=== PATIENT | male | born 1965 | race Caucasian/White ===

== ENCOUNTER 2016-12-21 08:10 | Emergency (ER) | payer OTHER ==
[2016-12-21 08:16] VITALS: BP 190/98; PULSE 97; RESP 18; TEMP 97.6
--- NOTE | 2016-12-21 08:35 | ED ---
Recheck HPI - General Chief Complaint: Recheck/Abnormal Lab/Rx Stated Complaint: Med Refill Time Seen by Provider: 12/21/16 08:16 Source: patient, RN notes reviewed, old records reviewed Mode of arrival: ambulatory Limitations: no limitations - History of Present Illness Initial Comments: Patient, presents emergency Department chief complaining of needing a medication refill. Patient reports that he has a history of bipolar disorder, hypertension and high cholesterol. He recently moved here from [place]. He is a previous patient of Dr. Kimble and does plan to get into see him soon. Patient reports his insurance starts on December 28. Patient presently has a few pills left of his lithium and blood pressure medicine. He is to start new job on Saturday. Patient denies any associated symptoms. Patient reports he feels well otherwise. - Related Data Previous Rx's Medication Instructions Recorded Atorvastatin [Lipitor] 20 mg PO HS #20 tablet 12/21/16 Hydrochlorothiazide 25 mg PO DAILY #20 tablet 12/21/16 Lisinopril 40 mg PO DAILY #20 tab 12/21/16 [place] Carbonate 600 mg PO DAILY #40 capsule 12/21/16 Allergies Allergy/AdvReac Type Severity Reaction Status Date / Time No Known Allergies Allergy Verified 12/21/16 08:16 Review of Systems ROS Statement: Those systems with pertinent positive or pertinent negative responses have been documented in the HPI. ROS Other: All systems not noted in ROS Statement are negative. Past Medical History Past Medical History: Hyperlipidemia, Hypertension Additional Past Medical History / Comment(s): bipolar History of Any Multi-Drug Resistant Organisms: None Reported Past Surgical History: Orthopedic Surgery Additional Past Surgical History / Comment(s): deviated septum sinus surg knee carpel tunnel Past Psychological History: Bipolar Smoking Status: Current every day smoker Past Alcohol Use History: Occasional Past Drug Use History: None Reported General Exam - General Exam Comments Initial Comments: This is a pleasant 31-year-old male. No acute distress. Limitations: no limitations General appearance: alert, in no apparent distress Head exam: Present: atraumatic, normocephalic, normal inspection Eye exam: Present: normal appearance, PERRL, EOMI. Absent: scleral icterus, conjunctival injection, periorbital swelling ENT exam: Present: normal exam, mucous membranes moist Neck exam: Present: normal inspection. Absent: tenderness, meningismus, lymphadenopathy Respiratory exam: Present: normal lung sounds bilaterally. Absent: respiratory distress, wheezes, rales, rhonchi, stridor Cardiovascular Exam: Present: regular rate, normal rhythm, normal heart sounds. Absent: systolic murmur, diastolic murmur, rubs, gallop, clicks GI/Abdominal exam: Present: soft, normal bowel sounds. Absent: distended, tenderness, guarding, rebound, rigid Extremities exam: Present: normal inspection, full ROM, normal capillary refill. Absent: tenderness, pedal edema, joint swelling, calf tenderness Back exam: Present: normal inspection Neurological exam: Present: alert, oriented X3 Psychiatric exam: Present: normal affect, normal mood Skin exam: Present: warm, dry, intact, normal color. Absent: rash Course Vital Signs 12/21/16 08:12 Temperature 97.6 F Pulse Rate 97 Respiratory 18 Rate Blood Pressure 190/98 O2 Sat by Pulse 99 Oximetry Medical Decision Making - Medical Decision Making 0 male chief complaint of being medication refill of lithium, atorvastatin, llisinopril and HCTZ. Patient will be given refills for 2 weeks, and instructed to follow-up with his primary care provider Dr. Kimble. Discussed close follow-up with PCP, return if there is any worsening signs or symptoms. Patient agrees to treatment plan will comply. Return Parameters were discussed. Disposition Clinical Impression: Medication refill, Hypertension Disposition: HOME SELF-CARE Condition: Good Instructions: Medicine Refill (ED) Additional Instructions: Patient advised to follow with her primary care provider. Take the medications as prescribed. Return to the emergency department if any alarming signs or symptoms occur. Prescriptions: Atorvastatin [Lipitor] 20 mg PO HS #20 tablet Hydrochlorothiazide 25 mg PO DAILY #20 tablet Lisinopril 40 mg PO DAILY #20 tab [place] Carbonate 600 mg PO DAILY #40 capsule Referrals: Hermes Kimble MD [Primary Care Provider] - 1-2 days Time of Disposition: 08:30
== END 2016-12-21 08:55 | disposition home or self-care (01) ==
LOC: EC 08:10
DX: I10 Essential (primary) hypertension (principal); Z76.0 Encounter for issue of repeat prescription; F17.200 Nicotine dependence, unspecified, uncomplicated
CPT/HCPCS: 99282

== ENCOUNTER 2017-03-05 16:37 | Inpatient (IN) | payer OTHER ==
[2017-03-05] MEDS ORDERED: SODIUM CHLORIDE 0.9% 1,000 ML IV STA (17:30)
[2017-03-05] MEDS ORDERED: PANTOPRAZOLE 40 MG/10 ML VIAL IVP STA (17:30)
--- NOTE | 2017-03-05 17:47 | ED ---
GI Bleed HPI - General Chief complaint: GI Bleed Stated complaint: Vomiting Blood Time Seen by Provider: 03/05/17 17:30 Source: patient, RN notes reviewed Mode of arrival: ambulatory Limitations: no limitations - History of Present Illness Initial comments: This a 51-year-old male presents emergency Department chief complaint of hematemesis. Patient states that he's had 7 episodes of bloody vomit. Patient states that he does have some upper abdominal discomfort. He states he has no history of peptic ulcer disease, esophageal varices or any history of hematemesis. Patient denies fever, chills, chest pain, shortness breath, headache, dizziness. Denies any diarrhea, melena or hematochezia. Patient states he does use alcohol on a daily basis. Patient has no history of pancreatitis. Patient does not take any blood thinners. Patient states he was recently prescribed anti-inflammatories though he states he does not usually take these on a regular basis. - Related Data Home Medications Medication Instructions Recorded Confirmed Menthol [Biofreeze] 1 applic TOPICAL DAILY PRN 03/05/17 03/05/17 Previous Rx's Medication Instructions Recorded Atorvastatin [Lipitor] 20 mg PO HS #20 tablet 12/21/16 Lisinopril 40 mg PO DAILY #20 tab 12/21/16 [place] Carbonate 600 mg PO DAILY #40 capsule 12/21/16 Allergies Allergy/AdvReac Type Severity Reaction Status Date / Time No Known Allergies Allergy Verified 03/05/17 17:31 Review of Systems ROS Statement: Those systems with pertinent positive or pertinent negative responses have been documented in the HPI. ROS Other: All systems not noted in ROS Statement are negative. Past Medical History Past Medical History: Hyperlipidemia, Hypertension Additional Past Medical History / Comment(s): bipolar, septic uti, History of Any Multi-Drug Resistant Organisms: None Reported Past Surgical History: Orthopedic Surgery Additional Past Surgical History / Comment(s): deviated septum sinus surg knee carpel tunnel Past Psychological History: Bipolar Smoking Status: Current every day smoker Past Alcohol Use History: Daily, Heavy Past Drug Use History: None Reported General Exam Limitations: no limitations General appearance: alert, in no apparent distress Head exam: Present: atraumatic, normocephalic, normal inspection Neck exam: Present: normal inspection, full ROM. Absent: tenderness, meningismus, lymphadenopathy Respiratory exam: Present: normal lung sounds bilaterally. Absent: respiratory distress, wheezes, rales, rhonchi, stridor Cardiovascular Exam: Present: regular rate, normal rhythm, normal heart sounds. Absent: systolic murmur, diastolic murmur, rubs, gallop, clicks GI/Abdominal exam: Present: soft, tenderness (Mild epigastric tenderness), normal bowel sounds. Absent: distended, guarding, rebound, rigid Back exam: Absent: CVA tenderness (R), CVA tenderness (L) Skin exam: Present: warm, dry, intact, normal color. Absent: rash Course Vital Signs 03/05/17 03/05/17 17:20 18:52 Temperature 98.1 F Pulse Rate 100 80 Respiratory 17 20 Rate Blood Pressure 174/87 118/57 O2 Sat by Pulse 98 95 Oximetry Medical Decision Making - Lab Data Result diagrams: 03/05/17 18:09 03/05/17 18:09 Lab Results 03/05/17 03/05/17 03/05/17 Range/Units 18:09 18:09 18:09 WBC 12.3 H (3.8-10.6) k/uL RBC 3.87 L (4.30-5.90) m/uL Hgb 13.8 (13.0-17.5) gm/dL Hct 41.7 (39.0-53.0) % MCV 107.8 H (80.0-100.0) fL MCH 35.7 H (25.0-35.0) pg MCHC 33.1 (31.0-37.0) g/dL RDW 13.5 (11.5-15.5) % Plt Count 133 L (150-450) k/uL Neutrophils % 81 % Lymphocytes % 10 % Monocytes % 6 % Eosinophils % 2 % Basophils % 0 % Neutrophils # 9.9 H (1.3-7.7) k/uL Lymphocytes # 1.2 (1.0-4.8) k/uL Monocytes # 0.7 (0-1.0) k/uL Eosinophils # 0.2 (0-0.7) k/uL Basophils # 0.0 (0-0.2) k/uL Macrocytosis Moderate PT (9.0-12.0) sec INR (<1.2) APTT (22.0-30.0) sec Sodium 141 (137-145) mmol/L Potassium 4.4 (3.5-5.1) mmol/L Chloride 104 (98-107) mmol/L Carbon Dioxide 26 (22-30) mmol/L Anion Gap 11 mmol/L BUN 20 (9-20) mg/dL Creatinine 0.46 L (0.66-1.25) mg/dL Est GFR (MDRD) Af Amer >60 (>60 ml/min/1.73 sqM) Est GFR (MDRD) Non-Af >60 (>60 ml/min/1.73 sqM) Glucose 140 H (74-99) mg/dL Calcium 10.0 (8.4-10.2) mg/dL Magnesium 1.9 (1.6-2.3) mg/dL Total Bilirubin 3.8 H (0.2-1.3) mg/dL AST 62 H (17-59) U/L ALT 29 (21-72) U/L Alkaline Phosphatase 245 H (38-126) U/L Total Creatine Kinase 48 L (55-170) U/L CK-MB (CK-2) 2.9 H* (0.0-2.4) ng/mL CK-MB (CK-2) Rel Index 6.0 Troponin I <0.012 (0.000-0.034) ng/mL Total Protein 7.6 (6.3-8.2) g/dL Albumin 4.0 (3.5-5.0) g/dL Lipase 106 (23-300) U/L Urine Color Urine Appearance (Clear) Urine pH (5.0-8.0) Ur Specific [place] (1.001-1.035) Urine Protein (Negative) Urine Glucose (UA) (Negative) Urine Ketones (Negative) Urine Blood (Negative) Urine Nitrite (Negative) Urine Bilirubin (Negative) Urine Urobilinogen (<2.0) mg/dL Ur Leukocyte Esterase (Negative) Gastric Occult Blood (Negative) Serum Alcohol <10 mg/dL 03/05/17 03/05/17 03/05/17 Range/Units 18:09 18:26 19:50 WBC (3.8-10.6) k/uL RBC (4.30-5.90) m/uL Hgb (13.0-17.5) gm/dL Hct (39.0-53.0) % MCV (80.0-100.0) fL MCH (25.0-35.0) pg MCHC (31.0-37.0) g/dL RDW (11.5-15.5) % Plt Count (150-450) k/uL Neutrophils % % Lymphocytes % % Monocytes % % Eosinophils % % Basophils % % Neutrophils # (1.3-7.7) k/uL Lymphocytes # (1.0-4.8) k/uL Monocytes # (0-1.0) k/uL Eosinophils # (0-0.7) k/uL Basophils # (0-0.2) k/uL Macrocytosis PT 14.0 H (9.0-12.0) sec INR 1.4 H (<1.2) APTT 25.5 (22.0-30.0) sec Sodium (137-145) mmol/L Potassium (3.5-5.1) mmol/L Chloride (98-107) mmol/L Carbon Dioxide (22-30) mmol/L Anion Gap mmol/L BUN (9-20) mg/dL Creatinine (0.66-1.25) mg/dL Est GFR (MDRD) Af Amer (>60 ml/min/1.73 sqM) Est GFR (MDRD) Non-Af (>60 ml/min/1.73 sqM) Glucose (74-99) mg/dL Calcium (8.4-10.2) mg/dL Magnesium (1.6-2.3) mg/dL Total Bilirubin (0.2-1.3) mg/dL AST (17-59) U/L ALT (21-72) U/L Alkaline Phosphatase (38-126) U/L Total Creatine Kinase (55-170) U/L CK-MB (CK-2) (0.0-2.4) ng/mL CK-MB (CK-2) Rel Index Troponin I (0.000-0.034) ng/mL Total Protein (6.3-8.2) g/dL Albumin (3.5-5.0) g/dL Lipase (23-300) U/L Urine Color Yellow Urine Appearance Clear (Clear) Urine pH 8.0 (5.0-8.0) Ur Specific [place] 1.017 (1.001-1.035) Urine Protein Negative (Negative) Urine Glucose (UA) Negative (Negative) Urine Ketones Negative (Negative) Urine Blood Negative (Negative) Urine Nitrite Negative (Negative) Urine Bilirubin Negative (Negative) Urine Urobilinogen 4.0 (<2.0) mg/dL Ur Leukocyte Esterase Negative (Negative) Gastric Occult Blood Positive (Negative) Serum Alcohol mg/dL Disposition Clinical Impression: Hematemesis, Jaundice, Cholelithiasis Disposition: ADMITTED IP TO THIS HOSP Condition: Fair Referrals: Hermes Kimble MD [Primary Care Provider] - 1-2 days
[2017-03-05 18:21] LABS: Basophils % (A) 0 %; CHCM 32.6; Eosinophils # (A) 0.2 k/uL (0-0.7); Eosinophils % (A) 2 %; HCT 41.7 % (39.0-53.0); HDW 2.05; HGB 13.8 gm/dL (13.0-17.5); Luc # (Auto) 0.13; Luc % (Auto) 1; Lymphocytes # (A) 1.2 k/uL (1.0-4.8); Lymphocytes % (A) 10 %; MCH 35.7 pg (25.0-35.0); MCHC 33.1 g/dL (31.0-37.0); MCV 107.8 fL (80.0-100.0); Macrocytosis Moderate; Mean Platelet Volume 10.3; Monocytes # (A) 0.7 k/uL (0-1.0); Monocytes % (A) 6 %; Neutrophils # (A) 9.9 k/uL (1.3-7.7); Neutrophils % (A) 81 %; RBC 3.87 m/uL (4.30-5.90); RDW 13.5 % (11.5-15.5); WBC 12.3 k/uL (3.8-10.6)
[2017-03-05 18:29] LABS: INR 1.4 (<1.2); Partial Thromboplastin Time 25.5 sec (22.0-30.0)
[2017-03-05 18:32] LABS: Appearance,Urine Clear (Clear); Bilirubin,Urine Negative (Negative); Glucose,Urine (UA) Negative (Negative); Ketones,Urine Negative (Negative); Leukocyte Esterase,Urine Negative (Negative); Nitrite,Urine Negative (Negative); Protein,Urine Negative (Negative); Specific Gravity,Urine 1.017 (1.001-1.035); UA Billing (MACRO vs. MICRO) CHEM
[2017-03-05 18:35] LABS: ALT 29 U/L (21-72); AST 62 U/L (17-59); Alcohol <10 mg/dL; Alkaline Phosphatase 245 U/L (38-126); Anion Gap 11 mmol/L; Blood Urea Nitrogen 20 mg/dL (9-20); Carbon Dioxide 26 mmol/L (22-30); Chloride 104 mmol/L (98-107); Glucose 140 mg/dL (74-99); Magnesium 1.9 mg/dL (1.6-2.3); Non-African American GFR(MDRD) >60 (>60 ml/min/1.73 sqM); Potassium 4.4 mmol/L (3.5-5.1); Sodium 141 mmol/L (137-145); Total Bilirubin 3.8 mg/dL (0.2-1.3); Total Protein 7.6 g/dL (6.3-8.2)
[2017-03-05 18:46] LABS: Creatine Kinase 48 U/L (55-170)
--- NOTE | 2017-03-05 18:46 | XR ---
EXAMINATION TYPE: XR chest 2V DATE OF EXAM: 03/05/2017 COMPARISON: NONE HISTORY: Shortness of breath TECHNIQUE: Frontal and lateral views of the chest are obtained. FINDINGS: Scattered senescent parenchymal changes noted. Hyperinflation compatible with COPD. No evidence for infiltrate. No evidence for atelectasis. Heart size is stable. Mediastinal structures are stable and grossly unremarkable. No evidence for hilar prominence. Degenerative changes dorsal spine. IMPRESSION: 1. No evidence for acute pulmonary disease.
[2017-03-05 18:58] LABS: Troponin I <0.012 ng/mL (0.000-0.034)
[2017-03-05 19:08] LABS: Creatine Kinase MB 2.9 ng/mL (0.0-2.4)
[2017-03-05] MEDS ORDERED: ONDANSETRON 4 MG/2 ML VIAL IVP STA (19:19)
--- NOTE | 2017-03-05 20:24 | US ---
EXAMINATION TYPE: US abdomen limited DATE OF EXAM: 03/05/2017 COMPARISON: NONE CLINICAL HISTORY: Pain. Vomiting blood EXAM MEASUREMENTS: Liver Length: 21.4 cm Gallbladder Wall: 0.28 cm CBD: 0.26 cm Right Kidney: 12.5 x 5.0 x 6.2 cm Pancreas: Obscured by bowel gas Liver: Increased attenuation Gallbladder: stone visualized in neck Evidence for sonographic Miranda's sign: No CBD: wnl Right Kidney: wnl IMPRESSION: 1 gallstone is seen within the gallbladder lumen. Borderline gallbladder wall thickening. No evidence of pericholecystic fluid. 2. Hepatic steatosis versus diffuse hepatocellular disease.
[2017-03-05] MEDS ORDERED: NALOXONE 0.4 MG/ML 1 ML VIAL IV PRN (21:04)
[2017-03-05] MEDS ORDERED: ONDANSETRON 4 MG/2 ML VIAL IVP PRN (21:04)
[2017-03-05] MEDS ORDERED: LORazepam 2 MG/ML INJ IV PRN ×3 (21:21)
[2017-03-05] MEDS: SODIUM CHLORIDE 0.9% 1,000 ML IV SCH (21:21)
[2017-03-05 22:51] VITALS: BMI 24.0
[2017-03-05] MEDS: THIAMINE 100 MG TAB PO SCH (22:51)
[2017-03-06 01:15] LABS: Basophils % (A) 0 %; CH 34.9; CHCM 31.9; Eosinophils # (A) 0.3 k/uL (0-0.7); Eosinophils % (A) 2 %; HCT 37.2 % (39.0-53.0); HDW 1.99; HGB 11.9 gm/dL (13.0-17.5); Luc # (Auto) 0.15; Luc % (Auto) 1; Lymphocytes # (A) 1.7 k/uL (1.0-4.8); Lymphocytes % (A) 13 %; MCH 35.2 pg (25.0-35.0); MCV 110.1 fL (80.0-100.0); Macrocytosis Marked; Mean Platelet Volume 10.4; Monocytes # (A) 0.8 k/uL (0-1.0); Monocytes % (A) 6 %; Neutrophils # (A) 10.1 k/uL (1.3-7.7); Neutrophils % (A) 77 %; RBC 3.38 m/uL (4.30-5.90); RDW 13.5 % (11.5-15.5); WBC 13.1 k/uL (3.8-10.6); WBC (Perox) 14.17
[2017-03-06 04:16] LABS: Basophils % (A) 0 %; CH 34.5; CHCM 32.2; Eosinophils # (A) 0.5 k/uL (0-0.7); Eosinophils % (A) 4 %; HCT 36.3 % (39.0-53.0); HDW 2.02; HGB 11.9 gm/dL (13.0-17.5); Luc # (Auto) 0.17; Luc % (Auto) 1; Lymphocytes # (A) 2.4 k/uL (1.0-4.8); Lymphocytes % (A) 18 %; MCH 35.2 pg (25.0-35.0); MCHC 32.7 g/dL (31.0-37.0); MCV 107.8 fL (80.0-100.0); Macrocytosis Moderate; Mean Platelet Volume 11.2; Monocytes # (A) 0.8 k/uL (0-1.0); Monocytes % (A) 6 %; Neutrophils # (A) 9.3 k/uL (1.3-7.7); Neutrophils % (A) 70 %; RBC 3.37 m/uL (4.30-5.90); RDW 13.3 % (11.5-15.5); WBC 13.2 k/uL (3.8-10.6); WBC (Perox) 14.03
[2017-03-06 04:58] LABS: Anion Gap 4 mmol/L; Blood Urea Nitrogen 19 mg/dL (9-20); Calcium 9.5 mg/dL (8.4-10.2); Carbon Dioxide 27 mmol/L (22-30); Chloride 107 mmol/L (98-107); Glucose 86 mg/dL (74-99); Non-African American GFR(MDRD) >60 (>60 ml/min/1.73 sqM); Sodium 138 mmol/L (137-145)
--- NOTE | 2017-03-06 09:39 | P.CONS ---
History of Present Illness - Reason for Consult Consult date: 03/06/17 hematemesis Requesting physician: Hermes Kimble - History of Present Illness 51 year old male PMH bipolar, HTN, and hyperlipidemia. Admitted with several episodes of dark red/dark brown/black hematemesis with upper abdominal pain started yesterday morning. No history of GI bleed. Denies fever, chills, weight loss, hematochezia or melena. Recent NSAID usage only one dose prior to admission for back pain. Drinks alcohol on a daily basis; several beers daily on and off since 15 years of age. Hemoglobin 13.8 presently 11.9. MCV 107. Platelet 100-133. INR 1.4. BUN 20. Creatinine 0.4. Total bilirubin 3.8. AST 62. ALT 29. AP 245. US abdomen gallstone. CBD 0.2. Liver 21 cm. Hepatic steatosis. No history of PUD, GI bleed, EGD, or gastric/bowel surgeries. Last episode of hematemesis was on admission in ER. Review of Systems Constitutional: Denies fever, chills, sweats, weight gain, or loss. HEENT: Negative for migraines, blurred vision or loss, earaches, drainage, tinnitus, oral mucosal lesions, dysphagia, or odynophagia. Cardiac: Hypertension. Hyperlipidemia. Negative for chest pain, arrhythmias, or palpitation. Respiratory: Negative for shortness of breath, hemoptysis, cough, or sputum production. Gastrointestinal: See HPI for pertinent findings. Genitourinary: Negative for hematuria, urgency, frequency, polyuria, dysuria, or penile discharge. Musculoskeletal: Negative for muscle aches, swelling, arthritis, and arthralgias. Neurologic: Negative for stroke or TIA. Endocrine: Negative for thyroid problems. Skin: Negative for rash or itching. Psychiatric: Bipolar All systems: negative (See HPI) Past Medical History Past Medical History: Hyperlipidemia, Hypertension Additional Past Medical History / Comment(s): bipolar, septic uti, History of Any Multi-Drug Resistant Organisms: None Reported Past Surgical History: Orthopedic Surgery Additional Past Surgical History / Comment(s): deviated septum sinus surg knee carpel tunnel Past Anesthesia/Blood Transfusion Reactions: No Reported Reaction Past Psychological History: Bipolar Smoking Status: Current every day smoker Past Alcohol Use History: Daily, Heavy Past Drug Use History: None Reported Medications and Allergies Home Medications Medication Instructions Recorded Confirmed Type Atorvastatin [Lipitor] 20 mg PO HS #20 tablet 12/21/16 03/05/17 Rx Lisinopril 40 mg PO DAILY #20 tab 12/21/16 03/05/17 Rx [place] Carbonate 600 mg PO DAILY #40 capsule 12/21/16 03/05/17 Rx Menthol [Biofreeze] 1 applic TOPICAL DAILY PRN 03/05/17 03/05/17 History Allergies Allergy/AdvReac Type Severity Reaction Status Date / Time No Known Allergies Allergy Verified 03/05/17 17:31 Physical Exam Vitals: Vital Signs Temp Pulse Pulse Resp BP BP Pulse Ox 03/06/17 01:00 75 14 140/73 03/06/17 00:00 74 73 13 152/84 03/05/17 22:30 98.9 F 77 19 152/84 96 03/05/17 21:46 98.8 F 73 18 152/84 98 03/05/17 21:44 96.9 F L 89 20 147/72 97 03/05/17 21:06 99.3 F 81 18 144/72 94 L 03/05/17 18:52 80 20 118/57 95 03/05/17 17:20 98.1 F 100 17 174/87 98 Intake and Output 03/05/17 03/05/17 03/06/17 14:59 22:59 06:59 Intake Total 150 Output Total 150 Balance 0 Intake: IV 150 Sodium Chloride 0.9% 1, 150 000 ml @ 75 mls/hr IV . [id number] [facility] Rx#:[id number] Output: Urine 150 Other: Voiding Method Urinal Weight 89.4 kg Patient Weight 03/06/17 06:59 Weight 89.4 kg - Constitutional General appearance: average body habitus - EENT Eyes: normal appearance - Neck Neck: normal ROM - Respiratory Respiratory: bilateral: CTA - Cardiovascular Rhythm: regular Heart sounds: normal: S1, S2 - Gastrointestinal midepigastric tenderness mild General gastrointestinal: soft - Integumentary Integumentary: normal turgor - Psychiatric Psychiatric: A&O x's 3, appropriate affect Results CBC & Chem 7: 03/06/17 04:07 03/06/17 04:07 Labs: Abnormal Lab Results - Last 24 Hours (Table) 03/05/17 03/05/17 03/05/17 Range/Units 18:09 18:09 18:09 WBC 12.3 H (3.8-10.6) k/uL RBC 3.87 L (4.30-5.90) m/uL Hgb (13.0-17.5) gm/dL Hct (39.0-53.0) % MCV 107.8 H (80.0-100.0) fL MCH 35.7 H (25.0-35.0) pg Plt Count 133 L (150-450) k/uL Neutrophils # 9.9 H (1.3-7.7) k/uL PT (9.0-12.0) sec INR (<1.2) Creatinine 0.46 L (0.66-1.25) mg/dL Glucose 140 H (74-99) mg/dL Total Bilirubin 3.8 H (0.2-1.3) mg/dL AST 62 H (17-59) U/L Alkaline Phosphatase 245 H (38-126) U/L Total Creatine Kinase 48 L (55-170) U/L CK-MB (CK-2) 2.9 H* (0.0-2.4) ng/mL 03/05/17 03/06/17 03/06/17 Range/Units 18:09 00:57 04:07 WBC 13.1 H 13.2 H (3.8-10.6) k/uL RBC 3.38 L 3.37 L (4.30-5.90) m/uL Hgb 11.9 L 11.9 L (13.0-17.5) gm/dL Hct 37.2 L 36.3 L (39.0-53.0) % MCV 110.1 H 107.8 H (80.0-100.0) fL MCH 35.2 H 35.2 H (25.0-35.0) pg Plt Count 106 L 100 L (150-450) k/uL Neutrophils # 10.1 H 9.3 H (1.3-7.7) k/uL PT 14.0 H (9.0-12.0) sec INR 1.4 H (<1.2) Creatinine (0.66-1.25) mg/dL Glucose (74-99) mg/dL Total Bilirubin (0.2-1.3) mg/dL AST (17-59) U/L Alkaline Phosphatase (38-126) U/L Total Creatine Kinase (55-170) U/L CK-MB (CK-2) (0.0-2.4) ng/mL 03/06/17 Range/Units 04:07 WBC (3.8-10.6) k/uL RBC (4.30-5.90) m/uL Hgb (13.0-17.5) gm/dL Hct (39.0-53.0) % MCV (80.0-100.0) fL MCH (25.0-35.0) pg Plt Count (150-450) k/uL Neutrophils # (1.3-7.7) k/uL PT (9.0-12.0) sec INR (<1.2) Creatinine 0.50 L (0.66-1.25) mg/dL Glucose (74-99) mg/dL Total Bilirubin (0.2-1.3) mg/dL AST (17-59) U/L Alkaline Phosphatase (38-126) U/L Total Creatine Kinase (55-170) U/L CK-MB (CK-2) (0.0-2.4) ng/mL US - abdomen: report reviewed (Dr. Ace) Assessment and Plan (1) Upper GI bleed Narrative/Plan: NSAID related peptic ulcer disease possible varices possible alcohol gastropathy gastritis esophagitis. Current Visit: Yes Status: Acute Code(s): K92.2 - GASTROINTESTINAL HEMORRHAGE, UNSPECIFIED SNOMED Code(s): 54815942 (2) Hematemesis Current Visit: Yes Status: Acute Code(s): K92.0 - HEMATEMESIS SNOMED Code( s): 9569723 (3) Alcoholic hepatitis Current Visit: Yes Status: Acute Code(s): K70.10 - ALCOHOLIC HEPATITIS WITHOUT ASCITES SNOMED Code(s): 674603871 (4) ETOH abuse Current Visit: Yes Status: Acute Code(s): F10.10 - ALCOHOL ABUSE, UNCOMPLICATED SNOMED Code(s): 06820259 (5) Acute blood loss anemia Current Visit: Yes Status: Acute Code(s): D62 - ACUTE POSTHEMORRHAGIC ANEMIA SNOMED Code(s): 036398894 (6) Steatosis of liver Current Visit: Yes Status: Acute Code(s): K76.0 - FATTY (CHANGE OF) LIVER, NOT ELSEWHERE CLASSIFIED SNOMED Code(s): 671175028 (7) Coagulopathy Current Visit: Yes Status: Acute Code(s): D68.9 - COAGULATION DEFECT, UNSPECIFIED SNOMED Code(s): 46039786 (8) Thrombocytopenia Current Visit: Yes Status: Acute Code(s): D69.6 - THROMBOCYTOPENIA, UNSPECIFIED SNOMED Code(s): 009903046 (9) Jaundice due to hepatitis Current Visit: Yes Status: Acute Code(s): K75.9 - INFLAMMATORY LIVER DISEASE , UNSPECIFIED SNOMED Code(s): 18241544 Plan: 1. Protonix 40 mg Q12HR. 2. CBC monitoring. 3. NO ASA/NSAIDS. 4. EGD evaluation tomorrow. 5. ETOH abstinence advised. 6. Full liquids. NPO after midnight. The mold holder has discussed the risks, benefits and alternative therapies for the above-mentioned procedure and for both sedation/analgesia as well as necessary blood product administration, if indicated, as they pertain to this patient. The patient has indicated understanding and acceptance of the risks and procedures discussed. Thank you for this kind referral and the opportunity to participate in the care of your patient. This consultation was discussed with Dr. Ace. The impression and plan of care have been directed as dictated.
[2017-03-06] MEDS: PANTOPRAZOLE 40 MG/10 ML VIAL IV SCH ×2 (09:45→20:33)
[2017-03-06] MEDS: LITHIUM CARBONATE 300 MG CAP PO SCH (10:41)
[2017-03-06] MEDS: LISINOPRIL 20 MG TAB PO SCH (10:41)
--- NOTE | 2017-03-06 10:45 | P.HPIM ---
History of Present Illness 51-year-old male presented to the emergency room with complaints of vomiting blood several times. Patient has a history of alcohol abuse daily alcohol intake. Patient complaining of intermittent and epigastric pain Review of Systems Gastrointestinal: Reports abdominal pain, Reports hematemesis, Reports jaundice Past Medical History Past Medical History: Hyperlipidemia, Hypertension Additional Past Medical History / Comment(s): bipolar, septic uti, History of Any Multi-Drug Resistant Organisms: None Reported Past Surgical History: Orthopedic Surgery Additional Past Surgical History / Comment(s): deviated septum sinus surg knee carpel tunnel Past Anesthesia/Blood Transfusion Reactions: No Reported Reaction Past Psychological History: Bipolar Smoking Status: Current every day smoker Past Alcohol Use History: Daily, Heavy Past Drug Use History: None Reported Medications and Allergies Home Medications Medication Instructions Recorded Confirmed Type Atorvastatin [Lipitor] 20 mg PO HS #20 tablet 12/21/16 03/05/17 Rx Lisinopril 40 mg PO DAILY #20 tab 12/21/16 03/05/17 Rx [place] Carbonate 600 mg PO DAILY #40 capsule 12/21/16 03/05/17 Rx Menthol [Biofreeze] 1 applic TOPICAL DAILY PRN 03/05/17 03/05/17 History Allergies Allergy/AdvReac Type Severity Reaction Status Date / Time No Known Allergies Allergy Verified 03/05/17 17:31 Physical Exam Vitals: Vital Signs Temp Pulse Pulse Resp BP BP Pulse Ox 03/06/17 09:00 96.5 F L 73 17 149/79 98 03/06/17 07:00 73 14 138/72 03/06/17 06:00 75 12 119/71 98 03/06/17 05:00 72 20 119/71 97 03/06/17 04:00 98.5 F 70 73 15 135/76 98 03/06/17 03:00 92 29 H 135/76 99 03/06/17 02:00 71 13 140/73 98 03/06/17 01:00 75 14 140/73 03/06/17 00:00 74 73 13 152/84 03/05/17 22:30 98.9 F 77 19 152/84 96 03/05/17 21:46 98.8 F 73 18 152/84 98 03/05/17 21:44 96.9 F L 89 20 147/72 97 03/05/17 21:06 99.3 F 81 18 144/72 94 L 03/05/17 18:52 80 20 118/57 95 03/05/17 17:20 98.1 F 100 17 174/87 98 Intake and Output 03/05/17 03/06/17 03/06/17 22:59 06:59 14:59 Intake Total 150 896 Output Total 300 100 Balance -150 796 Intake: IV 150 896 Sodium Chloride 0.9% 1, 150 896 000 ml @ 75 mls/hr IV . [id number] [facility] Rx#:[id number] Output: Urine 300 100 Other: Voiding Method Urinal Weight 89.4 kg - Constitutional General appearance: obese - EENT Eyes: PERRLA, scleral icterus ENT: normal oropharynx - Neck Neck: normal ROM - Respiratory Respiratory: bilateral: CTA - Cardiovascular Rhythm: regular - Gastrointestinal General gastrointestinal: soft - Integumentary Integumentary: normal - Neurologic Neurologic: CNII-XII intact - Musculoskeletal Musculoskeletal: generalized weakness - Psychiatric Psychiatric: A&O x's 3, appropriate affect, intact judgment & insight Results CBC & Chem 7: 03/06/17 04:07 03/06/17 04:07 Labs: Abnormal Lab Results - Last 24 Hours (Table) 03/05/17 03/05/17 03/05/17 Range/Units 18:09 18:09 18:09 WBC 12.3 H (3.8-10.6) k/uL RBC 3.87 L (4.30-5.90) m/uL Hgb (13.0-17.5) gm/dL Hct (39.0-53.0) % MCV 107.8 H (80.0-100.0) fL MCH 35.7 H (25.0-35.0) pg Plt Count 133 L (150-450) k/uL Neutrophils # 9.9 H (1.3-7.7) k/uL PT (9.0-12.0) sec INR (<1.2) Creatinine 0.46 L (0.66-1.25) mg/dL Glucose 140 H (74-99) mg/dL Total Bilirubin 3.8 H (0.2-1.3) mg/dL AST 62 H (17-59) U/L Alkaline Phosphatase 245 H (38-126) U/L Total Creatine Kinase 48 L (55-170) U/L CK-MB (CK-2) 2.9 H* (0.0-2.4) ng/mL 03/05/17 03/06/17 03/06/17 Range/Units 18:09 00:57 04:07 WBC 13.1 H 13.2 H (3.8-10.6) k/uL RBC 3.38 L 3.37 L (4.30-5.90) m/uL Hgb 11.9 L 11.9 L (13.0-17.5) gm/dL Hct 37.2 L 36.3 L (39.0-53.0) % MCV 110.1 H 107.8 H (80.0-100.0) fL MCH 35.2 H 35.2 H (25.0-35.0) pg Plt Count 106 L 100 L (150-450) k/uL Neutrophils # 10.1 H 9.3 H (1.3-7.7) k/uL PT 14.0 H (9.0-12.0) sec INR 1.4 H (<1.2) Creatinine (0.66-1.25) mg/dL Glucose (74-99) mg/dL Total Bilirubin (0.2-1.3) mg/dL AST (17-59) U/L Alkaline Phosphatase (38-126) U/L Total Creatine Kinase (55-170) U/L CK-MB (CK-2) (0.0-2.4) ng/mL 03/06/17 Range/Units 04:07 WBC (3.8-10.6) k/uL RBC (4.30-5.90) m/uL Hgb (13.0-17.5) gm/dL Hct (39.0-53.0) % MCV (80.0-100.0) fL MCH (25.0-35.0) pg Plt Count (150-450) k/uL Neutrophils # (1.3-7.7) k/uL PT (9.0-12.0) sec INR (<1.2) Creatinine 0.50 L (0.66-1.25) mg/dL Glucose (74-99) mg/dL Total Bilirubin (0.2-1.3) mg/dL AST (17-59) U/L Alkaline Phosphatase (38-126) U/L Total Creatine Kinase (55-170) U/L CK-MB (CK-2) (0.0-2.4) ng/mL Chest x-ray: report reviewed US - abdomen: report reviewed Thrombosis Risk Factor Assmnt - Choose All That Apply Any of the Below Risk Factors Present?: Yes Each Factor Represents 1 point: Age 41-60 years Other Risk Factors: No Other congenital or acquired thrombophilia - If yes, enter type in comment: No Thrombosis Risk Factor Assessment Total Risk Factor Score: 1 Thrombosis Risk Factor Assessment Level: Low Risk Assessment and Plan Assessment: Assessment Upper GI bleed Alcoholic hepatitis EtOH abuse Anemia acute secondary to blood loss Cholelithiasis Nicotine use COPD History of hypertension History of hyperlipidemia History of bipolar Thrombocytopenia and coagulopathy secondary to alcoholic hepatitis Plan EGD per gastroenterology Monitor hemoglobin
[2017-03-06] MEDS: SODIUM CHLORIDE 0.9% 1,000 ML IV SCH ×2 (10:53→14:11)
[2017-03-06] MEDS: THIAMINE 100 MG TAB PO SCH ×2 (12:30→17:22)
[2017-03-06] MEDS: ATORVASTATIN 20 MG TAB PO SCH (20:33)
[2017-03-07] MEDS: SODIUM CHLORIDE 0.9% 1,000 ML IV SCH (08:08)
[2017-03-07] MEDS: LITHIUM CARBONATE 300 MG CAP PO SCH (08:08)
[2017-03-07] MEDS: THIAMINE 100 MG TAB PO SCH ×2 (08:08→17:39)
[2017-03-07] MEDS: LISINOPRIL 20 MG TAB PO SCH (08:08)
[2017-03-07] MEDS: PANTOPRAZOLE 40 MG/10 ML VIAL IV SCH ×2 (08:08→20:30)
[2017-03-07 09:09] LABS: CH 35.4; CHCM 32.4; HDW 2.05; HGB 11.6 gm/dL (13.0-17.5); MCH 35.3 pg (25.0-35.0); MCHC 32.2 g/dL (31.0-37.0); MCV 109.6 fL (80.0-100.0); Macrocytosis Moderate; Mean Platelet Volume 9.6; RBC 3.29 m/uL (4.30-5.90); RDW 12.5 % (11.5-15.5)
[2017-03-07 09:12] LABS: ALT 29 U/L (21-72); AST 51 U/L (17-59); Alkaline Phosphatase 204 U/L (38-126); Anion Gap 7 mmol/L; Blood Urea Nitrogen 11 mg/dL (9-20); Calcium 9.3 mg/dL (8.4-10.2); Carbon Dioxide 23 mmol/L (22-30); Chloride 109 mmol/L (98-107); Glucose 92 mg/dL (74-99); Non-African American GFR(MDRD) >60 (>60 ml/min/1.73 sqM); Potassium 4.4 mmol/L (3.5-5.1); Sodium 139 mmol/L (137-145); Total Bilirubin 4.9 mg/dL (0.2-1.3); Total Protein 6.2 g/dL (6.3-8.2)
--- NOTE | 2017-03-07 11:56 | P.PN ---
Subjective Patient resting in bed hemoglobin stable at 11.9. Denies any abdominal pain awaiting EGD per gastroenterology Objective - Vital Signs Vital signs: Vital Signs Temp 97.2 F L 03/07/17 08:00 Pulse 98 03/07/17 08:00 Resp 18 03/07/17 08:00 BP 133/69 03/07/17 08:00 Pulse Ox 98 03/07/17 08:00 Intake & Output 03/06/17 03/07/17 03/07/17 18:59 06:59 18:59 Intake Total 1656 675 0 Output Total 325 1200 Balance 1331 -525 0 Weight 89.4 kg 86.9 kg Intake: IV 1656 375 Sodium Chloride 0.9% 1, 1656 375 000 ml @ 75 mls/hr IV . [id number] [facility] Rx#:[id number] Oral 300 0 Output: Urine 325 1200 Other: Voiding Method Urinal Urinal Urinal # Voids 1 0 - Constitutional General appearance: Present: average body habitus - EENT Eyes: Present: PERRLA, scleral icterus Ears: bilateral: normal - Neck Neck: Present: normal ROM - Respiratory Respiratory: bilateral: CTA - Cardiovascular Rhythm: regular - Gastrointestinal General gastrointestinal: Present: soft - Integumentary Integumentary: Present: jaundiced, normal - Neurologic Neurologic: Present: CNII-XII intact - Musculoskeletal Musculoskeletal: Present: gait normal - Psychiatric Psychiatric: Present: A&O x's 3, appropriate affect, intact judgment & insight - Labs CBC & Chem 7: 03/07/17 08:38 03/07/17 08:38 Labs: Abnormal Lab Results - Last 24 Hours (Table) 03/07/17 03/07/17 Range/Units 08:38 08:38 RBC 3.29 L (4.30-5.90) m/uL Hgb 11.6 L (13.0-17.5) gm/dL Hct 36.0 L (39.0-53.0) % MCV 109.6 H (80.0-100.0) fL MCH 35.3 H (25.0-35.0) pg Plt Count 92 L (150-450) k/uL Chloride 109 H (98-107) mmol/L Creatinine 0.49 L (0.66-1.25) mg/dL Total Bilirubin 4.9 H (0.2-1.3) mg/dL Alkaline Phosphatase 204 H (38-126) U/L Total Protein 6.2 L (6.3-8.2) g/dL Albumin 3.1 L (3.5-5.0) g/dL Assessment and Plan Plan: Assessment upper GI bleed Cholelithiasis Alcoholic hepatitis with jaundice Thrombocytopenia and coagulopathy secondary to above Anemia acute secondary to blood loss Hypertension hyperlipidemia Bipolar COPD nicotine use Call abuse Plan Awaiting EGD per gastroenterology Discussed at length alcohol use
[2017-03-07] MEDS ORDERED: LIDOCAINE 1% INJ 10MG/ML (20 ML MDV) ONE (16:23)
[2017-03-07] MEDS ORDERED: PROPOFOL 10 MG/ML 20 ML VIAL IV ONE (16:23)
[2017-03-07] MEDS ORDERED: MIDAZOLAM 2 MG/2 ML VIAL ONE (16:23)
[2017-03-07] MEDS ORDERED: fentaNYL (PF) 50 MCG/ML 2 ML AMP ONE (16:23)
[2017-03-07] MEDS ORDERED: IV FLUID CONTINUATION 1,000 ML IV ONE (16:23)
--- NOTE | 2017-03-07 17:15 | P.PCN ---
Date of Procedure: 03/07/17 Procedure(s) Performed: Procedure: Esophagogastroduodenoscopy and biopsy. Preoperative diagnosis: Upper GI bleeding. Postoperative diagnosis: 1. Gastritis and duodenitis with no ulcers or active bleeding. 2. No significant esophageal or gastric varices. Preparation sedation: Was provided by anesthesia. Brief clinical history: The patient is a 51 year old male with PMH of bipolar, HTN, and hyperlipidemia, was admitted with several episodes of dark red/dark brown/black hematemesis with upper abdominal pain of one day duration. No history of GI bleed. Denies fever, chills, weight loss, hematochezia or melena. Recent NSAID usage only one dose prior to admission for back pain. Drinks alcohol on a daily basis; several beers daily on and off since 15 years of age. Hemoglobin 13.8 dropped to 11.9. MCV 107. Platelet 100-133. INR 1.4. BUN 20. Creatinine 0.4. Total bilirubin 3.8. AST 62. ALT 29. AP 245. US abdomen gallstone. CBD 0.2. Liver 21 cm. Hepatic steatosis. No history of PUD, GI bleed , EGD, or gastric/bowel surgeries. Last episode of hematemesis was on admission in ER. The details are summarized in the history and physical and dictated consultation and progress notes. Procedure: With the patient on his left lateral decubitus position and after informed consent and adequate sedation, I passed the Olympus-GIF 160 video upper endoscope through the cricopharyngeus down the esophagus. GE junction was around 41 cm from the incisors and there was a 1-2 cm sliding hiatal hernia. The distal esophagus showed some thickening of the mucosa but no obvious erosions or ulcers. No Ervin's esophagus. At there was no definite esophageal varices. There were no mucosal tears. The endoscope was then passed into the stomach which was insufflated with air and inspected in detail including the retroflex view in the cardia. Finally the endoscope was passed through the pylorus into the duodenum. Duodenal bulb, post bulbar area and descending duodenum as well as the stomach showed diffuse mottling erythema and friability but no ulcers or active bleeding. There was no obvious gastric varices. All secretions in the esophagus stomach and small intestine where clear or bilious in color with no evidence of active bleeding. Biopsies were obtained from the antrum then the endoscope was withdrawn. The patient tolerated the procedure well. Plan: The patient was reassured. Will await biopsy results. Meanwhile, will advance diet and he was instructed regarding the need to abstain from drinking alcohol. Further plans can be made based on his course and biopsy results.
[2017-03-07] MEDS: ATORVASTATIN 20 MG TAB PO SCH (20:30)
[2017-03-08] MEDS: SODIUM CHLORIDE 0.9% 1,000 ML IV SCH (03:43)
--- NOTE | 2017-03-08 09:28 | P.PN ---
Subjective Progress Note Date: 03/08/17 Principal diagnosis: GI bleed hepatitis Status post EGD evaluation yesterday for evaluation of hematemesis. Findings of gastritis duodenitis no evidence of peptic ulcer disease or bleeding angiectasia. Feels better. No recurrent hematemesis. Tolerating diet. Anticipating discharge. Abdominal pain improved. Objective - Vital Signs Vital signs: Vital Signs Temp 98.7 F 03/08/17 04:00 Pulse 98 03/08/17 04:00 Resp 19 03/08/17 04:00 BP 138/72 03/08/17 04:00 Pulse Ox 97 03/08/17 04:00 Intake & Output 03/07/17 03/08/17 03/08/17 18:59 06:59 18:59 Intake Total 100 300 118 Output Total 100 1100 Balance 0 -800 118 Weight 86.3 kg Intake: IV 100 Oral 0 300 118 Output: Urine 100 1100 Other: Voiding Method Urinal Urinal # Voids 0 0 1 - Exam General appearance: The patient is alert, oriented, in no acute distress. Jaundice. HET: Head is normocephalic and atraumatic. Pupils are equal and reactive. Sclerae icterus. Oropharynx is clear without lesions. Neck: Supple without lymphadenopathy. Trachea midline. Heart: S1 S2. Regular rate and rhythm. Lungs: No crackles or wheezes are heard. Abdomen: Soft, nontender, nondistended with bowel sounds. No peritoneal signs. No palpable organomegaly or masses. Extremities: Normal skin color and turgor. No cyanosis, rash, ulceration, clubbing, or edema. Radial and pedal pulses are 2/4 bilaterally. Neurological: No focal deficits. Strength and sensation are grossly intact. - Labs CBC & Chem 7: 03/07/17 08:38 03/07/17 08:38 Assessment and Plan (1) Upper GI bleed Narrative/Plan: Gastritis duodenitis per EGD evaluation Current Visit: Yes Status: Acute Code(s): K92.2 - GASTROINTESTINAL HEMORRHAGE, UNSPECIFIED SNOMED Code(s): 00790465 (2) Hematemesis Current Visit: Yes Status: Acute Code(s): K92.0 - HEMATEMESIS SNOMED Code( s): 8825196 (3) Alcoholic hepatitis Current Visit: Yes Status: Acute Code(s): K70.10 - ALCOHOLIC HEPATITIS WITHOUT ASCITES SNOMED Code(s): 553099834 (4) ETOH abuse Current Visit: Yes Status: Acute Code(s): F10.10 - ALCOHOL ABUSE, UNCOMPLICATED SNOMED Code(s): 55989238 (5) Acute blood loss anemia Current Visit: Yes Status: Acute Code(s): D62 - ACUTE POSTHEMORRHAGIC ANEMIA SNOMED Code(s): 463207689 (6) Steatosis of liver Current Visit: Yes Status: Acute Code(s): K76.0 - FATTY (CHANGE OF) LIVER, NOT ELSEWHERE CLASSIFIED SNOMED Code(s): 570656862 (7) Coagulopathy Current Visit: Yes Status: Acute Code(s): D68.9 - COAGULATION DEFECT, UNSPECIFIED SNOMED Code(s): 86598745 (8) Thrombocytopenia Current Visit: Yes Status: Acute Code(s): D69.6 - THROMBOCYTOPENIA, UNSPECIFIED SNOMED Code(s): 874431070 (9) Jaundice due to hepatitis Current Visit: Yes Status: Acute Code(s): K75.9 - INFLAMMATORY LIVER DISEASE , UNSPECIFIED SNOMED Code(s): 75461880 Plan: 1. Discharge per medicine. Follow up in GI office as needed. Alcohol abstinence advised. Assessment and plan of care discussed with Dr. Brown
[2017-03-08] MEDS: LITHIUM CARBONATE 300 MG CAP PO SCH (09:36)
[2017-03-08] MEDS: LISINOPRIL 20 MG TAB PO SCH (09:36)
[2017-03-08] MEDS: PANTOPRAZOLE 40 MG/10 ML VIAL IV SCH (09:36)
[2017-03-08 09:48] VITALS: TEMP 96.3
[2017-03-08 09:49] VITALS: BP 141/65; PULSE 78; RESP 18
--- NOTE | 2017-03-08 17:02 | P.DS ---
Providers Date of admission: 03/05/17 20:58 Attending physician: Hermes Kimble Primary care physician: Hermes Kimble [facility] Course: This 57-year-old gentleman with a past medical history of multiple medical problems was admitted with upper GI bleeding. EGD showed gastritis. The possibility of Eva-Soto syndrome was also considered. Patient is also taking NSAIDS the previously. The patient improved significantly. Hemoglobin stabilized. Patient be discharged in a stable condition with guarded prognosis. On exam vitals are stable. Cardio system S1-S2 normal. Abdomen soft nontender. Nervous system no focal deficit. Final diagnosis 1. Upper GI bleeding possibly acute gastritis or Eva-Soto syndrome. 2. Cholelithiasis. 3. Alcoholic hepatitis with jaundice improved. 4. Thrombocytopenia 5. Anemia secondary to of acute blood loss anemia GI blood loss. 5. Hypertension 6. Hyperlipidemia 7. Bipolar. Patient Condition at Discharge: Fair Plan - Discharge Summary Discharge Rx Participant: No New Discharge Prescriptions: New Folic Acid 1 mg PO DAILY #30 tablet LORazepam [Ativan] 0.5 mg PO TID PRN #20 tab PRN Reason: Anxiety Multivitamins, Thera [Multivitamin (formulary)] 1 tab PO DAILY #30 tablet Thiamine [Vitamin B-1] 100 mg PO DAILY #30 tab Omeprazole [PriLOSEC] 20 mg PO AC-BID #60 cap Continue Lisinopril 40 mg PO DAILY #20 tab Atorvastatin [Lipitor] 20 mg PO HS #20 tablet [place] Carbonate 600 mg PO DAILY #40 capsule Menthol [Biofreeze] 1 applic TOPICAL DAILY PRN PRN Reason: BACK PAIN Discharge Medication List Atorvastatin [Lipitor] 20 mg PO HS #20 tablet 12/21/16 [Rx] Lisinopril 40 mg PO DAILY #20 tab 12/21/16 [Rx] [place] Carbonate 600 mg PO DAILY #40 capsule 12/21/16 [Rx] Menthol [Biofreeze] 1 applic TOPICAL DAILY PRN 03/05/17 [History] Folic Acid 1 mg PO DAILY #30 tablet 03/08/17 [Rx] LORazepam [Ativan] 0.5 mg PO TID PRN #20 tab 03/08/17 [Rx] Multivitamins, Thera [Multivitamin (formulary)] 1 tab PO DAILY #30 tablet [Rx] Omeprazole [PriLOSEC] 20 mg PO AC-BID #60 cap 03/08/17 [Rx] Thiamine [Vitamin B-1] 100 mg PO DAILY #30 tab 03/08/17 [Rx] Follow up Appointment(s)/Referral(s): Hermes Kimble MD [Primary Care Provider] - 03/11/17 8:20 am (APPOINTMENT ON THE IS CANCELLED.) Kareem Ace MD [STAFF PHYSICIAN] - 04/08/17 3:45 pm (APPOINTMENT IS ON A SATURDAY. THERE ARE NO MORNING APPOINTMENTS AVAILABLE. OFFICE WILL CALL IF AN EARLIER APPOINTMENT IS NEEDED. ) Ambulatory/Diagnostic Orders: Complete Blood Count w/diff [LAB.AMB] Time Frame: 3 Days, Location: Determined By Patient Patient Instructions/Handouts: Gastritis (DC), Diet for Stomach Ulcers and Gastritis (GEN) Activity/Diet/Wound Care/Special Instructions: no etoh DIet; Soft activity: limited till f/u Discharge Disposition: HOME SELF-CARE
== END 2017-03-08 12:53 | disposition home or self-care (01) | DRG 241 ==
LOC: EC 16:37 → 6ICU 20:58 → 6SEL 03-06 17:35
PROVIDERS: ADMIT Family Medicine; ATTEND Family Medicine
PROC: 0DB68ZX Excision of Stomach, Via Natural or Artificial Opening Endoscopic, Diagnostic (ICD-10-PCS; principal; 2017-03-07 15:55)
DX: K29.80 Duodenitis without bleeding (principal); K22.6 Gastro-esophageal laceration-hemorrhage syndrome; D68.9 Coagulation defect, unspecified; D62 Acute posthemorrhagic anemia; D69.6 Thrombocytopenia, unspecified; K29.00 Acute gastritis without bleeding; K76.0 Fatty (change of) liver, not elsewhere classified; K70.10 Alcoholic hepatitis without ascites; K80.20 Calculus of gallbladder without cholecystitis without obstruction; I10 Essential (primary) hypertension; E78.5 Hyperlipidemia, unspecified; F31.9 Bipolar disorder, unspecified; K44.9 Diaphragmatic hernia without obstruction or gangrene; F17.200 Nicotine dependence, unspecified, uncomplicated; T39.395A Adverse effect of other nonsteroidal anti-inflammatory drugs [NSAID], initial encounter; K27.9 Peptic ulcer, site unspecified, unspecified as acute or chronic, without hemorrhage or perforation; F10.10 Alcohol abuse, uncomplicated; J44.9 Chronic obstructive pulmonary disease, unspecified; Z79.899 Other long term (current) drug therapy; Z87.440 Personal history of urinary (tract) infections
CPT/HCPCS: 36415; 43239; 71020; 76705; 80048; 80053; 80320; 81003; 82271; 82550; 82553; 83690; 83735; 84484; 85025; 85027; 85610; 85730; 88305; 88342; 96361; 96374; 96375; 99285

== ENCOUNTER 2017-04-27 21:30 | Emergency (ER) | payer OTHER ==
[2017-04-27] MEDS ORDERED: SODIUM CHLORIDE 0.9% 500 ML IV STA (22:11)
[2017-04-27] MEDS ORDERED: SODIUM CHLORIDE 0.9% 1,000 ML IV STA (22:11)
[2017-04-27 22:42] LABS: Appearance,Urine Clear (Clear); Bilirubin,Urine Negative (Negative); Blood,Urine Negative (Negative); Color,Urine Yellow; Glucose,Urine (UA) Negative (Negative); Ketones,Urine Negative (Negative); Leukocyte Esterase,Urine Negative (Negative); Nitrite,Urine Negative (Negative); PH, Urine 6.5 (5.0-8.0); Protein,Urine Negative (Negative); Specific Gravity,Urine 1.002 (1.001-1.035); Urobilinogen,Urine <2.0 mg/dL (<2.0)
[2017-04-27 22:47] LABS: INR 1.3 (<1.2)
[2017-04-27 22:48] LABS: Basophils # (A) 0.1 k/uL (0-0.2); Basophils % (A) 1 %; Eosinophils # (A) 1.3 k/uL (0-0.7); Eosinophils % (A) 9 %; HCT 43.6 % (39.0-53.0); HGB 14.2 gm/dL (13.0-17.5); Lymphocytes # (A) 2.2 k/uL (1.0-4.8); Lymphocytes % (A) 15 %; MCH 35.1 pg (25.0-35.0); MCHC 32.5 g/dL (31.0-37.0); MCV 107.9 fL (80.0-100.0); Macrocytosis Moderate; Mean Platelet Volume 9.6; Monocytes # (A) 0.9 k/uL (0-1.0); Monocytes % (A) 6 %; Neutrophils # (A) 10.2 k/uL (1.3-7.7); Neutrophils % (A) 68 %; Partial Thromboplastin Time 27.2 sec (22.0-30.0); Platelet Count 110 k/uL (150-450); Prothrombin Time 12.3 sec (9.0-12.0); RBC 4.05 m/uL (4.30-5.90); RDW 12.9 % (11.5-15.5); WBC 14.9 k/uL (3.8-10.6)
[2017-04-27 22:56] LABS: ALT 29 U/L (21-72); AST 72 U/L (17-59); Acetaminophen <10.0 ug/mL; Alkaline Phosphatase 370 U/L (38-126); Amylase 90 U/L (30-110); Anion Gap 12 mmol/L; Bilirubin, Delta 1.6 mg/dL (0.0-0.2); Bilirubin,Unconjugated 1.3 mg/dL (0.0-1.1); Blood Urea Nitrogen 5 mg/dL (9-20); Calcium 9.9 mg/dL (8.4-10.2); Carbon Dioxide 24 mmol/L (22-30); Chloride 108 mmol/L (98-107); Glucose 108 mg/dL (74-99); Lipase 263 U/L (23-300); Lithium 0.4 mmol/L; Sodium 144 mmol/L (137-145); Total Bilirubin 2.9 mg/dL (0.2-1.3)
[2017-04-27 23:00] LABS: Alcohol 210 mg/dL
[2017-04-28 00:31] VITALS: RESP 16
--- NOTE | 2017-04-28 00:34 | ED ---
General Adult HPI - General Chief complaint: Abdominal Pain Stated complaint: Flank pain Time Seen by Provider: 04/27/17 21:57 Source: patient, RN notes reviewed, old records reviewed Mode of arrival: ambulatory Limitations: no limitations - History of Present Illness Initial comments: 51-year-old male presents for evaluation of low back pain and dark urine. Patient has past medical history of alcoholic cirrhosis, liver failure and renal failure. He also has chronic low back pain and high blood pressure. Patient had recent hospital admission with bleeding gastric ulcer. Complaint is right-sided low back pain and flank pain. Also complains of some mild right upper quadrant pain. Denies fever or chills. Denies nausea vomiting or diarrhea. Denies epigastric abdominal pain. Patient does admit to heavy alcohol consumption. - Related Data Home Medications Medication Instructions Recorded Confirmed Menthol [Biofreeze] 1 applic TOPICAL DAILY PRN 03/05/17 04/04/17 ALPRAZolam [Xanax] 0.5 mg PO BID PRN 04/04/17 04/04/17 Omeprazole [PriLOSEC] 40 mg PO DAILY 04/04/17 04/04/17 Previous Rx's Medication Instructions Recorded Atorvastatin [Lipitor] 20 mg PO HS #20 tablet 12/21/16 Lisinopril 40 mg PO DAILY #20 tab 12/21/16 [place] Carbonate 600 mg PO DAILY #40 capsule 12/21/16 Folic Acid 1 mg PO DAILY #30 tablet 03/08/17 Multivitamins, Thera [Multivitamin 1 tab PO DAILY #30 tablet 03/08/17 (formulary)] Thiamine [Vitamin B-1] 100 mg PO DAILY #30 tab 03/08/17 Allergies Allergy/AdvReac Type Severity Reaction Status Date / Time No Known Allergies Allergy Verified 04/27/17 21:52 Review of Systems ROS Statement: Those systems with pertinent positive or pertinent negative responses have been documented in the HPI. ROS Other: All systems not noted in ROS Statement are negative. Past Medical History Past Medical History: Hyperlipidemia, Hypertension Additional Past Medical History / Comment(s): bipolar, septic uti, History of Any Multi-Drug Resistant Organisms: None Reported Past Surgical History: Orthopedic Surgery Additional Past Surgical History / Comment(s): deviated septum sinus surg knee carpel tunnel Past Anesthesia/Blood Transfusion Reactions: No Reported Reaction Past Psychological History: Bipolar Smoking Status: Current every day smoker Past Alcohol Use History: Daily, Heavy Past Drug Use History: None Reported General Exam Limitations: no limitations General appearance: alert, in no apparent distress, appears intoxicated Head exam: Present: atraumatic, normocephalic Eye exam: Present: PERRL, scleral icterus ENT exam: Present: normal exam Neck exam: Present: normal inspection. Absent: tenderness, meningismus Respiratory exam: Present: normal lung sounds bilaterally. Absent: respiratory distress Cardiovascular Exam: Present: regular rate, normal rhythm GI/Abdominal exam: Present: soft, distended, tenderness (Mild right upper quadrant tenderness), organomegaly (Enlarged liver.). Absent: guarding, rebound Extremities exam: Present: normal inspection, normal capillary refill. Absent: pedal edema Neurological exam: Present: alert, oriented X3, CN II-XII intact. Absent: motor sensory deficit Psychiatric exam: Present: normal affect, normal mood Skin exam: Present: warm, dry, intact Course Vital Signs 04/27/17 04/28/17 04/28/17 21:48 00:31 05:41 Temperature 97.5 F L 97.8 F Pulse Rate 85 84 86 Respiratory 18 16 16 Rate Blood Pressure 138/66 116/54 108/53 O2 Sat by Pulse 99 97 96 Oximetry Medical Decision Making - Medical Decision Making 51-year-old male presenting for evaluation of dark urine and low back pain. Pain is been chronic in nature. Patient does admit to heavy alcohol consumption he has history of liver disease. Laboratory studies are obtained, patient does have white blood cell count 14.9 with recent level XII.6, hemoglobin stable, INR mildly elevated 1.3 creatinine normal 0.5. Total bili is 2.9 patient has had elevation in place over the past several months. AST stable mild elevation, alkaline phosphatase also stable mild elevation. Ultrasound is obtained which is unchanged from 2 weeks prior. There is no pericholecystic fluid, no sonographic Miranda sign. There is gallstones, and cirrhotic liver changes on ultrasound. Patient's lab abnormalities are at baseline. He is otherwise feeling well. He will attempt to abstain from alcohol and follow up with his primary care physician. He is observed in the emergency department awaiting sobriety. Vital signs remained stable. Patient is encouraged to take the vitamins, improve his nutrition and abstain from alcohol. Diagnosis: Liver cirrhosis, and hyperbilirubinemia, mild alcoholic hepatitis, alcohol intoxication. - Lab Data Result diagrams: 04/27/17 22:26 04/27/17 22:26 Lab Results 04/27/17 04/27/17 04/27/17 Range/Units 22:26 22:26 22:26 WBC 14.9 H (3.8-10.6) k/uL RBC 4.05 L (4.30-5.90) m/uL Hgb 14.2 (13.0-17.5) gm/dL Hct 43.6 (39.0-53.0) % MCV 107.9 H (80.0-100.0) fL MCH 35.1 H (25.0-35.0) pg MCHC 32.5 (31.0-37.0) g/dL RDW 12.9 (11.5-15.5) % Plt Count 110 L (150-450) k/uL Neutrophils % 68 % Lymphocytes % 15 % Monocytes % 6 % Eosinophils % 9 % Basophils % 1 % Neutrophils # 10.2 H (1.3-7.7) k/uL Lymphocytes # 2.2 (1.0-4.8) k/uL Monocytes # 0.9 (0-1.0) k/uL Eosinophils # 1.3 H (0-0.7) k/uL Basophils # 0.1 (0-0.2) k/uL Macrocytosis Moderate PT 12.3 H (9.0-12.0) sec INR 1.3 H (<1.2) APTT 27.2 (22.0-30.0) sec Sodium 144 (137-145) mmol/L Potassium 4.0 (3.5-5.1) mmol/L Chloride 108 H (98-107) mmol/L Carbon Dioxide 24 (22-30) mmol/L Anion Gap 12 mmol/L BUN 5 L (9-20) mg/dL Creatinine 0.50 L (0.66-1.25) mg/dL Est GFR (MDRD) Af Amer >60 (>60 ml/min/1.73 sqM) Est GFR (MDRD) Non-Af >60 (>60 ml/min/1.73 sqM) Glucose 108 H (74-99) mg/dL Calcium 9.9 (8.4-10.2) mg/dL Total Bilirubin 2.9 H (0.2-1.3) mg/dL Conjugated Bilirubin 0.0 (0.0-0.3) mg/dL Unconjugated Bilirubin 1.3 H (0.0-1.1) mg/dL Delta Bilirubin 1.6 H (0.0-0.2) mg/dL AST 72 H (17-59) U/L ALT 29 (21-72) U/L Alkaline Phosphatase 370 H (38-126) U/L Troponin I (0.000-0.034) ng/mL Total Protein 8.0 (6.3-8.2) g/dL Albumin 4.0 (3.5-5.0) g/dL Amylase 90 (30-110) U/L Lipase 263 (23-300) U/L Urine Color Urine Appearance (Clear) Urine pH (5.0-8.0) Ur Specific [place] (1.001-1.035) Urine Protein (Negative) Urine Glucose (UA) (Negative) Urine Ketones (Negative) Urine Blood (Negative) Urine Nitrite (Negative) Urine Bilirubin (Negative) Urine Urobilinogen (<2.0) mg/dL Ur Leukocyte Esterase (Negative) Acetaminophen <10.0 ug/mL [place] 0.4 mmol/L Serum Alcohol 210 mg/dL 04/27/17 04/27/17 Range/Units 22:26 22:26 WBC (3.8-10.6) k/uL RBC (4.30-5.90) m/uL Hgb (13.0-17.5) gm/dL Hct (39.0-53.0) % MCV (80.0-100.0) fL MCH (25.0-35.0) pg MCHC (31.0-37.0) g/dL RDW (11.5-15.5) % Plt Count (150-450) k/uL Neutrophils % % Lymphocytes % % Monocytes % % Eosinophils % % Basophils % % Neutrophils # (1.3-7.7) k/uL Lymphocytes # (1.0-4.8) k/uL Monocytes # (0-1.0) k/uL Eosinophils # (0-0.7) k/uL Basophils # (0-0.2) k/uL Macrocytosis PT (9.0-12.0) sec INR (<1.2) APTT (22.0-30.0) sec Sodium (137-145) mmol/L Potassium (3.5-5.1) mmol/L Chloride (98-107) mmol/L Carbon Dioxide (22-30) mmol/L Anion Gap mmol/L BUN (9-20) mg/dL Creatinine (0.66-1.25) mg/dL Est GFR (MDRD) Af Amer (>60 ml/min/1.73 sqM) Est GFR (MDRD) Non-Af (>60 ml/min/1.73 sqM) Glucose (74-99) mg/dL Calcium (8.4-10.2) mg/dL Total Bilirubin (0.2-1.3) mg/dL Conjugated Bilirubin (0.0-0.3) mg/dL Unconjugated Bilirubin (0.0-1.1) mg/dL Delta Bilirubin (0.0-0.2) mg/dL AST (17-59) U/L ALT (21-72) U/L Alkaline Phosphatase (38-126) U/L Troponin I <0.012 (0.000-0.034) ng/mL Total Protein (6.3-8.2) g/dL Albumin (3.5-5.0) g/dL Amylase (30-110) U/L Lipase (23-300) U/L Urine Color Yellow Urine Appearance Clear (Clear) Urine pH 6.5 (5.0-8.0) Ur Specific [place] 1.002 (1.001-1.035) Urine Protein Negative (Negative) Urine Glucose (UA) Negative (Negative) Urine Ketones Negative (Negative) Urine Blood Negative (Negative) Urine Nitrite Negative (Negative) Urine Bilirubin Negative (Negative) Urine Urobilinogen <2.0 (<2.0) mg/dL Ur Leukocyte Esterase Negative (Negative) Acetaminophen ug/mL [place] mmol/L Serum Alcohol mg/dL Disposition Clinical Impression: ETOH abuse, Alcoholic hepatitis, Back pain Disposition: HOME SELF-CARE Condition: Good Instructions: Alcohol Intoxication (ED), Cirrhosis (ED), Alcoholic Hepatitis ( ED) Referrals: Hermes Kimble MD [Primary Care Provider] - 1-2 days Time of Disposition: 04:44
--- NOTE | 2017-04-28 00:57 | US ---
EXAM: US Abdomen Limited, Right Upper Quadrant CLINICAL HISTORY: Right upper quadrant pain. TECHNIQUE: Real-time ultrasound of the right upper quadrant with image documentation. COMPARISON: 04/05/2017. FINDINGS: Liver: The liver is again noted to be mildly enlarged measuring approximately 19 cm in length. Coarse echotexture with questionable nodular contour is seen, likely representing cirrhosis. Gallbladder: Cholelithiasis is again noted. The gallbladder wall is again thickened, measuring up to 0.6 cm, similar to prior study. This may be reactive to the adjacent hepatic pathology. No definite pericholecystic fluid. Negative sonographic Miranda's sign. Common bile duct: CBD is normal, measuring up to 0.4 cm diameter. No stones. No dilation. Pancreas: Unremarkable as visualized. Right kidney: The kidney measures up to 12.8 cm in length. No stones. No hydronephrosis. IMPRESSION: Enlarged cirrhotic liver, similar to prior study. Cholelithiasis with gallbladder wall thickening, similar to prior study. No definite pericholecystic fluid. Negative sonographic Miranda's sign. CBD is normal in caliber. Findings may be reactive to the adjacent hepatic pathology, although acute cholecystitis would be included in the differential. Correlate clinically. MRCP versus nuclear medicine HIDA scan may be performed for further evaluation, if clinically indicated.
[2017-04-28 05:43] VITALS: BP 108/53; PULSE 86; TEMP 97.8
== END 2017-04-28 06:01 | disposition home or self-care (01) ==
LOC: EC 21:30
DX: K70.10 Alcoholic hepatitis without ascites (principal); K74.60 Unspecified cirrhosis of liver; F10.120 Alcohol abuse with intoxication, uncomplicated; E80.6 Other disorders of bilirubin metabolism; M54.5 Low back pain; F17.200 Nicotine dependence, unspecified, uncomplicated; Z79.899 Other long term (current) drug therapy
CPT/HCPCS: 36415; 76705; 80053; 80178; 80320; 81003; 82150; 82248; 83520; 83690; 84484; 85025; 85610; 85730; 93005; 96360; 96361; 99285

== ENCOUNTER 2017-05-08 20:02 | Emergency (ER) | payer OTHER ==
--- NOTE | 2017-05-08 20:43 | ED ---
General Adult HPI - General Source: patient, RN notes reviewed, old records reviewed Mode of arrival: ambulatory Limitations: no limitations <Justice Robbins - Last Filed: 05/08/17 20:35> <Justice aLndry - Last Filed: 05/09/17 01:07> - General Chief complaint: Psychiatric Symptoms Stated complaint: depression Time Seen by Provider: 05/08/17 20:21 - History of Present Illness Initial comments: 51-year-old male history of chronic alcoholism, bipolar depression presents for evaluation of depression. Patient has had a "rough year. He has lost his job, has a failed marriage, been unable to be contact with his children. He is behind on a statin states he has nothing. Patient denies suicidal ideation at this time, however he states that in a couple weeks if things aren't improved he might "commit suicide" he has no specific plan at this time. Patient does admit to drinking 8-10 beers over the past 24 hours. He has history of liver cirrhosis. Patient states he has been admitted for manic episodes associated with his bipolar disease in the past. He is currently homeless living with a friend. (Justice Robbins) - Related Data Home Medications Medication Instructions Recorded Confirmed ALPRAZolam [Xanax] 0.5 mg PO BID PRN 04/04/17 05/08/17 Omeprazole [PriLOSEC] 40 mg PO DAILY 04/04/17 05/08/17 Allopurinol [Zyloprim] 100 mg PO DAILY 05/08/17 05/08/17 [place] Carbonate 600 mg PO DAILY 05/08/17 05/08/17 Nicotine 21Mg/24Hr Patch [Habitrol 1 patch TRANSDERM DAILY 05/08/17 05/08/17 21Mg/24Hr Patch] Previous Rx's Medication Instructions Recorded Atorvastatin [Lipitor] 20 mg PO HS #20 tablet 12/21/16 Lisinopril 40 mg PO DAILY #20 tab 12/21/16 Folic Acid 1 mg PO DAILY #30 tablet 03/08/17 Thiamine [Vitamin B-1] 100 mg PO DAILY #30 tab 03/08/17 Allergies Allergy/AdvReac Type Severity Reaction Status Date / Time No Known Allergies Allergy Verified 05/08/17 20:11 Review of Systems ROS Other: All systems not noted in ROS Statement are negative. <Justice Robbins - Last Filed: 05/08/17 20:35> ROS Other: All systems not noted in ROS Statement are negative. <Justice Landry - Last Filed: 05/09/17 01:07> ROS Statement: Those systems with pertinent positive or pertinent negative responses have been documented in the HPI. Past Medical History Past Medical History: Hyperlipidemia, Hypertension Additional Past Medical History / Comment(s): bipolar, septic uti, History of Any Multi-Drug Resistant Organisms: None Reported Past Surgical History: Orthopedic Surgery Additional Past Surgical History / Comment(s): deviated septum sinus surg knee carpel tunnel Past Anesthesia/Blood Transfusion Reactions: No Reported Reaction Past Psychological History: Anxiety, Bipolar, Depression Smoking Status: Current every day smoker Past Alcohol Use History: Daily, Heavy Past Drug Use History: None Reported <Justice Robbins - Last Filed: 05/08/17 20:35> General Exam Limitations: no limitations General appearance: alert, in no apparent distress Head exam: Present: atraumatic, normocephalic Eye exam: Present: normal appearance, PERRL ENT exam: Present: normal exam Neck exam: Present: normal inspection. Absent: tenderness, meningismus Respiratory exam: Present: normal lung sounds bilaterally. Absent: respiratory distress Cardiovascular Exam: Present: regular rate, normal rhythm GI/Abdominal exam: Present: soft, distended. Absent: tenderness, guarding, rebound Extremities exam: Present: normal inspection, normal capillary refill. Absent: pedal edema Neurological exam: Present: alert, oriented X3, CN II-XII intact. Absent: motor sensory deficit Psychiatric exam: Present: depressed Skin exam: Present: warm, dry, intact <Justice Robbins - Last Filed: 05/08/17 20:35> Course <Justice Robbins - Last Filed: 05/08/17 20:35> <Justice Landry - Last Filed: 05/09/17 01:07> Vital Signs 05/08/17 20:11 Temperature 98.7 F Pulse Rate 97 Respiratory 16 Rate Blood Pressure 139/67 O2 Sat by Pulse 99 Oximetry - Reevaluation(s) Reevaluation #1: 05/08/17 20:38 patient's care is signed out to Dr. Landry, awaiting sobriety and EPS evaluation. (Helmreich,Justice N) Medical Decision Making <HelmrJustice lilly - Last Filed: 05/08/17 20:35> <Justice Landry - Last Filed: 05/09/17 01:07> - Medical Decision Making The patient was determined to be sober and was evaluated by psychiatric service patient currently is not a risk to himself or anyone else. Patient will be discharged with outpatient referral (Justice Landry) - Lab Data Lab Results 05/08/17 Range/Units 20:38 Urine Opiates Screen Not Detected (NotDetected) Ur Oxycodone Screen Not Detected (NotDetected) Urine Methadone Screen Not Detected (NotDetected) Ur Propoxyphene Screen Not Detected (NotDetected) Ur Barbiturates Screen Not Detected (NotDetected) U Tricyclic Antidepress Not Detected (NotDetected) Ur Phencyclidine Scrn Not Detected (NotDetected) Ur Amphetamines Screen Not Detected (NotDetected) U Methamphetamines Scrn Not Detected (NotDetected) U Benzodiazepines Scrn Not Detected (NotDetected) Urine Cocaine Screen Not Detected (NotDetected) U Marijuana (THC) Screen Not Detected (NotDetected) Disposition <IraidaJustice amaral - Last Filed: 05/08/17 20:35> <Justice Landry - Last Filed: 05/09/17 01:07> Clinical Impression: Adjustment reaction, Alcohol intoxication Disposition: HOME SELF-CARE Condition: Good Instructions: Alcohol Intoxication (ED), At-Risk Alcohol Use (ED), Mood Disorders (ED), Stress (ED) Referrals: Hermes Kimble MD [Primary Care Provider] - 1-2 days
[2017-05-08 21:10] LABS: Amphetamine Screen,Urine Not Detected (NotDetected); Barbiturate Screen,Urine Not Detected (NotDetected); Benzodiazepines Screen,Urine Not Detected (NotDetected); Cocaine Screen,Urine Not Detected (NotDetected); Methadone Screen, Urine Not Detected (NotDetected); Opiate Screen,Urine Not Detected (NotDetected); Oxycodone Screen, Urine Not Detected (NotDetected); Phencyclidine Screen,Urine Not Detected (NotDetected); Tricyclic Antidepressant,Urine Not Detected (NotDetected); Urn Cannabinoid Scrn Not Detected (NotDetected)
[2017-05-09 01:37] VITALS: BP 106/55; PULSE 83; RESP 18; TEMP 98
== END 2017-05-09 01:32 | disposition home or self-care (01) ==
LOC: EC 20:02
DX: F43.21 Adjustment disorder with depressed mood (principal); F10.129 Alcohol abuse with intoxication, unspecified; F31.9 Bipolar disorder, unspecified; F17.200 Nicotine dependence, unspecified, uncomplicated; Z79.899 Other long term (current) drug therapy
CPT/HCPCS: 80306; 82075; 99284

== ENCOUNTER 2018-03-07 10:22 | Emergency (ER) | payer OTHER ==
[2018-03-07 10:27] VITALS: RESP 20; TEMP 97.5
--- NOTE | 2018-03-07 11:13 | ED ---
General Adult HPI - General Chief complaint: Abdominal Pain Stated complaint: PAIN BACK , POSS LIVER PROBLEM Time Seen by Provider: 03/07/18 10:34 Source: patient, RN notes reviewed, old records reviewed Mode of arrival: ambulatory Limitations: no limitations - History of Present Illness Initial comments: Patient is a 52-year-old male significant past medical history for liver cirrhosis, alcoholism, presents into the emergency room today with chief complaint right sided abdominal pain. Patient does admit that he was diagnosis with liver cirrhosis one year ago. He states that he's been 5 his family doctor. He states that he was told that there is nothing that they could do for him. He states he came here to the emergency room to have imaging obtained because he wants to know how much longer he has. He states that he had blood work 2 weeks ago. He states he does not repeat the blood today. He states he does not like needles. Patient states he would like to have ultrasound to look at the liver. Patient admits to pain in the right flank area that started 1 week ago. Patient denies any other complaints or symptoms currently. Patient denies any recent fever, chills, shortness of breath, chest pain, vomiting, numbness or tingling, headaches or visual changes, or any other complaints. - Related Data Home Medications Medication Instructions Recorded Confirmed Allopurinol [Zyloprim] 100 mg PO DAILY 05/08/17 03/07/18 [place] Carbonate 600 mg PO DAILY 05/08/17 03/07/18 Menthol [Biofreeze] 1 applic TOPICAL BID PRN 03/07/18 03/07/18 Previous Rx's Medication Instructions Recorded Lisinopril 40 mg PO DAILY #20 tab 12/21/16 Thiamine [Vitamin B-1] 100 mg PO DAILY #30 tab 03/08/17 Allergies Allergy/AdvReac Type Severity Reaction Status Date / Time No Known Allergies Allergy Verified 03/07/18 11:26 Review of Systems ROS Statement: Those systems with pertinent positive or pertinent negative responses have been documented in the HPI. ROS Other: All systems not noted in ROS Statement are negative. Past Medical History Past Medical History: Hyperlipidemia, Hypertension Additional Past Medical History / Comment(s): bipolar, septic uti, History of Any Multi-Drug Resistant Organisms: None Reported Past Surgical History: Orthopedic Surgery Additional Past Surgical History / Comment(s): deviated septum sinus surg knee carpel tunnel Past Anesthesia/Blood Transfusion Reactions: No Reported Reaction Past Psychological History: Anxiety, Bipolar, Depression Smoking Status: Current every day smoker Past Alcohol Use History: Daily, Heavy Past Drug Use History: None Reported General Exam - General Exam Comments Initial Comments: General: The patient is awake and alert, in no distress, and does not appear acutely ill. Eye: Pupils are equal, round and reactive to light. Extra-ocular movements are intact. No nystagmus. Icteric conjunctiva Ears, nose, mouth and throat: There are moist mucous membranes and no oral lesions. Neck: The neck is supple, there is no tenderness or JVD. Cardiovascular: There is a regular rate and rhythm. No murmur, rub or gallop is appreciated. Respiratory: Lungs are clear to auscultation, respirations are non-labored, breath sounds are equal. No wheezes, stridor, rales, or rhonchi. Gastrointestinal: Abdomen soft on palpation. Patient does have tenderness both left and right upper quadrants. No rebound, guarding or CVA tenderness. Musculoskeletal: Normal ROM, no tenderness. Sensation intact. Strength 5/5. Pulses equal bilaterally 2+. Neurological: A&O x 3. CN II-XII intact, There are no obvious motor or sensory deficits. Coordination appears grossly intact. Speech is normal. Skin: Skin is warm and dry and no rashes or lesions are noted. Jaundiced Psychiatric: Cooperative, appropriate mood & affect, normal judgment. Limitations: no limitations Course Vital Signs 03/07/18 03/07/18 10:25 12:45 Temperature 97.5 F L Pulse Rate 90 76 Respiratory 20 Rate Blood Pressure 149/79 123/61 O2 Sat by Pulse 99 96 Oximetry Medical Decision Making - Medical Decision Making Patient's a 52-year-old male presented to the emergency room today with a chief complaint of right-sided abdominal pain. Patient admits to history of liver cirrhosis. Does admit that is a daily drinker. He presents to the emergency room did not want have blood work obtained. States that he had lumbar through the family doctor 2 weeks ago. Was discussed that blood work should be performed to assess his abdominal pain. He adamantly refused. Patient stated that is not like needles. He stated he only came to have imaging on the liver. All sounds was performed and there was concern for possible portal vein thrombosis. This was discussed with the patient. He was advised that we should perform a CT of the abdomen to rule this out. I was advised that we would need to start an IV to perform the test with IV contrast. Patient was agreeable to blood draw at this point and starting IV. Patient waited for CAT scan to be performed due to needing kidney function to come back. Patient stated that he was hungry needed to eat something. We advised that he would have to wait for CT results. Patient will be continued to complain to staff. Advised patient that we would not let him eat here. He stated that he wanted to be transferred [facility]. We did advise patient that we need to wait for CAT scan results before we could begin any transfer process. Patient decided to leave AMA. He states that he needs to go eat something. Patient was advised that depending on results there could be need for surgery today emergently. He states that he was not planning to have any surgery as he needs to get things together. Patient understood possible consequences and did sign out AMA. - Lab Data Result diagrams: 03/07/18 12:20 03/07/18 12:20 Lab Results 03/07/18 03/07/18 03/07/18 Range/Units 11:00 12:20 12:20 WBC 9.1 (3.8-10.6) k/uL RBC 3.62 L (4.30-5.90) m/uL Hgb 12.5 L (13.0-17.5) gm/dL Hct 39.1 (39.0-53.0) % MCV 107.9 H (80.0-100.0) fL MCH 34.5 (25.0-35.0) pg MCHC 32.0 (31.0-37.0) g/dL RDW 12.9 (11.5-15.5) % Plt Count 136 L (150-450) k/uL Neutrophils % 61 % Lymphocytes % 21 % Monocytes % 7 % Eosinophils % 8 % Basophils % 0 % Neutrophils # 5.5 (1.3-7.7) k/uL Lymphocytes # 1.9 (1.0-4.8) k/uL Monocytes # 0.7 (0-1.0) k/uL Eosinophils # 0.7 (0-0.7) k/uL Basophils # 0.0 (0-0.2) k/uL Macrocytosis Moderate Sodium 142 (137-145) mmol/L Potassium 4.6 (3.5-5.1) mmol/L Chloride 114 H (98-107) mmol/L Carbon Dioxide 17 L (22-30) mmol/L Anion Gap 11 mmol/L BUN 4 L (9-20) mg/dL Creatinine 0.34 L (0.66-1.25) mg/dL Est GFR (CKD-EPI)AfAm >90 (>60 ml/min/1.73 sqM) Est GFR (CKD-EPI)NonAf >90 (>60 ml/min/1.73 sqM) Glucose 84 (74-99) mg/dL Calcium 9.2 (8.4-10.2) mg/dL Total Bilirubin 2.4 H (0.2-1.3) mg/dL AST 94 H (17-59) U/L ALT 25 (21-72) U/L Alkaline Phosphatase 307 H (38-126) U/L Total Protein 7.1 (6.3-8.2) g/dL Albumin 3.7 (3.5-5.0) g/dL Amylase 62 (30-110) U/L Lipase 255 (23-300) U/L Urine Color Yellow Urine Appearance Clear (Clear) Urine pH 6.5 (5.0-8.0) Ur Specific [place] 1.006 (1.001-1.035) Urine Protein Negative (Negative) Urine Glucose (UA) Negative (Negative) Urine Ketones Negative (Negative) Urine Blood Negative (Negative) Urine Nitrite Negative (Negative) Urine Bilirubin Negative (Negative) Urine Urobilinogen 4.0 (<2.0) mg/dL Ur Leukocyte Esterase Negative (Negative) Disposition Clinical Impression: Abdominal pain, Jaundice Disposition: Left Against Medical Advice Condition: Undetermined Is patient prescribed a controlled substance at d/c from ED?: No Referrals: Hermes Kimble MD [Primary Care Provider] - 1-2 days
[2018-03-07 11:34] LABS: Appearance,Urine Clear (Clear); Bilirubin,Urine Negative (Negative); Blood,Urine Negative (Negative); Color,Urine Yellow; Glucose,Urine (UA) Negative (Negative); Ketones,Urine Negative (Negative); Leukocyte Esterase,Urine Negative (Negative); Nitrite,Urine Negative (Negative); PH, Urine 6.5 (5.0-8.0); Protein,Urine Negative (Negative); Specific Gravity,Urine 1.006 (1.001-1.035)
--- NOTE | 2018-03-07 11:53 | US ---
EXAMINATION TYPE: US abdomen limited DATE OF EXAM: 03/07/2018 COMPARISON: Will 32,007 CLINICAL HISTORY: Pain. Known cirrhosis patient with abd pain EXAM MEASUREMENTS: Liver Length: 18.9 cm Gallbladder Wall: 0.3 cm CBD: 0.7 cm Right Kidney: 11.9 x 6.4 x 7.3 cm Pancreas: Limited by bowel gas Liver: heterogeneous and enlarged, thready to no flow seen within MPV. Case discussed with ER physic nadeem. Gallbladder: hydropic and small stones seen Evidence for sonographic Miranda's sign: no CBD: wnl Right Kidney: wnl scant amount of free fluid adjacent to right lobe of liver IMPRESSION: 1. The liver is heterogeneous and enlarged correlate for hepatitis or hepatocellular disease. Additio margaret, there is little to no flow seen within the main portal vein correlate for portal vein thrombos is. 2. Gallbladder appears hydropic with gallstones. 3. A trace amount of ascites
[2018-03-07 12:48] VITALS: BP 123/61; PULSE 76
[2018-03-07 12:48] LABS: Basophils % (A) 0 %; Eosinophils # (A) 0.7 k/uL (0-0.7); Eosinophils % (A) 8 %; HCT 39.1 % (39.0-53.0); HGB 12.5 gm/dL (13.0-17.5); Lymphocytes # (A) 1.9 k/uL (1.0-4.8); Lymphocytes % (A) 21 %; MCH 34.5 pg (25.0-35.0); MCV 107.9 fL (80.0-100.0); Macrocytosis Moderate; Mean Platelet Volume 8.7; Monocytes # (A) 0.7 k/uL (0-1.0); Monocytes % (A) 7 %; Neutrophils # (A) 5.5 k/uL (1.3-7.7); Neutrophils % (A) 61 %; Platelet Count 136 k/uL (150-450); RBC 3.62 m/uL (4.30-5.90); RDW 12.9 % (11.5-15.5); WBC 9.1 k/uL (3.8-10.6)
[2018-03-07 13:01] LABS: Albumin 3.7 g/dL (3.5-5.0); Amylase 62 U/L (30-110); Anion Gap 11 mmol/L; Blood Urea Nitrogen 4 mg/dL (9-20); Calcium 9.2 mg/dL (8.4-10.2); Carbon Dioxide 17 mmol/L (22-30); Chloride 114 mmol/L (98-107); Glucose 84 mg/dL (74-99); Lipase 255 U/L (23-300); Sodium 142 mmol/L (137-145); Total Bilirubin 2.4 mg/dL (0.2-1.3); Total Protein 7.1 g/dL (6.3-8.2)
[2018-03-07 13:17] LABS: ALT 25 U/L (21-72); AST 94 U/L (17-59); Alkaline Phosphatase 307 U/L (38-126); Potassium 4.6 mmol/L (3.5-5.1)
--- NOTE | 2018-03-07 14:42 | CT ---
EXAMINATION TYPE: CT abdomen w con DATE OF EXAM: 03/07/2018 COMPARISON: 04/05/2017 HISTORY: ab pain/liver issues CT DLP: 817 mGycm Automated exposure control for dose reduction was used. TECHNIQUE: Helical acquisition of images was performed from the lung bases through the top of iliac crest to include entire abdomen. CONTRAST: Performed without Oral Contrast and with IV Contrast, patient injected with 100 mL of Isovue 300. FINDINGS: LUNG BASES: Segmental linear changes involving the lung bases suggestive of scar or atelectasis. LIVER/GB: There is diffuse heterogeneity throughout the liver. May be on the basis of diffuse hepatoc ellular disease although hepatic masses are in the differential diagnosis. Portal vein appears to enh ance. There is a small amount of ascites. Numerous varices are seen in the abdomen. Gallbladder is hy dropic with multiple gallstones. Liver is enlarged measuring 26 cm PANCREAS: No significant abnormality is seen. SPLEEN: Measures 14.6 cm compatible with mild hepatomegaly. ADRENALS: No significant abnormality is seen. KIDNEYS: Specific mild thickening to the left adrenal gland. BOWEL: A few prominent small bowel loops are seen in the abdomen there is bowel wall thickening of t he right colon.. LYMPH NODES: No significant abnormality is seen. OSSEOUS STRUCTURES: Hypertrophic change vertebral column noted.. FREE AIR: No free air is visualized. OTHER: There is a small amount of ascites and mesenteric edema. Atherosclerotic change of the aorta w ith no evidence of aneurysm. IMPRESSION: 1. Lobulated contour to the liver, hepatomegaly with diffuse heterogeneous pattern, extensive abdomin al varices and splenomegaly compatible with cirrhosis. Small amount of ascites noted. The liver is ma rkedly heterogeneous in attenuation. This could be on the basis of diffuse hepatocellular disease or hepatitis, although neoplasm in the differential diagnosis. Assessment of the hepatic veins for Budd- Chiari suggested. MRI recommended. 2. Gallbladder hydrops with cholelithiasis. 3. Nonspecific mesenteric edema. Few prominent small bowel loops may represent ileus. Correlate with lactic acid levels if there is concern for ischemic change. 4. Nonspecific thickening of the wall of the right colon correlate for a colitis. Follow to resolutio n to exclude other etiologies.
== END 2018-03-07 14:49 | disposition left against medical advice (07) ==
LOC: EC 10:22
DX: R17 Unspecified jaundice (principal); R10.9 Unspecified abdominal pain; F31.9 Bipolar disorder, unspecified; F17.200 Nicotine dependence, unspecified, uncomplicated; Z79.899 Other long term (current) drug therapy
CPT/HCPCS: 36415; 74160; 76705; 80053; 81003; 82150; 83690; 85025; 99284

== ENCOUNTER 2018-03-27 17:46 | Emergency (ER) | payer OTHER ==
[2018-03-27 18:13] VITALS: TEMP 98.5
--- NOTE | 2018-03-27 18:35 | XR ---
EXAMINATION TYPE: XR KUB DATE OF EXAM: 03/27/2018 COMPARISON: NONE HISTORY: Abdominal pain and vomiting TECHNIQUE: 2 views FINDINGS: 2 upright views were obtained and show no sign of intestinal obstruction or pneumoperitoneu m. Fecal pattern is normal. There are no pathologic calcifications. IMPRESSION: Nonacute abdomen.
--- NOTE | 2018-03-27 20:35 | ED ---
General Adult HPI - General Chief complaint: Abdominal Pain Stated complaint: vomiting Time Seen by Provider: 03/27/18 19:48 Source: patient, RN notes reviewed Mode of arrival: ambulatory Limitations: no limitations - History of Present Illness Initial comments: 52-year-old male with a past medical history of hyperlipidemia hypertension, alcoholism, liver disease presents to the emergency determine for multiple complaints. Patient states earlier today he has been nauseous. He states that prior to arrival he threw up black substance times one episode. Patient admits to history of esophageal varices. Patient states he also has right upper quadrant pain. He states that he has been told he has gallbladder dysfunction in the past but has not had a cholecystectomy. He states this pain has been ongoing for about 10 days. He denies fevers or chills. He denies any other episodes of vomiting. He denies any other abdominal pain. Patient has no other complaints at this time including shortness of breath, chest pain, headache, or visual changes. - Related Data Home Medications Medication Instructions Recorded Confirmed Allopurinol [Zyloprim] 100 mg PO DAILY 05/08/17 03/27/18 [place] Carbonate 600 mg PO DAILY 05/08/17 03/27/18 Menthol [Biofreeze] 1 applic TOPICAL BID PRN 03/07/18 03/27/18 Amoxic-Pot Clav 875-125Mg 1 tab PO BID 03/27/18 03/27/18 [Augmentin 875-125] methylPREDNISolone [Medrol Dose See Taper PO DIRECTED 03/27/18 03/27/18 Pack] Previous Rx's Medication Instructions Recorded Lisinopril 40 mg PO DAILY #20 tab 12/21/16 Thiamine [Vitamin B-1] 100 mg PO DAILY #30 tab 03/08/17 Allergies Allergy/AdvReac Type Severity Reaction Status Date / Time No Known Allergies Allergy Verified 03/27/18 20:15 Review of Systems ROS Statement: Those systems with pertinent positive or pertinent negative responses have been documented in the HPI. ROS Other: All systems not noted in ROS Statement are negative. Past Medical History Past Medical History: Hyperlipidemia, Hypertension Additional Past Medical History / Comment(s): bipolar, septic uti, History of Any Multi-Drug Resistant Organisms: None Reported Past Surgical History: Orthopedic Surgery Additional Past Surgical History / Comment(s): deviated septum sinus surg knee carpel tunnel Past Anesthesia/Blood Transfusion Reactions: No Reported Reaction Past Psychological History: Anxiety, Bipolar, Depression Smoking Status: Current every day smoker Past Alcohol Use History: Daily, Heavy Past Drug Use History: None Reported General Exam Limitations: no limitations General appearance: alert, in no apparent distress Head exam: Present: atraumatic, normocephalic, normal inspection Eye exam: Present: normal appearance, PERRL, EOMI. Absent: scleral icterus, conjunctival injection, periorbital swelling ENT exam: Present: normal exam, mucous membranes moist Neck exam: Present: normal inspection, full ROM. Absent: tenderness, meningismus, lymphadenopathy Respiratory exam: Present: normal lung sounds bilaterally. Absent: respiratory distress, wheezes, rales, rhonchi, stridor Cardiovascular Exam: Present: regular rate, normal rhythm, normal heart sounds. Absent: systolic murmur, diastolic murmur, rubs, gallop, clicks GI/Abdominal exam: Present: soft, tenderness (Mild right upper quadrant tenderness without guarding, negative Miranda sign, no tenderness noted elsewhere in the abdomen), normal bowel sounds. Absent: distended, guarding, rebound, rigid Neurological exam: Present: alert, oriented X3, CN II-XII intact Psychiatric exam: Present: normal affect, normal mood Course Vital Signs 03/27/18 03/27/18 03/27/18 18:10 21:00 21:05 Temperature 98.5 F Pulse Rate 98 85 Respiratory 18 16 Rate Blood Pressure 136/75 105/67 105/67 O2 Sat by Pulse 100 95 95 Oximetry 03/27/18 03/27/18 03/27/18 21:30 22:00 22:30 Temperature Pulse Rate 78 84 Respiratory Rate Blood Pressure 105/67 117/55 133/75 O2 Sat by Pulse 96 98 95 Oximetry Medical Decision Making - Medical Decision Making 52-year-old male presents to the emergency department for a chief complaint of one episode of hematemesis earlier today. Patient has also had mild right upper quadrant pain for the past 10 days. Patient states his history of liver disease and gallbladder dysfunction. On exam patient has minimal right upper quadrant tenderness, no tenderness noted elsewhere in the abdomen. Hemoglobin stable at 10.8. CMP unremarkable. Total bili decreased since last reading. AST ALT not markedly elevated. Urine does not show any evidence of infection. Ultrasound of the right upper quadrant shows no gallstones or dilated ducts. No free fluid. No evidence of right renal mass or obstruction. There is increased liver attenuation. X-ray KUB shows no sign of intestinal obstruction or pneumoperitoneum. Patient has not had any vomiting here in the emergency department or any signs of hematemesis. As patient only had 1 episode of hematemesis he agrees to follow up outpatient with GI. He will return here if he has any worsening symptoms. - Lab Data Result diagrams: 03/27/18 20:48 03/27/18 20:48 Lab Results 03/27/18 03/27/18 03/27/18 Range/Units 20:48 20:48 20:48 WBC 11.2 H (3.8-10.6) k/uL RBC 3.10 L (4.30-5.90) m/uL Hgb 10.8 L (13.0-17.5) gm/dL Hct 33.3 L (39.0-53.0) % MCV 107.5 H (80.0-100.0) fL MCH 34.7 (25.0-35.0) pg MCHC 32.3 (31.0-37.0) g/dL RDW 13.5 (11.5-15.5) % Plt Count 105 L (150-450) k/uL Neutrophils % 78 % Lymphocytes % 9 % Monocytes % 10 % Eosinophils % 0 % Basophils % 0 % Neutrophils # 8.7 H (1.3-7.7) k/uL Lymphocytes # 1.1 (1.0-4.8) k/uL Monocytes # 1.2 H (0-1.0) k/uL Eosinophils # 0.0 (0-0.7) k/uL Basophils # 0.0 (0-0.2) k/uL Macrocytosis Moderate PT (9.0-12.0) sec INR (<1.2) APTT (22.0-30.0) sec Sodium 139 (137-145) mmol/L Potassium 4.9 (3.5-5.1) mmol/L Chloride 107 (98-107) mmol/L Carbon Dioxide 27 (22-30) mmol/L Anion Gap 5 mmol/L BUN 26 H (9-20) mg/dL Creatinine 0.41 L (0.66-1.25) mg/dL Est GFR (CKD-EPI)AfAm >90 (>60 ml/min/1.73 sqM) Est GFR (CKD-EPI)NonAf >90 (>60 ml/min/1.73 sqM) Glucose 118 H (74-99) mg/dL Calcium 9.6 (8.4-10.2) mg/dL Total Bilirubin 1.8 H (0.2-1.3) mg/dL AST 77 H (17-59) U/L ALT 35 (21-72) U/L Alkaline Phosphatase 206 H (38-126) U/L Total Protein 6.6 (6.3-8.2) g/dL Albumin 3.5 (3.5-5.0) g/dL Amylase 55 (30-110) U/L Lipase 235 (23-300) U/L Urine Color Yellow Urine Appearance Clear (Clear) Urine pH 6.5 (5.0-8.0) Ur Specific [place] 1.018 (1.001-1.035) Urine Protein Negative (Negative) Urine Glucose (UA) Negative (Negative) Urine Ketones Negative (Negative) Urine Blood Negative (Negative) Urine Nitrite Negative (Negative) Urine Bilirubin Negative (Negative) Urine Urobilinogen 2.0 (<2.0) mg/dL Ur Leukocyte Esterase Negative (Negative) 03/27/18 Range/Units 20:48 WBC (3.8-10.6) k/uL RBC (4.30-5.90) m/uL Hgb (13.0-17.5) gm/dL Hct (39.0-53.0) % MCV (80.0-100.0) fL MCH (25.0-35.0) pg MCHC (31.0-37.0) g/dL RDW (11.5-15.5) % Plt Count (150-450) k/uL Neutrophils % % Lymphocytes % % Monocytes % % Eosinophils % % Basophils % % Neutrophils # (1.3-7.7) k/uL Lymphocytes # (1.0-4.8) k/uL Monocytes # (0-1.0) k/uL Eosinophils # (0-0.7) k/uL Basophils # (0-0.2) k/uL Macrocytosis PT 13.0 H (9.0-12.0) sec INR 1.4 H (<1.2) APTT 23.8 (22.0-30.0) sec Sodium (137-145) mmol/L Potassium (3.5-5.1) mmol/L Chloride (98-107) mmol/L Carbon Dioxide (22-30) mmol/L Anion Gap mmol/L BUN (9-20) mg/dL Creatinine (0.66-1.25) mg/dL Est GFR (CKD-EPI)AfAm (>60 ml/min/1.73 sqM) Est GFR (CKD-EPI)NonAf (>60 ml/min/1.73 sqM) Glucose (74-99) mg/dL Calcium (8.4-10.2) mg/dL Total Bilirubin (0.2-1.3) mg/dL AST (17-59) U/L ALT (21-72) U/L Alkaline Phosphatase (38-126) U/L Total Protein (6.3-8.2) g/dL Albumin (3.5-5.0) g/dL Amylase (30-110) U/L Lipase (23-300) U/L Urine Color Urine Appearance (Clear) Urine pH (5.0-8.0) Ur Specific [place] (1.001-1.035) Urine Protein (Negative) Urine Glucose (UA) (Negative) Urine Ketones (Negative) Urine Blood (Negative) Urine Nitrite (Negative) Urine Bilirubin (Negative) Urine Urobilinogen (<2.0) mg/dL Ur Leukocyte Esterase (Negative) Disposition Clinical Impression: Hematemesis Disposition: HOME SELF-CARE Condition: Good Instructions: Hematemesis (ED) Additional Instructions: Please follow up with primary care in 1-2 days. Please follow up with GI in 1- 2 days. Return to the emergency department if you have any worsening symptoms. Is patient prescribed a controlled substance at d/c from ED?: No Referrals: Hermes Kimble MD [Primary Care Provider] - 1-2 days Joe Prince MD [STAFF PHYSICIAN] - 1-2 days Time of Disposition: 23:54
[2018-03-27] MEDS ORDERED: ONDANSETRON 4 MG/2 ML VIAL IVP STA (20:37)
[2018-03-27] MEDS ORDERED: SODIUM CHLORIDE 0.9% 1,000 ML IV STA (20:37)
[2018-03-27 21:04] LABS: Basophils % (A) 0 %; Eosinophils % (A) 0 %; HCT 33.3 % (39.0-53.0); HGB 10.8 gm/dL (13.0-17.5); Lymphocytes # (A) 1.1 k/uL (1.0-4.8); Lymphocytes % (A) 9 %; MCH 34.7 pg (25.0-35.0); MCHC 32.3 g/dL (31.0-37.0); MCV 107.5 fL (80.0-100.0); Macrocytosis Moderate; Mean Platelet Volume 9.6; Monocytes # (A) 1.2 k/uL (0-1.0); Monocytes % (A) 10 %; Neutrophils # (A) 8.7 k/uL (1.3-7.7); Neutrophils % (A) 78 %; Platelet Count 105 k/uL (150-450); RDW 13.5 % (11.5-15.5); WBC 11.2 k/uL (3.8-10.6)
[2018-03-27 21:05] VITALS: RESP 16
[2018-03-27 21:06] LABS: Appearance,Urine Clear (Clear); Bilirubin,Urine Negative (Negative); Blood,Urine Negative (Negative); Color,Urine Yellow; Glucose,Urine (UA) Negative (Negative); Ketones,Urine Negative (Negative); Leukocyte Esterase,Urine Negative (Negative); Nitrite,Urine Negative (Negative); PH, Urine 6.5 (5.0-8.0); Protein,Urine Negative (Negative); Specific Gravity,Urine 1.018 (1.001-1.035)
[2018-03-27 21:15] LABS: ALT 35 U/L (21-72); AST 77 U/L (17-59); Albumin 3.5 g/dL (3.5-5.0); Alkaline Phosphatase 206 U/L (38-126); Amylase 55 U/L (30-110); Anion Gap 5 mmol/L; Blood Urea Nitrogen 26 mg/dL (9-20); Calcium 9.6 mg/dL (8.4-10.2); Carbon Dioxide 27 mmol/L (22-30); Chloride 107 mmol/L (98-107); Glucose 118 mg/dL (74-99); INR 1.4 (<1.2); Lipase 235 U/L (23-300); Partial Thromboplastin Time 23.8 sec (22.0-30.0); Potassium 4.9 mmol/L (3.5-5.1); Sodium 139 mmol/L (137-145); Total Bilirubin 1.8 mg/dL (0.2-1.3); Total Protein 6.6 g/dL (6.3-8.2)
--- NOTE | 2018-03-27 22:41 | US ---
EXAMINATION TYPE: US abdomen limited DATE OF EXAM: 03/27/2018 COMPARISON: NONE CLINICAL HISTORY: Pain. Pain EXAM MEASUREMENTS: Liver Length: 19.9 cm Gallbladder Wall: 0.3 cm CBD: 0.3 cm Right Kidney: 12.0 x 5.1 x 5.9 cm Pancreas: Tail obscured by overlying bowel gas Liver: Increased attenuation Gallbladder: Partially contracted stones from previous exam not seen. Evidence for sonographic Miranda's sign: No CBD: 0.3 Right Kidney: 12.0 x 5.1 x 5.9 cm IMPRESSION: No gallstones or dilated ducts. No free fluid. No evidence of right renal mass or obstruc tion.
[2018-03-27 22:56] VITALS: BP 133/75; PULSE 84
[2018-03-28] MEDS ORDERED: ONDANSETRON 4 MG/2 ML VIAL IVP STA (00:39)
== END 2018-03-28 00:50 | disposition home or self-care (01) ==
LOC: EC 17:46
DX: K92.0 Hematemesis (principal); F31.9 Bipolar disorder, unspecified; F17.200 Nicotine dependence, unspecified, uncomplicated; Z87.19 Personal history of other diseases of the digestive system; Z98.890 Other specified postprocedural states; Z79.52 Long term (current) use of systemic steroids; Z79.899 Other long term (current) drug therapy
CPT/HCPCS: 36415; 74018; 76705; 80053; 81003; 82150; 83690; 85025; 85610; 85730; 96361; 96374; 96376; 99284

== ENCOUNTER 2018-04-13 20:53 | Observation (INO) | payer OTHER ==
--- NOTE | 2018-04-13 22:23 | XR ---
EXAMINATION TYPE: XR chest 2V DATE OF EXAM: 04/13/2018 COMPARISON: 03/29/2018 HISTORY: Short of breath TECHNIQUE: Frontal and lateral views of the chest are obtained. FINDINGS: There is some atelectasis in the right midlung. The other lung miranda are clear. There is no heart failure. Heart size is normal. There is no pleural effusion. There are chest leads. IMPRESSION: New mild atelectasis right midlung compared to old exam. Normal heart.
[2018-04-13 22:48] LABS: Basophils % (A) 0 %; Eosinophils # (A) 0.8 k/uL (0-0.7); Eosinophils % (A) 8 %; Hypochromasia Moderate; Lymphocytes # (A) 1.9 k/uL (1.0-4.8); Lymphocytes % (A) 19 %; MCH 32.5 pg (25.0-35.0); MCHC 32.2 g/dL (31.0-37.0); Macrocytosis Slight; Mean Platelet Volume 8.2; Monocytes # (A) 0.7 k/uL (0-1.0); Monocytes % (A) 7 %; Neutrophils # (A) 6.4 k/uL (1.3-7.7); Neutrophils % (A) 64 %; RBC 2.47 m/uL (4.30-5.90); RDW 15.9 % (11.5-15.5); WBC 10.1 k/uL (3.8-10.6)
[2018-04-13 22:50] LABS: Platelet Count 166 k/uL (150-450)
--- NOTE | 2018-04-13 22:50 | ED ---
SOB HPI - General Chief Complaint: Shortness of Breath Stated Complaint: SOB Time Seen by Provider: 04/13/18 21:11 Source: patient Mode of arrival: ambulatory Limitations: no limitations - History of Present Illness Initial Comments: 52-year-old male patient with past medical history significant for cirrhosis of the liver and multiple GI issues presents to the emergency department today for complaints of shortness of breath, abdominal distention, and increased swelling to the lower extremities. Patient states that he has been having progressively worsening swelling over the last several days. Patient states he feels very short of breath especially with activity. States he is unable to lie flat. States he does have a dry cough with this. Patient is following with Dr. Prince outpatient for management of swelling and cirrhosis. He was given prescription for a diuretic, but has not started this medication yet. He denies any chest pain. Denies any fevers or chills. Has no history of heart failure or CAD. Patient denies any recent rash, nausea, vomiting, diarrhea, constipation, back pain, numbness, tingling, dizziness, weakness, hematuria, dysuria, urinary urgency, urinary frequency, headache, visual changes, or any other complaints. - Related Data Home Medications Medication Instructions Recorded Confirmed [place] Carbonate 600 mg PO HS 05/08/17 04/13/18 Menthol [Biofreeze] 1 applic TOPICAL BID PRN 03/07/18 04/13/18 Lisinopril 40 mg PO HS 04/13/18 04/13/18 Pantoprazole [Protonix] 40 mg PO DAILY 04/13/18 04/13/18 Thiamine [Vitamin B-1] 100 mg PO DAILY 04/13/18 04/13/18 Allergies Allergy/AdvReac Type Severity Reaction Status Date / Time No Known Allergies Allergy Verified 04/13/18 22:30 Review of Systems ROS Statement: Those systems with pertinent positive or pertinent negative responses have been documented in the HPI. ROS Other: All systems not noted in ROS Statement are negative. Past Medical History Past Medical History: Hyperlipidemia, Hypertension Additional Past Medical History / Comment(s): bipolar, septic uti, History of Any Multi-Drug Resistant Organisms: None Reported Past Surgical History: Orthopedic Surgery Additional Past Surgical History / Comment(s): deviated septum sinus surg knee carpel tunnel Past Anesthesia/Blood Transfusion Reactions: No Reported Reaction Past Psychological History: Anxiety, Bipolar, Depression Smoking Status: Current every day smoker Past Alcohol Use History: Daily, Heavy Past Drug Use History: None Reported General Exam Limitations: no limitations General appearance: alert, in no apparent distress, other (This is a well- developed, well-nourished adult male patient in mild respiratory distress. Vital signs upon presentation are temperature 98.4F, pulse 107, respirations 22 , blood pressure 162/85, pulse ox 98% on room air.) Eye exam: Present: normal appearance, PERRL, EOMI. Absent: scleral icterus, conjunctival injection, periorbital swelling ENT exam: Present: normal exam, normal oropharynx, mucous membranes moist Respiratory exam: Present: normal lung sounds bilaterally, respiratory distress (Mild), other (Tachypnea). Absent: wheezes, rales, rhonchi, stridor Cardiovascular Exam: Present: normal rhythm, tachycardia, normal heart sounds. Absent: systolic murmur, diastolic murmur, rubs, gallop, clicks GI/Abdominal exam: Present: distended (Rounded distended abdomen), normal bowel sounds. Absent: tenderness, guarding, rebound, rigid Neurological exam: Present: alert, oriented X3, CN II-XII intact Psychiatric exam: Present: normal affect, normal mood Skin exam: Present: warm, dry, intact, normal color. Absent: rash Course Vital Signs 04/13/18 04/13/18 04/13/18 21:04 22:17 22:30 Temperature 98.4 F Pulse Rate 107 H 96 Respiratory 22 24 19 Rate Blood Pressure 162/85 134/81 O2 Sat by Pulse 98 98 Oximetry Medical Decision Making - Medical Decision Making 52-year-old male patient percents to the emergency department today for evaluation of dyspnea and increased swelling to his abdomen and legs. Physical examination did reveal 3+ pitting edema to the lower extremities, a distended rounded abdomen. Labs reviewed and did reveal hemoglobin 8.0 stable from 2017, BUN 7, creatinine 0.43, AST 69, alk phos 302, albumin 3.1. Given presence of ascites and increased lower extremity swelling as well as dyspnea we 'll keep patient in for IV diuresis, we will consult Dr. Prince. Patient is aware of results and agree with this plan. - Lab Data Result diagrams: 04/13/18 22:00 04/13/18 22:00 Lab Results 1204/13/18 04/13/18 Range/Units 22:00 22:00 22:00 WBC 10.1 (3.8-10.6) k/uL RBC 2.47 L (4.30-5.90) m/uL Hgb 8.0 L (13.0-17.5) gm/dL Hct 25.0 L (39.0-53.0) % MCV 101.0 H (80.0-100.0) fL MCH 32.5 (25.0-35.0) pg MCHC 32.2 (31.0-37.0) g/dL RDW 15.9 H (11.5-15.5) % Plt Count 166 D (150-450) k/uL Neutrophils % 64 % Lymphocytes % 19 % Monocytes % 7 % Eosinophils % 8 % Basophils % 0 % Neutrophils # 6.4 (1.3-7.7) k/uL Lymphocytes # 1.9 (1.0-4.8) k/uL Monocytes # 0.7 (0-1.0) k/uL Eosinophils # 0.8 H (0-0.7) k/uL Basophils # 0.0 (0-0.2) k/uL Hypochromasia Moderate Macrocytosis Slight PT (9.0-12.0) sec INR (<1.2) APTT (22.0-30.0) sec Sodium 139 (137-145) mmol/L Potassium 4.3 (3.5-5.1) mmol/L Chloride 111 H (98-107) mmol/L Carbon Dioxide 21 L (22-30) mmol/L Anion Gap 7 mmol/L BUN 7 L (9-20) mg/dL Creatinine 0.43 L (0.66-1.25) mg/dL Est GFR (CKD-EPI)AfAm >90 (>60 ml/min/1.73 sqM) Est GFR (CKD-EPI)NonAf >90 (>60 ml/min/1.73 sqM) Glucose 104 H (74-99) mg/dL Calcium 8.4 (8.4-10.2) mg/dL Total Bilirubin 1.0 (0.2-1.3) mg/dL AST 69 H (17-59) U/L ALT 25 (21-72) U/L Alkaline Phosphatase 302 H (38-126) U/L Total Creatine Kinase 51 L (55-170) U/L CK-MB (CK-2) 1.0 (0.0-2.4) ng/mL CK-MB (CK-2) Rel Index 2.0 Troponin I <0.012 (0.000-0.034) ng/mL NT-Pro-B Natriuret Pep pg/mL Total Protein 6.2 L (6.3-8.2) g/dL Albumin 3.1 L (3.5-5.0) g/dL 04/13/18 04/13/18 Range/Units 22:00 22:00 WBC (3.8-10.6) k/uL RBC (4.30-5.90) m/uL Hgb (13.0-17.5) gm/dL Hct (39.0-53.0) % MCV (80.0-100.0) fL MCH (25.0-35.0) pg MCHC (31.0-37.0) g/dL RDW (11.5-15.5) % Plt Count (150-450) k/uL Neutrophils % % Lymphocytes % % Monocytes % % Eosinophils % % Basophils % % Neutrophils # (1.3-7.7) k/uL Lymphocytes # (1.0-4.8) k/uL Monocytes # (0-1.0) k/uL Eosinophils # (0-0.7) k/uL Basophils # (0-0.2) k/uL Hypochromasia Macrocytosis PT 11.0 (9.0-12.0) sec INR 1.0 (<1.2) APTT 22.9 (22.0-30.0) sec Sodium (137-145) mmol/L Potassium (3.5-5.1) mmol/L Chloride (98-107) mmol/L Carbon Dioxide (22-30) mmol/L Anion Gap mmol/L BUN (9-20) mg/dL Creatinine (0.66-1.25) mg/dL Est GFR (CKD-EPI)AfAm (>60 ml/min/1.73 sqM) Est GFR (CKD-EPI)NonAf (>60 ml/min/1.73 sqM) Glucose (74-99) mg/dL Calcium (8.4-10.2) mg/dL Total Bilirubin (0.2-1.3) mg/dL AST (17-59) U/L ALT (21-72) U/L Alkaline Phosphatase (38-126) U/L Total Creatine Kinase (55-170) U/L CK-MB (CK-2) (0.0-2.4) ng/mL CK-MB (CK-2) Rel Index Troponin I (0.000-0.034) ng/mL NT-Pro-B Natriuret Pep 147 pg/mL Total Protein (6.3-8.2) g/dL Albumin (3.5-5.0) g/dL - Radiology Data Radiology results: report reviewed, image reviewed Two-view x-ray of the chest is obtained. Report was reviewed in its entirety. Impression by Dr. Pompa shows new mild atelectasis right midlung compared to old exam. Normal heart. Disposition Clinical Impression: Ascites, Dyspnea Disposition: ADMITTED IP TO THIS [facility] Condition: Serious Referrals: Hermes Kimble MD [Primary Care Provider] - 1-2 days Decision to Admit Reason: Admit from EC Decision Date: 04/14/18 Decision Time: 00:10
[2018-04-13 22:58] LABS: Partial Thromboplastin Time 22.9 sec (22.0-30.0)
[2018-04-13 23:00] LABS: ALT 25 U/L (21-72); AST 69 U/L (17-59); Albumin 3.1 g/dL (3.5-5.0); Alkaline Phosphatase 302 U/L (38-126); Anion Gap 7 mmol/L; Blood Urea Nitrogen 7 mg/dL (9-20); Calcium 8.4 mg/dL (8.4-10.2); Carbon Dioxide 21 mmol/L (22-30); Chloride 111 mmol/L (98-107); Glucose 104 mg/dL (74-99); Potassium 4.3 mmol/L (3.5-5.1); Sodium 139 mmol/L (137-145); Total Protein 6.2 g/dL (6.3-8.2)
[2018-04-13 23:18] LABS: Creatine Kinase 51 U/L (55-170)
[2018-04-13 23:31] LABS: Troponin I <0.012 ng/mL (0.000-0.034)
[2018-04-14] MEDS ORDERED: FUROSEMIDE 10 MG/ML 4 ML VIAL IV STA (00:04)
[2018-04-14] MEDS ORDERED: NALOXONE 0.4 MG/ML 1 ML VIAL IV PRN (00:04)
[2018-04-14 05:46] VITALS: BMI 22.2
[2018-04-14] MEDS: FUROSEMIDE 10 MG/ML 4 ML VIAL IV SCH ×2 (08:21→22:38)
[2018-04-14] MEDS ORDERED: METHYL SALICYLATE/MENTHOL CREAM 5 OZ TOPICAL PRN (08:37)
--- NOTE | 2018-04-14 10:52 | P.HPIM ---
History of Present Illness 52-year-old male presented to the emergency room with complaints of the edema to his legs increasing abdominal girth and shortness of breath. Patient has a history of alcohol and nicotine abuse. Patient in liver failure secondary to alcohol abuse. Patient had recent GI bleed esophageal varices. Patient also has history of bipolar Review of Systems Cardiovascular: Reports edema Respiratory: Reports dyspnea Gastrointestinal: Reports bloating Past Medical History Past Medical History: Hyperlipidemia, Hypertension Additional Past Medical History / Comment(s): bipolar History of Any Multi-Drug Resistant Organisms: None Reported Past Surgical History: Orthopedic Surgery Additional Past Surgical History / Comment(s): deviated septum sinus surg, knee , carpel tunnel Past Anesthesia/Blood Transfusion Reactions: No Reported Reaction Past Psychological History: Anxiety, Bipolar, Depression Smoking Status: Current every day smoker Past Alcohol Use History: Daily, Heavy Past Drug Use History: None Reported - Past Family History Father Family Medical History: No Reported History Medications and Allergies Home Medications Medication Instructions Recorded Confirmed Type [place] Carbonate 600 mg PO HS 05/08/17 04/13/18 History Menthol [Biofreeze] 1 applic TOPICAL BID PRN 03/07/18 04/13/18 History Lisinopril 40 mg PO HS 04/13/18 04/13/18 History Pantoprazole [Protonix] 40 mg PO DAILY 04/13/18 04/13/18 History Thiamine [Vitamin B-1] 100 mg PO DAILY 04/13/18 04/13/18 History Allergies Allergy/AdvReac Type Severity Reaction Status Date / Time No Known Allergies Allergy Verified 04/13/18 22:30 Physical Exam Vitals: Vital Signs Temp Pulse Pulse Resp BP BP Pulse Ox 04/14/18 08:03 93 L 04/14/18 05:05 98.6 F 98 16 127/76 93 L 04/14/18 00:30 98 21 120/69 94 L 04/14/18 00:00 92 18 119/60 96 04/13/18 23:30 91 21 127/70 95 04/13/18 23:00 89 20 123/64 96 04/13/18 22:56 90 19 123/64 98 04/13/18 22:30 96 19 134/81 98 04/13/18 22:17 24 04/13/18 21:04 98.4 F 107 H 22 162/85 98 Intake and Output 04/13/18 04/14/18 04/14/18 22:59 06:59 14:59 Intake Total 240 Balance 240 Intake: Oral 240 Other: Voiding Method Urinal # Voids 1 Weight 83.007 kg 83.007 kg - Constitutional General appearance: mild distress - EENT Eyes: PERRLA Ears: bilateral: normal - Neck Neck: normal ROM - Respiratory Respiratory: bilateral: CTA - Cardiovascular Rhythm: regular - Gastrointestinal General gastrointestinal: distended, hyperactive bowel sounds - Integumentary Integumentary: normal - Neurologic Neurologic: CNII-XII intact - Musculoskeletal Musculoskeletal: gait normal - Psychiatric Psychiatric: A&O x's 3, appropriate affect, intact judgment & insight Results CBC & Chem 7: 04/13/18 22:00 04/13/18 22:00 Labs: Abnormal Lab Results - Last 24 Hours (Table) 04/13/18 04/13/18 04/13/18 Range/Units 22:00 22:00 22:00 RBC 2.47 L (4.30-5.90) m/uL Hgb 8.0 L (13.0-17.5) gm/dL Hct 25.0 L (39.0-53.0) % MCV 101.0 H (80.0-100.0) fL RDW 15.9 H (11.5-15.5) % Eosinophils # 0.8 H (0-0.7) k/uL Chloride 111 H (98-107) mmol/L Carbon Dioxide 21 L (22-30) mmol/L BUN 7 L (9-20) mg/dL Creatinine 0.43 L (0.66-1.25) mg/dL Glucose 104 H (74-99) mg/dL AST 69 H (17-59) U/L Alkaline Phosphatase 302 H (38-126) U/L Total Creatine Kinase 51 L (55-170) U/L Total Protein 6.2 L (6.3-8.2) g/dL Albumin 3.1 L (3.5-5.0) g/dL Abdominal x-ray: report reviewed Thrombosis Risk Factor Assmnt - Choose All That Apply Any of the Below Risk Factors Present?: Yes Each Factor Represents 1 point: Age 41-60 years, Swollen legs (current) Other Risk Factors: No Other congenital or acquired thrombophilia - If yes, enter type in comment: No Thrombosis Risk Factor Assessment Total Risk Factor Score: 2 Thrombosis Risk Factor Assessment Level: Low Risk Assessment and Plan Plan: Assessment Ascites secondary to liver failure EtOH abuse Dyspnea secondary to ascites Lower extremity edema Hypertension Hyperlipidemia Bipolar Alcohol abuse Nicotine abuse Anemia chronic disease Plan Abdominal ultrasound Labs in a.m. Follow-up with
--- NOTE | 2018-04-14 12:33 | US ---
EXAMINATION TYPE: US abdomen limited DATE OF EXAM: 04/14/2018 COMPARISON: NONE CLINICAL HISTORY: ascites. ascites All 4 abdominal quadrants scanned, Moderate ascites noted IMPRESSION: Ascites
[2018-04-14] MEDS: THIAMINE 100 MG TAB PO SCH (12:41)
[2018-04-14] MEDS: SPIRONOLACTONE 25 MG TAB PO SCH (12:41)
--- NOTE | 2018-04-14 19:23 | P.CONS ---
History of Present Illness - Reason for Consult Consult date: 04/14/18 Ascites Requesting physician: Alfredo Childers - Chief Complaint Abdominal distension - History of Present Illness The patient is a 52-year-old male with a known history of alcohol abuse and decompensated liver cirrhosis with ascites who presents to the hospital with multiple complaints including abdominal pain, shortness of breath and lower extremity swelling. The patient reports that he has noticed worsening of symptoms in the past few days. He describes shortness of breath with exertion and worse with laying flat. He was recently seen in the outpatient setting at which time prescriptions for Lasix and Aldactone were given to the patient. He reports calling his pharmacy and having them indicate that he would be unable to obtain the medications until after the weekend. At this time given his symptoms he decided to present to the hospital for further evaluation. He states that in the past he has not required a paracentesis. On presentation the patient was found to have a total bilirubin 1, alkaline phosphatase 302, AST 69 and ALT 25. INR on presentation was 1, hemoglobin was 8, platelet count was 166,000. The patient continues to be an active consumer of alcohol. He had an EGD on his last admission to the hospital on 03/30/2018 which was significant for severe gastritis and nonbleeding small esophageal varices. No nausea, vomiting, change in bowel habits or reports of GI bleeding. Review of Systems REVIEW OF SYSTEMS: CARDIO: Denies any chest pain or palpitations. PULMONARY: Denies any wheezing of breath but does report shortness of breath worse on exertion and when lying flat. GENITOURINARY: No dysuria or hematuria. MUSCULOSKELETAL: No weakness reported. SKIN: Denies any new rashes or lesions, jaundice or pallor. PSYCHIATRIC: Denies any depression or anxiety. NEUROLOGY: Denies headache, denies any new focal deficits. EARS: No tinnitus, discharge or new hearing loss. NOSE: No discharge or congestion. EYES: No pain in eyes or change in vision. CONSTITUTIONAL: No recent weight loss. No fever, chills, night sweats. Past Medical History Past Medical History: Hyperlipidemia, Hypertension Additional Past Medical History / Comment(s): bipolar History of Any Multi-Drug Resistant Organisms: None Reported Past Surgical History: Orthopedic Surgery Additional Past Surgical History / Comment(s): deviated septum sinus surg, knee , carpel tunnel Past Anesthesia/Blood Transfusion Reactions: No Reported Reaction Past Psychological History: Anxiety, Bipolar, Depression Smoking Status: Current every day smoker Past Alcohol Use History: Daily, Heavy Past Drug Use History: None Reported - Past Family History Father Family Medical History: No Reported History Medications and Allergies Home Medications Medication Instructions Recorded Confirmed Type [place] Carbonate 600 mg PO HS 05/08/17 04/13/18 History Menthol [Biofreeze] 1 applic TOPICAL BID PRN 03/07/18 04/13/18 History Lisinopril 40 mg PO HS 04/13/18 04/13/18 History Pantoprazole [Protonix] 40 mg PO DAILY 04/13/18 04/13/18 History Thiamine [Vitamin B-1] 100 mg PO DAILY 04/13/18 04/13/18 History Allergies Allergy/AdvReac Type Severity Reaction Status Date / Time No Known Allergies Allergy Verified 04/13/18 22:30 Physical Exam Vitals: Vital Signs Temp Pulse Pulse Resp BP BP BP 04/14/18 17:00 74 140/66 04/14/18 16:30 73 137/74 04/14/18 16:15 75 151/75 04/14/18 16:00 79 143/79 04/14/18 15:46 76 133/86 04/14/18 15:32 68 18 156/73 04/14/18 15:14 81 18 161/76 04/14/18 14:59 81 18 168/78 04/14/18 14:45 84 18 171/80 04/14/18 14:30 98.1 F 86 18 186/83 04/14/18 13:23 97.8 F 89 18 166/82 04/14/18 08:03 04/14/18 05:05 98.6 F 98 16 127/76 04/14/18 00:30 98 21 120/69 04/14/18 00:00 92 18 119/60 04/13/18 23:30 91 21 127/70 04/13/18 23:00 89 20 123/64 04/13/18 22:56 90 19 123/64 04/13/18 22:30 96 19 134/81 04/13/18 22:17 24 04/13/18 21:04 98.4 F 107 H 22 162/85 Pulse Ox 04/14/18 17:00 04/14/18 16:30 04/14/18 16:15 04/14/18 16:00 04/14/18 15:46 04/14/18 15:32 97 04/14/18 15:14 97 04/14/18 14:59 97 04/14/18 14:45 97 04/14/18 14:30 100 04/14/18 13:23 96 04/14/18 08:03 93 L 04/14/18 05:05 93 L 04/14/18 00:30 94 L 04/14/18 00:00 96 04/13/18 23:30 95 04/13/18 23:00 96 04/13/18 22:56 98 04/13/18 22:30 98 04/13/18 22:17 04/13/18 21:04 98 Intake and Output 04/14/18 04/14/18 04/14/18 06:59 14:59 22:59 Intake Total 240 Output Total 1300 Balance 240 -1300 Intake: Oral 240 Output: Urine 1300 Other: Voiding Method Urinal # Voids 1 Weight 83.007 kg Results CBC & Chem 7: 04/13/18 22:00 04/13/18 22:00 Labs: Abnormal Lab Results - Last 24 Hours (Table) 04/13/18 04/13/18 04/13/18 Range/Units 22:00 22:00 22:00 RBC 2.47 L (4.30-5.90) m/uL Hgb 8.0 L (13.0-17.5) gm/dL Hct 25.0 L (39.0-53.0) % MCV 101.0 H (80.0-100.0) fL RDW 15.9 H (11.5-15.5) % Eosinophils # 0.8 H (0-0.7) k/uL Chloride 111 H (98-107) mmol/L Carbon Dioxide 21 L (22-30) mmol/L BUN 7 L (9-20) mg/dL Creatinine 0.43 L (0.66-1.25) mg/dL Glucose 104 H (74-99) mg/dL AST 69 H (17-59) U/L Alkaline Phosphatase 302 H (38-126) U/L Total Creatine Kinase 51 L (55-170) U/L Total Protein 6.2 L (6.3-8.2) g/dL Albumin 3.1 L (3.5-5.0) g/dL US - abdomen: report reviewed (Ultrasound of the abdomen showing moderate ascites.) Assessment and Plan (1) Alcoholic cirrhosis of liver with ascites Narrative/Plan: Patient presenting with shortness of breath worse with exertion and lying flat and abdominal distention consistent with history of a ascites. He had been given prescriptions to begin outpatient diuresis but was unable to obtain the medications. Ultrasound on admission showed moderate amount of ascites. Current Visit: Yes Status: Acute Code(s): K70.31 - ALCOHOLIC CIRRHOSIS OF LIVER WITH ASCITES SNOMED Code(s): 729350885 (2) Anemia Narrative/Plan: Anemia likely secondary to chronic disease with no signs or symptoms of active bleeding. EGD performed on last admission showed severe gastritis with small nonbleeding esophageal varices. Current Visit: No Status: Acute Code(s): D64.9 - ANEMIA, UNSPECIFIED SNOMED Code(s): 976692848 (3) Coagulopathy Current Visit: No Status: Acute Code(s): D68.9 - COAGULATION DEFECT, UNSPECIFIED SNOMED Code(s): 08112337 Plan: Supportive care Okay for low sodium diet Patient started on Lasix 40 mg twice a day Aldactone 25 mg daily added to her regimen Paracentesis with fluid studies ordered Recommend alcohol abstinence Thank you for allowing us to participate in the care of this patient we will continue to follow
[2018-04-14 20:38] LABS: Appearance,BF Hazy; Color,BF Yellow
[2018-04-14 20:39] LABS: Nucleated Cells, Body Fluid 37 /uL; RBC, Body Fluid 78 /uL
[2018-04-14 20:48] LABS: Mononuclear WBC,Body Fluid 97 %; Polynuclear WBC,Body Fluid 3 %; Total Cells Counted,Body Fluid 100
[2018-04-14] MEDS ORDERED: LISINOPRIL 20 MG TAB PO SCH (21:00)
[2018-04-14] MEDS ORDERED: LITHIUM CARBONATE 300 MG CAP PO SCH (21:00)
[2018-04-15 03:53] LABS: Total Protein, Body Fluid 768 mg/dL
[2018-04-15] MEDS ORDERED: PANTOPRAZOLE 40 MG TABLET PO SCH (07:30)
[2018-04-15] MEDS: FUROSEMIDE 10 MG/ML 4 ML VIAL IV SCH (07:55)
[2018-04-15] MEDS: SPIRONOLACTONE 25 MG TAB PO SCH (07:55)
[2018-04-15] MEDS: THIAMINE 100 MG TAB PO SCH (07:56)
[2018-04-15 08:37] LABS: Basophils % (A) 0 %; Eosinophils # (A) 0.7 k/uL (0-0.7); Eosinophils % (A) 10 %; HCT 24.9 % (39.0-53.0); Hypochromasia Moderate; Lymphocytes # (A) 1.3 k/uL (1.0-4.8); Lymphocytes % (A) 17 %; MCH 32.9 pg (25.0-35.0); MCHC 32.1 g/dL (31.0-37.0); MCV 102.5 fL (80.0-100.0); Macrocytosis Slight; Mean Platelet Volume 7.9; Monocytes # (A) 0.6 k/uL (0-1.0); Monocytes % (A) 8 %; Neutrophils # (A) 4.7 k/uL (1.3-7.7); Neutrophils % (A) 62 %; Platelet Count 133 k/uL (150-450); RBC 2.43 m/uL (4.30-5.90); RDW 15.7 % (11.5-15.5); WBC 7.6 k/uL (3.8-10.6)
[2018-04-15 08:48] LABS: ALT 26 U/L (21-72); AST 53 U/L (17-59); Albumin 2.8 g/dL (3.5-5.0); Alkaline Phosphatase 297 U/L (38-126); Anion Gap 4 mmol/L; Blood Urea Nitrogen 8 mg/dL (9-20); Calcium 8.6 mg/dL (8.4-10.2); Carbon Dioxide 26 mmol/L (22-30); Chloride 108 mmol/L (98-107); Glucose 99 mg/dL (74-99); Potassium 3.9 mmol/L (3.5-5.1); Sodium 138 mmol/L (137-145); Total Bilirubin 1.9 mg/dL (0.2-1.3); Total Protein 5.8 g/dL (6.3-8.2)
--- NOTE | 2018-04-15 09:38 | US ---
Therapeutic paracentesis. DATE OF EXAM: 04/14/2018 CLINICAL HISTORY: Ascites The procedure was discussed with the patient. The risks, complications, benefits, and alternatives we re discussed and any questions were answered. Informed consent was obtained. The patient was placed s upine on the ultrasound table and prepped and draped in the usual sterile fashion. All elements of maximal barrier technique were utilized. Under ultrasound guidance, access into the right lower quadrant was obtained, via the paracentesis catheter system and direct ultrasound guidanc e. Approximately 4.8 liters of straw-colored fluid was removed. The patient was stable throughout the pr ocedure and remained stable upon discharge from Department of Radiology. IMPRESSION: Successful therapeutic paracentesis under ultrasound guidance.
--- NOTE | 2018-04-15 11:41 | P.PN ---
Subjective Patient had a paracentesis tap for 4.8 L of fluid states improvement. Patient anxious to go home Will confer with gastroenterology for further suggestions Objective - Vital Signs Vital signs: Vital Signs Temp 98.7 F 04/15/18 05:00 Pulse 80 04/15/18 05:00 Resp 16 04/15/18 05:00 BP 123/56 04/15/18 05:00 Pulse Ox 95 04/15/18 05:00 Intake & Output 04/14/18 04/15/18 04/15/18 18:59 06:59 18:59 Intake Total 790 Output Total 1300 1600 Balance -1300 -810 Intake: Oral 790 Output: Urine 1300 1600 Other: Voiding Method Urinal Urinal Urinal - Constitutional General appearance: Present: mild distress - EENT Eyes: Present: PERRLA Ears: bilateral: normal - Respiratory Respiratory: bilateral: CTA - Cardiovascular Rhythm: regular - Gastrointestinal General gastrointestinal: Present: distended, normal bowel sounds - Integumentary Integumentary: Present: normal - Neurologic Neurologic: Present: CNII-XII intact - Musculoskeletal Musculoskeletal: Present: gait normal - Psychiatric Psychiatric: Present: A&O x's 3, appropriate affect, intact judgment & insight - Labs CBC & Chem 7: 04/15/18 07:47 04/15/18 07:47 Labs: Abnormal Lab Results - Last 24 Hours (Table) 04/15/18 04/15/18 Range/Units 07:47 07:47 RBC 2.43 L (4.30-5.90) m/uL Hgb 8.0 L (13.0-17.5) gm/dL Hct 24.9 L (39.0-53.0) % MCV 102.5 H (80.0-100.0) fL RDW 15.7 H (11.5-15.5) % Plt Count 133 L (150-450) k/uL Chloride 108 H (98-107) mmol/L BUN 8 L (9-20) mg/dL Creatinine 0.43 L (0.66-1.25) mg/dL Total Bilirubin 1.9 H (0.2-1.3) mg/dL Alkaline Phosphatase 297 H (38-126) U/L Total Protein 5.8 L (6.3-8.2) g/dL Albumin 2.8 L (3.5-5.0) g/dL Microbiology - Last 24 Hours (Table) 04/14/18 14:42 Gram Stain - Preliminary Peritoneal Fluid Body Fluid Culture - Preliminary 04/14/18 14:42 Anaerobic Culture - Preliminary Paracentesis Fluid - Imaging and Cardiology US - abdomen: report reviewed Assessment and Plan Plan: Assessment Alcoholic cirrhosis with ascites Dyspnea to the above Generalized edema Hypertension Hyperlipidemia Bipolar Nicotine use EtOH abuse Chronic anemia secondary to chronic disease Esophageal varices Plan Hopeful discharge today with clearance from gastroenterology
[2018-04-15 12:23] VITALS: BP 151/66; PULSE 76; RESP 17; TEMP 97.7
--- NOTE | 2018-04-15 13:00 | P.DS ---
Providers Date of admission: 04/14/18 01:57 Expected date of discharge: 04/15/18 Attending physician: Hermes Kimble Consults: 04/14/18 00:04 Consult Physician Routine Consulting Provider: Joe Prince Consult Reason/Comments: Ascites Do you want consulting provider notified?: Yes Primary care physician: Hermes Kimble Hospital Course: 52-year-old male was admitted through the emergency room with complaints of shortness of breath and edema to lower extremities and abdomen. Patient was found to have a ascites was tapped for 4.8 m. States he feels improved. Patient was evaluated by Dr. Prince and was cleared by him for discharge home Assessment alcoholic cirrhosis with ascites dyspnea secondary to the above history of hypertension hyperlipidemia bipolar nicotine use EtOH abuse anemia of chronic disease Plan follow up with family physician Dr. Hermes Kimble follow up with gastroenterology Dr. Prince Patient Condition at Discharge: Serious Plan - Discharge Summary New Discharge Prescriptions: New Furosemide [Lasix] 40 mg PO BID 60 Days #60 tablet Potassium Chloride ER [K-Dur 10] 10 meq PO DAILY 30 Days #30 tab Spironolactone [Aldactone] 25 mg PO DAILY 30 Days #30 tab Continue [place] Carbonate 600 mg PO HS Menthol [Biofreeze] 1 applic TOPICAL BID PRN PRN Reason: Pain Pantoprazole [Protonix] 40 mg PO DAILY Lisinopril 40 mg PO HS Thiamine [Vitamin B-1] 100 mg PO DAILY Discharge Medication List [place] Carbonate 600 mg PO HS 05/08/17 [History] Menthol [Biofreeze] 1 applic TOPICAL BID PRN 03/07/18 [History] Lisinopril 40 mg PO HS 04/13/18 [History] Pantoprazole [Protonix] 40 mg PO DAILY 04/13/18 [History] Thiamine [Vitamin B-1] 100 mg PO DAILY 04/13/18 [History] Furosemide [Lasix] 40 mg PO BID 60 Days #60 tablet 04/15/18 [Rx] Potassium Chloride ER [K-Dur 10] 10 meq PO DAILY 30 Days #30 tab 04/15/18 [Rx] Spironolactone [Aldactone] 25 mg PO DAILY 30 Days #30 tab 04/15/18 [Rx] Follow up Appointment(s)/Referral(s): Hermes Kimble MD [Primary Care Provider] - 1-2 days
== END 2018-04-15 13:30 | disposition home or self-care (01) ==
LOC: EC 20:53 → INTOOBSV 04-14 01:57 → 3NMEDONC 04-14 01:57
PROVIDERS: ADMIT Family Medicine; ATTEND Family Medicine
DX: K70.31 Alcoholic cirrhosis of liver with ascites (principal); I10 Essential (primary) hypertension; E78.5 Hyperlipidemia, unspecified; F41.9 Anxiety disorder, unspecified; F31.9 Bipolar disorder, unspecified; F10.10 Alcohol abuse, uncomplicated; D63.8 Anemia in other chronic diseases classified elsewhere; F17.200 Nicotine dependence, unspecified, uncomplicated; Z79.899 Other long term (current) drug therapy; T50.1X6A Underdosing of loop [high-ceiling] diuretics, initial encounter; T50.0X6A Underdosing of mineralocorticoids and their antagonists, initial encounter; K29.70 Gastritis, unspecified, without bleeding; I85.00 Esophageal varices without bleeding; D68.9 Coagulation defect, unspecified; Z87.440 Personal history of urinary (tract) infections; K70.40 Alcoholic hepatic failure without coma
CPT/HCPCS: 36415; 49083; 71046; 76705; 80053; 82042; 82550; 82553; 83880; 84157; 84484; 85025; 85610; 85730; 87070; 87075; 87205; 88108; 88305; 89050; 93005; 94760; 96374; 96376; 99285

== ENCOUNTER 2018-06-06 12:16 | Day surgery (SDC) | payer OTHER ==
[2018-06-06 12:41] VITALS: RESP 14; TEMP 97.9
[2018-06-06 13:05] LABS: Mean Platelet Volume 9.8; Platelet Count 113 k/uL (150-450)
[2018-06-06 13:13] LABS: INR 1.1 (<1.2); Prothrombin Time 11.9 sec (9.0-12.0)
[2018-06-06] MEDS ORDERED: ALPRAZolam 0.5 MG TAB PO ONE (13:24)
[2018-06-06 13:57] VITALS: BP 133/74; PULSE 96
[2018-06-06] MEDS: ALBUMIN HUMAN 25% 50 ML in EMPTY BAG 1 BAG IVPB SCH ×2 (14:10→14:11)
--- NOTE | 2018-06-06 15:35 | US ---
Discontinued paracentesis HISTORY: Ascites Real-time ultrasound performed. No sizable pocket of fluid identified. IMPRESSION: Discontinued paracentesis
== END 2018-06-06 14:00 | disposition home or self-care (01) ==
LOC: RADPROMAIN 12:16
PROVIDERS: ATTEND Internal Medicine
DX: R18.8 Other ascites (principal); Z53.8 Procedure and treatment not carried out for other reasons
CPT/HCPCS: 36415; 76705; 82565; 85049; 85610

== ENCOUNTER 2018-10-31 17:42 | Inpatient (IN) | payer OTHER ==
[2018-10-31] MEDS ORDERED: SODIUM CHLORIDE 0.9% 1,000 ML IV STA (18:32)
[2018-10-31] MEDS ORDERED: ONDANSETRON 4 MG/2 ML VIAL IVP STA (18:33)
[2018-10-31 19:06] LABS: Anisocytosis Slight; Basophils % (A) 0 %; Eosinophils # (A) 0.3 k/uL (0-0.7); Eosinophils % (A) 3 %; HCT 25.8 % (39.0-53.0); HGB 7.9 gm/dL (13.0-17.5); Hypochromasia Slight; Lymphocytes # (A) 1.2 k/uL (1.0-4.8); Lymphocytes % (A) 11 %; MCH 29.6 pg (25.0-35.0); MCHC 30.7 g/dL (31.0-37.0); MCV 96.3 fL (80.0-100.0); Mean Platelet Volume 10.2; Monocytes # (A) 0.8 k/uL (0-1.0); Monocytes % (A) 7 %; Neutrophils # (A) 8.5 k/uL (1.3-7.7); Neutrophils % (A) 77 %; Platelet Count 110 k/uL (150-450); RBC 2.68 m/uL (4.30-5.90); RDW 16.7 % (11.5-15.5); WBC 11.1 k/uL (3.8-10.6)
[2018-10-31 19:15] LABS: INR 1.1 (<1.2); Partial Thromboplastin Time 24.7 sec (22.0-30.0)
[2018-10-31 19:18] LABS: ALT 19 U/L (21-72); AST 75 U/L (17-59); African American GFR (CKD) >90 (>60 ml/min/1.73 sqM); Albumin 3.7 g/dL (3.5-5.0); Alkaline Phosphatase 212 U/L (38-126); Anion Gap 12 mmol/L; Blood Urea Nitrogen 15 mg/dL (9-20); Calcium 9.3 mg/dL (8.4-10.2); Carbon Dioxide 20 mmol/L (22-30); Chloride 108 mmol/L (98-107); Glucose 114 mg/dL (74-99); Lipase 228 U/L (23-300); Potassium 3.8 mmol/L (3.5-5.1); Sodium 140 mmol/L (137-145)
--- NOTE | 2018-10-31 19:22 | ED ---
General Adult HPI <Patricio Becerril - Last Filed: 10/31/18 19:45> - General Source: patient Mode of arrival: ambulatory Limitations: no limitations <Stefanie Vee - Last Filed: 10/31/18 20:15> - General Chief complaint: Nausea/Vomiting/Diarrhea Stated complaint: Vomititng blood Time Seen by Provider: 10/31/18 18:17 - History of Present Illness Initial comments: Patient is a 53-year-old male presents emergency Department with complaints of vomiting blood 3 times today and mild abdominal pain. Patient states he has a history of liver cirrhosis from alcoholism. Patient states about 6 months ago he did have a paracentesis to remove the fluid in his abdomen. Patient has a follow-up appointment with his doctor on Saturday. Patient states he was getting ready this morning and started feeling nauseous and had 3 episodes of hematemesis that he describes as dark red in color. Patient also admits that his stool has been looking darker than normal as well. Patient had regular bowel movement today. Patient is denying fever, chills, diarrhea. No other complaints at this time. (Stefanie Vee) - Related Data Home Medications Medication Instructions Recorded Confirmed [place] Carbonate 600 mg PO HS 05/08/17 05/12/18 Lisinopril 40 mg PO HS 04/13/18 05/12/18 Pantoprazole [Protonix] 40 mg PO DAILY 04/13/18 05/12/18 Thiamine [Vitamin B-1] 100 mg PO DAILY 04/13/18 05/12/18 Furosemide [Lasix] 40 mg PO DAILY 05/12/18 05/12/18 Previous Rx's Medication Instructions Recorded Spironolactone [Aldactone] 25 mg PO DAILY 30 Days #30 tab 04/15/18 Allergies Allergy/AdvReac Type Severity Reaction Status Date / Time No Known Allergies Allergy Verified 10/31/18 18:14 Review of Systems ROS Other: All systems not noted in ROS Statement are negative. <Patricio Becerril - Last Filed: 10/31/18 19:45> ROS Other: All systems not noted in ROS Statement are negative. <Stefanie Vee - Last Filed: 10/31/18 20:15> ROS Statement: Those systems with pertinent positive or pertinent negative responses have been documented in the HPI. Past Medical History Past Medical History: GI Bleed, Hyperlipidemia, Hypertension, Liver Disease Additional Past Medical History / Comment(s): cirrhosis, recent hospitalization for SOB & ascites. liver cirohisi History of Any Multi-Drug Resistant Organisms: None Reported Past Surgical History: Orthopedic Surgery Additional Past Surgical History / Comment(s): deviated septum, sinus surg, knee, carpel tunnel, EGD Past Anesthesia/Blood Transfusion Reactions: No Reported Reaction Past Psychological History: Anxiety, Bipolar, Depression Smoking Status: Current every day smoker Past Alcohol Use History: Daily, Heavy Past Drug Use History: None Reported - Past Family History Father Family Medical History: No Reported History <Stefanie Vee - Last Filed: 10/31/18 20:15> General Exam General appearance: alert, in no apparent distress Head exam: Present: atraumatic, normocephalic, normal inspection Eye exam: Present: normal appearance, PERRL, EOMI. Absent: scleral icterus, conjunctival injection, periorbital swelling ENT exam: Present: normal exam, mucous membranes moist Neck exam: Present: normal inspection. Absent: tenderness, meningismus, lymphadenopathy Respiratory exam: Present: normal lung sounds bilaterally. Absent: respiratory distress, wheezes, rales, rhonchi, stridor Cardiovascular Exam: Present: regular rate, normal rhythm, normal heart sounds. Absent: systolic murmur, diastolic murmur, rubs, gallop, clicks GI/Abdominal exam: Present: soft, normal bowel sounds. Absent: distended, tenderness, guarding, rebound, rigid Extremities exam: Present: normal inspection, full ROM, normal capillary refill. Absent: tenderness, pedal edema, joint swelling, calf tenderness Back exam: Present: normal inspection Neurological exam: Present: alert, oriented X3, CN II-XII intact Psychiatric exam: Present: normal affect, normal mood Skin exam: Present: warm, dry, intact, normal color. Absent: rash <Patricio Becerril - Last Filed: 10/31/18 19:45> Limitations: no limitations <Stefanie Vee - Last Filed: 10/31/18 20:15> - General Exam Comments Initial Comments: GENERAL: Well-appearing, well-nourished and in no acute distress. HEAD: Atraumatic, normocephalic. EYES: Pupils equal round and reactive to light, extraocular movements intact, sclera anicteric, conjunctiva are normal. ENT: TMs normal, nares patent, oropharynx clear without exudates. Moist mucous membranes. NECK: Normal range of motion, supple without lymphadenopathy or JVD. LUNGS: Breath sounds clear to auscultation bilaterally and equal. No wheezes rales or rhonchi. HEART: Regular rate and rhythm without murmurs, rubs or gallops. ABDOMEN: Mild right upper quadrant tenderness, Soft, normoactive bowel sounds. No guarding, no rebound. No masses appreciated. No ascites present, no ecchymosis of the abdomen. : Deferred EXTREMITIES: Normal range of motion, no pitting or edema. No clubbing or cyanosis. NEUROLOGICAL: Cranial nerves II through XII grossly intact. Normal speech, normal gait. PSYCH: Normal mood, normal affect. SKIN: Warm, Dry, normal turgor, no rashes or lesions noted. (Stefanie Vee) Course <Patricio Becerril - Last Filed: 10/31/18 19:45> Vital Signs 10/31/18 18:12 Temperature 98.5 F Pulse Rate 99 Respiratory 18 Rate Blood Pressure 142/74 O2 Sat by Pulse 100 Oximetry - Reevaluation(s) Reevaluation #1: 10/31/18 19:45 patient with UGIB, No current exanguination (Patricio Becerril) Medical Decision Making - Lab Data Result diagrams: 10/31/18 18:54 10/31/18 18:54 <Patricio Becerril - Last Filed: 10/31/18 19:45> - Lab Data Result diagrams: 10/31/18 18:54 10/31/18 18:54 <Stefanie Vee - Last Filed: 10/31/18 20:15> - Medical Decision Making Patient is a 53-year-old male who presents emergency Department after having 3 episodes of hematemesis. Patient notes a history of liver cirrhosis from alcoholism. On exam patient has tenderness of the right upper quadrant and epig astric area. CBC shows hemoglobin 7.9, WBC is 11.1, lipase is 228. Patient has been afebrile and vital signs stable during stay. CT of the abdomen shows splenomegaly and splenic varices along with abdominal ascites and liver cirrhosis. Patient had episode of hematemesis during ER stay which was dark red in color. Case discussed with Dr. Becerril. Patient will be admitted for low hemoglobin and active hematemesis. Patient is in agreement with this plan. (Stefanie Vee) - Lab Data Lab Results 10/31/18 10/31/18 10/31/18 Range/Units 18:54 18:54 18:54 WBC 11.1 H (3.8-10.6) k/uL RBC 2.68 L (4.30-5.90) m/uL Hgb 7.9 L (13.0-17.5) gm/dL Hct 25.8 L (39.0-53.0) % MCV 96.3 (80.0-100.0) fL MCH 29.6 (25.0-35.0) pg MCHC 30.7 L (31.0-37.0) g/dL RDW 16.7 H (11.5-15.5) % Plt Count 110 L (150-450) k/uL Neutrophils % 77 % Lymphocytes % 11 % Monocytes % 7 % Eosinophils % 3 % Basophils % 0 % Neutrophils # 8.5 H (1.3-7.7) k/uL Lymphocytes # 1.2 (1.0-4.8) k/uL Monocytes # 0.8 (0-1.0) k/uL Eosinophils # 0.3 (0-0.7) k/uL Basophils # 0.0 (0-0.2) k/uL Hypochromasia Slight Anisocytosis Slight PT 12.0 (9.0-12.0) sec INR 1.1 (<1.2) APTT 24.7 (22.0-30.0) sec Sodium 140 (137-145) mmol/L Potassium 3.8 (3.5-5.1) mmol/L Chloride 108 H (98-107) mmol/L Carbon Dioxide 20 L (22-30) mmol/L Anion Gap 12 mmol/L BUN 15 (9-20) mg/dL Creatinine 0.44 L (0.66-1.25) mg/dL Est GFR (CKD-EPI)AfAm >90 (>60 ml/min/1.73 sqM) Est GFR (CKD-EPI)NonAf >90 (>60 ml/min/1.73 sqM) Glucose 114 H (74-99) mg/dL Calcium 9.3 (8.4-10.2) mg/dL Total Bilirubin 2.0 H (0.2-1.3) mg/dL AST 75 H (17-59) U/L ALT 19 L (21-72) U/L Alkaline Phosphatase 212 H (38-126) U/L Total Protein 7.0 (6.3-8.2) g/dL Albumin 3.7 (3.5-5.0) g/dL Lipase 228 (23-300) U/L Critical Care Time Critical Care Time: Yes Total Critical Care Time: 31 <Patricio Becerril - Last Filed: 10/31/18 19:45> Disposition <Patricio Becerril - Last Filed: 10/31/18 19:45> Is patient prescribed a controlled substance at d/c from ED?: No Decision Date: 10/31/18 Decision Time: 19:58 <Stefanie Vee - Last Filed: 10/31/18 20:15> Clinical Impression: Hematemesis with nausea, Low hemoglobin, Ascites, Liver cirrhosis Disposition: ADMITTED IP TO THIS HOSP Condition: Stable Referrals: Hermes Kimble MD [Primary Care Provider] - 1-2 days
--- NOTE | 2018-10-31 19:33 | CT ---
EXAMINATION TYPE: CT abdomen pelvis w con DATE OF EXAM: 10/31/2018 COMPARISON: 03/07/2018 HISTORY: abdominal pain and vomiting blood CT DLP: 902 mGycm Automated exposure control for dose reduction was used. TECHNIQUE: Helical acquisition of images was performed from the lung bases through the pelvis. CONTRAST: Performed without Oral Contrast and with IV Contrast, patient injected with 100 mL of Isovue 300. FINDINGS: Lung bases are clear. There is no pleural effusion. Heart size is normal. There is no pericardial eff usion. Stomach appears normal. Liver shows normal size. Bile ducts are not dilated. Spleen shows no f ocal defect. Spleen is enlarged and measures 16 cm in length. There is no evidence of pancreatic mass. There are small calcified gallstones. The bile ducts are not dilated. There is mild ascites. There is fluid in the paracolic gutters and around the liver. There is no adrenal mass. There are some varicose veins at the splenic hilum. There are varicose vein s at the gastroesophageal junction. Kidneys show satisfactory contrast opacification. There is no hydronephrosis. There is very little co ntrast in the renal collecting systems on the delayed images suggestive of decreased renal function. There is no retroperitoneal adenopathy. Bladder distends smoothly. There is no inguinal hernia. There is no evidence of a pelvic mass. I see no bowel obstruction. There is no evidence of free air. Appen susana appears normal. There is no intestinal wall thickening. IMPRESSION: THERE IS SPLENOMEGALY AND SPLENIC VARICES. ABDOMINAL ASCITES. THIS IS CONSISTENT WITH PORTAL VENOUS H YPERTENSION AND HEPATIC CIRRHOSIS. NO DISCRETE LIVER MASS. DECREASED RENAL FUNCTION. THIS IS A CHANGE COMPARED TO OLD EXAM. ASCITES IMPROVED COMPARED TO OLD EXA M. VARICES UNCHANGED. CHOLELITHIASIS. NORMAL GALLBLADDER SIZE.
[2018-10-31] MEDS ORDERED: PANTOPRAZOLE 40 MG/10 ML VIAL IVP STA (19:42)
[2018-10-31] MEDS ORDERED: OCTREOTIDE 100 MCG/ML INJ IVP STA (19:44)
[2018-10-31] MEDS: PANTOPRAZOLE 40 MG/10 ML VIAL IVP SCH (21:11)
[2018-10-31 21:54] LABS: Glucose,Whole Blood 92 mg/dL (75-99)
[2018-10-31 22:57] VITALS: BMI 22.9
[2018-10-31] MEDS ORDERED: NALOXONE 0.4 MG/ML 1 ML VIAL IV PRN (22:59)
[2018-10-31] MEDS: OCTREOTIDE 500 MCG in SODIUM CHLORIDE 0.9% 250 ML IV SCH (23:15)
[2018-11-01] MEDS ORDERED: OCTREOTIDE 100 MCG/ML INJ IVP SCH
[2018-11-01 05:12] LABS: Anisocytosis Slight; Basophils % (A) 0 %; Eosinophils # (A) 0.4 k/uL (0-0.7); Eosinophils % (A) 4 %; HCT 23.1 % (39.0-53.0); HGB 7.3 gm/dL (13.0-17.5); Hypochromasia Moderate; Lymphocytes # (A) 1.4 k/uL (1.0-4.8); Lymphocytes % (A) 13 %; MCH 30.7 pg (25.0-35.0); MCHC 31.8 g/dL (31.0-37.0); MCV 96.6 fL (80.0-100.0); Macrocytosis Slight; Mean Platelet Volume 10.9; Monocytes # (A) 0.7 k/uL (0-1.0); Monocytes % (A) 7 %; Neutrophils # (A) 7.5 k/uL (1.3-7.7); Neutrophils % (A) 74 %; RBC 2.39 m/uL (4.30-5.90); RDW 17.3 % (11.5-15.5); WBC 10.1 k/uL (3.8-10.6)
[2018-11-01 05:17] LABS: African American GFR (CKD) >90 (>60 ml/min/1.73 sqM); Anion Gap 6 mmol/L; Blood Urea Nitrogen 19 mg/dL (9-20); Calcium 8.7 mg/dL (8.4-10.2); Carbon Dioxide 23 mmol/L (22-30); Chloride 109 mmol/L (98-107); Glucose 140 mg/dL (74-99); Potassium 4.7 mmol/L (3.5-5.1); Sodium 138 mmol/L (137-145)
[2018-11-01 05:41] LABS: Large Platelets Present; Platelet Count 81 k/uL (150-450)
[2018-11-01] MEDS: PANTOPRAZOLE 40 MG/10 ML VIAL IVP SCH ×2 (08:50→21:03)
[2018-11-01 09:17] LABS: Alcohol <10 mg/dL; Magnesium 1.8 mg/dL (1.6-2.3); Phosphorus 3.1 mg/dL (2.5-4.5)
[2018-11-01] MEDS ORDERED: LORazepam 2 MG/ML INJ IV PRN ×3 (09:47)
[2018-11-01] MEDS ORDERED: Magnesium Replacement Protocol 1 EACH MISC MISCELLANE PRN (10:55)
[2018-11-01] MEDS: 0.9% NACL WITH KCL 20 MEQ/L 1,000 ML with MVI, ADULT NO.4 WITH VIT K 10 ML, THIAMINE 10... IV SCH ×4 (12:00)
[2018-11-01] MEDS: MAGNESIUM SULFATE-D5W PMX 1 GM in DEXTROSE/WATER 1 100ML.BAG IVPB SCH ×2 (12:00→13:21)
[2018-11-01 12:11] LABS: Appearance,Urine Clear (Clear); Bilirubin,Urine Negative (Negative); Blood,Urine Negative (Negative); Color,Urine Yellow; Glucose,Urine (UA) Negative (Negative); Ketones,Urine Negative (Negative); Leukocyte Esterase,Urine Negative (Negative); Nitrite,Urine Negative (Negative); PH, Urine 6.5 (5.0-8.0); Protein,Urine Negative (Negative); Specific Gravity,Urine 1.016 (1.001-1.035)
--- NOTE | 2018-11-01 12:32 | P.CNPUL ---
History of Present Illness Consult date: 11/01/18 Chief complaint: GI bleeding History of present illness: 53-year-old male patient, alcoholic, known history of alcoholic cirrhosis, came with episodes of coffee-ground emesis and for that he was hospitalized. He was started on IV Protonix and octreotide. No melena. No bright red blood per rectum. No hemodynamic instability. The patient has undergone a previous EGD back in March 2018 and the patient was found to have gastritis and mild portal hypertension and esophageal varices. The patient is a drinker. No signs of any delirium tremens at this point. No confusion. No altered mentation. He remains nothing by mouth. He has no complaints otherwise for now. Review of Systems Constitutional: Reports weakness, Reports weight loss Eyes: denies as per HPI, denies blurred vision, denies bulging eye, denies decreased vision, denies diplopia, denies discharge, denies dry eye, denies irritation, denies itching, denies pain, denies photophobia, denies loss of peripheral vision, denies loss of vision, denies tunnel vision/blind spots Ears: deny: decreased hearing, ear discharge, earache, tinnitus Ears, nose, mouth and throat: Denies headache, Denies sore throat Cardiovascular: Denies chest pain, Denies shortness of breath Respiratory: Reports as per HPI Gastrointestinal: Reports coffee ground emesis Genitourinary: Reports as per HPI Musculoskeletal: Reports as per HPI Musculoskeletal: absent: ankle pain, ankle stiffness, ankle swelling Integumentary: Reports as per HPI Neurological: Reports as per HPI Psychiatric: Reports as per HPI Endocrine: Reports as per HPI Hematologic/Lymphatic: Reports as per HPI Allergic/Immunologic: Reports as per HPI Past Medical History Past Medical History: GI Bleed, Hyperlipidemia, Hypertension, Liver Disease Additional Past Medical History / Comment(s): cirrhosis, recent hospitalization for SOB & ascites, esophageal varices. History of Any Multi-Drug Resistant Organisms: None Reported Past Surgical History: Orthopedic Surgery Additional Past Surgical History / Comment(s): deviated septum, sinus surg, knee, carpel tunnel, EGD, paracentesis Past Anesthesia/Blood Transfusion Reactions: No Reported Reaction Past Psychological History: Anxiety, Bipolar, Depression Smoking Status: Current every day smoker Past Alcohol Use History: Daily, Heavy Additional Past Alcohol Use History / Comment(s): 1ppd since age of 15. 6 pack of beer and two shots per day Past Drug Use History: Marijuana - Past Family History Father Family Medical History: No Reported History Additional Family Medical History / Comment(s): "platelet disorder" Mother Additional Family Medical History / Comment(s): heart failure Medications and Allergies Home Medications Medication Instructions Recorded Confirmed Type [place] Carbonate 600 mg PO HS 05/08/17 10/31/18 History Lisinopril 40 mg PO HS 04/13/18 10/31/18 History Pantoprazole [Protonix] 40 mg PO HS 04/13/18 10/31/18 History Thiamine [Vitamin B-1] 100 mg PO HS 04/13/18 10/31/18 History Furosemide [Lasix] 40 mg PO HS 05/12/18 10/31/18 History Spironolactone [Aldactone] 25 mg PO HS 10/31/18 10/31/18 History Allergies Allergy/AdvReac Type Severity Reaction Status Date / Time No Known Allergies Allergy Verified 10/31/18 20:38 Physical Exam Vitals: Vital Signs Temp Pulse Resp BP Pulse Ox 11/01/18 10:00 65 15 136/75 96 11/01/18 09:00 72 19 126/56 97 11/01/18 08:30 71 9 L 126/56 97 11/01/18 08:00 98.5 F 71 14 130/67 95 11/01/18 07:30 72 12 130/67 94 L 11/01/18 07:00 73 13 135/84 96 11/01/18 06:30 77 15 135/84 94 L 11/01/18 06:00 78 18 125/63 95 11/01/18 05:30 75 13 125/63 95 11/01/18 05:00 76 14 134/71 95 11/01/18 04:30 81 15 95 11/01/18 04:00 98.9 F 82 15 144/85 95 11/01/18 03:30 80 14 95 11/01/18 03:00 86 15 128/66 94 L 11/01/18 02:30 92 19 128/66 94 L 11/01/18 02:00 86 17 137/85 95 11/01/18 01:30 91 12 137/85 94 L 11/01/18 01:00 94 15 94 L 07/06/19 00:30 93 14 92 L 11/01/18 00:00 98.2 F 90 16 132/70 95 10/31/18 23:30 89 15 145/64 94 L 10/31/18 23:10 92 21 145/64 94 L 10/31/18 23:00 93 21 151/79 94 L 10/31/18 22:50 95 12 151/79 95 10/31/18 22:40 95 11 L 155/79 95 10/31/18 22:30 98.6 F 99 12 94 L 10/31/18 22:20 96 33 H 94 L 10/31/18 22:10 100 17 94 L 10/31/18 22:01 95 21 93 L 10/31/18 21:23 98.0 F 91 18 154/78 97 10/31/18 20:27 92 18 153/85 98 10/31/18 18:12 98.5 F 99 18 142/74 100 Intake and Output 10/31/18 11/01/18 11/01/18 22:59 06:59 14:59 Intake Total 87.5 50.0 Output Total 300 350 300 Balance -300 -262.5 -250.0 Intake: IV 87.5 50.0 Octreotide 500 mcg In 87.5 50.0 Sodium Chloride 0.9% 250 ml @ 25 MCG/HR 12.5 mls/ hr IV .Q20H [facility] Rx#: [id number] Output: Urine 300 350 300 Other: # Voids 0 1 Weight 80.739 kg 85.8 kg The patient appeared well nourished and normally developed. Vital signs as documented. Head exam is unremarkable. No scleral icterus or corneal arcus noted. Neck is without jugular venous distension, thyromegaly, or carotid bruits. Carotid upstrokes are brisk bilaterally. Lungs are clear to auscultation and percussion. Cardiac exam reveals the PMI to be normally sized and situated. Rhythm is regular. First and second heart sounds normal. No murmurs, rubs or gallops. Abdominal exam reveals normal bowel sounds, no masses, no organomegaly and no aortic enlargement. Extremities are nonedematous and both femoral and pedal pulses are normal.Examination of the skin revealed no evidence of significant rashes, suspicious appearing nevi or other concerning lesions. Neurologically awake and alert and there is no focal neurological deficits Results - Laboratory Findings CBC and BMP: 11/01/18 04:28 11/01/18 04:28 PT/INR, D-dimer PT 12.0 sec (9.0-12.0) 10/31/18 18:54 INR 1.1 (<1.2) 10/31/18 18:54 Abnormal lab findings: Abnormal Labs 10/31/18 10/31/18 11/01/18 18:54 18:54 04:28 WBC 11.1 H RBC 2.68 L 2.39 L Hgb 7.9 L 7.3 L Hct 25.8 L 23.1 L MCHC 30.7 L RDW 16.7 H 17.3 H Plt Count 110 L 81 L Neutrophils # 8.5 H Chloride 108 H Carbon Dioxide 20 L Creatinine 0.44 L Glucose 114 H Total Bilirubin 2.0 H AST 75 H ALT 19 L Alkaline Phosphatase 212 H 11/01/18 04:28 WBC RBC Hgb Hct MCHC RDW Plt Count Neutrophils # Chloride 109 H Carbon Dioxide Creatinine 0.47 L Glucose 140 H Total Bilirubin AST ALT Alkaline Phosphatase Assessment and Plan Plan: 1 upper GI bleeding, consider gastritis versus portal hypertension related GI bleed, coagulation profile is within normal. Hemodynamically stable. 2 alcoholic liver cirrhosis 3 history of ascites 4 chronic anemia with subsequent drop in hemoglobin secondary to upper GI bleed 5 alcoholism 6 bipolar disorder maintained on lithium 7 hypertension Plan The patient's hemoglobin is stable. His hemoglobin back in March 2018 was 8. Most recent hemoglobin from this morning's at 7.3. No need for any blood transfusion. Coagulation profile is within normal limits. No signs of any delirium tremens. He has history of alcoholism and this is something to watch for in the future. We will put the patient on IV fluids with MVI/thiamine/folate. Replace the potassium. Keep the patient nothing by mouth for now. GI consultation. We'll continue to follow. Keep the patient ICU for now.
[2018-11-01 12:45] LABS: Amphetamine Screen,Urine Not Detected (NotDetected); Barbiturate Screen,Urine Not Detected (NotDetected); Benzodiazepines Screen,Urine Not Detected (NotDetected); Cocaine Screen,Urine Not Detected (NotDetected); Methadone Screen, Urine Not Detected (NotDetected); Opiate Screen,Urine Not Detected (NotDetected); Oxycodone Screen, Urine Not Detected (NotDetected); Phencyclidine Screen,Urine Not Detected (NotDetected); Tricyclic Antidepressant,Urine Not Detected (NotDetected); Urn Cannabinoid Scrn Not Detected (NotDetected)
--- NOTE | 2018-11-01 17:56 | P.HPIM ---
History of Present Illness this is a pleasant 53 yo M with past medical history of hyperlipidemia , hypertension , alcohol abuse and alcoholic cirrhosis, esophageal varices, anxiety bipolar and depression , who presents with coffee ground emesis and vomiting blood x 3 times and twice in the emergency room . pt has brenna with dark color stool , he has mild upper abdominal pain and tenderness with no rebound tenderness. pt denies chest pain , no dyspnea, on admission pt was noted to be anemic at 7.9 with recent drop down to 7.3 this morning, INR is not e levated and electrolytes and creatinine are within normal limits. liver enz are slightly elevated consistent with alcoholic liver disease CT of abd with iv contrast done in the emergency room showing spleenomegaly pt recieved parenteral fluid and started on gentle hydration with normal saline + Kcl , octreotide and protonix pt was admitted to the icu for further monitoring Review of Systems CONSTITUTIONAL: No fever, no malaise, no fatigue. HEENT: No recent visual problems or hearing problems. Denied any sore throat. CARDIOVASCULAR: No orthopnea, PND, no palpitations, no syncope. PULMONARY: no cough, no hemoptysis. GASTROINTESTINAL: No diarrhea, Normoactive bowel sounds. NEUROLOGICAL: No headaches, no weakness, no numbness. HEMATOLOGICAL: Denies any bleeding or petechiae. GENITOURINARY: Denies any burning micturition, frequency, or urgency. MUSCULOSKELETAL/RHEUMATOLOGICAL: Denies any joint pain, swelling, or any muscle pain. ENDOCRINE: Denies any polyuria or polydipsia. Past Medical History Past Medical History: GI Bleed, Hyperlipidemia, Hypertension, Liver Disease Additional Past Medical History / Comment(s): cirrhosis, recent hospitalization for SOB & ascites, esophageal varices. History of Any Multi-Drug Resistant Organisms: None Reported Past Surgical History: Orthopedic Surgery Additional Past Surgical History / Comment(s): deviated septum, sinus surg, knee, carpel tunnel, EGD, paracentesis Past Anesthesia/Blood Transfusion Reactions: No Reported Reaction Past Psychological History: Anxiety, Bipolar, Depression Smoking Status: Current every day smoker Past Alcohol Use History: Daily, Heavy Additional Past Alcohol Use History / Comment(s): 1ppd since age of 15. 6 pack of beer and two shots per day Past Drug Use History: Marijuana - Past Family History Father Family Medical History: No Reported History Additional Family Medical History / Comment(s): "platelet disorder" Mother Additional Family Medical History / Comment(s): heart failure Medications and Allergies Home Medications Medication Instructions Recorded Confirmed Type [place] Carbonate 600 mg PO HS 05/08/17 10/31/18 History Lisinopril 40 mg PO HS 04/13/18 10/31/18 History Pantoprazole [Protonix] 40 mg PO HS 04/13/18 10/31/18 History Thiamine [Vitamin B-1] 100 mg PO HS 04/13/18 10/31/18 History Furosemide [Lasix] 40 mg PO HS 05/12/18 10/31/18 History Spironolactone [Aldactone] 25 mg PO HS 10/31/18 10/31/18 History Allergies Allergy/AdvReac Type Severity Reaction Status Date / Time No Known Allergies Allergy Verified 10/31/18 20:38 Physical Exam Vitals: Vital Signs Temp Pulse Resp BP Pulse Ox 11/01/18 17:00 70 12 136/70 99 11/01/18 16:00 98.1 F 66 19 136/81 97 11/01/18 15:00 68 10 L 145/77 98 11/01/18 14:00 65 19 138/84 96 11/01/18 13:00 70 14 142/78 96 11/01/18 12:00 98.6 F 65 13 134/75 95 11/01/18 11:00 72 10 L 141/76 95 11/01/18 10:00 65 15 136/75 96 11/01/18 09:00 72 19 126/56 97 11/01/18 08:30 71 9 L 126/56 97 11/01/18 08:00 98.5 F 71 14 130/67 95 11/01/18 07:30 72 12 130/67 94 L 11/01/18 07:00 73 13 135/84 96 11/01/18 06:30 77 15 135/84 94 L 11/01/18 06:00 78 18 125/63 95 11/01/18 05:30 75 13 125/63 95 11/01/18 05:00 76 14 134/71 95 11/01/18 04:30 81 15 95 11/01/18 04:00 98.9 F 82 15 144/85 95 11/01/18 03:30 80 14 95 11/01/18 03:00 86 15 128/66 94 L 11/01/18 02:30 92 19 128/66 94 L 11/01/18 02:00 86 17 137/85 95 11/01/18 01:30 91 12 137/85 94 L 11/01/18 01:00 94 15 94 L 11/01/18 00:30 93 14 92 L 11/01/18 00:00 98.2 F 90 16 132/70 95 10/31/18 23:30 89 15 145/64 94 L 10/31/18 23:10 92 21 145/64 94 L 10/31/18 23:00 93 21 151/79 94 L 10/31/18 22:50 95 12 151/79 95 10/31/18 22:40 95 11 L 155/79 95 10/31/18 22:30 98.6 F 99 12 94 L 10/31/18 22:20 96 33 H 94 L 10/31/18 22:10 100 17 94 L 10/31/18 22:01 95 21 93 L 10/31/18 21:23 98.0 F 91 18 154/78 97 10/31/18 20:27 92 18 153/85 98 10/31/18 18:12 98.5 F 99 18 142/74 100 Intake and Output 11/01/18 11/01/18 11/01/18 06:59 14:59 22:59 Intake Total 87.5 500.0 850.5 Output Total 350 700 250 Balance -262.5 -200.0 600.5 Intake: IV 87.5 100.0 37.5 Octreotide 500 mcg In 87.5 100.0 37.5 Sodium Chloride 0.9% 250 ml @ 25 MCG/HR 12.5 mls/ hr IV .Q20H [facility] Rx#: [id number] Intake, IV Titration 400 150 Amount 0.9% NaCl with KCl 20 Meq 200 150 /l 1,000 ml @ 50 mls/hr IV .[id number] [facility] with Mvi, Adult No.4 with Vit K 10 ml with Thiamine 100 mg with Folic Acid 1 mg Rx#: [id number] Magnesium Sulfate-D5w Pmx 200 1 gm In Dextrose/Water 1 100ml.bag @ 100 mls/hr IVPB Q1H [facility] Rx#: [id number] Oral 663 Output: Urine 350 700 250 Other: # Voids 0 1 Weight 85.8 kg GENERAL: The patient is alert and oriented x3, not in any acute distress. Well developed, well nourished. HEENT: Pupils are round and equally reacting to light. EOMI. No scleral icterus. No conjunctival pallor. Normocephalic, atraumatic. No pharyngeal erythema. No thyromegaly. CARDIOVASCULAR: S1 and S2 present. No murmurs, rubs, or gallops. PULMONARY: Chest is clear to auscultation, no wheezing or crackles. -ABDOMEN: Soft, mild upper abd tendernes , no rebound tenderness, nondistended, normoactive bowel sounds. No palpable organomegaly. MUSCULOSKELETAL: No joint swelling or deformity. EXTREMITIES: No cyanosis, clubbing, or pedal edema. NEUROLOGICAL: Gross neurological examination did not reveal any focal deficits. SKIN: No rashes. Results CBC & Chem 7: 11/01/18 04:28 11/01/18 04:28 Labs: Abnormal Lab Results - Last 24 Hours (Table) 10/31/18 10/31/18 11/01/18 Range/Units 18:54 18:54 04:28 WBC 11.1 H (3.8-10.6) k/uL RBC 2.68 L 2.39 L (4.30-5.90) m/uL Hgb 7.9 L 7.3 L (13.0-17.5) gm/dL Hct 25.8 L 23.1 L (39.0-53.0) % MCHC 30.7 L (31.0-37.0) g/dL RDW 16.7 H 17.3 H (11.5-15.5) % Plt Count 110 L 81 L (150-450) k/uL Neutrophils # 8.5 H (1.3-7.7) k/uL Chloride 108 H (98-107) mmol/L Carbon Dioxide 20 L (22-30) mmol/L Creatinine 0.44 L (0.66-1.25) mg/dL Glucose 114 H (74-99) mg/dL Total Bilirubin 2.0 H (0.2-1.3) mg/dL AST 75 H (17-59) U/L ALT 19 L (21-72) U/L Alkaline Phosphatase 212 H (38-126) U/L 11/01/18 Range/Units 04:28 WBC (3.8-10.6) k/uL RBC (4.30-5.90) m/uL Hgb (13.0-17.5) gm/dL Hct (39.0-53.0) % MCHC (31.0-37.0) g/dL RDW (11.5-15.5) % Plt Count (150-450) k/uL Neutrophils # (1.3-7.7) k/uL Chloride 109 H (98-107) mmol/L Carbon Dioxide (22-30) mmol/L Creatinine 0.47 L (0.66-1.25) mg/dL Glucose 140 H (74-99) mg/dL Total Bilirubin (0.2-1.3) mg/dL AST (17-59) U/L ALT (21-72) U/L Alkaline Phosphatase (38-126) U/L Thrombosis Risk Factor Assmnt - Choose All That Apply Any of the Below Risk Factors Present?: Yes Each Factor Represents 1 point: Age 41-60 years Other Risk Factors: No Other congenital or acquired thrombophilia - If yes, enter type in comment: No Thrombosis Risk Factor Assessment Total Risk Factor Score: 1 Thrombosis Risk Factor Assessment Level: Low Risk Assessment and Plan Assessment: upper GI bleed with coffee ground emesis acute blood loss anemia alcoholic liver cirrhosis alcohol abuse spleenomegaly mostly secondary to his liver disease thrombocytopenia h/o depression , not active issue Plan: this is a pleasant 53 yo M who presents with hematamesis and alcoholic liver disease , continue with iv fluid, protonix, while keep monitoring his he moglobin, GI consult and critical care team evaluation , pt might need EGD as per GI team . transfuse to keep hemoglobin more than 7.0. CIWA protocol, c/w vitamins/ banana bag Continue with the same treatment , continue with symptomatic treatment , resume home medication , monitor lytes and vitals, . GI and DVT prophylaxis , further recommendation based upon pt clinical course and progress DVT prophylaxis no anticoagulation due to his GI bleed GI prophylaxis Protonix Prognosis is guarded
--- NOTE | 2018-11-01 20:13 | P.CONS ---
History of Present Illness - Reason for Consult Consult date: 11/01/18 GI bleed Requesting physician: Alfredo Childers - Chief Complaint Vomiting blood - History of Present Illness 3-year-old male with a known medical history significant for alcohol abuse and decompensated liver cirrhosis with ascitesand small varices noted on previous EGD who presented to the hospital with complaints of hematemesis. The patient reports that he was at home on the day of admission when he felt unwell and lay down. He reports upon wa havingan episode of coffee ground emesis. He subsequently had 3 more episodes but nothing since that time. The patient had n oted some dark stool over the few days prior to thevomiting. No bowel movements since admission. He denies any vomiting prior to the first episode of coffee- ground emesis. He denies any home NSAID use. He does have a known history of decompensated alcoholic cirrhosis and is continuing to drink alcohol. He has been followed up in the gastroenterology office with Aldactone and Lasix daily to treat his ascites. Prior EGD in 03/30/2018 was significant for small varices withno stigmata of recenas well as erosivastritis suggestive of portal hype. Laboratory evaluation on presentation was significant for a WBC 10, hemoglobin 7.3 which has been stable on repeat and a platelet count of 81,000. INR was 1.1, total bilirubin 2, alkaline phosphatase 212, AST 75 and ALT 19. Currently the patient is seen lying in bed reporting no further episodes of vomiting since admission. He is otherwise feeling well. No lightheadedness or dizziness. He is asking for some liquids to drink. Review of Systems REVIEW OF SYSTEMS: CONSTITUTIONAL: Denies any fevers, chills, weight change or fatigue. CARDIOVASCULAR: Denies any chest pain, palpitations high or low blood pressures RESPIRATORY: Denies any shortness of breath, hemoptysis or cough. GENITOURINARY: No dysuria or hematuria. MUSCULOSKELETAL: No weakness reported. SKIN: Denies any new rashes or lesions, jaundice or pallor. PSYCHIATRIC: Denies any depression or anxiety. NEUROLOGY: Denies headache, denies any new focal deficits. EARS/NOSE/THROAT: No recent hearing change, congestion, nasal discharge or sore throat. EYES: No pain in eyes, discharge or change in vision. GASTROINTESTINAL: As per HPI. Past Medical History Past Medical History: GI Bleed, Hyperlipidemia, Hypertension, Liver Disease Additional Past Medical History / Comment(s): cirrhosis, recent hospitalization for SOB & ascites, esophageal varices. History of Any Multi-Drug Resistant Organisms: None Reported Past Surgical History: Orthopedic Surgery Additional Past Surgical History / Comment(s): deviated septum, sinus surg, knee, carpel tunnel, EGD, paracentesis Past Anesthesia/Blood Transfusion Reactions: No Reported Reaction Past Psychological History: Anxiety, Bipolar, Depression Smoking Status: Current every day smoker Past Alcohol Use History: Daily, Heavy Additional Past Alcohol Use History / Comment(s): 1ppd since age of 15. 6 pack of beer and two shots per day Past Drug Use History: Marijuana - Past Family History Father Family Medical History: No Reported History Additional Family Medical History / Comment(s): "platelet disorder" Mother Additional Family Medical History / Comment(s): heart failure Medications and Allergies Home Medications Medication Instructions Recorded Confirmed Type Gas Carbonate 600 mg PO HS 05/08/17 10/31/18 History Lisinopril 40 mg PO HS 04/13/18 10/31/18 History Pantoprazole [Protonix] 40 mg PO HS 04/13/18 10/31/18 History Thiamine [Vitamin B-1] 100 mg PO HS 04/13/18 10/31/18 History Furosemide [Lasix] 40 mg PO HS 05/12/18 10/31/18 History Spironolactone [Aldactone] 25 mg PO HS 10/31/18 10/31/18 History Allergies Allergy/AdvReac Type Severity Reaction Status Date / Time No Known Allergies Allergy Verified 10/31/18 20:38 Physical Exam Vitals: Vital Signs Temp Pulse Resp BP Pulse Ox 11/01/18 10:00 65 15 136/75 96 11/01/18 09:00 72 19 126/56 97 11/01/18 08:30 71 9 L 126/56 97 11/01/18 08:00 98.5 F 71 14 130/67 95 11/01/18 07:30 72 12 130/67 94 L 11/01/18 07:00 73 13 135/84 96 11/01/18 06:30 77 15 135/84 94 L 11/01/18 06:00 78 18 125/63 95 11/01/18 05:30 75 13 125/63 95 11/01/18 05:00 76 14 134/71 95 07/06/19 04:30 81 15 95 11/01/18 04:00 98.9 F 82 15 144/85 95 11/01/18 03:30 80 14 95 11/01/18 03:00 86 15 128/66 94 L 11/01/18 02:30 92 19 128/66 94 L 11/01/18 02:00 86 17 137/85 95 11/01/18 01:30 91 12 137/85 94 L 11/01/18 01:00 94 15 94 L 11/01/18 00:30 93 14 92 L 11/01/18 00:00 98.2 F 90 16 132/70 95 10/31/18 23:30 89 15 145/64 94 L 10/31/18 23:10 92 21 145/64 94 L 10/31/18 23:00 93 21 151/79 94 L 10/31/18 22:50 95 12 151/79 95 10/31/18 22:40 95 11 L 155/79 95 10/31/18 22:30 98.6 F 99 12 94 L 10/31/18 22:20 96 33 H 94 L 10/31/18 22:10 100 17 94 L 10/31/18 22:01 95 21 93 L 10/31/18 21:23 98.0 F 91 18 154/78 97 10/31/18 20:27 92 18 153/85 98 10/31/18 18:12 98.5 F 99 18 142/74 100 Intake and Output 10/31/18 11/01/18 11/01/18 22:59 06:59 14:59 Intake Total 87.5 50.0 Output Total 300 350 300 Balance -300 -262.5 -250.0 Intake: IV 87.5 50.0 Octreotide 500 mcg In 87.5 50.0 Sodium Chloride 0.9% 250 ml @ 25 MCG/HR 12.5 mls/ hr IV .Q20H [facility] Rx#: [id number] Output: Urine 300 350 300 Other: # Voids 0 1 Weight 80.739 kg 85.8 kg On physical examination, patient appears comfortable in no apparent distress. HEAD: Normocephalic, atraumatic. EYES: No scleral icterus. No conjunctival injection. MOUTH: No lesions, tongue midline. NECK: Trachea midline, no gross abnormalities. CHEST: decreased air entry bilaterally. HEART: Regular rate and rhythm. ABDOMEN: Soft, mildly distended with positive fluid wave. Bowel sounds are positive. No organomegaly. No guarding or rigidity. EXTREMITIES: No pedal edema. SKIN: No rashes, no jaundice. NEUROLOGIC: Alert and oriented x3, no asterixis noted. No focal deficits. Results CBC & Chem 7: 11/01/18 04:28 11/01/18 04:28 Labs: Abnormal Lab Results - Last 24 Hours (Table) 10/31/18 10/31/18 11/01/18 Range/Units 18:54 18:54 04:28 WBC 11.1 H (3.8-10.6) k/uL RBC 2.68 L 2.39 L (4.30-5.90) m/uL Hgb 7.9 L 7.3 L (13.0-17.5) gm/dL Hct 25.8 L 23.1 L (39.0-53.0) % MCHC 30.7 L (31.0-37.0) g/dL RDW 16.7 H 17.3 H (11.5-15.5) % Plt Count 110 L 81 L (150-450) k/uL Neutrophils # 8.5 H (1.3-7.7) k/uL Chloride 108 H (98-107) mmol/L Carbon Dioxide 20 L (22-30) mmol/L Creatinine 0.44 L (0.66-1.25) mg/dL Glucose 114 H (74-99) mg/dL Total Bilirubin 2.0 H (0.2-1.3) mg/dL AST 75 H (17-59) U/L ALT 19 L (21-72) U/L Alkaline Phosphatase 212 H (38-126) U/L 11/01/18 Range/Units 04:28 WBC (3.8-10.6) k/uL RBC (4.30-5.90) m/uL Hgb (13.0-17.5) gm/dL Hct (39.0-53.0) % MCHC (31.0-37.0) g/dL RDW (11.5-15.5) % Plt Count (150-450) k/uL Neutrophils # (1.3-7.7) k/uL Chloride 109 H (98-107) mmol/L Carbon Dioxide (22-30) mmol/L Creatinine 0.47 L (0.66-1.25) mg/dL Glucose 140 H (74-99) mg/dL Total Bilirubin (0.2-1.3) mg/dL AST (17-59) U/L ALT (21-72) U/L Alkaline Phosphatase (38-126) U/L CT scan - abdomen: report reviewed (Computed tomography scan of the abdomen significant for splenomegaly with splenic varices, abdominal ascites improved from prior exam, portal venous hypertension, hepatic cirrhosis without any discrete liver mass and decreased renal function) Assessment and Plan (1) Hematemesis with nausea Narrative/Plan: male with a known history of decompensated alcoholic cirrhosis with a ascites who presented with reports of 4 episodes of coffee-ground emesis. No further episodes of vomiting since that time. He does have a known history of portal hypertensive gastropathy as well as small varices noted on prior EGD in 03/30/2018. Unclear etiology may represent bleeding from Eva-Soto tear, peptic ulcer disease, bleeding varices although this is felt less likely given the stability of the patient's blood and hemodynamic status, or other etiology. Current Visit: Yes Status: Acute Code(s): K92.0 - HEMATEMESIS SNOMED Code(s): 3599688 (2) Acute blood loss anemia Current Visit: No Status: Acute Code(s): D62 - ACUTE POSTHEMORRHAGIC ANEMIA SNOMED Code(s): 444156807 (3) Alcoholic cirrhosis of liver with ascites Current Visit: No Status: Acute Code(s): K70.31 - ALCOHOLIC CIRRHOSIS OF LIVER WITH ASCITES SNOMED Code(s): 185971467 (4) Cholelithiasis Current Visit: No Status: Acute Code(s): K80.20 - CALCULUS OF GALLBLADDER W/O CHOLECYSTITIS W/O OBSTRUCTION SNOMED Code(s): 580507194 Plan: Supportive care Clear liquid diet, nothing by mouth after midnight Continue IV Protonix twice a day Continue Sandostatin drip Plan for EGD tomorrow for further evaluation Continue Lasix and Aldactone for diuresis Continue to monitor for further signs or symptoms of GI bleeding Continue ICU care Thank you for allowing us to participate in the care of this patient we will continue to follow
[2018-11-01] MEDS ORDERED: SPIRONOLACTONE 25 MG TAB PO SCH (21:00)
[2018-11-01] MEDS ORDERED: THIAMINE 100 MG TAB PO SCH (21:00)
[2018-11-01] MEDS: LITHIUM CARBONATE 300 MG CAP PO SCH (21:04)
[2018-11-01] MEDS: LISINOPRIL 20 MG TAB PO SCH (21:04)
[2018-11-01] MEDS: OCTREOTIDE 500 MCG in SODIUM CHLORIDE 0.9% 250 ML IV SCH (21:04)
[2018-11-02 05:54] LABS: Anisocytosis Slight; Basophils % (A) 0 %; Eosinophils # (A) 0.7 k/uL (0-0.7); Eosinophils % (A) 10 %; HGB 7.1 gm/dL (13.0-17.5); Hypochromasia Moderate; Lymphocytes # (A) 0.9 k/uL (1.0-4.8); Lymphocytes % (A) 13 %; MCH 30.2 pg (25.0-35.0); MCHC 30.9 g/dL (31.0-37.0); MCV 97.7 fL (80.0-100.0); Macrocytosis Slight; Mean Platelet Volume 10.4; Monocytes # (A) 0.5 k/uL (0-1.0); Monocytes % (A) 7 %; Neutrophils # (A) 4.8 k/uL (1.3-7.7); Neutrophils % (A) 69 %; Platelet Count 79 k/uL (150-450); RBC 2.36 m/uL (4.30-5.90); RDW 17.5 % (11.5-15.5); WBC 7.1 k/uL (3.8-10.6)
[2018-11-02 06:10] LABS: African American GFR (CKD) >90 (>60 ml/min/1.73 sqM); Anion Gap 4 mmol/L; Blood Urea Nitrogen 17 mg/dL (9-20); Calcium 8.6 mg/dL (8.4-10.2); Carbon Dioxide 24 mmol/L (22-30); Chloride 109 mmol/L (98-107); Glucose 122 mg/dL (74-99); Magnesium 1.8 mg/dL (1.6-2.3); Potassium 4.4 mmol/L (3.5-5.1); Sodium 137 mmol/L (137-145)
[2018-11-02] MEDS: MAGNESIUM SULFATE-D5W PMX 1 GM in DEXTROSE/WATER 1 100ML.BAG IVPB SCH ×2 (07:12→08:43)
[2018-11-02] MEDS: 0.9% NACL WITH KCL 20 MEQ/L 1,000 ML with MVI, ADULT NO.4 WITH VIT K 10 ML, THIAMINE 10... IV SCH ×4 (08:43)
[2018-11-02] MEDS: PANTOPRAZOLE 40 MG/10 ML VIAL IVP SCH ×2 (08:44→21:00)
[2018-11-02] MEDS ORDERED: PROPOFOL 10 MG/ML 20 ML VIAL IV ONE (09:03)
[2018-11-02] MEDS ORDERED: IV FLUID CONTINUATION 1,000 ML IV ONE (09:03)
[2018-11-02] MEDS ORDERED: SODIUM CHLORIDE 0.9% 500 ML 500 ML IV ONE (09:29)
--- NOTE | 2018-11-02 09:50 | P.PCN ---
Date of Procedure: 11/02/18 Description of Procedure: BRIEF HISTORY: 53-year-old male with a known medical history significant for alcohol abuse and decompensated liver cirrhosis with ascites and small varices noted on previous EGD who presented to the hospital with complaints of hematemesis. The patient reports that he was at home on the day of admission when he felt unwell and lay down. He reports upon wa havingan episode of coffee ground emesis. He subsequently had 3 more episodes but nothing since that time. The patient had noted some dark stool over the few days prior to the vomiting. No bowel movements since admission. He denies any vomiting prior to the first episode of coffee-ground emesis. He denies any home NSAID use. He does have a known history of decompensated alcoholic cirrhosis and is continuing to drink alcohol. He has been followed up in the gastroenterology office with Aldactone and Lasix daily to treat his ascites. Prior EGD in 03/30/2018 was significant for small varices and portal hypertensive gastropathy. Laboratory evaluation on presentation was significant for a WBC 10, hemoglobin 7.3 which has been stable on repeat and a platelet count of 81,000. INR was 1.1, total bilirubin 2, alkaline phosphatase 212, AST 75 and ALT 19. PROCEDURE PERFORMED: Esophagogastroduodenoscopy with banding of esophageal varices. PREOPERATIVE DIAGNOSIS: Coffee-ground emesis, anemia of acute blood loss, decompensated alcoholic cirrhosis with varices and ascites. ESTIMATED BLOOD LOSS: Minimal. IV sedation per anesthesia. PROCEDURE: After informed consent was obtained, the patient was brought into the endoscopy unit. IV sedation was administered by Anesthesia under continuous monitoring. Initially the Olympus GIF-190 video endoscope was inserted into the mouth. Esophagus intubated without any difficulty. It was gradually advanced into the stomach and duodenum and carefully examined. The bulb and the second part of the duodenum appeared normal. The scope at this time was withdrawn to the stomach, adequately insufflated with air, and upon careful examination, mucosa of the antrum, body, cardia and the fundus were examined with findings of portal hypertensive gastropathy. The scope was then withdrawn into the esophagus where a large columns of esophageal varices were noted with red aaron sign noted. After passing the scope by the area active bleeding occurred. The scope was withdrawn and Super Sucker and esophageal vice president global advertising sales was placed on the endoscope. The esophagus was then reintubated without difficulty and the endoscope passed to the distal esophagus where 7 bands were placed in a spiral fashion on large columns of varices starting in the distal esophagus and moving proximally. Hemostasis was achieved and the patient tolerated the procedure well. IMPRESSION: 1. Large columns of esophageal varices with red aaron sign and active bleeding after manipulation of the scope, treated with placement of 7 esophageal bands with hemostasis achieved. 2. Portal hypertensive gastropathy. RECOMMENDATIONS: The findings of this examination were discussed with the patient. Nothing by mouth for now. Continue IV Protonix and Sandostatin. Ceftriaxone will be ordered for SBP prophylaxis. One unit PRBCs ordered. Continue to monitor with serial hemoglobins. Continue other medical management. ICU care.
[2018-11-02] MEDS ORDERED: PANTOPRAZOLE 40 MG/10 ML VIAL IVP STA (10:07)
[2018-11-02] MEDS: ONDANSETRON 4 MG/2 ML VIAL IVP PRN ×2 (10:13→21:45)
[2018-11-02] MEDS ORDERED: KETOROLAC 30 MG/ML 1 ML VIAL IVP PRN (10:44)
[2018-11-02] MEDS ORDERED: KETOROLAC 30 MG/ML 1 ML VIAL IVP SCH (12:00)
--- NOTE | 2018-11-02 12:09 | P.PN ---
Subjective Progress Note Date: 11/02/18 53-year-old male patient, alcoholic, known history of alcoholic cirrhosis, came with episodes of coffee-ground emesis and for that he was hospitalized. He was started on IV Protonix and octreotide. No melena. No bright red blood per rectum. No hemodynamic instability. The patient has undergone a previous EGD back in March 2018 and the patient was found to have gastritis and mild portal hypertension and esophageal varices. The patient is a drinker. No signs of any delirium tremens at this point. No confusion. No altered mentation. He remains nothing by mouth. He has no complaints otherwise for now. On 11/02/2018 I'm seeing this patient for a follow-up. The patient is doing well. Hemodynamically stable. The patient underwent an EGD done today. The EGD showed large esophageal varices and active bleeding after medication with a scope. This was treated with esophageal banding. Hemostasis was achieved. The patient has also portal hypertensive gastropathy. The patient is still on octreotide. The patient is back in the ICU. Resting comfortably in bed. No melanotic stool. No hematemesis. His hemoglobin is at 7.1 and stable for now. Rest of the blood work is all within normal limits. Objective - Vital Signs Vital signs: Vital Signs Temp 98.1 F 11/02/18 08:00 Pulse 61 11/02/18 10:30 Resp 15 11/02/18 10:30 BP 137/75 11/02/18 10:30 Pulse Ox 95 11/02/18 10:30 Intake & Output 11/01/18 11/02/18 11/02/18 18:59 06:59 18:59 Intake Total 1413.0 1000.0 850.0 Output Total 1150 775 625 Balance 263.0 225.0 225.0 Weight 82.2 kg Intake: IV 150.0 700.0 850.0 0.9% NaCl with KCl 20 Meq 550 200 /l 1,000 ml @ 50 mls/hr IV .[id number] [facility] with Mvi, Adult No.4 with Vit K 10 ml with Thiamine 100 mg with Folic Acid 1 mg Rx#: [id number] Magnesium Sulfate-D5w Pmx 200 1 gm In Dextrose/Water 1 100ml.bag @ 100 mls/hr IVPB Q1H [facility] Rx#: [id number] Octreotide 500 mcg In 150.0 150.0 50.0 Sodium Chloride 0.9% 250 ml @ 25 MCG/HR 12.5 mls/ hr IV .Q20H [facility] Rx#: [id number] Intake, IV Titration 600 300 Amount 0.9% NaCl with KCl 20 Meq 400 50 /l 1,000 ml @ 50 mls/hr IV .[id number] [facility] with Mvi, Adult No.4 with Vit K 10 ml with Thiamine 100 mg with Folic Acid 1 mg Rx#: [id number] Magnesium Sulfate-D5w Pmx 200 1 gm In Dextrose/Water 1 100ml.bag @ 100 mls/hr IVPB Q1H [facility] Rx#: [id number] Octreotide 500 mcg In 250 Sodium Chloride 0.9% 250 ml @ 25 MCG/HR 12.5 mls/ hr IV .Q20H [facility] Rx#: [id number] Oral 663 Output: Urine 1150 775 625 Other: Voiding Method Urinal # Voids 1 0 1 - Exam The patient appeared well nourished and normally developed. Vital signs as documented. Head exam is unremarkable. No scleral icterus or corneal arcus noted. Neck is without jugular venous distension, thyromegaly, or carotid bruits. Carotid upstrokes are brisk bilaterally. Lungs are clear to auscultation and percussion. Cardiac exam reveals the PMI to be normally sized and situated. Rhythm is regular. First and second heart sounds normal. No murmurs, rubs or gallops. Abdominal exam reveals normal bowel sounds, no masses, no organomegaly and no aortic enlargement. Extremities are nonedematous and both femoral and pedal pulses are normal.Examination of the skin revealed no evidence of significant rashes, suspicious appearing nevi or other concerning lesions. Neurologically awake and alert and there is no focal neurological deficits - Labs CBC & Chem 7: 11/02/18 05:29 11/02/18 05:29 Labs: Abnormal Lab Results - Last 24 Hours (Table) 11/02/18 11/02/18 11/02/18 Range/Units 05:29 05:29 05:30 RBC 2.36 L (4.30-5.90) m/uL Hgb 7.1 L (13.0-17.5) gm/dL Hct 23.0 L (39.0-53.0) % MCHC 30.9 L (31.0-37.0) g/dL RDW 17.5 H (11.5-15.5) % Plt Count 79 L (150-450) k/uL Lymphocytes # 0.9 L (1.0-4.8) k/uL Chloride 109 H (98-107) mmol/L Creatinine 0.51 L (0.66-1.25) mg/dL Glucose 122 H (74-99) mg/dL Crossmatch See Detail Assessment and Plan Plan: 1 upper GI bleeding, consider gastritis versus portal hypertension related GI bleed, coagulation profile is within normal. Hemodynamically stable. 2 alcoholic liver cirrhosis 3 history of ascites 4 chronic anemia with subsequent drop in hemoglobin secondary to upper GI bleed 5 alcoholism 6 bipolar disorder maintained on lithium 7 hypertension Plan The patient's hemoglobin is stable. The patient is post EGD and esophageal variceal banding. Continue Rodolfo type. Watch for any signs of GI bleed. Watch for any signs of drop in hemoglobin. Keep the patient and ICU for now. GI is on the case. We'll continue to follow.
--- NOTE | 2018-11-02 13:26 | P.PN ---
Subjective this is a pleasant 53 yo M with past medical history of hyperlipidemia , hypertension , alcohol abuse and alcoholic cirrhosis, esophageal varices, a nxiety bipolar and depression , who presents with coffee ground emesis and vomiting blood x 3 times and twice in the emergency room . pt has brenna with dark color stool , he has mild upper abdominal pain and tenderness with no rebound tenderness. pt denies chest pain , no dyspnea, on admission pt was noted to be anemic at 7.9 with recent drop down to 7.3 this morning, INR is not elevated and electrolytes and creatinine are within normal limits. liver enz are slightly elevated consistent with alcoholic liver disease CT of abd with iv contrast done in the emergency room showing spleenomegaly pt recieved parenteral fluid and started on gentle hydration with normal saline + Kcl , octreotide and protonix pt was admitted to the icu for further monitoring 11/02/2018 Patient remains in the ICU awake and alert. He is complaining of from nausea but not vomiting and some abdominal pain although it is down. He is status post EGD today showing esophageal paresis with active bleeding, patient status post esophageal bands with hemostasis achieved. Also has evidence of portal hypertensive gastropathy. Hemoglobin 7.1, platelets also on the low side but stable at 79. Serum electrolytes within normal. Creatinine normal at 0.5. He is hemodynamically stable. Patient will be kept in the ICU for further management and monitoring. Patient is currently on Protonix 40 mg twice daily. Also is on CIWA protocol and been on a back however he doesn't show signs symptoms of withdrawal. Also was started on ceftriaxone by GI team for GI prophylaxis related to his GI bleed Review of systems: CONSTITUTIONAL: No fever, no malaise, no fatigue. HEENT: No recent visual problems or hearing problems. Denied any sore throat. CARDIOVASCULAR: No orthopnea, PND, no palpitations, no syncope. PULMONARY: no cough, no hemoptysis. GASTROINTESTINAL: No diarrhea, Normoactive bowel sounds. NEUROLOGICAL: No headaches, no weakness, no numbness. HEMATOLOGICAL: Denies any bleeding or petechiae. GENITOURINARY: Denies any burning micturition, frequency, or urgency. MUSCULOSKELETAL/RHEUMATOLOGICAL: Denies any joint pain, swelling, or any muscle pain. ENDOCRINE: Denies any polyuria or polydipsia. Medication: Ceftriaxone 1 g, lisinopril 40 mg, lithium 600 mg, Ativan 1 mg, magnesium sulfate per protocol, octreotide drip at 12.5 L/h, Zofran, Protonix 40 mg, potassium chloride per protocol, banana back. Objective - Vital Signs Vital signs: Vital Signs Temp 97.8 F 11/02/18 13:07 Pulse 60 11/02/18 13:07 Resp 12 11/02/18 13:07 BP 144/70 11/02/18 13:07 Pulse Ox 98 11/02/18 13:07 Intake & Output 11/01/18 11/02/18 11/02/18 18:59 06:59 18:59 Intake Total 1413.0 1000.0 1037.5 Output Total 1150 775 900 Balance 263.0 225.0 137.5 Weight 82.2 kg Intake: IV 150.0 700.0 1037.5 0.9% NaCl with KCl 20 Meq 550 350 /l 1,000 ml @ 50 mls/hr IV .[id number] [facility] with Mvi, Adult No.4 with Vit K 10 ml with Thiamine 100 mg with Folic Acid 1 mg Rx#: [id number] Magnesium Sulfate-D5w Pmx 200 1 gm In Dextrose/Water 1 100ml.bag @ 100 mls/hr IVPB Q1H [facility] Rx#: [id number] Octreotide 500 mcg In 150.0 150.0 87.5 Sodium Chloride 0.9% 250 ml @ 25 MCG/HR 12.5 mls/ hr IV .Q20H [facility] Rx#: [id number] Intake, IV Titration 600 300 Amount 0.9% NaCl with KCl 20 Meq 400 50 /l 1,000 ml @ 50 mls/hr IV .[id number] [facility] with Mvi, Adult No.4 with Vit K 10 ml with Thiamine 100 mg with Folic Acid 1 mg Rx#: [id number] Magnesium Sulfate-D5w Pmx 200 1 gm In Dextrose/Water 1 100ml.bag @ 100 mls/hr IVPB Q1H [facility] Rx#: [id number] Octreotide 500 mcg In 250 Sodium Chloride 0.9% 250 ml @ 25 MCG/HR 12.5 mls/ hr IV .Q20H [facility] Rx#: [id number] Oral 663 Blood Product 0 Rc As-1 Unit 0 [id number] Output: Urine 1150 775 900 Other: Voiding Method Urinal # Voids 1 0 1 - Exam GENERAL: The patient is alert and oriented x3, not in any acute distress. Well d eveloped, well nourished. HEENT: Pupils are round and equally reacting to light. EOMI. No scleral icterus. No conjunctival pallor. Normocephalic, atraumatic. No pharyngeal erythema. No thyromegaly. CARDIOVASCULAR: S1 and S2 present. No murmurs, rubs, or gallops. PULMONARY: Chest is clear to auscultation, no wheezing or crackles. -ABDOMEN: Soft, mild epigastric tenderness, nondistended, normoactive bowel sounds. No palpable organomegaly. MUSCULOSKELETAL: No joint swelling or deformity. EXTREMITIES: No cyanosis, clubbing, or pedal edema. NEUROLOGICAL: Gross neurological examination did not reveal any focal deficits. SKIN: No rashes. - Labs CBC & Chem 7: 11/02/18 05:29 11/02/18 05:29 Labs: Abnormal Lab Results - Last 24 Hours (Table) 11/02/18 11/02/18 11/02/18 Range/Units 05:29 05:29 05:30 RBC 2.36 L (4.30-5.90) m/uL Hgb 7.1 L (13.0-17.5) gm/dL Hct 23.0 L (39.0-53.0) % MCHC 30.9 L (31.0-37.0) g/dL RDW 17.5 H (11.5-15.5) % Plt Count 79 L (150-450) k/uL Lymphocytes # 0.9 L (1.0-4.8) k/uL Chloride 109 H (98-107) mmol/L Creatinine 0.51 L (0.66-1.25) mg/dL Glucose 122 H (74-99) mg/dL Crossmatch See Detail Assessment and Plan Assessment: upper GI bleed with coffee ground emesis, secondary to bleeding esophageal varices, status post banding acute blood loss anemia alcoholic liver cirrhosis alcohol abuse spleenomegaly mostly secondary to his liver disease thrombocytopenia h/o depression , not active issue Plan: this is a pleasant 53 yo M who presents with hematamesis and alcoholic liver disease , continue with iv fluid, protonix, octreotide drip, while keep monitoring his hemoglobin, GI consult and critical care team evaluation , patient status post EGD.. transfuse to keep hemoglobin more than 7.0. CIWA protocol, c/w vitamins/ banana bag Continue with the same treatment , continue with symptomatic treatment , resume home medication , monitor lytes and vitals, . GI and DVT prophylaxis , further recommendation based upon pt clinical course and progress DVT prophylaxis no anticoagulation due to his GI bleed GI prophylaxis Protonix Prognosis is guarded
[2018-11-02] MEDS: OCTREOTIDE 500 MCG in SODIUM CHLORIDE 0.9% 250 ML IV SCH (15:33)
[2018-11-02 17:27] LABS: Anisocytosis Slight; Basophils % (A) 0 %; Eosinophils # (A) 0.5 k/uL (0-0.7); Eosinophils % (A) 6 %; HCT 26.4 % (39.0-53.0); HGB 8.2 gm/dL (13.0-17.5); Hypochromasia Marked; Lymphocytes % (A) 11 %; MCH 30.5 pg (25.0-35.0); MCV 98.5 fL (80.0-100.0); Macrocytosis Slight; Mean Platelet Volume 10.4; Monocytes # (A) 0.5 k/uL (0-1.0); Monocytes % (A) 6 %; Neutrophils # (A) 6.8 k/uL (1.3-7.7); Neutrophils % (A) 75 %; RBC 2.68 m/uL (4.30-5.90); RDW 17.6 % (11.5-15.5)
[2018-11-02 17:28] LABS: Platelet Count 84 k/uL (150-450)
[2018-11-02] MEDS: LITHIUM CARBONATE 300 MG CAP PO SCH (20:59)
[2018-11-02] MEDS: LISINOPRIL 20 MG TAB PO SCH (21:00)
[2018-11-02 23:32] LABS: Anisocytosis Slight; Basophils % (A) 0 %; Eosinophils # (A) 0.7 k/uL (0-0.7); Eosinophils % (A) 7 %; HCT 25.2 % (39.0-53.0); HGB 8.2 gm/dL (13.0-17.5); Hypochromasia Moderate; Lymphocytes % (A) 11 %; MCH 31.7 pg (25.0-35.0); MCHC 32.6 g/dL (31.0-37.0); MCV 97.3 fL (80.0-100.0); Macrocytosis Slight; Mean Platelet Volume 10.5; Monocytes # (A) 0.5 k/uL (0-1.0); Monocytes % (A) 5 %; Neutrophils # (A) 6.9 k/uL (1.3-7.7); Neutrophils % (A) 75 %; RBC 2.59 m/uL (4.30-5.90); RDW 18.2 % (11.5-15.5); WBC 9.2 k/uL (3.8-10.6)
[2018-11-02 23:46] LABS: Platelet Count 83 k/uL (150-450)
[2018-11-03] MEDS: 0.9% NACL WITH KCL 20 MEQ/L 1,000 ML with MVI, ADULT NO.4 WITH VIT K 10 ML, THIAMINE 10... IV SCH ×4 (04:29)
[2018-11-03 04:44] LABS: Anisocytosis Slight; HCT 25.6 % (39.0-53.0); HGB 8.2 gm/dL (13.0-17.5); Hypochromasia Marked; MCH 31.9 pg (25.0-35.0); MCV 99.7 fL (80.0-100.0); Macrocytosis Slight; Mean Platelet Volume 10.3; RBC 2.57 m/uL (4.30-5.90); RDW 17.8 % (11.5-15.5); WBC 8.9 k/uL (3.8-10.6)
[2018-11-03 04:53] LABS: African American GFR (CKD) >90 (>60 ml/min/1.73 sqM); Anion Gap 5 mmol/L; Blood Urea Nitrogen 14 mg/dL (9-20); Calcium 8.6 mg/dL (8.4-10.2); Carbon Dioxide 20 mmol/L (22-30); Chloride 111 mmol/L (98-107); Glucose 105 mg/dL (74-99); Potassium 4.4 mmol/L (3.5-5.1); Sodium 136 mmol/L (137-145)
[2018-11-03 04:53] LABS: Platelet Count 83 k/uL (150-450)
[2018-11-03] MEDS: PANTOPRAZOLE 40 MG/10 ML VIAL IVP SCH (08:17)
[2018-11-03 08:28] VITALS: TEMP 98.8
--- NOTE | 2018-11-03 11:29 | P.PN ---
Subjective Progress Note Date: 11/03/18 Principal diagnosis: GI bleed Status post EGD yesterday with evidence of esophageal varices banding 7 portal hypertensive gastropathy. Hemoglobin 8.2 stable. No active bleeding. Requesting discharge. Tolerating clear liquids. Objective - Vital Signs Vital signs: Vital Signs Temp 98.8 F 11/03/18 08:00 Pulse 58 L 11/03/18 11:00 Resp 16 11/03/18 11:00 BP 143/79 11/03/18 11:00 Pulse Ox 98 11/03/18 11:00 Intake & Output 11/02/18 11/03/18 11/03/18 18:59 06:59 18:59 Intake Total 2201.042 1052.5 735.0 Output Total 1425 1100 450 Balance 776.042 -47.5 285.0 Weight 86.8 kg Intake: IV 1350.0 812.5 175.0 0.9% NaCl with KCl 20 Meq 600 650 150 /l 1,000 ml @ 50 mls/hr IV .[id number] TOPHER with Mvi, Adult No.4 with Vit K 10 ml with Thiamine 100 mg with Folic Acid 1 mg Rx#: [id number] Magnesium Sulfate-D5w Pmx 200 1 gm In Dextrose/Water 1 100ml.bag @ 100 mls/hr IVPB Q1H TOPHER Rx#: [id number] Octreotide 500 mcg In 150.0 162.5 25.0 Sodium Chloride 0.9% 250 ml @ 25 MCG/HR 12.5 mls/ hr IV .Q20H TOPHER Rx#: [id number] Intake, IV Titration 231.042 260 Amount Octreotide 500 mcg In 231.042 210 Sodium Chloride 0.9% 250 ml @ 25 MCG/HR 12.5 mls/ hr IV .Q20H TOPHER Rx#: [id number] cefTRIAXone 1 gm In 50 Sodium Chloride 0.9% 50 ml @ 100 mls/hr IVPB Q24HR TOPHER Rx#:[id number] Oral 240 300 Blood Product 620 Rc As-1 Unit 310 [id number] Output: Urine 1425 1100 450 Other: Voiding Method Urinal Urinal Urinal # Voids 1 0 0 - Exam General appearance: The patient is alert, oriented, in no acute distress. HET: Head is normocephalic and atraumatic. Pupils are equal and reactive. [place] pharynx is clear without lesions. Neck: Supple without lymphadenopathy. Trachea midline. Heart: S1 S2. Regular rate and rhythm. Lungs: No crackles or wheezes are heard. Abdomen: Soft, nontender, nondistended with bowel sounds. No peritoneal signs. No palpable organomegaly or masses. Extremities: Normal skin color and turgor. No cyanosis, rash, ulceration, clubbing, or edema. Radial and pedal pulses are 2/4 bilaterally. Neurological: No focal deficits. Strength and sensation are grossly intact. - Labs CBC & Chem 7: 11/03/18 04:12 11/03/18 03:58 Labs: Abnormal Lab Results - Last 24 Hours (Table) 11/02/18 11/02/18 11/02/18 Range/Units 05:30 17:06 23:09 RBC 2.68 L 2.59 L (4.30-5.90) m/uL Hgb 8.2 L 8.2 L (13.0-17.5) gm/dL Hct 26.4 L 25.2 L (39.0-53.0) % RDW 17.6 H 18.2 H (11.5-15.5) % Plt Count 84 L 83 L (150-450) k/uL Sodium (137-145) mmol/L Chloride (98-107) mmol/L Carbon Dioxide (22-30) mmol/L Creatinine (0.66-1.25) mg/dL Glucose (74-99) mg/dL Crossmatch See Detail 11/03/18 11/03/18 Range/Units 03:58 04:12 RBC 2.57 L (4.30-5.90) m/uL Hgb 8.2 L (13.0-17.5) gm/dL Hct 25.6 L (39.0-53.0) % RDW 17.8 H (11.5-15.5) % Plt Count 83 L (150-450) k/uL Sodium 136 L (137-145) mmol/L Chloride 111 H (98-107) mmol/L Carbon Dioxide 20 L (22-30) mmol/L Creatinine 0.49 L (0.66-1.25) mg/dL Glucose 105 H (74-99) mg/dL Crossmatch Assessment and Plan (1) Hematemesis with nausea Narrative/Plan: 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 No active bleeding since EGD. Hemoglobin stable at 8.2. Current Visit: Yes Status: Acute Code(s): K92.0 - HEMATEMESIS SNOMED Code(s): 6269370 (2) Acute blood loss anemia Current Visit: No Status: Acute Code(s): D62 - ACUTE POSTHEMORRHAGIC ANEMIA SNOMED Code(s): 969872290 (3) Alcoholic cirrhosis of liver with ascites Current Visit: No Status: Acute Code(s): K70.31 - ALCOHOLIC CIRRHOSIS OF LIVER WITH ASCITES SNOMED Code(s): 787184516 (4) Cholelithiasis Current Visit: No Status: Acute Code(s): K80.20 - CALCULUS OF GALLBLADDER W/O CHOLECYSTITIS W/O OBSTRUCTION SNOMED Code(s): 939739633 Plan: 1. Full liquid diet as tolerated if tolerated and no recurrence of bleeding agreeable for discharge. Alcohol abstinence advised. No NSAIDs. Return to GI office for reevaluation. Protonix 40 mg daily. Inderal 10 mg twice daily per Dr. Prince request. Assessment and plan a care discussed with Dr. Brown
--- NOTE | 2018-11-03 13:02 | P.PN ---
Subjective Progress Note Date: 11/03/18 Principal diagnosis: Acute upper GI bleeding secondary to esophageal varices, and portal hypertensive gastropathy. Patient was reevaluated today on 11/03/2018, he underwent EGD yesterday, he was found to have esophageal varices status post banding 7 and he was found to have portal hypertensive gastropathy. No active bleeding was noted. Patient is asking to be discharged home, he is tolerating clear liquids, and I felt that the patient could at least be transferred out of the ICU to a regular medical floor today. Final decision for clearing the patient to be discharged home would be up to the admitting physician and to the veterans adviser on the case. Since admission, the patient received only one unit of packed RBCs, and again his hemoglobin today is 8.2. Patient denies any nausea vomiting abdominal pain, no shortness of breath no cough no wheezing. Objective - Vital Signs Vital signs: Vital Signs Temp 98.8 F 11/03/18 08:00 Pulse 58 L 11/03/18 11:00 Resp 16 11/03/18 11:00 BP 143/79 11/03/18 11:00 Pulse Ox 98 11/03/18 11:00 Intake & Output 11/02/18 11/03/18 11/03/18 18:59 06:59 18:59 Intake Total 2201.042 1052.5 735.0 Output Total 1425 1100 450 Balance 776.042 -47.5 285.0 Weight 86.8 kg Intake: IV 1350.0 812.5 175.0 0.9% NaCl with KCl 20 Meq 600 650 150 /l 1,000 ml @ 50 mls/hr IV .[id number] TOPHER with Mvi, Adult No.4 with Vit K 10 ml with Thiamine 100 mg with Folic Acid 1 mg Rx#: [id number] Magnesium Sulfate-D5w Pmx 200 1 gm In Dextrose/Water 1 100ml.bag @ 100 mls/hr IVPB Q1H TOPHER Rx#: [id number] Octreotide 500 mcg In 150.0 162.5 25.0 Sodium Chloride 0.9% 250 ml @ 25 MCG/HR 12.5 mls/ hr IV .Q20H TOPHER Rx#: [id number] Intake, IV Titration 231.042 260 Amount Octreotide 500 mcg In 231.042 210 Sodium Chloride 0.9% 250 ml @ 25 MCG/HR 12.5 mls/ hr IV .Q20H TOPHER Rx#: [id number] cefTRIAXone 1 gm In 50 Sodium Chloride 0.9% 50 ml @ 100 mls/hr IVPB Q24HR TOPHER Rx#:[id number] Oral 240 300 Blood Product 620 Rc As-1 Unit 310 [id number] Output: Urine 1425 1100 450 Other: Voiding Method Urinal Urinal Urinal # Voids 1 0 0 - Exam General appearance: Revealed 53-year-old white male pleasant in no distress. HET: Head is normocephalic and atraumatic. PERRLA EOMI, no neck masses, no icterus. Neck: Supple, no JVD no thyromegaly. Heart: Regular rate and rhythm, normal S1 and S2, no gallops. No murmur. Lungs: Symmetrical chest expansion, clear breath sound bilaterally no crackles or rhonchi or wheezes. Abdomen: Soft nontender no megaly no rebound no guarding positive bowel sounds. Extremities: No clubbing edema or cyanosis, good pulses bilaterally. Neurological: Alert and oriented 3, no gross focal deficit. Psychiatric: Normal mood affect and normal mental status examination. Lymphatics: No lymphadenopathy. - Labs CBC & Chem 7: 11/03/18 04:12 11/03/18 03:58 Labs: Abnormal Lab Results - Last 24 Hours (Table) 11/02/18 11/02/18 11/02/18 Range/Units 05:30 17:06 23:09 RBC 2.68 L 2.59 L (4.30-5.90) m/uL Hgb 8.2 L 8.2 L (13.0-17.5) gm/dL Hct 26.4 L 25.2 L (39.0-53.0) % RDW 17.6 H 18.2 H (11.5-15.5) % Plt Count 84 L 83 L (150-450) k/uL Sodium (137-145) mmol/L Chloride (98-107) mmol/L Carbon Dioxide (22-30) mmol/L Creatinine (0.66-1.25) mg/dL Glucose (74-99) mg/dL Crossmatch See Detail 11/03/18 11/03/18 Range/Units 03:58 04:12 RBC 2.57 L (4.30-5.90) m/uL Hgb 8.2 L (13.0-17.5) gm/dL Hct 25.6 L (39.0-53.0) % RDW 17.8 H (11.5-15.5) % Plt Count 83 L (150-450) k/uL Sodium 136 L (137-145) mmol/L Chloride 111 H (98-107) mmol/L Carbon Dioxide 20 L (22-30) mmol/L Creatinine 0.49 L (0.66-1.25) mg/dL Glucose 105 H (74-99) mg/dL Crossmatch Assessment and Plan Assessment: Impression: 1 acute upper GI bleeding secondary to esophageal varices and portal hypertensive gastropathy. 2 acute anemia secondary to blood loss, 3 alcoholic liver cirrhosis with some ascites. 4 history of cholelithiasis. But no cholecystitis. 5 history of bipolar disorder 6 history of benign essential hypertension Recommendation: Agree with the present treatment plan as per gastroenterology, patient is status post EGD and variceal banding, will arrange for the patient to be transferred out of the ICU to a regular medical floor, and discharge planning hopefully in the next 24 hours if cleared by gastroenterology for discharge. At this point, the patient is hemodynamically stable, and no active bleeding is noted. Time with Patient: Less than 30
[2018-11-03 14:30] VITALS: BP 125/69; PULSE 57; RESP 16
--- NOTE | 2018-11-04 06:49 | DS ---
DISCHARGE SUMMARY DATE OF SERVICE: 11/03/2018 FINAL DIAGNOSES: 1. Upper gastrointestinal bleeding with coffee-ground emesis secondary to esophageal varices, status post banding and EGD. 2. Acute blood loss anemia. 3. Alcoholic liver cirrhosis. 4. History of alcoholic abuse. 5. Splenomegaly mostly secondary to liver disease. 6. Thrombocytopenia. 7. History of depression. DISCHARGE DISPOSITION: The patient will be discharged in stable condition with guarded prognosis. Total time taken 35 minutes. Discharge cleared by multiple consultants. HISTORY OF PRESENT ILLNESS: This is a 53-year-old gentleman with a past medical history of multiple medical problems being followed by Dr. Hermes Kimble in the outpatient setting was admitted with upper GI bleed and acute blood loss anemia. Hemoglobin was 8.2. The patient was stable. The EGD was performed by Dr. Prince with banding. Patient was stabilized. On exam, vitals are stable. CARDIOVASCULAR: S1, S2 muffled. ABDOMEN: Soft. NERVOUS SYSTEM: No focal deficits. The patient received 1 unit of transfusion during hospitalization. I recommended the patient to follow up possibly alcohol meetings also and no alcohol. Patient understands and agreed. The patient will be discharged in stable condition with guarded prognosis with the following advice. 1. Diet is cardiac. 2. Activity limited until followup. 3. Follow up with Dr. Hermes Kimble in 2 to 3 days. 4. Follow up with Dr. Prince. 5. Follow up with labs, CBC, with Dr. Kimble. Medications are as follows: 1. Aldactone 25 mg q.h.s. 2. Lasix 40 mg q.h.s. 3. Lisinopril 40 mg q.h.s. 4. [place] carbonate 600 mg q.h.s. 5. Protonix 40 mg q.h.s. 6. Vitamin B1, 100 mg q.h.s. 7. Folic acid 1 mg p.o. daily. 8. Inderal 10 mg p.o. b.i.d. 9. Multivitamins 1 p.o. daily. 10.No NSAIDS, no aspirin. Once again, the patient will be discharged in a stable condition with guarded prognosis. MMODL / IJN: [id number] /
== END 2018-11-03 15:13 | disposition home or self-care (01) | DRG 432 ==
LOC: EC 17:42 → 2SICU 20:32
PROVIDERS: ADMIT Family Medicine; ATTEND Family Medicine
PROC: 30233N1 Transfusion of Nonautologous Red Blood Cells into Peripheral Vein, Percutaneous Approach (ICD-10-PCS; 2018-10-31)
PROC: 06L34CZ Occlusion of Esophageal Vein with Extraluminal Device, Percutaneous Endoscopic Approach (ICD-10-PCS; principal; 2018-11-02 09:00)
PROC: 0DJ08ZZ Inspection of Upper Intestinal Tract, Via Natural or Artificial Opening Endoscopic (ICD-10-PCS; principal; 2018-11-02 09:00)
DX: K70.31 Alcoholic cirrhosis of liver with ascites (principal); I85.11 Secondary esophageal varices with bleeding; D62 Acute posthemorrhagic anemia; K76.6 Portal hypertension; D69.6 Thrombocytopenia, unspecified; E78.5 Hyperlipidemia, unspecified; F10.10 Alcohol abuse, uncomplicated; F17.200 Nicotine dependence, unspecified, uncomplicated; F31.9 Bipolar disorder, unspecified; R16.1 Splenomegaly, not elsewhere classified; F41.9 Anxiety disorder, unspecified; I10 Essential (primary) hypertension; I86.8 Varicose veins of other specified sites; K29.70 Gastritis, unspecified, without bleeding; K31.89 Other diseases of stomach and duodenum; K80.20 Calculus of gallbladder without cholecystitis without obstruction; Z82.49 Family history of ischemic heart disease and other diseases of the circulatory system; Z79.899 Other long term (current) drug therapy
CPT/HCPCS: 36415; 43255; 74177; 80048; 80053; 80306; 80320; 81003; 83690; 83735; 84100; 85025; 85027; 85610; 85730; 86850; 86900; 86901; 86920; 96361; 96374; 96375; 99291

== ENCOUNTER 2019-03-11 21:17 | Emergency (ER) | payer OTHER ==
[2019-03-11 21:46] VITALS: RESP 18
--- NOTE | 2019-03-11 23:19 | US ---
EXAMINATION TYPE: US abdomen limited DATE OF EXAM: 03/11/2019 COMPARISON: CT, US CLINICAL HISTORY: Abdominal pain and distention. Abdominal pain and distention x 2 weeks. Hx cirrhosi s, ascites. EXAM MEASUREMENTS: Liver Length: 18.5 cm Gallbladder Wall: 0.31 cm CBD: 0.60 cm Right Kidney: 12.1 x 6.0 x 5.2 cm Pancreas: Limited visibility of tail Liver: Increased attenuation. Hypoechoic area seen anteriorly measurin.9 x 1.2 x 1.5 cm. ?Minima l hypoechoic area anterior to liver, possible fluid: 4 cm in length. Gallbladder: Appears distended measuring 11.3 cm in length. Hyperechoic foci with posterior shadowin g seen within the gallbladder. Evidence for sonographic Miranda's sign: yes CBD: appears to be wnl Right Kidney: No hydronephrosis or masses seen, Measures upper limits of normal vs. minimally enlarg ed. Scanned for ascites as well. IMPRESSION: There are a few gallstones at the gallbladder neck. Gallbladder is borderline dilated and measures 4.5 cm. No dilated ducts. No significant gallbladder wall thickening. No free fluid.
--- NOTE | 2019-03-11 23:20 | ED ---
General Adult HPI - General Chief complaint: Back Pain/Injury Stated complaint: Back Pain Time Seen by Provider: 03/11/19 22:11 Source: patient, RN notes reviewed, old records reviewed Mode of arrival: ambulatory Limitations: no limitations - History of Present Illness Initial comments: 53 male with alcoholism and liver cirrhosis presents with right upper quadrant abdominal pain and right flank pain. Patient notes to daily alcohol consumption. He has presented today for evaluation of abdominal pain. Denies vomiting. Denies lower abdominal pain. Denies fever or chills. Patient has been seen at [facility] regarding transplant has been told that he would not meet requirements for transplant. To 5 years. Again he continues to drink daily. - Related Data Home Medications Medication Instructions Recorded Confirmed [place] Carbonate 600 mg PO HS 05/08/17 10/31/18 Lisinopril 40 mg PO HS 04/13/18 10/31/18 Pantoprazole [Protonix] 40 mg PO HS 04/13/18 10/31/18 Thiamine [Vitamin B-1] 100 mg PO HS 04/13/18 10/31/18 Furosemide [Lasix] 40 mg PO HS 05/12/18 10/31/18 Spironolactone [Aldactone] 25 mg PO HS 10/31/18 10/31/18 Previous Rx's Medication Instructions Recorded Folic Acid 1 mg PO DAILY #30 tablet 11/03/18 Multivitamins, Thera [Multivitamin] 1 tab PO DAILY #30 tablet 11/03/18 Propranolol [Inderal] 10 mg PO BID #60 tab 11/03/18 Allergies Allergy/AdvReac Type Severity Reaction Status Date / Time No Known Allergies Allergy Verified 03/11/19 21:46 Review of Systems ROS Statement: Those systems with pertinent positive or pertinent negative responses have been documented in the HPI. ROS Other: All systems not noted in ROS Statement are negative. Past Medical History Past Medical History: GI Bleed, Hyperlipidemia, Hypertension, Liver Disease Additional Past Medical History / Comment(s): cirrhosis, recent hospitalization for SOB & ascites, esophageal varices. History of Any Multi-Drug Resistant Organisms: None Reported Past Surgical History: Orthopedic Surgery Additional Past Surgical History / Comment(s): deviated septum, sinus surg, knee, carpel tunnel, EGD, paracentesis Past Anesthesia/Blood Transfusion Reactions: No Reported Reaction Past Psychological History: Anxiety, Bipolar, Depression Smoking Status: Current every day smoker Past Alcohol Use History: Daily, Heavy Past Drug Use History: None Reported, Marijuana - Past Family History Father Family Medical History: No Reported History Additional Family Medical History / Comment(s): "platelet disorder" Mother Additional Family Medical History / Comment(s): heart failure General Exam Limitations: no limitations General appearance: alert, in no apparent distress Eye exam: Present: normal appearance. Absent: scleral icterus ENT exam: Present: normal exam Neck exam: Present: normal inspection. Absent: tenderness, meningismus Respiratory exam: Present: normal lung sounds bilaterally. Absent: respiratory distress, wheezes Cardiovascular Exam: Present: regular rate, normal rhythm GI/Abdominal exam: Present: soft, distended, tenderness. Absent: guarding, rebound Extremities exam: Present: normal inspection, normal capillary refill. Absent: pedal edema Neurological exam: Present: alert, oriented X3. Absent: CN II-XII intact, motor sensory deficit Psychiatric exam: Present: normal affect, depressed Skin exam: Present: warm, dry Course Vital Signs 03/11/19 03/11/19 21:44 23:16 Temperature 98.0 F 98.6 F Pulse Rate 101 H 93 Respiratory 18 18 Rate Blood Pressure 129/67 128/80 O2 Sat by Pulse 96 98 Oximetry Medical Decision Making - Medical Decision Making 53-year-old male presenting with right upper quadrant abdominal pain. HEENT requests scan of his liver and gallbladder. He refuses all laboratory testing. Patient has known cirrhosis he is followed with transplant team at [facility]. He's had esophageal varices banding and metoprolol is not an operative candidate for intervention of his gallbladder, been told he cannot have any more endoscopies including colonoscopy due to his surgical risk. He is clinically sober. Patient has GALLBLADDER STUDIES SHOW GALLSTONES, NORMAL COMMON BILE DUCT, DISTENDED GALLBLADDER. NO FREE FLUID. NO GALLBLADDER WALL THICKENING TO SUGGEST ACUTE CHOLECYSTITIS. PATIENT VERY EAGER FOR DISCHARGE. HE WILL ATTEMPT TO ABSTAIN FROM ALCOHOL CONSUMPTION. HE WILL RETURN WITH WORSENING OR CHANGING SYMPTOMS. Disposition Clinical Impression: Liver cirrhosis, Abdominal pain Disposition: HOME SELF-CARE Condition: Poor Is patient prescribed a controlled substance at d/c from ED?: No Referrals: Hermes Kimlbe MD [Primary Care Provider] - 1-2 days Time of Disposition: 00:02
[2019-03-11 23:33] VITALS: BP 128/80; PULSE 93; TEMP 98.6
== END 2019-03-12 00:34 | disposition home or self-care (01) ==
LOC: EC 21:17
DX: K70.30 Alcoholic cirrhosis of liver without ascites (principal); R10.11 Right upper quadrant pain; I85.10 Secondary esophageal varices without bleeding; K80.20 Calculus of gallbladder without cholecystitis without obstruction; K82.8 Other specified diseases of gallbladder; F31.30 Bipolar disorder, current episode depressed, mild or moderate severity, unspecified; I10 Essential (primary) hypertension; F41.9 Anxiety disorder, unspecified; F17.200 Nicotine dependence, unspecified, uncomplicated; Z79.899 Other long term (current) drug therapy; Z87.19 Personal history of other diseases of the digestive system; Z53.20 Procedure and treatment not carried out because of patient's decision for unspecified reasons
CPT/HCPCS: 76705; 99284

== ENCOUNTER 2019-04-08 17:07 | Emergency (ER) | payer OTHER ==
[2019-04-08] MEDS ORDERED: IOPAMIDOL CONTRAST (ORAL USE) VIAL PO PRN (17:38)
--- NOTE | 2019-04-08 17:43 | ED ---
Abdominal Pain HPI - General Chief Complaint: Abdominal Pain Stated Complaint: abd pain Time Seen by Provider: 04/08/19 17:26 Source: patient, RN notes reviewed Mode of arrival: ambulatory Limitations: no limitations - History of Present Illness Initial Comments: This is a 53-year-old male history of alcoholism and alcoholic cirrhosis who states he's been having intermittent episodes right-sided abdominal pain and flank pain some period time he states no worse today 5/10 severity achy in nature does not seem to get any better or any worse with movements or positional changes. He has any fevers chills nausea vomiting sweats. He does see also is had a history of ascites states the pains only and the right upper quadrant flank area. He also states he has had rubber bands in the stomach placed in the past he also states that he does have some gallbladder problems but was told he could not have it out because of bleeding issues. He denies any hematemesis denies any blood per rectum. No black or tarry stools. No other modifying factors MD Complaint: abdominal pain, flank pain - Related Data Home Medications Medication Instructions Recorded Confirmed [place] Carbonate 600 mg PO HS 05/08/17 10/31/18 Lisinopril 40 mg PO HS 04/13/18 10/31/18 Pantoprazole [Protonix] 40 mg PO HS 04/13/18 10/31/18 Thiamine [Vitamin B-1] 100 mg PO HS 04/13/18 10/31/18 Furosemide [Lasix] 40 mg PO HS 05/12/18 10/31/18 Spironolactone [Aldactone] 25 mg PO HS 10/31/18 10/31/18 Previous Rx's Medication Instructions Recorded Folic Acid 1 mg PO DAILY #30 tablet 11/03/18 Multivitamins, Thera [Multivitamin] 1 tab PO DAILY #30 tablet 11/03/18 Propranolol [Inderal] 10 mg PO BID #60 tab 11/03/18 Dicyclomine [Bentyl] 10 mg PO TID #15 capsule 04/08/19 Allergies Allergy/AdvReac Type Severity Reaction Status Date / Time No Known Allergies Allergy Verified 03/11/19 21:46 Review of Systems ROS Statement: Those systems with pertinent positive or pertinent negative responses have been documented in the HPI. ROS Other: All systems not noted in ROS Statement are negative. Past Medical History Past Medical History: GI Bleed, Hyperlipidemia, Hypertension, Liver Disease Additional Past Medical History / Comment(s): cirrhosis, recent hospitalization for SOB & ascites, esophageal varices. History of Any Multi-Drug Resistant Organisms: None Reported Past Surgical History: Orthopedic Surgery Additional Past Surgical History / Comment(s): deviated septum, sinus surg, knee, carpel tunnel, EGD, paracentesis Past Anesthesia/Blood Transfusion Reactions: No Reported Reaction Past Psychological History: Anxiety, Bipolar, Depression Smoking Status: Current every day smoker Past Alcohol Use History: Daily, Heavy Past Drug Use History: Marijuana - Past Family History Father Family Medical History: No Reported History Additional Family Medical History / Comment(s): "platelet disorder" Mother Additional Family Medical History / Comment(s): heart failure General Exam - General Exam Comments Initial Comments: This is a well-developed well-nourished awake alert oriented 3 male Limitations: no limitations General appearance: alert Head exam: Present: atraumatic, normocephalic, normal inspection Eye exam: Present: normal appearance, PERRL, EOMI. Absent: scleral icterus, conjunctival injection, periorbital swelling ENT exam: Present: normal exam, mucous membranes moist Neck exam: Present: normal inspection, full ROM, other (No stridor or bruits). Absent: tenderness, meningismus, lymphadenopathy Respiratory exam: Present: normal lung sounds bilaterally. Absent: respiratory distress, wheezes, rales, rhonchi, stridor Cardiovascular Exam: Present: regular rate, normal rhythm, normal heart sounds. Absent: systolic murmur, diastolic murmur, rubs, gallop, clicks GI/Abdominal exam: Present: soft, tenderness (Right upper quadrant pain palpation no overt guarding or rebound does demonstrate evidence of a), normal bowel sounds. Absent: distended, guarding, rebound, rigid Extremities exam: Present: normal inspection, full ROM, normal capillary refill. Absent: tenderness, pedal edema, joint swelling, calf tenderness Back exam: Present: normal inspection Neurological exam: Present: alert, oriented X3, CN II-XII intact Psychiatric exam: Present: normal affect, normal mood Skin exam: Present: warm, dry, intact, normal color. Absent: rash Course Vital Signs 04/08/19 04/08/19 17:14 20:38 Temperature 97.4 F L 98.0 F Pulse Rate 88 84 Respiratory 18 16 Rate Blood Pressure 169/79 128/70 O2 Sat by Pulse 100 98 Oximetry Medical Decision Making - Medical Decision Making I did discuss findings with the patient he will be placed on Bentyl and discharge he states he was recently alcohol rehab but did fail this. 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 - Lab Data Result diagrams: 04/08/19 12:55 04/08/19 12:55 Lab Results 04/08/19 04/08/19 04/08/19 Range/Units 12:55 12:55 12:55 WBC 7.3 (3.8-10.6) k/uL RBC 3.77 L (4.30-5.90) m/uL Hgb 9.4 L (13.0-17.5) gm/dL Hct 30.9 L (39.0-53.0) % MCV 81.8 (80.0-100.0) fL MCH 25.0 (25.0-35.0) pg MCHC 30.6 L (31.0-37.0) g/dL RDW 17.4 H (11.5-15.5) % Plt Count 90 L (150-450) k/uL Neutrophils % 65 % Lymphocytes % 18 % Monocytes % 7 % Eosinophils % 8 % Basophils % 1 % Neutrophils # 4.8 (1.3-7.7) k/uL Lymphocytes # 1.4 (1.0-4.8) k/uL Monocytes # 0.5 (0-1.0) k/uL Eosinophils # 0.6 (0-0.7) k/uL Basophils # 0.1 (0-0.2) k/uL Hypochromasia Marked Anisocytosis Slight Microcytosis Slight Sodium 141 (137-145) mmol/L Potassium 3.9 (3.5-5.1) mmol/L Chloride 110 H (98-107) mmol/L Carbon Dioxide 21 L (22-30) mmol/L Anion Gap 10 mmol/L BUN 6 L (9-20) mg/dL Creatinine 0.43 L (0.66-1.25) mg/dL Est GFR (CKD-EPI)AfAm >90 (>60 ml/min/1.73 sqM) Est GFR (CKD-EPI)NonAf >90 (>60 ml/min/1.73 sqM) Glucose 124 H (74-99) mg/dL Plasma Lactic Acid Trey 2.2 H* (0.7-2.0) mmol/L Calcium 8.6 (8.4-10.2) mg/dL Magnesium 1.6 (1.6-2.3) mg/dL Total Bilirubin 2.1 H (0.2-1.3) mg/dL AST 86 H (17-59) U/L ALT 20 L (21-72) U/L Alkaline Phosphatase 263 H (38-126) U/L Creatine Kinase 93 (55-170) U/L Total Protein 7.3 (6.3-8.2) g/dL Albumin 3.7 (3.5-5.0) g/dL Amylase 86 (30-110) U/L Lipase 338 H (23-300) U/L Serum Alcohol 273 H* mg/dL - Radiology Data Radiology results: report reviewed (I did review the imaging and report or is evidence of the known cirrhosis as well as small amount of ascites he does have cholelithiasis which she is aware of. Additionally there is some thickening of the descending colon. He does have the liver changes associated also with the cirrhosis.), image reviewed Disposition Clinical Impression: Abdominal pain, Alcohol abuse, Alcohol intoxication, Spastic colon Disposition: HOME SELF-CARE Condition: Good Instructions (If sedation given, give patient instructions): Abdominal Pain (ED), Alcohol Dependence (ED), Alcohol Intoxication (ED), Irritable Bowel Syndrome (ED) Prescriptions: Dicyclomine [Bentyl] 10 mg PO TID #15 capsule Is patient prescribed a controlled substance at d/c from ED?: No Referrals: Hermes Kimble MD [Primary Care Provider] - 1-2 days
[2019-04-08 18:19] LABS: ALT 20 U/L (21-72); AST 86 U/L (17-59); African American GFR (CKD) >90 (>60 ml/min/1.73 sqM); Albumin 3.7 g/dL (3.5-5.0); Alkaline Phosphatase 263 U/L (38-126); Amylase 86 U/L (30-110); Anion Gap 10 mmol/L; Blood Urea Nitrogen 6 mg/dL (9-20); Calcium 8.6 mg/dL (8.4-10.2); Carbon Dioxide 21 mmol/L (22-30); Chloride 110 mmol/L (98-107); Creatine Kinase 93 U/L (55-170); Glucose 124 mg/dL (74-99); Magnesium 1.6 mg/dL (1.6-2.3); Non-African American GFR(CKD) >90 (>60 ml/min/1.73 sqM); Potassium 3.9 mmol/L (3.5-5.1); Sodium 141 mmol/L (137-145); Total Bilirubin 2.1 mg/dL (0.2-1.3); Total Protein 7.3 g/dL (6.3-8.2)
[2019-04-08 18:22] LABS: Alcohol 273 mg/dL
[2019-04-08 18:27] LABS: Anisocytosis Slight; Basophils # (A) 0.1 k/uL (0-0.2); Basophils % (A) 1 %; Eosinophils # (A) 0.6 k/uL (0-0.7); Eosinophils % (A) 8 %; HCT 30.9 % (39.0-53.0); HGB 9.4 gm/dL (13.0-17.5); Hypochromasia Marked; Lymphocytes # (A) 1.4 k/uL (1.0-4.8); Lymphocytes % (A) 18 %; MCHC 30.6 g/dL (31.0-37.0); MCV 81.8 fL (80.0-100.0); Mean Platelet Volume 11.4; Microcytosis Slight; Monocytes # (A) 0.5 k/uL (0-1.0); Monocytes % (A) 7 %; Neutrophils # (A) 4.8 k/uL (1.3-7.7); Neutrophils % (A) 65 %; RBC 3.77 m/uL (4.30-5.90); RDW 17.4 % (11.5-15.5); WBC 7.3 k/uL (3.8-10.6)
[2019-04-08 18:29] LABS: Platelet Count 90 k/uL (150-450)
[2019-04-08] MEDS ORDERED: SODIUM CHLORIDE 0.9% 1,000 ML IV STA (19:24)
--- NOTE | 2019-04-08 20:08 | CT ---
EXAMINATION TYPE: CT abdomen pelvis w con DATE OF EXAM: 04/08/2019 COMPARISON: 10/31/2018 HISTORY: abdominal pain and nausea. hx of liver disease. CT DLP: 1098.1 mGycm Automated exposure control for dose reduction was used. CONTRAST: CT scan of the abdomen pelvis is performed with IV Contrast, patient injected with 100 mL of Isovue 3 00. FINDINGS- Lung bases are clear. There is no pleural effusion. Heart size is normal. There is no pericardial eff usion. Stomach appears normal. Liver shows normal size. Bile ducts are not dilated. Spleen shows no f ocal defect. Spleen is enlarged and measures 16 cm in length. There is no evidence of pancreatic mass. There are small calcified gallstones. The bile ducts are not dilated. There is mild ascites. There is fluid in the paracolic gutters and around the liver. There is no adre nal mass. There are some varicose veins at the splenic hilum. There are varicose veins at the gastroe sophageal junction. . Kidneys show satisfactory contrast opacification. There is no hydronephrosis. There is no retroperito duy adenopathy. Bladder distends smoothly. There is no inguinal hernia. There is no evidence of a pe lvic mass bowel gas pattern nonspecific. Small hiatal hernia noted. There is no evidence of free air. There is wall thickening of the sigmoid colon and right colon. Hypertrophic changes of the vertebral column. Vascular wall is thickened. IMPRESSION- 1. A lobulated liver with small amount ascites, abdominal varices and splenomegaly suggestive of hepa tic cirrhosis. Liver is markedly heterogeneous and grossly abnormal in in enhancement enhancement. Co rrelate for diffuse hepatocellular disease with LFTs. Infiltrative mass, Budd-Chiari or diffuse liver disease in the differential diagnosis. MRI is recommended. 2. Cholelithiasis small amount of fluid surrounding the gallbladder can be seen with cholecystitis. H owever, this also could be associated with hepatic disease and cirrhosis. 3. There is mild wall thickening to the right colon and sigmoid colon. However no contrast was admini stered orally. This limits the exam correlate clinically for colitis or mucosal lesion. 4. Correlate for gastritis.
[2019-04-08 21:36] VITALS: BP 137/89; PULSE 82; RESP 18; TEMP 97.6
== END 2019-04-08 21:30 | disposition home or self-care (01) ==
LOC: EC 17:07
DX: F10.129 Alcohol abuse with intoxication, unspecified (principal); K58.9 Irritable bowel syndrome, unspecified; I10 Essential (primary) hypertension; F17.200 Nicotine dependence, unspecified, uncomplicated; Z79.899 Other long term (current) drug therapy
CPT/HCPCS: 36415; 80053; 82150; 82550; 83605; 83690; 83735; 85025; 74177; 99284; G0480; Q9967; 80320

== ENCOUNTER 2019-04-17 19:07 | Emergency (ER) | payer OTHER ==
[2019-04-17 19:24] VITALS: TEMP 98.3
--- NOTE | 2019-04-17 19:46 | ED ---
Anxiety HPI <Alfredo Sherwood - Last Filed: 04/18/19 01:40> - General Source: patient, RN notes reviewed, old records reviewed Mode of arrival: ambulatory - History of Present Illness MD Complaint: anxiety -: days(s) Symptoms: palpitations, sense of impending doom Place: home Previous History of Same: Yes Severity: moderate Quality: intermittent Provoking factors: emotional stress, work/job stress Improves With: alcohol use Worsens With: thinking about event <Patricio Becerril - Last Filed: 04/18/19 11:48> - General Chief Complaint: Anxiety Stated Complaint: Anxiety Time Seen by Provider: 04/17/19 19:31 - History of Present Illness Initial Comments: This is a 53-year-old male here for evaluation patient is evaluation regarding detoxification but mainly evaluation of stress increased stress. Patient does have history of alcohol abuse long history of alcohol abuse. Cirrhosis. Patient lives in apartment states usually [place] is being evicted from that apartment he is unsure why. Patient was drinking alcohol today. Denies any other drugs. Has no family support system in town he is very emotional crying during conversation. Patient states is a difficult time sleeping difficult time taking care of himself. Distress is very extensive right now. Patient denies suicidal thoughts (Patricio Becerril) - Related Data Home Medications: Home Medications Medication Instructions Recorded Confirmed [place] Carbonate 600 mg PO HS 05/08/17 10/31/18 Lisinopril 40 mg PO HS 04/13/18 10/31/18 Pantoprazole [Protonix] 40 mg PO HS 04/13/18 10/31/18 Thiamine [Vitamin B-1] 100 mg PO HS 04/13/18 10/31/18 Furosemide [Lasix] 40 mg PO HS 05/12/18 10/31/18 Spironolactone [Aldactone] 25 mg PO HS 10/31/18 10/31/18 Previous Rx's Medication Instructions Recorded Folic Acid 1 mg PO DAILY #30 tablet 11/03/18 Multivitamins, Thera [Multivitamin] 1 tab PO DAILY #30 tablet 11/03/18 Propranolol [Inderal] 10 mg PO BID #60 tab 11/03/18 Dicyclomine [Bentyl] 10 mg PO TID #15 capsule 04/08/19 Allergies/Adverse Reactions: Allergies Allergy/AdvReac Type Severity Reaction Status Date / Time No Known Allergies Allergy Verified 04/17/19 19:24 Review of Systems ROS Other: All systems not noted in ROS Statement are negative. <ChavogracieAlfredo - Last Filed: 04/18/19 01:40> ROS Other: All systems not noted in ROS Statement are negative. <Patricio Becerril - Last Filed: 04/18/19 11:48> ROS Statement: Those systems with pertinent positive or pertinent negative responses have been documented in the HPI. Past Medical History Past Medical History: GI Bleed, Hyperlipidemia, Hypertension, Liver Disease Additional Past Medical History / Comment(s): cirrhosis, recent hospitalization for SOB & ascites, esophageal varices. History of Any Multi-Drug Resistant Organisms: None Reported Past Surgical History: Orthopedic Surgery Additional Past Surgical History / Comment(s): deviated septum, sinus surg, knee, carpel tunnel, EGD, paracentesis Past Anesthesia/Blood Transfusion Reactions: No Reported Reaction Past Psychological History: Anxiety, Bipolar, Depression Smoking Status: Current every day smoker Past Alcohol Use History: Daily, Heavy Past Drug Use History: Marijuana - Past Family History Father Family Medical History: No Reported History Additional Family Medical History / Comment(s): "platelet disorder" Mother Additional Family Medical History / Comment(s): heart failure <JerricaPatricio Tania - Last Filed: 04/18/19 11:48> General Exam Limitations: no limitations General appearance: alert, in no apparent distress Head exam: Present: atraumatic, normocephalic, normal inspection Eye exam: Present: normal appearance, PERRL, EOMI. Absent: scleral icterus, conjunctival injection, periorbital swelling ENT exam: Present: normal exam, mucous membranes moist Neck exam: Present: normal inspection. Absent: tenderness, meningismus, lymphadenopathy Respiratory exam: Present: normal lung sounds bilaterally. Absent: respiratory distress, wheezes, rales, rhonchi, stridor Cardiovascular Exam: Present: regular rate, normal rhythm, normal heart sounds. Absent: systolic murmur, diastolic murmur, rubs, gallop, clicks GI/Abdominal exam: Present: soft, normal bowel sounds. Absent: distended, tenderness, guarding, rebound, rigid Extremities exam: Present: normal inspection, full ROM, normal capillary refill. Absent: tenderness, pedal edema, joint swelling, calf tenderness Back exam: Present: normal inspection Neurological exam: Present: alert, oriented X3, CN II-XII intact Psychiatric exam: Present: normal affect, normal mood Skin exam: Present: warm, dry, intact, normal color. Absent: rash <Patricio Becerril - Last Filed: 04/18/19 11:48> Course <Patricio Becerril - Last Filed: 04/18/19 11:48> Vital Signs 04/17/19 04/17/19 19:22 22:36 Temperature 98.3 F Pulse Rate 79 80 Respiratory 20 18 Rate Blood Pressure 150/86 122/58 O2 Sat by Pulse 99 98 Oximetry - Reevaluation(s) Reevaluation #1: 04/17/19 20:29 Patient medically clear for psychiatric evaluation at 0100 (Patricio Becerril) Medical Decision Making <Patricio Becerril - Last Filed: 04/18/19 11:48> - Medical Decision Making 53 male sto the ER for evaluation by psychiatry patient's medical clear for psychiatric evaluation, patient not homicidal or suicidal currently conscious sedation can be discharged home (Patricio Becerril) Disposition Is patient prescribed a controlled substance at d/c from ED?: No <Alfredo Sherwood - Last Filed: 04/18/19 01:40> Is patient prescribed a controlled substance at d/c from ED?: No <Patricio Becerril - Last Filed: 04/18/19 11:48> Clinical Impression: Acute anxiety, Panic attack Disposition: HOME SELF-CARE Condition: Fair Instructions (If sedation given, give patient instructions): Generalized Anxiety Disorder (ED) Referrals: Hermes Kimble MD [Primary Care Provider] - 1-2 days
[2019-04-17] MEDS ORDERED: DIAZEPAM 5 MG TAB PO STA (20:29)
[2019-04-17] MEDS ORDERED: ONDANSETRON ODT 4 MG TAB PO STA (20:29)
[2019-04-17 22:37] VITALS: BP 122/58; PULSE 80; RESP 18
== END 2019-04-18 03:02 | disposition home or self-care (01) ==
LOC: EC 19:07
DX: F41.0 Panic disorder [episodic paroxysmal anxiety] (principal); F31.9 Bipolar disorder, unspecified; K74.60 Unspecified cirrhosis of liver; F10.10 Alcohol abuse, uncomplicated; I10 Essential (primary) hypertension; F17.200 Nicotine dependence, unspecified, uncomplicated; Z87.19 Personal history of other diseases of the digestive system; Z79.899 Other long term (current) drug therapy
CPT/HCPCS: 82075; 99284

== ENCOUNTER 2019-05-07 14:38 | Emergency (ER) | payer OTHER ==
[2019-05-07 14:44] VITALS: RESP 18; TEMP 97.9
[2019-05-07] MEDS ORDERED: MORPHINE SULFATE 4 MG/ML SYRINGE IVP STA (15:57)
--- NOTE | 2019-05-07 16:26 | US ---
EXAMINATION TYPE: US abdomen limited DATE OF EXAM: 05/07/2019 COMPARISON: Limited abdominal ultrasound and CT April 08, 2019 CLINICAL HISTORY: ascites check. Pain and swelling. All 4 quadrants scanned: small amount of ascites seen in RUQ and RLQ Small amount of ascites adjacent to liver which is heterogeneously hyperechoic on images saved. Small moderate fluid right lower quadrant near wall loops. No significant left-sided ascites. IMPRESSION: As above. No significant ascites to warrant paracentesis currently for therapeutic purpo ses.
[2019-05-07] MEDS ORDERED: ACETAMINOPHEN TAB 325 MG TAB PO STA (16:41)
[2019-05-07 17:42] VITALS: BP 127/72; PULSE 78
[2019-05-07 17:45] LABS: Anisocytosis Slight; Basophils # (A) 0.1 k/uL (0-0.2); Basophils % (A) 1 %; Eosinophils # (A) 0.8 k/uL (0-0.7); Eosinophils % (A) 10 %; HCT 28.9 % (39.0-53.0); HGB 8.9 gm/dL (13.0-17.5); Hypochromasia Marked; Lymphocytes # (A) 1.2 k/uL (1.0-4.8); Lymphocytes % (A) 15 %; MCH 25.8 pg (25.0-35.0); MCHC 30.8 g/dL (31.0-37.0); MCV 83.5 fL (80.0-100.0); Mean Platelet Volume 9.8; Microcytosis Slight; Monocytes # (A) 0.5 k/uL (0-1.0); Monocytes % (A) 6 %; Neutrophils # (A) 5.3 k/uL (1.3-7.7); Neutrophils % (A) 65 %; Platelet Count 105 k/uL (150-450); RBC 3.46 m/uL (4.30-5.90); RDW 19.1 % (11.5-15.5); WBC 8.1 k/uL (3.8-10.6)
[2019-05-07 17:54] LABS: ALT 16 U/L (4-49); AST 76 U/L (17-59); African American GFR (CKD) >90 (>60 ml/min/1.73 sqM); Albumin 3.4 g/dL (3.5-5.0); Alkaline Phosphatase 304 U/L (38-126); Anion Gap 6 mmol/L; Blood Urea Nitrogen 7 mg/dL (9-20); Calcium 8.7 mg/dL (8.4-10.2); Carbon Dioxide 23 mmol/L (22-30); Chloride 113 mmol/L (98-107); Glucose 103 mg/dL (74-99); Non-African American GFR(CKD) >90 (>60 ml/min/1.73 sqM); Potassium 4.1 mmol/L (3.5-5.1); Sodium 142 mmol/L (137-145)
--- NOTE | 2019-05-07 17:54 | CT ---
EXAMINATION TYPE: CT brain lisandra pino con DATE OF EXAM: 05/07/2019 COMPARISON: None HISTORY: Headache for 6-7 weeks without injury per patient CT DLP: 1420.6 mGycm Automated exposure control for dose reduction was used. TECHNIQUE: CT scan of the head and cervical spine are performed without contrast. FINDINGS: There is no acute intracranial hemorrhage, mass effect, or midline shift identified. The ventricles and sulci are within normal limits in size. The globes are intact and the visualized sin uses are clear. Cervical spine is visualized in its entirety from C1 through upper thoracic levels and demonstrates s atisfactory alignment without evidence of acute fracture or dislocation. Prevertebral soft tissue ap pears within normal limits. Moderate marked multilevel cervical spondylosis changes are noted. The C1 -C2 articulation is unremarkable. IMPRESSION: 1. There is no acute fracture or dislocation evident in the cervical spine. 2. No acute intracranial hemorrhage, mass effect, or midline shift is seen.
[2019-05-07 17:55] LABS: Alcohol 237 mg/dL
--- NOTE | 2019-05-07 18:22 | ED ---
Headache HPI - General Chief Complaint: Headache Stated Complaint: Headache, need fluid drained from stomach Time Seen by Provider: 05/07/19 15:35 Mode of arrival: ambulatory Limitations: no limitations - History of Present Illness Initial Comments: 53-year-old male with history of cirrhosis chronic alcohol abuse presenting to the ER today for chief complaint of possible need for drainage of ascites. Patient states he has made 1 previous paracentesis for buildup of ascites. Patient states today scheduled appointment for an outpatient ultrasound to assess if he needed another paracentesis however the appointment was canceled due to patient having no insurance coverage he states he was dropped from his Medicaid. Patient states that this was the main reason he presented to the emergency department. He also noted headaches for the past 6 weeks, unsure of falls but states he does drink alcohol daily. Denies fever, neck stiffnes, pain, visual changes, weakness of the UE and LE, sensation deficits, balances changes, speech changes or any other complaints. Upon arrival patient appears well no signs of distress. - Related Data Home Medications Medication Instructions Recorded Confirmed [place] Carbonate 600 mg PO HS 05/08/17 04/27/19 Pantoprazole [Protonix] 40 mg PO HS 04/13/18 04/27/19 Thiamine [Vitamin B-1] 100 mg PO HS 04/13/18 04/27/19 Furosemide [Lasix] 40 mg PO HS 05/12/18 04/27/19 Spironolactone [Aldactone] 25 mg PO HS 10/31/18 04/27/19 Previous Rx's Medication Instructions Recorded Folic Acid 1 mg PO DAILY #30 tablet 11/03/18 Propranolol [Inderal] 10 mg PO BID #60 tab 11/03/18 Dicyclomine [Bentyl] 10 mg PO TID #15 capsule 04/08/19 Allergies Allergy/AdvReac Type Severity Reaction Status Date / Time No Known Allergies Allergy Verified 05/07/19 14:44 Review of Systems ROS Statement: Those systems with pertinent positive or pertinent negative responses have been documented in the HPI. ROS Other: All systems not noted in ROS Statement are negative. Past Medical History Past Medical History: GI Bleed, Hyperlipidemia, Hypertension, Liver Disease Additional Past Medical History / Comment(s): cirrhosis, recent hospitalization for SOB & ascites, esophageal varices with banding. History of Any Multi-Drug Resistant Organisms: None Reported Past Surgical History: Orthopedic Surgery Additional Past Surgical History / Comment(s): deviated septum, sinus surg, knee, carpel tunnel, EGD, paracentesis Past Anesthesia/Blood Transfusion Reactions: No Reported Reaction Past Psychological History: Anxiety, Bipolar, Depression Smoking Status: Current every day smoker Past Alcohol Use History: Daily, Heavy Past Drug Use History: Marijuana - Past Family History Father Family Medical History: No Reported History Additional Family Medical History / Comment(s): "platelet disorder" Mother Additional Family Medical History / Comment(s): heart failure General Exam - General Exam Comments Initial Comments: General: The patient is awake and alert, in no distress, and does not appear acutely ill. Eye: +3 mm pupils are equal, round and reactive to light, extra-ocular movements are intact. No nystagmus. There is normal conjunctiva bilaterally. No signs of icterus. Ears, nose, mouth and throat: There are moist mucous membranes and no oral lesions. No nuchal rigidity Neck: The neck is supple, there is no tenderness or JVD. Cardiovascular: There is a regular rate and rhythm. No murmur, rub or gallop is appreciated. Respiratory: Lungs are clear to auscultation, respirations are non-labored, breath sounds are equal. No wheezes, stridor, rales, or rhonchi. Gastrointestinal: Soft, non-distended, non-tender abdomen without masses or organomegaly noted. There is no rebound or guarding present. No CVA tenderness. Bowel sounds are unremarkable. Musculoskeletal: Normal ROM, no tenderness. Strength 5/5. Sensation intact. Radial pulses equal bilaterally 2+. Neurological: A&O x 3. CN II-XII intact, There are no obvious motor or sensory deficits. Coordination appears grossly intact. Speech is normal. No pronator drift. FInger to nose smooth and coordinated. no tremor. Skin: Skin is warm and dry and no rashes or lesions are noted. Psychiatric: Cooperative, appropriate mood & affect, normal judgment. Limitations: no limitations Course Vital Signs 05/07/19 05/07/19 14:41 17:41 Temperature 97.9 F Pulse Rate 85 78 Respiratory 18 18 Rate Blood Pressure 152/81 127/72 O2 Sat by Pulse 99 98 Oximetry Medical Decision Making - Medical Decision Making 53-year-old male presenting for possible paracentesis. He stated he wanted ultrasound to check if he had enough fluid. There is no significant buildup of ascites of intra-abdominal fluid. Patient abdominal exam benign no pain. Patient's laboratory studies appear consistent with previous. Chronic anemia. Patient has elevated blood alcohol but does not appears intoxicated.Neurological examination no acute findings. Patient CT brain c-spine obtained given no certain history that patient didnt fall with history of ETOH abuse. Patient case discussed wtih Dr. Ames who is agreeable with d/c and PCP f/u. patient agreeable discharged appearing well with ride home-- - Lab Data Result diagrams: 05/07/19 17:35 05/07/19 17:35 Lab Results 05/07/19 05/07/19 Range/Units 17:35 17:35 WBC 8.1 (3.8-10.6) k/uL RBC 3.46 L (4.30-5.90) m/uL Hgb 8.9 L (13.0-17.5) gm/dL Hct 28.9 L (39.0-53.0) % MCV 83.5 (80.0-100.0) fL MCH 25.8 (25.0-35.0) pg MCHC 30.8 L (31.0-37.0) g/dL RDW 19.1 H (11.5-15.5) % Plt Count 105 L (150-450) k/uL Neutrophils % 65 % Lymphocytes % 15 % Monocytes % 6 % Eosinophils % 10 % Basophils % 1 % Neutrophils # 5.3 (1.3-7.7) k/uL Lymphocytes # 1.2 (1.0-4.8) k/uL Monocytes # 0.5 (0-1.0) k/uL Eosinophils # 0.8 H (0-0.7) k/uL Basophils # 0.1 (0-0.2) k/uL Hypochromasia Marked Anisocytosis Slight Microcytosis Slight Sodium 142 (137-145) mmol/L Potassium 4.1 (3.5-5.1) mmol/L Chloride 113 H (98-107) mmol/L Carbon Dioxide 23 (22-30) mmol/L Anion Gap 6 mmol/L BUN 7 L (9-20) mg/dL Creatinine 0.43 L (0.66-1.25) mg/dL Est GFR (CKD-EPI)AfAm >90 (>60 ml/min/1.73 sqM) Est GFR (CKD-EPI)NonAf >90 (>60 ml/min/1.73 sqM) Glucose 103 H (74-99) mg/dL Calcium 8.7 (8.4-10.2) mg/dL Total Bilirubin 2.0 H (0.2-1.3) mg/dL AST 76 H (17-59) U/L ALT 16 (4-49) U/L Alkaline Phosphatase 304 H (38-126) U/L Total Protein 7.0 (6.3-8.2) g/dL Albumin 3.4 L (3.5-5.0) g/dL Serum Alcohol 237 H* mg/dL Disposition Clinical Impression: Headache, Chronic liver disease Disposition: HOME SELF-CARE Condition: Good Instructions (If sedation given, give patient instructions): Acute Headache (ED), Ascites (ED) Additional Instructions: Please use medication as discussed. Please follow-up with family doctor in the next 2 days. Please return to emergency room if the symptoms increase or worsen or for any other concerns. Is patient prescribed a controlled substance at d/c from ED?: No Referrals: Hermes Kimble MD [Primary Care Provider] - 1-2 days Time of Disposition: 18:22
== END 2019-05-07 19:08 | disposition home or self-care (01) ==
LOC: EC 14:38
DX: K76.9 Liver disease, unspecified (principal); R51 Headache; I10 Essential (primary) hypertension; F17.200 Nicotine dependence, unspecified, uncomplicated; Z79.899 Other long term (current) drug therapy
CPT/HCPCS: 36415; 80053; 85025; 80320; 76705; 72125; 70450; 99284; 96374; J2270

== ENCOUNTER 2019-06-28 16:44 | Observation (INO) | payer OTHER ==
--- NOTE | 2019-06-28 17:24 | ED ---
General Adult HPI - General Chief complaint: Shortness of Breath Stated complaint: SOB/cough/poss bladder infection Time Seen by Provider: 06/28/19 17:00 Source: patient, RN notes reviewed Mode of arrival: ambulatory Limitations: no limitations - History of Present Illness Initial comments: Patient is a pleasant 53-year-old male presenting to the emergency Department with complaints of cough. Onset of symptoms was several days ago. Cough is dry nonproductive. Patient also feels a little short of breath. Patient also complains of some abdominal swelling and states he does have history of cirrhosis. Patient requests paracentesis as well as upper GI scope. Patient also questions if he could be having a bladder infection. - Related Data Home Medications Medication Instructions Recorded Confirmed Trail Carbonate 600 mg PO HS 05/08/17 04/27/19 Pantoprazole [Protonix] 40 mg PO HS 04/13/18 04/27/19 Thiamine [Vitamin B-1] 100 mg PO HS 04/13/18 04/27/19 Furosemide [Lasix] 40 mg PO HS 05/12/18 04/27/19 Spironolactone [Aldactone] 25 mg PO HS 10/31/18 04/27/19 Previous Rx's Medication Instructions Recorded Folic Acid 1 mg PO DAILY #30 tablet 11/03/18 Propranolol [Inderal] 10 mg PO BID #60 tab 11/03/18 Dicyclomine [Bentyl] 10 mg PO TID #15 capsule 04/08/19 Allergies Allergy/AdvReac Type Severity Reaction Status Date / Time No Known Allergies Allergy Verified 06/28/19 16:54 Review of Systems ROS Statement: Those systems with pertinent positive or pertinent negative responses have been documented in the HPI. ROS Other: All systems not noted in ROS Statement are negative. Constitutional: Denies: fever Eyes: Denies: eye pain ENT: Denies: ear pain Respiratory: Reports: cough, dyspnea Cardiovascular: Denies: chest pain Endocrine: Reports: fatigue Gastrointestinal: Reports: other (Ascites). Denies: abdominal pain, nausea Genitourinary: Reports: frequency Musculoskeletal: Denies: back pain Skin: Denies: rash Neurological: Denies: weakness Past Medical History Past Medical History: GI Bleed, Hyperlipidemia, Hypertension, Liver Disease Additional Past Medical History / Comment(s): cirrhosis, recent hospitalization for SOB & ascites, esophageal varices with banding. History of Any Multi-Drug Resistant Organisms: None Reported Past Surgical History: Orthopedic Surgery Additional Past Surgical History / Comment(s): deviated septum, sinus surg, knee, carpel tunnel, EGD, paracentesis Past Anesthesia/Blood Transfusion Reactions: No Reported Reaction Past Psychological History: Anxiety, Bipolar, Depression Smoking Status: Current every day smoker Past Alcohol Use History: Daily, Heavy Past Drug Use History: Marijuana - Past Family History Father Family Medical History: No Reported History Additional Family Medical History / Comment(s): "platelet disorder" Mother Additional Family Medical History / Comment(s): heart failure General Exam Limitations: no limitations General appearance: alert, in no apparent distress Head exam: Present: normocephalic Eye exam: Present: normal appearance, PERRL ENT exam: Present: normal oropharynx Neck exam: Present: normal inspection Respiratory exam: Present: normal lung sounds bilaterally Cardiovascular Exam: Present: regular rate, normal rhythm Expanded Peripheral pulses: 2+: Dorsalis Pedis (R), Dorsalis Pedis (L) GI/Abdominal exam: Present: soft, normal bowel sounds, other (Mild abdominal ascites. Not tense.). Absent: tenderness, guarding, rebound, rigid Extremities exam: Present: normal inspection. Absent: pedal edema, calf tenderness Neurological exam: Present: alert Psychiatric exam: Present: normal affect, normal mood Skin exam: Present: normal color Course Vital Signs 06/28/19 06/28/19 16:51 19:20 Temperature 97.7 F Pulse Rate 102 H 85 Respiratory 18 Rate Blood Pressure 175/92 133/83 O2 Sat by Pulse 98 Oximetry EKG Findings - EKG Comments: EKG Findings:: Sinus rhythm at 84. For screening AV block LA of 226. QRS 100. QT 410. QTc 44. Left axis. Normal QRS. No acute ST change. Medical Decision Making - Medical Decision Making Patient reevaluated and updated. Patient states his doctor is Dr. Kimble, neck Dr. Sheffield. Case was discussed with practitioner Leigha Zendejas who will admit covering with Dr. Frank, who admits Dr. Kimble. - Lab Data Result diagrams: 06/28/19 17:50 06/28/19 17:50 Lab Results 06/28/19 06/28/19 06/28/19 Range/Units 17:43 17:50 17:50 WBC 10.1 (3.8-10.6) k/uL RBC 3.25 L (4.30-5.90) m/uL Hgb 8.9 L (13.0-17.5) gm/dL Hct 29.8 L (39.0-53.0) % MCV 91.7 D (80.0-100.0) fL MCH 27.4 (25.0-35.0) pg MCHC 29.9 L (31.0-37.0) g/dL RDW 19.1 H (11.5-15.5) % Plt Count 128 L (150-450) k/uL Neutrophils % 69 % Lymphocytes % 14 % Monocytes % 7 % Eosinophils % 7 % Basophils % 0 % Neutrophils # 6.9 (1.3-7.7) k/uL Lymphocytes # 1.5 (1.0-4.8) k/uL Monocytes # 0.7 (0-1.0) k/uL Eosinophils # 0.7 (0-0.7) k/uL Basophils # 0.0 (0-0.2) k/uL Hypochromasia Marked Anisocytosis Slight PT 12.6 H (9.0-12.0) sec INR 1.3 H (<1.2) APTT 27.0 (22.0-30.0) sec D-Dimer 9.77 H (<0.60) mg/L FEU Sodium (137-145) mmol/L Potassium (3.5-5.1) mmol/L Chloride (98-107) mmol/L Carbon Dioxide (22-30) mmol/L Anion Gap mmol/L BUN (9-20) mg/dL Creatinine (0.66-1.25) mg/dL Est GFR (CKD-EPI)AfAm (>60 ml/min/1.73 sqM) Est GFR (CKD-EPI)NonAf (>60 ml/min/1.73 sqM) Glucose (74-99) mg/dL Calcium (8.4-10.2) mg/dL Magnesium (1.6-2.3) mg/dL Total Bilirubin (0.2-1.3) mg/dL AST (17-59) U/L ALT (4-49) U/L Alkaline Phosphatase (38-126) U/L Creatine Kinase (55-170) U/L Troponin I (0.000-0.034) ng/mL NT-Pro-B Natriuret Pep pg/mL Total Protein (6.3-8.2) g/dL Albumin (3.5-5.0) g/dL Urine Color Urine Appearance (Clear) Urine pH (5.0-8.0) Ur Specific [place] (1.001-1.035) Urine Protein (Negative) Urine Glucose (UA) (Negative) Urine Ketones (Negative) Urine Blood (Negative) Urine Nitrite (Negative) Urine Bilirubin (Negative) Urine Urobilinogen (<2.0) mg/dL Ur Leukocyte Esterase (Negative) Serum Alcohol mg/dL Influenza Type A RNA Not Detected (Not Detectd) Influenza Type B (PCR) Not Detected (Not Detectd) 06/28/19 06/28/19 06/28/19 Range/Units 17:50 17:50 17:50 WBC (3.8-10.6) k/uL RBC (4.30-5.90) m/uL Hgb (13.0-17.5) gm/dL Hct (39.0-53.0) % MCV (80.0-100.0) fL MCH (25.0-35.0) pg MCHC (31.0-37.0) g/dL RDW (11.5-15.5) % Plt Count (150-450) k/uL Neutrophils % % Lymphocytes % % Monocytes % % Eosinophils % % Basophils % % Neutrophils # (1.3-7.7) k/uL Lymphocytes # (1.0-4.8) k/uL Monocytes # (0-1.0) k/uL Eosinophils # (0-0.7) k/uL Basophils # (0-0.2) k/uL Hypochromasia Anisocytosis PT (9.0-12.0) sec INR (<1.2) APTT (22.0-30.0) sec D-Dimer (<0.60) mg/L FEU Sodium 137 (137-145) mmol/L Potassium 4.1 (3.5-5.1) mmol/L Chloride 107 (98-107) mmol/L Carbon Dioxide 21 L (22-30) mmol/L Anion Gap 9 mmol/L BUN 6 L (9-20) mg/dL Creatinine 0.43 L (0.66-1.25) mg/dL Est GFR (CKD-EPI)AfAm >90 (>60 ml/min/1.73 sqM) Est GFR (CKD-EPI)NonAf >90 (>60 ml/min/1.73 sqM) Glucose 98 (74-99) mg/dL Calcium 8.9 (8.4-10.2) mg/dL Magnesium 1.8 (1.6-2.3) mg/dL Total Bilirubin 3.7 H (0.2-1.3) mg/dL AST 85 H (17-59) U/L ALT 19 (4-49) U/L Alkaline Phosphatase 315 H (38-126) U/L Creatine Kinase 41 L (55-170) U/L Troponin I <0.012 (0.000-0.034) ng/mL NT-Pro-B Natriuret Pep 104 pg/mL Total Protein 7.6 (6.3-8.2) g/dL Albumin 3.4 L (3.5-5.0) g/dL Urine Color Urine Appearance (Clear) Urine pH (5.0-8.0) Ur Specific [place] (1.001-1.035) Urine Protein (Negative) Urine Glucose (UA) (Negative) Urine Ketones (Negative) Urine Blood (Negative) Urine Nitrite (Negative) Urine Bilirubin (Negative) Urine Urobilinogen (<2.0) mg/dL Ur Leukocyte Esterase (Negative) Serum Alcohol 177 mg/dL Influenza Type A RNA (Not Detectd) Influenza Type B (PCR) (Not Detectd) 06/28/19 Range/Units 18:08 WBC (3.8-10.6) k/uL RBC (4.30-5.90) m/uL Hgb (13.0-17.5) gm/dL Hct (39.0-53.0) % MCV (80.0-100.0) fL MCH (25.0-35.0) pg MCHC (31.0-37.0) g/dL RDW (11.5-15.5) % Plt Count (150-450) k/uL Neutrophils % % Lymphocytes % % Monocytes % % Eosinophils % % Basophils % % Neutrophils # (1.3-7.7) k/uL Lymphocytes # (1.0-4.8) k/uL Monocytes # (0-1.0) k/uL Eosinophils # (0-0.7) k/uL Basophils # (0-0.2) k/uL Hypochromasia Anisocytosis PT (9.0-12.0) sec INR (<1.2) APTT (22.0-30.0) sec D-Dimer (<0.60) mg/L FEU Sodium (137-145) mmol/L Potassium (3.5-5.1) mmol/L Chloride (98-107) mmol/L Carbon Dioxide (22-30) mmol/L Anion Gap mmol/L BUN (9-20) mg/dL Creatinine (0.66-1.25) mg/dL Est GFR (CKD-EPI)AfAm (>60 ml/min/1.73 sqM) Est GFR (CKD-EPI)NonAf (>60 ml/min/1.73 sqM) Glucose (74-99) mg/dL Calcium (8.4-10.2) mg/dL Magnesium (1.6-2.3) mg/dL Total Bilirubin (0.2-1.3) mg/dL AST (17-59) U/L ALT (4-49) U/L Alkaline Phosphatase (38-126) U/L Creatine Kinase (55-170) U/L Troponin I (0.000-0.034) ng/mL NT-Pro-B Natriuret Pep pg/mL Total Protein (6.3-8.2) g/dL Albumin (3.5-5.0) g/dL Urine Color Brown Urine Appearance Clear (Clear) Urine pH 6.0 (5.0-8.0) Ur Specific [place] 1.024 (1.001-1.035) Urine Protein Trace H (Negative) Urine Glucose (UA) Negative (Negative) Urine Ketones Trace H (Negative) Urine Blood Negative (Negative) Urine Nitrite Negative (Negative) Urine Bilirubin 2+ H (Negative) Urine Urobilinogen 12.0 (<2.0) mg/dL Ur Leukocyte Esterase Negative (Negative) Serum Alcohol mg/dL Influenza Type A RNA (Not Detectd) Influenza Type B (PCR) (Not Detectd) - Radiology Data Radiology results: report reviewed (Computed tomography scan of the chest non- diagnosed sick for pulmonary embolism. Lungs are clear. Atelectasis. Cirrhosis and portal hypertension.), image reviewed (Chest x-ray questions infiltrate.) Disposition Clinical Impression: Ascites, Dyspnea Disposition: ADMITTED IP TO THIS HOSP Is patient prescribed a controlled substance at d/c from ED?: No Referrals: Hermes Kimble MD [Primary Care Provider] - 1-2 days Decision Time: 21:11
[2019-06-28 18:02] LABS: Anisocytosis Slight; Basophils % (A) 0 %; Eosinophils # (A) 0.7 k/uL (0-0.7); Eosinophils % (A) 7 %; HCT 29.8 % (39.0-53.0); HGB 8.9 gm/dL (13.0-17.5); Hypochromasia Marked; Lymphocytes # (A) 1.5 k/uL (1.0-4.8); Lymphocytes % (A) 14 %; MCH 27.4 pg (25.0-35.0); MCHC 29.9 g/dL (31.0-37.0); Mean Platelet Volume 10.3; Monocytes # (A) 0.7 k/uL (0-1.0); Monocytes % (A) 7 %; Neutrophils # (A) 6.9 k/uL (1.3-7.7); Neutrophils % (A) 69 %; Platelet Count 128 k/uL (150-450); RBC 3.25 m/uL (4.30-5.90); RDW 19.1 % (11.5-15.5); WBC 10.1 k/uL (3.8-10.6)
[2019-06-28 18:07] LABS: MCV 91.7 fL (80.0-100.0)
--- NOTE | 2019-06-28 18:08 | XR ---
EXAMINATION TYPE: XR chest 2V DATE OF EXAM: 06/28/2019 COMPARISON: Chest x-ray April 13, 2018 and older x-rays HISTORY: Shortness of breath and cough. TECHNIQUE: Frontal and lateral views of the chest are obtained. FINDINGS: There is right basilar opacity redemonstrated on frontal view. This is less well seen on l ateral view likely within the right lower lobe. There are overlying EKG leads. Left lung remains calderon r. No pleural effusion or pneumothorax seen bilaterally. The cardiac silhouette size is within janessa l limits. The osseous structures are intact. IMPRESSION: Recurrent right basilar likely acute lower lobe infiltrate thought present.
[2019-06-28 18:09] LABS: ALT 19 U/L (4-49); AST 85 U/L (17-59); African American GFR (CKD) >90 (>60 ml/min/1.73 sqM); Albumin 3.4 g/dL (3.5-5.0); Alkaline Phosphatase 315 U/L (38-126); Anion Gap 9 mmol/L; Blood Urea Nitrogen 6 mg/dL (9-20); Calcium 8.9 mg/dL (8.4-10.2); Carbon Dioxide 21 mmol/L (22-30); Chloride 107 mmol/L (98-107); Creatine Kinase 41 U/L (55-170); Glucose 98 mg/dL (74-99); Magnesium 1.8 mg/dL (1.6-2.3); Non-African American GFR(CKD) >90 (>60 ml/min/1.73 sqM); Potassium 4.1 mmol/L (3.5-5.1); Sodium 137 mmol/L (137-145); Total Bilirubin 3.7 mg/dL (0.2-1.3); Total Protein 7.6 g/dL (6.3-8.2)
[2019-06-28 18:13] LABS: Alcohol 177 mg/dL
[2019-06-28 18:19] LABS: INR 1.3 (<1.2); Prothrombin Time 12.6 sec (9.0-12.0)
[2019-06-28 18:19] LABS: Appearance,Urine Clear (Clear); Bilirubin,Urine 2+ (Negative); Blood,Urine Negative (Negative); Color,Urine Brown; Glucose,Urine (UA) Negative (Negative); Ketones,Urine Trace (Negative); Leukocyte Esterase,Urine Negative (Negative); Nitrite,Urine Negative (Negative); Protein,Urine Trace (Negative); Specific Gravity,Urine 1.024 (1.001-1.035)
[2019-06-28 18:22] LABS: D-Dimer 9.77 mg/L FEU (<0.60)
--- NOTE | 2019-06-28 19:48 | CT ---
EXAMINATION TYPE: CT angio chest DATE OF EXAM: 06/28/2019 COMPARISON: Chest x-ray earlier today HISTORY: SOB, elevated d-dimer CT DLP: 445.1 mGycm. Automated Exposure Control for Dose Reduction was Utilized. CONTRAST: CTA scan of the thorax is performed with IV Contrast, patient injected with 60 mL of Isovue 370, pulm onary embolism protocol. MIP Images are created on CT scanner and reviewed. FINDINGS: LUNGS: Right greater than left bibasilar linear atelectasis and/or scarring. No suspicious focal cons olidation. No suspicious nodules or masses. There is no pleural effusion or pneumothorax seen. The tracheobronchial tree is patent. MEDIASTINUM: There is poor contrast bolus. Exam is essentially nondiagnostic for pulmonary embolism. There are no greater than 1 cm hilar or mediastinal lymph nodes. No cardiomegaly or pericardial eff usion is seen. Coronary artery calcification is present which is noted marker for underlying coronary artery disease. OTHER: Small sized lobulated heterogeneous liver with surrounding ascites. Partial visualization of s plenomegaly with surrounding ascites. Dependent small calcified gallstones in gallbladder. Nonspecifi c left adrenal nodule. Stomach is poorly distended and thus suboptimally evaluated. IMPRESSION: 1. Nondiagnostic for pulmonary embolism. 2. Right greater than left bibasilar linear atelectasis and/or scarring. No suspicious acute pulmonar y process. 3. Underlying cirrhosis with portal hypertension partially imaged. At least small to borderline moder ate amount of abdominal ascites partially imaged.
[2019-06-28] MEDS ORDERED: NALOXONE 0.4 MG/ML 1 ML VIAL IV PRN (21:11)
[2019-06-28] MEDS ORDERED: LORazepam 2 MG/ML INJ IV PRN ×3 (21:26)
[2019-06-28] MEDS ORDERED: DEXTROSE 5%-0.45% NACL 1,000 ML IV SCH (21:30)
[2019-06-28] MEDS: SODIUM CHLORIDE 0.9% 1,000 ML IV SCH (21:37)
[2019-06-28] MEDS: THIAMINE 100 MG TAB PO SCH (21:37)
[2019-06-29] MEDS ORDERED: TEMAZEPAM 15 MG CAP PO PRN (00:37)
[2019-06-29] MEDS ORDERED: HYDROcodone/APAP 5-325MG 1 EACH TAB PO PRN (00:37)
--- NOTE | 2019-06-29 01:34 | NM ---
EXAMINATION TYPE: NM pul vent and perfuse DATE OF EXAM: 06/29/2019 COMPARISON: NONE HISTORY: TECHNIQUE: Utilizing inhalation of 36.2 mCi Tc 99m DTPA aerosol and intravenous injection of 4.9 mCi of Tc 99m MAA, ventilation and perfusion images are acquired post injection in multiple projections. FINDINGS: There is a matched defect involving the lateral right lung base. The chest x-ray yesterday show some mild pleural reaction and subsegmental atelectasis lateral right lung base. There is no pulmonary con solidation. There is mild matched defect involving the lingula left upper lobe. There is no ventilati on/perfusion mismatch. There is no segmental type of perfusion defect. IMPRESSION: There is low probability of pulmonary embolism. There is matched defect involving lateral right lung base related to some mild pleural reaction and atelectasis. There is matched defect in the lingula left upper lobe. This is consistent with some air way disease.
[2019-06-29 05:27] VITALS: RESP 16; TEMP 98.7
--- NOTE | 2019-06-29 07:25 | HP ---
HISTORY AND PHYSICAL DATE OF SERVICE: 06/28/2019 CHIEF COMPLAINT: Shortness of breath and as well as abdominal distention. HISTORY OF PRESENT ILLNESS: This 53-year-old gentleman with a past medical history of multiple medical problems including GI bleed, history of chronic liver disease secondary to alcohol, hypertension, hyperlipidemia, cirrhosis of liver, DJD, anxiety, bipolar depression, being followed by Dr. Kimble in the outpatient setting was complaining of shortness of breath and abdominal distention. Patient had a previous thoracocentesis several months ago apparently. The patient also had shortness of breath. The patient came to [facility] and was evaluated in the ER. A chest x-ray was done in the ER which showed recurrent right basilar infiltrate and a chest CTA was also done to rule out the possibility of pulmonary embolism, which was nondiagnostic. Underlying cirrhosis with portal hypertension also suggested. There is no history of any fever, rigors. No history of headache, loss of consciousness, or seizures at this time. INR is 1.3. The patient reports drinking anywhere up to 6 drinks per day. PAST MEDICAL HISTORY: Hypertension, hyperlipidemia, chronic liver disease, GI bleed, anxiety, bipolar depression. MEDICATIONS: Medications are: 1. Thiamine 100 mg at bedtime. 2. Aldactone 25 mg at bedtime. 3. Propranolol 10 mg b.i.d. 4. Protonix 40 mg at bedtime. 5. [place] carbonate 600 mg at bedtime. 6. Lasix 40 mg at bedtime. 7. Folic acid 1 mg daily. 8. Bentyl 10 mg t.i.d. Doses are not confirmed. ALLERGIES: Allergies are none. FAMILY HISTORY: History of platelet disorder in the family. SOCIAL HISTORY: History of alcohol as mentioned. History of nicotine dependence. REVIEW OF SYSTEMS: ENT: No diminished hearing or diminished vision. CARDIOVASCULAR SYSTEM: No angina. RESPIRATORY SYSTEM: As mentioned earlier. GI: As mentioned earlier. : No dysuria. NERVOUS SYSTEM: No numbness or weakness. ALLERGY/IMMUNOLOGY: No asthma or hay fever. MUSCULOSKELETAL: As mentioned earlier. HEMATOLOGY/ONCOLOGY: No history of anemia. ENDOCRINE: No history of diabetes or hypothyroidism. CONSTITUTIONAL: As mentioned earlier. DERMATOLOGY: Negative. RHEUMATOLOGY: Negative. PSYCHIATRY: As mentioned earlier. PHYSICAL EXAMINATION: The patient is alert and oriented x3. Pulse is 98, blood pressure 149/80, respiration 20, temperature 98.9, pulse ox 95% on room air. HEENT: Conjunctivae normal. Oral mucosa moist. NECK: No jugular venous distention. No carotid bruit. No lymph node enlargement. CARDIOVASCULAR: S1, S2 muffled. No S3, no S4. RESPIRATORY: Breath sounds diminished at the bases. A few scattered rhonchi and crackles. Expiratory wheezing also heard. ABDOMEN: Tense, obese. Ascites present. Umbilicus is everted. Bowel sounds diminished. Flanks are dull on percussion. No other mass palpable. LEGS: Minimal edema. NERVOUS SYSTEM: Higher function as mentioned. Moves all 4 limbs. No focal motor or sensory deficits. LYMPHATICS: No lymphadenopathy of the neck, axillae or groin. SKIN: No ulcer, rash or bleeding. JOINTS: No active deforming arthropathy. LABS: WBC 10.1, hemoglobin 8.9, INR 1.3 otherwise, alkaline phosphatase 315, total bilirubin is 3.7, AST is 85. ASSESSMENT: 1. Acute ascites exacerbation secondary to cirrhosis of the liver. 2. Acute alcoholic hepatitis. 3. Atelectasis causing shortness of breath. 4. Anemia, normocytic secondary to cirrhosis of the liver. 5. Thrombocytopenia. 6. Elevated bilirubin. 7. Elevated alkaline phosphatase. 8. History of nicotine dependence. 9. History of gastrointestinal bleed. 10.Hypertension. 11.Hyperlipidemia. 12.History of cirrhosis secondary to EtOH and esophageal varices and banding. 13.Anxiety, bipolar, depression. 14.History of THC. 15.FULL CODE. RECOMMENDATIONS AND DISCUSSION: This 53-year-old gentleman who presented with multiple complex medical issues at this time I recommend to continue current medications, continue symptomatic treatment. Recommend diuretics and interventional radiology consultation and ascitic aspiration. Otherwise WA protocol. The patient is taking a significant amount of alcohol. I would recommend Ativan p.r.n. as part of CIWA protocol. Habitrol. Resume the home medication once they are confirmed. Otherwise, proton pump inhibitors. Pulmonary consultation regarding the atelectasis. I would also recommend empiric bronchodilators. Prognosis extremely guarded because of multiple complex medical issues. Dr. Kimble will follow. MMODL / IJN: [id number] /
[2019-06-29 08:26] LABS: ALT 17 U/L (4-49); AST 72 U/L (17-59); African American GFR (CKD) >90 (>60 ml/min/1.73 sqM); Albumin 2.8 g/dL (3.5-5.0); Alkaline Phosphatase 300 U/L (38-126); Anion Gap 6 mmol/L; Blood Urea Nitrogen 5 mg/dL (9-20); Calcium 8.9 mg/dL (8.4-10.2); Carbon Dioxide 22 mmol/L (22-30); Chloride 109 mmol/L (98-107); Glucose 90 mg/dL (74-99); Non-African American GFR(CKD) >90 (>60 ml/min/1.73 sqM); Potassium 4.1 mmol/L (3.5-5.1); Sodium 137 mmol/L (137-145); Total Bilirubin 4.6 mg/dL (0.2-1.3); Total Protein 6.8 g/dL (6.3-8.2)
[2019-06-29 08:38] LABS: Anisocytosis Slight; Basophils % (A) 1 %; Eosinophils # (A) 0.6 k/uL (0-0.7); Eosinophils % (A) 7 %; HCT 27.3 % (39.0-53.0); HGB 8.2 gm/dL (13.0-17.5); Hypochromasia Marked; Lymphocytes % (A) 12 %; MCH 27.7 pg (25.0-35.0); MCHC 30.1 g/dL (31.0-37.0); MCV 92.1 fL (80.0-100.0); Mean Platelet Volume 10.8; Monocytes # (A) 0.6 k/uL (0-1.0); Monocytes % (A) 7 %; Neutrophils # (A) 5.9 k/uL (1.3-7.7); Neutrophils % (A) 72 %; Platelet Count 110 k/uL (150-450); RBC 2.97 m/uL (4.30-5.90); RDW 18.8 % (11.5-15.5); WBC 8.2 k/uL (3.8-10.6)
[2019-06-29] MEDS: THIAMINE 100 MG TAB PO SCH (08:53)
[2019-06-29] MEDS ORDERED: PANTOPRAZOLE 40 MG/10 ML VIAL IV SCH (09:00)
[2019-06-29] MEDS ORDERED: SPIRONOLACTONE 25 MG TAB PO SCH (09:00)
[2019-06-29] MEDS ORDERED: FUROSEMIDE 10 MG/ML 4 ML VIAL IV SCH (09:00)
[2019-06-29] MEDS ORDERED: NICOTINE 14MG/24HR PATCH TRANSDERM SCH (09:00)
--- NOTE | 2019-06-29 11:17 | P.PN ---
Subjective Patient is awake and alert and bed awaiting ultrasound-guided paracentesis, discussed consultation with GI he currently sees Dr. Prince but does state he does not want to see a GI consult at this time. He reports he would like to have his paracentesis and to go home after procedure. He states he has had several attempts to stop drinking in the past he currently drinks approximately 6 beers a day and at times shots of schnapps, he declines interest to stop drinking alcohol at this time. He states he is on disability but denies any insurance c overage, social work has been consulted. Objective - Vital Signs Vital signs: Vital Signs Temp 98.7 F 06/29/19 05:19 Pulse 81 06/29/19 05:19 Resp 16 06/29/19 05:19 BP 149/79 06/29/19 05:19 Pulse Ox 97 06/29/19 05:19 Intake & Output 06/28/19 06/29/19 06/29/19 18:59 06:59 18:59 Intake Total 75 Output Total 400 Balance -325 Weight 81.647 kg 83.007 kg Intake: Intake, IV Titration 75 Amount Dextrose 5%-0.45% NaCl 1, 75 000 ml @ 75 mls/hr IV . [id number] TOPHER Rx#:[id number] Output: Urine 400 Other: Voiding Method Urinal Urinal - Constitutional General appearance: Present: mild distress - Neck Neck: Present: normal ROM - Respiratory Respiratory: bilateral: CTA - Cardiovascular Rhythm: regular Heart sounds: normal: S1, S2 - Gastrointestinal General gastrointestinal: Present: distended, normal bowel sounds - Psychiatric Psychiatric: Present: A&O x's 3, appropriate affect - Labs CBC & Chem 7: 06/29/19 07:47 06/29/19 07:47 Labs: Abnormal Lab Results - Last 24 Hours (Table) 06/28/19 06/28/19 06/28/19 Range/Units 17:50 17:50 17:50 RBC 3.25 L (4.30-5.90) m/uL Hgb 8.9 L (13.0-17.5) gm/dL Hct 29.8 L (39.0-53.0) % MCHC 29.9 L (31.0-37.0) g/dL RDW 19.1 H (11.5-15.5) % Plt Count 128 L (150-450) k/uL PT 12.6 H (9.0-12.0) sec INR 1.3 H (<1.2) D-Dimer 9.77 H (<0.60) mg/L FEU Chloride (98-107) mmol/L Carbon Dioxide 21 L (22-30) mmol/L BUN 6 L (9-20) mg/dL Creatinine 0.43 L (0.66-1.25) mg/dL Total Bilirubin 3.7 H (0.2-1.3) mg/dL AST 85 H (17-59) U/L Alkaline Phosphatase 315 H (38-126) U/L Creatine Kinase 41 L (55-170) U/L Albumin 3.4 L (3.5-5.0) g/dL Urine Protein (Negative) Urine Ketones (Negative) Urine Bilirubin (Negative) 06/28/19 06/29/19 06/29/19 Range/Units 18:08 07:47 07:47 RBC 2.97 L (4.30-5.90) m/uL Hgb 8.2 L (13.0-17.5) gm/dL Hct 27.3 L (39.0-53.0) % MCHC 30.1 L (31.0-37.0) g/dL RDW 18.8 H (11.5-15.5) % Plt Count 110 L (150-450) k/uL PT (9.0-12.0) sec INR (<1.2) D-Dimer (<0.60) mg/L FEU Chloride 109 H (98-107) mmol/L Carbon Dioxide (22-30) mmol/L BUN 5 L (9-20) mg/dL Creatinine 0.43 L (0.66-1.25) mg/dL Total Bilirubin 4.6 H (0.2-1.3) mg/dL AST 72 H (17-59) U/L Alkaline Phosphatase 300 H (38-126) U/L Creatine Kinase (55-170) U/L Albumin 2.8 L (3.5-5.0) g/dL Urine Protein Trace H (Negative) Urine Ketones Trace H (Negative) Urine Bilirubin 2+ H (Negative) - Imaging and Cardiology Chest x-ray: report reviewed CT scan - chest: report reviewed Assessment and Plan Plan: Assessment: Acute ascites exacerbation secondary to cirrhosis of the liver Acute alcoholic hepatitis Thrombocytopenia Elevated bilirubin Elevated alkaline phosphatase Anemia normocytic secondary to cirrhosis of the liver Hypertension Hyperlipidemia History of nicotine dependence History of gastrointestinal bleed History of anxiety depression bipolar History of cirrhosis secondary to EtOH and esophageal varices and banding Plan: Ultrasound guided paracentesis by interventional radiology Continue CIWA protocol Continue medical social work consultation
[2019-06-29] MEDS: SODIUM CHLORIDE 0.9% 1,000 ML IV SCH (11:42)
[2019-06-29 13:58] VITALS: BP 150/67; PULSE 91
--- NOTE | 2019-06-29 14:35 | P.DS ---
Providers Date of admission: 06/28/19 21:11 Expected date of discharge: 06/29/19 Attending physician: Hermes Kimble Consults: 06/28/19 21:12 Consult Physician Urgent Consulting Provider: Chasity Noriega Consult Reason/Comments: dyspnea Do you want consulting provider notified?: Yes Primary care physician: Hermes Kimble [facility] Course: Patient presented to Emergency for increased shortness of breath, he had paracentesis through IR and had 3.7 Liters of fluid removed, he has declined GI consult, and is requesting discharge home Assessment: Acute ascites exacerbation secondary to cirrhosis of the liver had paracentesis Acute alcoholic hepatitis Thrombocytopenia Elevated bilirubin Elevated alkaline phosphatase Anemia normocytic secondary to cirrhosis of the liver Hypertension Hyperlipidemia History of nicotine dependence History of gastrointestinal bleed History of anxiety depression bipolar History of cirrhosis secondary to EtOH and esophageal varices and banding Plan: Discharge home Follow up with Dr. Kimble in 1-2 days Follow up with Dr. Prince as scheduled Plan - Discharge Summary Discharge Rx Participant: No New Discharge Prescriptions: Continue [place] Carbonate 600 mg PO HS Pantoprazole [Protonix] 40 mg PO BID Thiamine [Vitamin B-1] 100 mg PO HS Furosemide [Lasix] 20 mg PO HS Spironolactone [Aldactone] 25 mg PO HS Propranolol [Inderal] 10 mg PO BID #60 tab Discharge Medication List [place] Carbonate 600 mg PO HS 05/08/17 [History] Pantoprazole [Protonix] 40 mg PO BID 04/13/18 [History] Thiamine [Vitamin B-1] 100 mg PO HS 04/13/18 [History] Furosemide [Lasix] 20 mg PO HS 05/12/18 [History] Spironolactone [Aldactone] 25 mg PO HS 10/31/18 [History] Propranolol [Inderal] 10 mg PO BID #60 tab 11/03/18 [Rx] Follow up Appointment(s)/Referral(s): Hermes Kimble MD [Primary Care Provider] - 1-2 days (patient perfers to set up own appt.)
--- NOTE | 2019-06-29 14:39 | US ---
Therapeutic paracentesis. DATE OF EXAM: 06/29/2019 CLINICAL HISTORY: Ascites The procedure was discussed with the patient. The risks, complications, benefits, and alternatives we re discussed and any questions were answered. Informed consent was obtained. The patient was placed s upine on the ultrasound table and prepped and draped in the usual sterile fashion. All elements of maximal barrier technique were utilized. Under ultrasound guidance, access into the right lower quadrant was obtained, via the paracentesis catheter system and direct ultrasound guidanc e. Approximately 3.6 liters of straw-colored fluid was removed. The patient was stable throughout the pr ocedure and remained stable upon discharge from Department of Radiology. IMPRESSION: Successful therapeutic paracentesis under ultrasound guidance.
== END 2019-06-29 15:09 | disposition home or self-care (01) ==
LOC: EC 16:44 → 6NMEDSUR 21:11
PROVIDERS: ADMIT Family Medicine; ATTEND Family Medicine
DX: K70.31 Alcoholic cirrhosis of liver with ascites (principal); K70.11 Alcoholic hepatitis with ascites; F10.988 Alcohol use, unspecified with other alcohol-induced disorder; D69.6 Thrombocytopenia, unspecified; K76.6 Portal hypertension; I10 Essential (primary) hypertension; D64.9 Anemia, unspecified; K76.9 Liver disease, unspecified; E78.5 Hyperlipidemia, unspecified; F17.200 Nicotine dependence, unspecified, uncomplicated; K92.2 Gastrointestinal hemorrhage, unspecified; F31.30 Bipolar disorder, current episode depressed, mild or moderate severity, unspecified; F41.9 Anxiety disorder, unspecified; F41.8 Other specified anxiety disorders; Z79.899 Other long term (current) drug therapy
CPT/HCPCS: 96361 ×3; 96374; 96375; 99285; 36415; 93005; 85379; 83880; 80053 ×2; 82550; 83735; 84484; 85025 ×2; 85610; 85730; 81003; 80320; 87502; 71046; 49083; 71275; 78582; G0378 ×2; A9540; A9567; S4990; J1940; C9113; Q9967

== ENCOUNTER 2019-07-19 18:53 | Observation (INO) | payer OTHER ==
--- NOTE | 2019-07-19 19:26 | ED ---
General Adult HPI - General Chief complaint: Abdominal Pain Stated complaint: abd bloating/tired/nausea Time Seen by Provider: 07/19/19 19:00 Source: patient Mode of arrival: ambulatory Limitations: no limitations - History of Present Illness Initial comments: Patient presents the ED requesting paracentesis. Patient states that he gets recurrent ascites, and he states that he has had increasing "bloating" for the past week or so. Patient states that he does not have insurance to go see his primary care provider or his GI doctor as an outpatient, and he states that he has come to the ED because this is his only option. He states that he gets per iodic paracenteses. Patient denies having any pain, fever or chills, headache, focal neuro deficit, chest pain, dyspnea, dizziness, abdominal pain, nausea or vomiting, diarrhea or constipation, bloody or melanotic stool, dysuria or urinary symptoms, or any other symptoms or complaints. - Related Data Home Medications Medication Instructions Recorded Confirmed [place] Carbonate 600 mg PO HS 05/08/17 06/29/19 Pantoprazole [Protonix] 40 mg PO BID 04/13/18 06/29/19 Thiamine [Vitamin B-1] 100 mg PO HS 04/13/18 06/29/19 Furosemide [Lasix] 20 mg PO HS 05/12/18 06/29/19 Spironolactone [Aldactone] 25 mg PO HS 10/31/18 06/29/19 Previous Rx's Medication Instructions Recorded Propranolol [Inderal] 10 mg PO BID #60 tab 11/03/18 Allergies Allergy/AdvReac Type Severity Reaction Status Date / Time No Known Allergies Allergy Verified 07/19/19 18:58 Review of Systems ROS Statement: Those systems with pertinent positive or pertinent negative responses have been documented in the HPI. ROS Other: All systems not noted in ROS Statement are negative. Past Medical History Past Medical History: GI Bleed, Hyperlipidemia, Hypertension, Liver Disease Additional Past Medical History / Comment(s): cirrhosis, recent hospitalization for SOB & ascites, esophageal varices with banding. History of Any Multi-Drug Resistant Organisms: None Reported Past Surgical History: Orthopedic Surgery Additional Past Surgical History / Comment(s): deviated septum, sinus surg, knee, carpel tunnel, EGD, paracentesis Past Anesthesia/Blood Transfusion Reactions: No Reported Reaction Past Psychological History: Anxiety, Bipolar, Depression Smoking Status: Current every day smoker Past Alcohol Use History: Daily, Heavy - Past Family History Father Family Medical History: No Reported History Additional Family Medical History / Comment(s): "platelet disorder" Mother Additional Family Medical History / Comment(s): heart failure General Exam Limitations: no limitations General appearance: alert, in no apparent distress Head exam: Present: atraumatic, normocephalic Eye exam: Present: normal appearance, EOMI ENT exam: Present: mucous membranes moist Neck exam: Present: other (Trachea is in midline) Respiratory exam: Present: normal lung sounds bilaterally. Absent: respiratory distress, wheezes, rales, rhonchi Cardiovascular Exam: Present: regular rate, normal rhythm, normal heart sounds, other (Normal radial pulses bilaterally) GI/Abdominal exam: Present: soft, diminished bowel sounds, other (Distended/ascitic abdomen). Absent: tenderness, guarding Extremities exam: Absent: tenderness, pedal edema, calf tenderness Neurological exam: Present: alert, oriented X3. Absent: motor sensory deficit Psychiatric exam: Present: normal affect, normal mood Skin exam: Present: warm, dry, intact, normal color Course Vital Signs 07/19/19 07/19/19 18:54 20:58 Temperature 98.0 F Pulse Rate 111 H 98 Respiratory 18 16 Rate Blood Pressure 145/80 126/81 O2 Sat by Pulse 97 97 Oximetry - Reevaluation(s) Reevaluation #1: 07/19/19 19:25 Case, H&P, pending ED workup and patient's request for paracentesis were discussed with Dr. Cornelius (hospitalist). He accepts hospital admission, and he states that he will arrange for IR paracentesis tomorrow. He agrees with GI consultation. He has no further recommendations at this time. Medical Decision Making - Medical Decision Making Patient is breathing comfortably in the ED with clear breath sounds bilaterally and a normal room air oxygen saturation. Patient is afebrile. Patient's abdomen is distended/ascitic, but is soft and nontender on exam. Patient is requesting paracentesis. Dr. Cornelius has accepted hospital admission and agrees to arrange for parecentesis with interventional radiology tomorrow. I have explained the risks of hospital admission, including coronavirus infection and other infections, with the patient. He is able to verbalized understanding of these risks, and he still wishes for hospital admission for paracentesis. - Lab Data Result diagrams: 07/19/19 19:36 07/19/19 19:36 Lab Results 07/19/19 07/19/19 07/19/19 Range/Units 19:36 19:36 20:05 WBC 10.4 (3.8-10.6) k/uL RBC 3.11 L (4.30-5.90) m/uL Hgb 9.2 L (13.0-17.5) gm/dL Hct 29.3 L (39.0-53.0) % MCV 94.4 (80.0-100.0) fL MCH 29.5 (25.0-35.0) pg MCHC 31.3 (31.0-37.0) g/dL RDW 18.0 H (11.5-15.5) % Plt Count 100 L (150-450) k/uL Neutrophils % 71 % Lymphocytes % 11 % Monocytes % 9 % Eosinophils % 7 % Basophils % 0 % Neutrophils # 7.4 (1.3-7.7) k/uL Lymphocytes # 1.2 (1.0-4.8) k/uL Monocytes # 1.0 (0-1.0) k/uL Eosinophils # 0.7 (0-0.7) k/uL Basophils # 0.0 (0-0.2) k/uL Hypochromasia Slight Anisocytosis Slight PT 13.0 H (9.0-12.0) sec INR 1.3 H (<1.2) APTT 26.5 (22.0-30.0) sec Sodium 135 L (137-145) mmol/L Potassium 4.6 (3.5-5.1) mmol/L Chloride 107 (98-107) mmol/L Carbon Dioxide 18 L (22-30) mmol/L Anion Gap 10 mmol/L BUN 7 L (9-20) mg/dL Creatinine 0.45 L (0.66-1.25) mg/dL Est GFR (CKD-EPI)AfAm >90 (>60 ml/min/1.73 sqM) Est GFR (CKD-EPI)NonAf >90 (>60 ml/min/1.73 sqM) Glucose 107 H (74-99) mg/dL Calcium 8.7 (8.4-10.2) mg/dL Total Bilirubin 4.7 H (0.2-1.3) mg/dL AST 101 H (17-59) U/L ALT 16 (4-49) U/L Alkaline Phosphatase 306 H (38-126) U/L Total Protein 7.9 (6.3-8.2) g/dL Albumin 3.4 L (3.5-5.0) g/dL Lipase 327 H (23-300) U/L Disposition Clinical Impression: Ascites, Chronic liver disease Disposition: ADMITTED IP TO THIS HOSP Condition: Stable Is patient prescribed a controlled substance at d/c from ED?: No Time of Disposition: 20:26
[2019-07-19 20:05] LABS: ALT 16 U/L (4-49); AST 101 U/L (17-59); African American GFR (CKD) >90 (>60 ml/min/1.73 sqM); Albumin 3.4 g/dL (3.5-5.0); Alkaline Phosphatase 306 U/L (38-126); Anion Gap 10 mmol/L; Blood Urea Nitrogen 7 mg/dL (9-20); Calcium 8.7 mg/dL (8.4-10.2); Carbon Dioxide 18 mmol/L (22-30); Chloride 107 mmol/L (98-107); Glucose 107 mg/dL (74-99); Non-African American GFR(CKD) >90 (>60 ml/min/1.73 sqM); Sodium 135 mmol/L (137-145); Total Bilirubin 4.7 mg/dL (0.2-1.3); Total Protein 7.9 g/dL (6.3-8.2)
[2019-07-19 20:09] LABS: Potassium 4.6 mmol/L (3.5-5.1)
[2019-07-19 20:16] LABS: Anisocytosis Slight; Basophils % (A) 0 %; Eosinophils # (A) 0.7 k/uL (0-0.7); Eosinophils % (A) 7 %; HCT 29.3 % (39.0-53.0); HGB 9.2 gm/dL (13.0-17.5); Hypochromasia Slight; Lymphocytes # (A) 1.2 k/uL (1.0-4.8); Lymphocytes % (A) 11 %; MCH 29.5 pg (25.0-35.0); MCHC 31.3 g/dL (31.0-37.0); MCV 94.4 fL (80.0-100.0); Mean Platelet Volume 12.1; Monocytes % (A) 9 %; Neutrophils # (A) 7.4 k/uL (1.3-7.7); Neutrophils % (A) 71 %; Platelet Count 100 k/uL (150-450); RBC 3.11 m/uL (4.30-5.90); WBC 10.4 k/uL (3.8-10.6)
[2019-07-19 20:30] LABS: INR 1.3 (<1.2); Partial Thromboplastin Time 26.5 sec (22.0-30.0)
[2019-07-20 07:32] LABS: Anisocytosis Slight; Basophils % (A) 0 %; Eosinophils # (A) 0.7 k/uL (0-0.7); Eosinophils % (A) 9 %; HCT 26.8 % (39.0-53.0); HGB 8.3 gm/dL (13.0-17.5); Hypochromasia Moderate; Lymphocytes # (A) 1.1 k/uL (1.0-4.8); Lymphocytes % (A) 13 %; MCH 29.5 pg (25.0-35.0); MCHC 30.8 g/dL (31.0-37.0); MCV 95.6 fL (80.0-100.0); Mean Platelet Volume 10.3; Monocytes # (A) 0.7 k/uL (0-1.0); Monocytes % (A) 9 %; Neutrophils # (A) 5.5 k/uL (1.3-7.7); Neutrophils % (A) 67 %; RBC 2.81 m/uL (4.30-5.90); RDW 18.1 % (11.5-15.5); WBC 8.2 k/uL (3.8-10.6)
[2019-07-20 07:41] LABS: ALT 13 U/L (4-49); AST 58 U/L (17-59); African American GFR (CKD) >90 (>60 ml/min/1.73 sqM); Albumin 2.7 g/dL (3.5-5.0); Alkaline Phosphatase 293 U/L (38-126); Anion Gap 5 mmol/L; Blood Urea Nitrogen 6 mg/dL (9-20); Calcium 8.7 mg/dL (8.4-10.2); Carbon Dioxide 22 mmol/L (22-30); Chloride 108 mmol/L (98-107); Glucose 99 mg/dL (74-99); Non-African American GFR(CKD) >90 (>60 ml/min/1.73 sqM); Potassium 3.7 mmol/L (3.5-5.1); Sodium 135 mmol/L (137-145); Total Bilirubin 4.6 mg/dL (0.2-1.3); Total Protein 6.4 g/dL (6.3-8.2)
[2019-07-20 07:45] LABS: Target Cells Present
[2019-07-20 07:46] LABS: Platelet Count 90 k/uL (150-450)
--- NOTE | 2019-07-20 08:24 | P.HPIM ---
History of Present Illness This is a pleasant 53 years old male with past medical history of hyperlipidemia, hypertension, liver cirrhosis, esophageal varices and GI bleed status post banding. Presents because of abdominal distention, patient states that he has no medical insurance to see his PCP Dr. Kimble. Last time he saw Dr. Kimble is about 25 days ago when he was in the hospital, he does not like to follow-up with Dr. Kimble or Dr. Figueredo office because he has a copy of 100 dollars, he is enrolled in kind of social program to help him with his medical insurance. He drinks about 6 beers besides 4 shots every day, his last drink was just before coming to the hospital. He smokes about 1 pack per day, no illicit tracts, he takes lithium for bipolar disease since age 15 however he denies active signs symptoms of depression or suicidal ideation. He does not want excessive testing, however he agrees to abdominal ultrasound and IR and GI consult He has mild right-sided abdominal pain, no other complaints other than abdominal distention and pain Vitals are stable. Labs showing WBCs of 8.2, hemoglobin 8.3, platelets 90. INR is 1.3, sodium 135, creatinine 0.4, AST and ALT are within normal limits this morning, bilirubin is elevated at 4.6 Patient expressed his wishes to leave the hospital after the paracentesis, I explained to him he might not be ready for discharge at that time, the risks of leaving the hospital AGAINST MEDICAL ADVICE is explained for him including but not limited to the risk of worsening liver cirrhosis, liver failure, organ dysfunction and/or he verbalized understanding and will consider Review of Systems CONSTITUTIONAL: No fever, no malaise, no fatigue. HEENT: No recent visual problems or hearing problems. Denied any sore throat. CARDIOVASCULAR: No orthopnea, PND, no palpitations, no syncope. PULMONARY: No shortness of breath, no cough, no hemoptysis. GASTROINTESTINAL: No diarrhea, no nausea, no vomiting, Normoactive bowel sounds. NEUROLOGICAL: No headaches, no weakness, no numbness. HEMATOLOGICAL: Denies any bleeding or petechiae. GENITOURINARY: Denies any burning micturition, frequency, or urgency. MUSCULOSKELETAL/RHEUMATOLOGICAL: Denies any joint pain, swelling, or any muscle pain. ENDOCRINE: Denies any polyuria or polydipsia. Past Medical History Past Medical History: GI Bleed, Hyperlipidemia, Hypertension, Liver Disease Additional Past Medical History / Comment(s): cirrhosis, recent hospitalization for SOB & ascites, esophageal varices with banding. History of Any Multi-Drug Resistant Organisms: None Reported Past Surgical History: Orthopedic Surgery Additional Past Surgical History / Comment(s): deviated septum, sinus surg, knee, carpel tunnel, EGD, paracentesis Past Anesthesia/Blood Transfusion Reactions: No Reported Reaction Smoking Status: Current every day smoker - Past Family History Father Family Medical History: No Reported History Additional Family Medical History / Comment(s): "platelet disorder" Mother Additional Family Medical History / Comment(s): heart failure Medications and Allergies Home Medications Medication Instructions Recorded Confirmed Type [place] Carbonate 600 mg PO HS 05/08/17 06/29/19 History Pantoprazole [Protonix] 40 mg PO BID 04/13/18 06/29/19 History Thiamine [Vitamin B-1] 100 mg PO HS 04/13/18 06/29/19 History Furosemide [Lasix] 20 mg PO HS 05/12/18 06/29/19 History Spironolactone [Aldactone] 25 mg PO HS 10/31/18 06/29/19 History Propranolol [Inderal] 10 mg PO BID #60 tab 11/03/18 06/29/19 Rx Allergies Allergy/AdvReac Type Severity Reaction Status Date / Time No Known Allergies Allergy Verified 07/19/19 18:58 Physical Exam Vitals: Vital Signs Temp Pulse Pulse Resp BP BP Pulse Ox 07/20/19 05:50 97.7 F 86 16 124/60 94 L 07/20/19 05:49 97.7 F 86 16 124/60 94 L 07/19/19 21:30 98.8 F 101 H 20 161/88 96 07/19/19 20:58 98 16 126/81 97 07/19/19 18:54 98.0 F 111 H 18 145/80 97 Intake and Output 07/19/19 07/20/19 07/20/19 22:59 06:59 14:59 Intake Total 0 Balance 0 Intake: Oral 0 Other: # Voids 1 2 Weight 81.647 kg GENERAL: The patient is alert and oriented x3, not in any acute distress. Well developed, well nourished. HEENT: Pupils are round and equally reacting to light. EOMI. No scleral icterus. No conjunctival pallor. Normocephalic, atraumatic. No pharyngeal erythema. No thyromegaly. CARDIOVASCULAR: S1 and S2 present. No murmurs, rubs, or gallops. PULMONARY: Chest is clear to auscultation, no wheezing or crackles. -ABDOMEN: Soft, mild right upper quadrant tenderness, no rebound tenderness, abdominal distention, normoactive bowel sounds. No palpable organomegaly. MUSCULOSKELETAL: No joint swelling or deformity. EXTREMITIES: No cyanosis, clubbing, or pedal edema. NEUROLOGICAL: Gross neurological examination did not reveal any focal deficits. SKIN: No rashes. No petechiae Results CBC & Chem 7: 07/20/19 07:03 07/20/19 07:03 Labs: Abnormal Lab Results - Last 24 Hours (Table) 07/19/19 07/19/19 07/19/19 Range/Units 19:36 19:36 20:05 RBC 3.11 L (4.30-5.90) m/uL Hgb 9.2 L (13.0-17.5) gm/dL Hct 29.3 L (39.0-53.0) % MCHC (31.0-37.0) g/dL RDW 18.0 H (11.5-15.5) % Plt Count 100 L (150-450) k/uL PT 13.0 H (9.0-12.0) sec INR 1.3 H (<1.2) Sodium 135 L (137-145) mmol/L Chloride (98-107) mmol/L Carbon Dioxide 18 L (22-30) mmol/L BUN 7 L (9-20) mg/dL Creatinine 0.45 L (0.66-1.25) mg/dL Glucose 107 H (74-99) mg/dL Total Bilirubin 4.7 H (0.2-1.3) mg/dL AST 101 H (17-59) U/L Alkaline Phosphatase 306 H (38-126) U/L Albumin 3.4 L (3.5-5.0) g/dL Lipase 327 H (23-300) U/L 07/20/19 07/20/19 Range/Units 07:03 07:03 RBC 2.81 L (4.30-5.90) m/uL Hgb 8.3 L (13.0-17.5) gm/dL Hct 26.8 L (39.0-53.0) % MCHC 30.8 L (31.0-37.0) g/dL RDW 18.1 H (11.5-15.5) % Plt Count 90 L (150-450) k/uL PT (9.0-12.0) sec INR (<1.2) Sodium 135 L (137-145) mmol/L Chloride 108 H (98-107) mmol/L Carbon Dioxide (22-30) mmol/L BUN 6 L (9-20) mg/dL Creatinine 0.44 L (0.66-1.25) mg/dL Glucose (74-99) mg/dL Total Bilirubin 4.6 H (0.2-1.3) mg/dL AST (17-59) U/L Alkaline Phosphatase 293 H (38-126) U/L Albumin 2.7 L (3.5-5.0) g/dL Lipase (23-300) U/L Assessment and Plan Assessment: Recurrent ascites secondary to liver disease Elevated bilirubin Thrombocytopenia Liver cirrhosis , secondary to alcohol use disorder Alcohol abuse lack of medical insurance Hypertension Hyperlipidemia History of GI bleeds and esophageal phoresis status post banding Plan: this is a pleasant 53 years old male who presents because of liver cirrhosis, ascites and elevated bilirubin. We'll do a abdomen ultrasound Keep monitoring the patient, GI consult. transportation worker consult . Patient is counseled for abstinence from alcohol, he does not want to quit, he does not want to go to detox or [place] as he done that before, he agrees for nicotine patch Labs and medication were reviewed.. Continue same treatment. Continue with symptomatic treatment. Resume home medication. Monitor lytes and vitals. DVT and GI prophylaxis. Further recommendations of the clinical course of the patient DVT prophylaxis: Subcutaneous heparin GI Prophylaxis: Pepcid PT/OT: Pending Prognosis is guarded
[2019-07-20] MEDS ORDERED: HEPARIN SODIUM,PORCINE 5,000 UNIT/ML 1 ML VIAL SQ SCH (09:00)
[2019-07-20] MEDS ORDERED: NICOTINE 21MG/24HR PATCH TRANSDERM SCH (09:00)
[2019-07-20] MEDS ORDERED: FAMOTIDINE 20 MG/2 ML VIAL IV SCH (09:00)
--- NOTE | 2019-07-20 09:29 | US ---
EXAMINATION TYPE: US abdomen limited DATE OF EXAM: 07/20/2019 COMPARISON: US 06/29/2019 CLINICAL HISTORY: Looking for ascites for paracentesis. TECHNIQUE/FINDINGS: Targeted grayscale ultrasound was performed of all 4 abdominal quadrants to evalu ate for ascites only. Ascites is noted in all 4 abdominal quadrants with largest in RLQ = 5.6cm. IMPRESSION: Small to moderate volume abdominopelvic ascites with the largest pocket measured in the right lower quadrant of 5.6 cm.
[2019-07-20] MEDS ORDERED: LORazepam 2 MG/ML INJ IV PRN ×3 (11:20)
[2019-07-20 11:35] VITALS: TEMP 98.6
--- NOTE | 2019-07-20 11:57 | US ---
EXAMINATION TYPE: US paracentesis abd w/image DATE OF EXAM: 07/20/2019 COMPARISON: NONE HISTORY: Ascites. PROCEDURE: Maximal barrier technique was utilized. The skin overlying a suitable pocket of fluid was localized with ultrasound and the overlying skin was prepped and draped. Ultrasound was utilized with sterile technique. Lidocaine was used for local anesthesia and a skin faby made with a scalpel. Catheter was advanced under direct ultrasound guidance into a suitable pocket of fluid and approximately 4.6 liter s of serous fluid were removed. Catheter was withdrawn and hemostasis achieved. There is no immedia te complication; the patient is discharged in stable condition. IMPRESSION: STATUS POST ULTRASOUND GUIDED PARACENTESIS FOR PALLIATION OF ASCITES. THIS PROCEDURE WA S PERFORMED BY THE UNDERSIGNED.
[2019-07-20] MEDS: ALBUMIN HUMAN 25% 50 ML in EMPTY BAG 1 BAG IVPB SCH ×2 (12:05→12:25)
[2019-07-20 12:19] VITALS: RESP 17
[2019-07-20 12:50] VITALS: BP 145/65; PULSE 90
[2019-07-20] MEDS ORDERED: THIAMINE 100 MG TAB PO SCH (17:30)
--- NOTE | 2019-07-20 18:41 | P.CONS ---
History of Present Illness - Reason for Consult Consult date: 07/20/19 Decompensated alcohol cirrhosis Requesting physician: Joe E Sheet - Chief Complaint Abdominal distension - History of Present Illness 53-year-old male with a medical history significant for alcohol abuse, decompensated liver cirrhosis with ascites and esophageal varices who presented to the hospital due to worsening abdominal distention. The patient reports increasing abdominal bloating and distention with associated shortness of breath. Denies any signs or symptoms of GI bleeding. He does report taking Aldactone and furosemide daily in the outpatient setting but is unsure of the dose. He does not report compliance with a sodium restricted diet. Previously the patient has been seen for abdominal distention as well as GI bleeding. He underwent EGD for evaluation of GI bleeding in 03/30/2018 significant for small varices with no stigmata of bleeding and portal hypertensive gastropathy. He had repeat EGD in 11/02/2018 when he presented again with GI bleeding and was found to have large varices at that time with 7 bands placed on the columns of varices and again was found to have portal hypertensive gastropathy. Patient continues to actively drink alcohol in the outpatient setting. Review of Systems REVIEW OF SYSTEMS: CONSTITUTIONAL: Denies any fevers, chills, weight change or fatigue. CARDIOVASCULAR: Denies any chest pain, palpitations high or low blood pressures RESPIRATORY: Denies any shortness of breath, hemoptysis or cough. GENITOURINARY: No dysuria or hematuria. MUSCULOSKELETAL: No weakness reported. SKIN: Denies any new rashes or lesions, jaundice or pallor. PSYCHIATRIC: Denies any depression or anxiety, but does have a known history of alcohol abuse currently drinking daily. NEUROLOGY: Denies headache, denies any new focal deficits. EARS/NOSE/THROAT: No recent hearing change, congestion, nasal discharge or sore throat. EYES: No pain in eyes, discharge or change in vision. GASTROINTESTINAL: As per HPI. Past Medical History Past Medical History: GI Bleed, Hyperlipidemia, Hypertension, Liver Disease Additional Past Medical History / Comment(s): cirrhosis, recent hospitalization for SOB & ascites, esophageal varices with banding. History of Any Multi-Drug Resistant Organisms: None Reported Past Surgical History: Orthopedic Surgery Additional Past Surgical History / Comment(s): deviated septum, sinus surg, knee, carpel tunnel, EGD, paracentesis Past Anesthesia/Blood Transfusion Reactions: No Reported Reaction Smoking Status: Current every day smoker - Past Family History Father Family Medical History: No Reported History Additional Family Medical History / Comment(s): "platelet disorder" Mother Additional Family Medical History / Comment(s): heart failure Medications and Allergies Home Medications Medication Instructions Recorded Confirmed Type [place] Carbonate 600 mg PO HS 05/08/17 07/20/19 History Pantoprazole [Protonix] 40 mg PO BID 04/13/18 07/20/19 History Thiamine [Vitamin B-1] 100 mg PO HS 04/13/18 07/20/19 History Furosemide [Lasix] 20 mg PO HS 05/12/18 07/20/19 History Spironolactone [Aldactone] 25 mg PO HS 10/31/18 07/20/19 History Propranolol [Inderal] 10 mg PO BID #60 tab 11/03/18 07/20/19 Rx Allergies Allergy/AdvReac Type Severity Reaction Status Date / Time No Known Allergies Allergy Verified 07/20/19 08:20 Physical Exam Vitals: Vital Signs Temp Pulse Pulse Resp BP BP Pulse Ox 07/20/19 05:50 97.7 F 86 16 124/60 94 L 07/20/19 05:49 97.7 F 86 16 124/60 94 L 07/19/19 21:30 98.8 F 101 H 20 161/88 96 07/19/19 20:58 98 16 126/81 97 07/19/19 18:54 98.0 F 111 H 18 145/80 97 Intake and Output 07/19/19 07/20/19 07/20/19 22:59 06:59 14:59 Intake Total 0 Balance 0 Intake: Oral 0 Other: # Voids 1 2 Weight 81.647 kg On physical examination, patient appears comfortable in no apparent distress. HEAD: Normocephalic, atraumatic. EYES: No scleral icterus. No conjunctival injection. MOUTH: No lesions, tongue midline. NECK: Trachea midline, no gross abnormalities. CHEST: Clear to auscultation with no wheezing or rhonchi appreciated. HEART: Regular rate and rhythm. ABDOMEN: Soft, moderately distended. Bowel sounds are positive. No organomegaly. No guarding or rigidity. EXTREMITIES: No pedal edema. SKIN: No rashes, no jaundice. NEUROLOGIC: Alert and oriented x3, no asterixis noted. No focal deficits. Results CBC & Chem 7: 07/20/19 07:03 07/20/19 07:03 Labs: Abnormal Lab Results - Last 24 Hours (Table) 07/19/19 07/19/19 07/19/19 Range/Units 19:36 19:36 20:05 RBC 3.11 L (4.30-5.90) m/uL Hgb 9.2 L (13.0-17.5) gm/dL Hct 29.3 L (39.0-53.0) % MCHC (31.0-37.0) g/dL RDW 18.0 H (11.5-15.5) % Plt Count 100 L (150-450) k/uL PT 13.0 H (9.0-12.0) sec INR 1.3 H (<1.2) Sodium 135 L (137-145) mmol/L Chloride (98-107) mmol/L Carbon Dioxide 18 L (22-30) mmol/L BUN 7 L (9-20) mg/dL Creatinine 0.45 L (0.66-1.25) mg/dL Glucose 107 H (74-99) mg/dL Total Bilirubin 4.7 H (0.2-1.3) mg/dL AST 101 H (17-59) U/L Alkaline Phosphatase 306 H (38-126) U/L Albumin 3.4 L (3.5-5.0) g/dL Lipase 327 H (23-300) U/L 07/20/19 07/20/19 Range/Units 07:03 07:03 RBC 2.81 L (4.30-5.90) m/uL Hgb 8.3 L (13.0-17.5) gm/dL Hct 26.8 L (39.0-53.0) % MCHC 30.8 L (31.0-37.0) g/dL RDW 18.1 H (11.5-15.5) % Plt Count 90 L (150-450) k/uL PT (9.0-12.0) sec INR (<1.2) Sodium 135 L (137-145) mmol/L Chloride 108 H (98-107) mmol/L Carbon Dioxide (22-30) mmol/L BUN 6 L (9-20) mg/dL Creatinine 0.44 L (0.66-1.25) mg/dL Glucose (74-99) mg/dL Total Bilirubin 4.6 H (0.2-1.3) mg/dL AST (17-59) U/L Alkaline Phosphatase 293 H (38-126) U/L Albumin 2.7 L (3.5-5.0) g/dL Lipase (23-300) U/L US - abdomen: report reviewed (Ultrasound of the abdomen with findings of ascites.) Assessment and Plan (1) Alcoholic cirrhosis of liver with ascites Narrative/Plan: 53-year-old male with a known history of decompensated alcoholic cirrhosis of the liver with ascites and prior episodes of GI bleeding with variceal banding in 11/02/2018 who presented to the hospital with increasing abdominal distention. Patient reports compliance with diuretic therapy at home with Lasix and Aldactone daily. He does not comply with a sodium restricted diet. He has required paracentesis in the past. Denies any signs or symptoms of infection at this time. Status: Acute Code(s): K70.31 - ALCOHOLIC CIRRHOSIS OF LIVER WITH ASCITES SNOMED Code(s): 486244192 Plan: Supportive care Nothing by mouth for now Interventional radiology consult for paracentesis Monitor CBC, CMP Continue diuretic therapy with Aldactone and Lasix Sodium restricted diet discussed Follow-up with GI service after discharge Thank you for allowing to spit in the care of the patient
[2019-07-20] MEDS ORDERED: FAMOTIDINE 20 MG TAB PO SCH (21:00)
== END 2019-07-20 13:01 | disposition left against medical advice (07) ==
LOC: EC 18:53 → 5NMEDONC 20:23
PROVIDERS: ADMIT Internal Medicine; ATTEND Internal Medicine
DX: K70.31 Alcoholic cirrhosis of liver with ascites (principal); F10.10 Alcohol abuse, uncomplicated; D69.6 Thrombocytopenia, unspecified; E80.7 Disorder of bilirubin metabolism, unspecified; K31.89 Other diseases of stomach and duodenum; K76.6 Portal hypertension; I10 Essential (primary) hypertension; E78.5 Hyperlipidemia, unspecified; I85.10 Secondary esophageal varices without bleeding; F31.9 Bipolar disorder, unspecified; F41.9 Anxiety disorder, unspecified; F17.210 Nicotine dependence, cigarettes, uncomplicated; Z79.899 Other long term (current) drug therapy; Z87.19 Personal history of other diseases of the digestive system; Z82.49 Family history of ischemic heart disease and other diseases of the circulatory system; Z83.2 Family history of diseases of the blood and blood-forming organs and certain disorders involving the immune mechanism
CPT/HCPCS: 99285; 36415; 80053 ×2; 83690; 85025 ×2; 85610; 85730; 76705; 49083; G0378 ×2; P9047

== ENCOUNTER 2019-09-02 08:39 | Day surgery (SDC) | payer OTHER ==
[2019-09-02 09:26] LABS: Mean Platelet Volume 10.3; Platelet Count 107 k/uL (150-450)
[2019-09-02 09:31] LABS: INR 1.6 (<1.2)
[2019-09-02 09:32] LABS: Prothrombin Time 15.4 sec (9.0-12.0)
[2019-09-02 09:34] LABS: African American GFR (CKD) >90 (>60 ml/min/1.73 sqM); Non-African American GFR(CKD) >90 (>60 ml/min/1.73 sqM)
[2019-09-02 09:38] VITALS: RESP 16; TEMP 98.2
[2019-09-02] MEDS: ALBUMIN HUMAN 25% 50 ML in EMPTY BAG 1 BAG IVPB SCH ×4 (10:41→12:06)
[2019-09-02 12:08] VITALS: BP 141/75; PULSE 90
--- NOTE | 2019-09-03 08:54 | US ---
Ultrasound-guided paracentesis. DATE OF EXAM: 09/02/2019 CLINICAL HISTORY: Ascites The procedure was discussed with the patient. The risks, complications, benefits, and alternatives we re discussed and any questions were answered. Informed consent was obtained. The patient was placed s upine on the ultrasound table and prepped and draped in the usual sterile fashion. All elements of maximal barrier technique were utilized. Under ultrasound guidance, access into the right lower quadrant was obtained, via the paracentesis catheter system and direct ultrasound guidanc e. Approximately 7.1 liters of straw-colored fluid was removed. The patient was stable throughout the pr ocedure and remained stable upon discharge from Department of Radiology. IMPRESSION: Successful paracentesis under ultrasound guidance.
== END 2019-09-02 11:35 | disposition home or self-care (01) ==
LOC: RADPROMAIN 08:39
PROVIDERS: ATTEND Internal Medicine
DX: K70.31 Alcoholic cirrhosis of liver with ascites (principal); U07.1 COVID-19
CPT/HCPCS: 82565; 85049; 85610; 87635; 36415; 49083; P9047

== ENCOUNTER 2019-09-22 21:21 | Emergency (ER) | payer OTHER ==
[2019-09-22 22:24] LABS: Anisocytosis Slight; Basophils % (A) 0 %; Eosinophils # (A) 1.3 k/uL (0-0.7); Eosinophils % (A) 9 %; HCT 28.8 % (39.0-53.0); Hypochromasia Slight; Lymphocytes # (A) 1.5 k/uL (1.0-4.8); Lymphocytes % (A) 10 %; MCH 34.8 pg (25.0-35.0); MCHC 31.1 g/dL (31.0-37.0); Macrocytosis Marked; Monocytes # (A) 1.4 k/uL (0-1.0); Monocytes % (A) 10 %; Neutrophils # (A) 10.1 k/uL (1.3-7.7); Neutrophils % (A) 69 %; Platelet Count 125 k/uL (150-450); RBC 2.57 m/uL (4.30-5.90); RDW 16.9 % (11.5-15.5); WBC 14.7 k/uL (3.8-10.6)
--- NOTE | 2019-09-22 22:27 | XR ---
EXAMINATION TYPE: XR chest 2V DATE OF EXAM: 09/22/2019 COMPARISON: 06/28/2019 HISTORY: Weakness TECHNIQUE: FINDINGS: There is some elevation of the right diaphragm. There is no heart failure. Heart size is no rmal. There are no hilar masses. There is no sign of pleural effusion. IMPRESSION: Elevated right diaphragm appears worse than last exam and could relate to some atelectasi s or diaphragm paralysis. Normal heart.
[2019-09-22 22:31] LABS: MCV 111.8 fL (80.0-100.0)
[2019-09-22 22:33] LABS: INR 1.5 (<1.2); Prothrombin Time 15.1 sec (9.0-12.0)
[2019-09-22 22:35] LABS: ALT 20 U/L (4-49); AST 68 U/L (17-59); African American GFR (CKD) >90 (>60 ml/min/1.73 sqM); Alcohol 68 mg/dL; Alkaline Phosphatase 225 U/L (38-126); Anion Gap 11 mmol/L; Blood Urea Nitrogen 13 mg/dL (9-20); Calcium 9.4 mg/dL (8.4-10.2); Carbon Dioxide 21 mmol/L (22-30); Chloride 99 mmol/L (98-107); Glucose 113 mg/dL (74-99); Magnesium 2.1 mg/dL (1.6-2.3); Non-African American GFR(CKD) >90 (>60 ml/min/1.73 sqM); Potassium 3.6 mmol/L (3.5-5.1); Sodium 131 mmol/L (137-145); Total Bilirubin 10.2 mg/dL (0.2-1.3); Total Protein 7.7 g/dL (6.3-8.2)
[2019-09-22 22:39] LABS: Lactic Acid, Venous 3.5 mmol/L (0.7-2.0)
[2019-09-23 00:14] VITALS: RESP 20; TEMP 98.3
[2019-09-23 01:08] LABS: Appearance,Urine Cloudy (Clear); Bilirubin,Urine 2+ (Negative); Blood,Urine Negative (Negative); Color,Urine Dark Brown; Glucose,Urine (UA) Negative (Negative); Hyaline Casts,Urine 191 /lpf (0-2); Ketones,Urine Negative (Negative); Leukocyte Esterase,Urine Negative (Negative); Mucus,Urine Occasional /hpf; Nitrite,Urine Negative (Negative); PH, Urine 5.5 (5.0-8.0); Protein,Urine Trace (Negative); RBC,Urine 1 /hpf (0-5); Specific Gravity,Urine 1.022 (1.001-1.035); Squamous Epithelial Cell,Urine <1 /hpf (0-4); WBC,Urine 2 /hpf (0-5)
[2019-09-23] MEDS ORDERED: LACTULOSE 20 GM/30 ML CUP PO ONE (01:33)
--- NOTE | 2019-09-23 01:35 | ED ---
General Adult HPI - General Chief complaint: Dizziness Stated complaint: SOB, weakness Time Seen by Provider: 09/22/19 21:43 Source: patient Mode of arrival: ambulatory Limitations: no limitations - History of Present Illness Initial comments: 54-year-old male patient presents to the emergency department today for evaluation of increased fatigue and weakness. Patient does have a past medical history significant for alcoholic cirrhosis with liver failure and persistent abdominal ascites. Patient states that he generally has a lot of energy and is able to perform activities of daily living and right his bike without difficulty. States over the last week he has had increased weakness has been very tired and sleeping more than usual. States he is unable to ride his bike. Patient gets paracentesis every 2 weeks. He denies any fever or chills. Denies any cough or congestion. States he is urinating without difficulty. Denies any new medications. Patient denies any recent rash, shortness of breath, chest pain, abdominal pain, nausea, vomiting, diarrhea, constipation, back pain, numbness, tingling, dizziness, hematuria, dysuria, urinary urgency, urinary frequency, headache, visual changes, or any other complaints. - Related Data Home Medications Medication Instructions Recorded Confirmed [place] Carbonate 600 mg PO HS 05/08/17 09/22/19 Pantoprazole [Protonix] 40 mg PO BID 04/13/18 09/22/19 Furosemide [Lasix] 40 mg PO DAILY 05/12/18 09/22/19 Spironolactone [Aldactone] 50 mg PO DAILY 10/31/18 09/22/19 Previous Rx's Medication Instructions Recorded Propranolol [Inderal] 10 mg PO BID #60 tab 11/03/18 Lactulose 20 gm PO DAILY 3 Days #90 ml 09/23/19 Allergies Allergy/AdvReac Type Severity Reaction Status Date / Time No Known Allergies Allergy Verified 09/22/19 21:35 Review of Systems ROS Statement: Those systems with pertinent positive or pertinent negative responses have been documented in the HPI. ROS Other: All systems not noted in ROS Statement are negative. Past Medical History Past Medical History: GI Bleed, Hyperlipidemia, Hypertension, Liver Disease Additional Past Medical History / Comment(s): cirrhosis, recent hospitalization for SOB & ascites, esophageal varices with banding. History of Any Multi-Drug Resistant Organisms: None Reported Past Surgical History: Orthopedic Surgery Additional Past Surgical History / Comment(s): deviated septum, sinus surg, knee, carpel tunnel, EGD, paracentesis Past Anesthesia/Blood Transfusion Reactions: No Reported Reaction Past Psychological History: Anxiety, Bipolar, Depression Smoking Status: Current every day smoker Past Alcohol Use History: Daily, Heavy Past Drug Use History: Marijuana - Past Family History Father Family Medical History: No Reported History Additional Family Medical History / Comment(s): "platelet disorder" Mother Additional Family Medical History / Comment(s): heart failure General Exam Limitations: no limitations General appearance: alert, in no apparent distress, other (This is a well- developed, well-nourished adult male patient in no acute distress. Vital signs upon presentation are temperature 98.6F, pulse 96, respirations 18, blood pressure 162/82, pulse ox 100% on room air) ENT exam: Present: normal exam, normal oropharynx, mucous membranes moist Respiratory exam: Present: normal lung sounds bilaterally. Absent: respiratory distress, wheezes, rales, rhonchi, stridor Cardiovascular Exam: Present: regular rate, normal rhythm, normal heart sounds. Absent: systolic murmur, diastolic murmur, rubs, gallop, clicks GI/Abdominal exam: Present: soft, distended (Ascitic abdomen), normal bowel sounds. Absent: tenderness, guarding, rebound, rigid Neurological exam: Present: alert, oriented X3, CN II-XII intact, other (Strength in all 4 extremities is 5/5.) Psychiatric exam: Present: normal affect, normal mood Skin exam: Present: warm, dry, intact, normal color. Absent: rash Course Vital Signs 09/22/19 09/22/19 09/23/19 21:31 23:25 01:49 Temperature 98.6 F 98.3 F Pulse Rate 96 92 96 Respiratory 18 20 20 Rate Blood Pressure 162/82 122/78 122/73 O2 Sat by Pulse 100 96 98 Oximetry EKG Findings - EKG Comments: EKG Findings:: EKG obtained at 2205 shows sinus rhythm with a first-degree AV bl ock. Ventricular rate is 90, NC interval 216, QRS duration 104, QT 392, QTc 479. No evidence of ST elevation or depression. Medical Decision Making - Medical Decision Making 54 year-old male patient presents to the emergency department today for evaluation of increased fatigue and weakness. Physical examination did reveal abdominal ascites. Lungs are clear to auscultation with good air movement. Labs reviewed and did reveal elevated white blood cell count of 14.7, hemoglobin 9.0, sodium 131, lactic acid 3.5, ammonia 64, bilirubin 10.2. Vital signs remained stable throughout visit. Upon reevaluation patient is resting comfortably in bed. We will give a dose of lactulose here in the department. He'll be discharged to follow-up with his primary care physician and his GI specialist. He'll be given an additional 3 doses of lactulose for home. Return parameters were discussed in detail. He verbalizes understanding and agrees w ith this plan. - Lab Data Result diagrams: 09/22/19 20:13 09/22/19 20:13 Lab Results 09/22/19 09/22/19 09/22/19 Range/Units 20:13 20:13 20:13 WBC 14.7 H (3.8-10.6) k/uL RBC 2.57 L (4.30-5.90) m/uL Hgb 9.0 L (13.0-17.5) gm/dL Hct 28.8 L (39.0-53.0) % MCV 111.8 H D (80.0-100.0) fL MCH 34.8 (25.0-35.0) pg MCHC 31.1 (31.0-37.0) g/dL RDW 16.9 H (11.5-15.5) % Plt Count 125 L (150-450) k/uL Neutrophils % 69 % Lymphocytes % 10 % Monocytes % 10 % Eosinophils % 9 % Basophils % 0 % Neutrophils # 10.1 H (1.3-7.7) k/uL Lymphocytes # 1.5 (1.0-4.8) k/uL Monocytes # 1.4 H (0-1.0) k/uL Eosinophils # 1.3 H (0-0.7) k/uL Basophils # 0.0 (0-0.2) k/uL Manual Slide Review Performed Hypochromasia Slight Anisocytosis Slight Macrocytosis Marked A PT 15.1 H (9.0-12.0) sec INR 1.5 H (<1.2) APTT 28.0 (22.0-30.0) sec Sodium 131 L (137-145) mmol/L Potassium 3.6 (3.5-5.1) mmol/L Chloride 99 (98-107) mmol/L Carbon Dioxide 21 L (22-30) mmol/L Anion Gap 11 mmol/L BUN 13 (9-20) mg/dL Creatinine 0.59 L (0.66-1.25) mg/dL Est GFR (CKD-EPI)AfAm >90 (>60 ml/min/1.73 sqM) Est GFR (CKD-EPI)NonAf >90 (>60 ml/min/1.73 sqM) Glucose 113 H (74-99) mg/dL Lactic Ac Sepsis Rflx Plasma Lactic Acid Trey (0.7-2.0) mmol/L Calcium 9.4 (8.4-10.2) mg/dL Magnesium 2.1 (1.6-2.3) mg/dL Total Bilirubin 10.2 H (0.2-1.3) mg/dL AST 68 H (17-59) U/L ALT 20 (4-49) U/L Alkaline Phosphatase 225 H (38-126) U/L Ammonia (<30) umol/L Troponin I (0.000-0.034) ng/mL Total Protein 7.7 (6.3-8.2) g/dL Albumin 3.0 L (3.5-5.0) g/dL Urine Color Urine Appearance (Clear) Urine pH (5.0-8.0) Ur Specific [place] (1.001-1.035) Urine Protein (Negative) Urine Glucose (UA) (Negative) Urine Ketones (Negative) Urine Blood (Negative) Urine Nitrite (Negative) Urine Bilirubin (Negative) Urine Urobilinogen (<2.0) mg/dL Ur Leukocyte Esterase (Negative) Urine RBC (0-5) /hpf Urine WBC (0-5) /hpf Ur Squamous Epith Cells (0-4) /hpf Hyaline Casts (0-2) /lpf Urine Mucus (None) /hpf Serum Alcohol 68 mg/dL 09/22/19 09/22/19 09/22/19 Range/Units 20:13 20:13 22:39 WBC (3.8-10.6) k/uL RBC (4.30-5.90) m/uL Hgb (13.0-17.5) gm/dL Hct (39.0-53.0) % MCV (80.0-100.0) fL MCH (25.0-35.0) pg MCHC (31.0-37.0) g/dL RDW (11.5-15.5) % Plt Count (150-450) k/uL Neutrophils % % Lymphocytes % % Monocytes % % Eosinophils % % Basophils % % Neutrophils # (1.3-7.7) k/uL Lymphocytes # (1.0-4.8) k/uL Monocytes # (0-1.0) k/uL Eosinophils # (0-0.7) k/uL Basophils # (0-0.2) k/uL Manual Slide Review Hypochromasia Anisocytosis Macrocytosis PT (9.0-12.0) sec INR (<1.2) APTT (22.0-30.0) sec Sodium (137-145) mmol/L Potassium (3.5-5.1) mmol/L Chloride (98-107) mmol/L Carbon Dioxide (22-30) mmol/L Anion Gap mmol/L BUN (9-20) mg/dL Creatinine (0.66-1.25) mg/dL Est GFR (CKD-EPI)AfAm (>60 ml/min/1.73 sqM) Est GFR (CKD-EPI)NonAf (>60 ml/min/1.73 sqM) Glucose (74-99) mg/dL Lactic Ac Sepsis Rflx Y Plasma Lactic Acid Trey 3.5 H* (0.7-2.0) mmol/L Calcium (8.4-10.2) mg/dL Magnesium (1.6-2.3) mg/dL Total Bilirubin (0.2-1.3) mg/dL AST (17-59) U/L ALT (4-49) U/L Alkaline Phosphatase (38-126) U/L Ammonia 64 H (<30) umol/L Troponin I <0.012 (0.000-0.034) ng/mL Total Protein (6.3-8.2) g/dL Albumin (3.5-5.0) g/dL Urine Color Urine Appearance (Clear) Urine pH (5.0-8.0) Ur Specific [place] (1.001-1.035) Urine Protein (Negative) Urine Glucose (UA) (Negative) Urine Ketones (Negative) Urine Blood (Negative) Urine Nitrite (Negative) Urine Bilirubin (Negative) Urine Urobilinogen (<2.0) mg/dL Ur Leukocyte Esterase (Negative) Urine RBC (0-5) /hpf Urine WBC (0-5) /hpf Ur Squamous Epith Cells (0-4) /hpf Hyaline Casts (0-2) /lpf Urine Mucus (None) /hpf Serum Alcohol mg/dL 09/23/19 Range/Units 00:37 WBC (3.8-10.6) k/uL RBC (4.30-5.90) m/uL Hgb (13.0-17.5) gm/dL Hct (39.0-53.0) % MCV (80.0-100.0) fL MCH (25.0-35.0) pg MCHC (31.0-37.0) g/dL RDW (11.5-15.5) % Plt Count (150-450) k/uL Neutrophils % % Lymphocytes % % Monocytes % % Eosinophils % % Basophils % % Neutrophils # (1.3-7.7) k/uL Lymphocytes # (1.0-4.8) k/uL Monocytes # (0-1.0) k/uL Eosinophils # (0-0.7) k/uL Basophils # (0-0.2) k/uL Manual Slide Review Hypochromasia Anisocytosis Macrocytosis PT (9.0-12.0) sec INR (<1.2) APTT (22.0-30.0) sec Sodium (137-145) mmol/L Potassium (3.5-5.1) mmol/L Chloride (98-107) mmol/L Carbon Dioxide (22-30) mmol/L Anion Gap mmol/L BUN (9-20) mg/dL Creatinine (0.66-1.25) mg/dL Est GFR (CKD-EPI)AfAm (>60 ml/min/1.73 sqM) Est GFR (CKD-EPI)NonAf (>60 ml/min/1.73 sqM) Glucose (74-99) mg/dL Lactic Ac Sepsis Rflx Plasma Lactic Acid Trey (0.7-2.0) mmol/L Calcium (8.4-10.2) mg/dL Magnesium (1.6-2.3) mg/dL Total Bilirubin (0.2-1.3) mg/dL AST (17-59) U/L ALT (4-49) U/L Alkaline Phosphatase (38-126) U/L Ammonia (<30) umol/L Troponin I (0.000-0.034) ng/mL Total Protein (6.3-8.2) g/dL Albumin (3.5-5.0) g/dL Urine Color Dark Brown Urine Appearance Cloudy (Clear) Urine pH 5.5 (5.0-8.0) Ur Specific [place] 1.022 (1.001-1.035) Urine Protein Trace H (Negative) Urine Glucose (UA) Negative (Negative) Urine Ketones Negative (Negative) Urine Blood Negative (Negative) Urine Nitrite Negative (Negative) Urine Bilirubin 2+ H (Negative) Urine Urobilinogen 12.0 (<2.0) mg/dL Ur Leukocyte Esterase Negative (Negative) Urine RBC 1 (0-5) /hpf Urine WBC 2 (0-5) /hpf Ur Squamous Epith Cells <1 (0-4) /hpf Hyaline Casts 191 H (0-2) /lpf Urine Mucus Occasional H (None) /hpf Serum Alcohol mg/dL - Radiology Data Radiology results: report reviewed, image reviewed Two-view x-ray of the chest is obtained. Report was reviewed in its entirety. Impression by Dr. Pompa shows elevated right diaphragm appears worse on last exam I could relate to some atelectasis or diaphragm paralysis. Normal heart. Disposition Clinical Impression: Fatigue, Weakness, Hyperammonemia Disposition: HOME SELF-CARE Condition: Good Instructions (If sedation given, give patient instructions): Weakness (ED), Fatigue (ED) Additional Instructions: Take medication as directed. Follow up with your GI specialist for recheck in 1- 2 days. Follow up with your primary care physician for recheck in 1-2 days. Have recheck of your ammonia level. Return to the emergency department immediately for any new, worsening, or concerning symptoms. Prescriptions: Lactulose 20 gm PO DAILY 3 Days #90 ml Is patient prescribed a controlled substance at d/c from ED?: No Referrals: Hermes Kimble MD [Primary Care Provider] - 1-2 days Time of Disposition: 01:35
[2019-09-23 01:54] VITALS: BP 122/73; PULSE 96
== END 2019-09-23 01:57 | disposition home or self-care (01) ==
LOC: EC 21:21
DX: E72.20 Disorder of urea cycle metabolism, unspecified (principal); R18.8 Other ascites; D72.829 Elevated white blood cell count, unspecified; R53.83 Other fatigue; R06.02 Shortness of breath; I10 Essential (primary) hypertension; F31.9 Bipolar disorder, unspecified; F17.200 Nicotine dependence, unspecified, uncomplicated; Z87.19 Personal history of other diseases of the digestive system; Z98.890 Other specified postprocedural states; Z79.899 Other long term (current) drug therapy
CPT/HCPCS: 99284; 36415; 93005; 80053; 82140; 83605; 83735; 84484; 85025; 85610; 85730; 81001; 71046; G0480; 80320; 87635

== ENCOUNTER 2019-09-25 11:20 | Day surgery (SDC) | payer OTHER ==
[2019-09-25 12:25] VITALS: TEMP 97.8
[2019-09-25] MEDS: ALBUMIN HUMAN 25% 50 ML in EMPTY BAG 1 BAG IVPB SCH ×4 (12:59→14:29)
[2019-09-25 14:30] VITALS: BP 139/71; PULSE 90; RESP 16
--- NOTE | 2019-09-25 15:29 | US ---
EXAMINATION TYPE: US paracentesis abd w/image DATE OF EXAM: 09/25/2019 COMPARISON: NONE HISTORY: Ascites. PROCEDURE: Maximal barrier technique was utilized. The skin overlying a suitable pocket of fluid was localized with ultrasound and the overlying skin was prepped and draped. Ultrasound was utilized with sterile technique. Lidocaine was used for local anesthesia and a skin faby made with a scalpel. Catheter was advanced under direct ultrasound guidance into a suitable pocket of fluid and approximately 6.9 liter s of serous fluid were removed. Catheter was withdrawn and hemostasis achieved. There is no immedia te complication; the patient is discharged in stable condition. IMPRESSION: STATUS POST ULTRASOUND GUIDED PARACENTESIS FOR PALLIATION OF ASCITES. THIS PROCEDURE WA S PERFORMED BY THE UNDERSIGNED.
== END 2019-09-25 14:25 | disposition home or self-care (01) ==
LOC: RADPROMAIN 11:20
PROVIDERS: ATTEND Internal Medicine
DX: K70.31 Alcoholic cirrhosis of liver with ascites (principal)
CPT/HCPCS: 49083; P9047

== ENCOUNTER 2019-10-02 09:28 | Inpatient (IN) | payer OTHER ==
--- NOTE | 2019-10-02 10:33 | ED ---
General Adult HPI - General Chief complaint: Shortness of Breath Stated complaint: SOB Time Seen by Provider: 10/02/19 09:50 Source: patient Mode of arrival: ambulatory Limitations: no limitations - History of Present Illness Initial comments: Dictation was produced using [employer] dictation software. please excuse any grammatical, word or spelling errors. This patient was cared for during a federal and state declared state of emergency secondary to Covid 19 Chief Complaint: 54-year-old male past medical history of chronic liver disease presents with generalized weakness and fatigue History of Present Illness: Is 54-year-old male he has past medical history dyslipidemia hypertension, liver cirrhosis chest show varices presents today with generalized weakness and fatigue. Patient states his symptoms have been progressively getting worse over the last 3 days. Patient denies any pain complaints. He states that he feels weak and is sleepy all the time. Patient is a poor historian. He is uncooperative and argumentative. When asked more about his history patient continues to say just look up my record. He does report that he gets frequent paracenteses done by his GI doctor. The ROS documented in this emergency department record has been reviewed and confirmed by me. Those systems with pertinent positive or negative responses have been documented in the HPI. All other systems are other negative and/or noncontributory. PHYSICAL EXAM: General Impression: Alert and oriented x3, not in acute distress, jaundice HEENT: Normocephalic atraumatic, extra-ocular movements intact, pupils equal and reactive to light bilaterally, mucous membranes moist. Cardiovascular: Heart regular rate and rhythm Chest: Able to complete full sentences, no retractions, no tachypnea Abdomen: abdomen soft, non-tender, non-distended, no organomegaly, positive fluid wave Musculoskeletal: Pulses present and equal in all extremities, no peripheral edema Motor: no focal deficits noted Neurological: CN II-XII grossly intact, no focal motor or sensory deficits noted Skin: Jaundice, scleral icterus ED course: 54-year-old male past medical history of alcoholic cirrhosis, frequent paracenteses and alcoholic hepatitis presents with fatigue and generalized weakness. Vital signs upon arrival are within acceptable limits. Patient is jaundice at bedside. He has no pain complaints at this time. Chart review shows that patient was admitted to the hospital recently and left AGAINST MEDICAL ADVICE Laboratory evaluation obtained. Leukocytosis of 14.7 which was apparent on September 21. Hemoglobin 8.9. Platelets 120. CBC is within patient's normal baseline. Final shows sodium of 131. Lactic acidosis 2.5 likely secondary to liver dis ease. Bilirubins elevated. Total bilirubin is 15.0, conjugated bilirubin 3.0, unconjugated bilirubin 7.3. Ammonia level is 70. Serum alcohol is negative. Patient reevaluated at bedside feels so weak and is agreeable for admission. gastroenterology on consult. EKG interpretation: Ventricular rate 89, sinus rhythm,. Interval T12, QRS 104, QTC 532. No MT prolongation, no QTC prolongation, no ST or T-wave changes noted. EKG compared to 09/22/2019 showing no changes. Overall, this EKG is un remarkable - Related Data Home Medications Medication Instructions Recorded Confirmed [place] Carbonate 600 mg PO HS 05/08/17 09/25/19 Pantoprazole [Protonix] 40 mg PO BID 04/13/18 09/25/19 Furosemide [Lasix] 40 mg PO DAILY 05/12/18 09/25/19 Spironolactone [Aldactone] 50 mg PO DAILY 10/31/18 09/25/19 Previous Rx's Medication Instructions Recorded Propranolol [Inderal] 10 mg PO BID #60 tab 11/03/18 Lactulose 20 gm PO DAILY 3 Days #90 ml 09/23/19 Allergies Allergy/AdvReac Type Severity Reaction Status Date / Time No Known Allergies Allergy Verified 10/02/19 09:36 Review of Systems ROS Statement: Those systems with pertinent positive or pertinent negative responses have been documented in the HPI. ROS Other: All systems not noted in ROS Statement are negative. Past Medical History Past Medical History: GI Bleed, Hyperlipidemia, Hypertension, Liver Disease Additional Past Medical History / Comment(s): cirrhosis, recent hospitalization for SOB & ascites, esophageal varices with banding. History of Any Multi-Drug Resistant Organisms: None Reported Past Surgical History: Orthopedic Surgery Additional Past Surgical History / Comment(s): deviated septum, sinus surg, knee, carpel tunnel, EGD, paracentesis Past Anesthesia/Blood Transfusion Reactions: No Reported Reaction Past Psychological History: Anxiety, Bipolar, Depression Smoking Status: Current every day smoker Past Alcohol Use History: Daily, Heavy Past Drug Use History: Marijuana - Past Family History Father Family Medical History: No Reported History Additional Family Medical History / Comment(s): "platelet disorder" Mother Additional Family Medical History / Comment(s): heart failure General Exam Limitations: no limitations Course Vital Signs 10/02/19 10/02/19 10/02/19 09:36 10:08 10:30 Temperature 98.0 F Pulse Rate 91 81 Respiratory 18 18 14 Rate Blood Pressure 145/79 132/83 O2 Sat by Pulse 99 100 Oximetry Medical Decision Making - Lab Data Result diagrams: 10/02/19 10:10 10/02/19 10:10 Lab Results 10/02/19 10/02/19 10/02/19 Range/Units 10:10 10:10 10:10 WBC 14.7 H (3.8-10.6) k/uL RBC 2.40 L (4.30-5.90) m/uL Hgb 8.9 L (13.0-17.5) gm/dL Hct 27.9 L (39.0-53.0) % MCV 116.2 H (80.0-100.0) fL MCH 37.0 H (25.0-35.0) pg MCHC 31.8 (31.0-37.0) g/dL RDW 16.0 H (11.5-15.5) % Plt Count 120 L (150-450) k/uL Neutrophils % 77 % Lymphocytes % 8 % Monocytes % 8 % Eosinophils % 4 % Basophils % 0 % Neutrophils # 11.3 H (1.3-7.7) k/uL Lymphocytes # 1.2 (1.0-4.8) k/uL Monocytes # 1.2 H (0-1.0) k/uL Eosinophils # 0.6 (0-0.7) k/uL Basophils # 0.1 (0-0.2) k/uL Manual Slide Review Performed Polychromasia Present Hypochromasia Slight Anisocytosis (manual) Present Macrocytosis Marked A Sodium 131 L (137-145) mmol/L Potassium 3.7 (3.5-5.1) mmol/L Chloride 101 (98-107) mmol/L Carbon Dioxide 21 L (22-30) mmol/L Anion Gap 9 mmol/L BUN 18 (9-20) mg/dL Creatinine 0.67 (0.66-1.25) mg/dL Est GFR (CKD-EPI)AfAm >90 (>60 ml/min/1.73 sqM) Est GFR (CKD-EPI)NonAf >90 (>60 ml/min/1.73 sqM) Glucose 120 H (74-99) mg/dL Plasma Lactic Acid Trey 2.5 H* (0.7-2.0) mmol/L Calcium 10.2 (8.4-10.2) mg/dL Magnesium 2.0 (1.6-2.3) mg/dL Total Bilirubin 15.0 H (0.2-1.3) mg/dL Conjugated Bilirubin 3.0 H (0.0-0.3) mg/dL Unconjugated Bilirubin 7.3 H (0.0-1.1) mg/dL Delta Bilirubin 4.7 H (0.0-0.2) mg/dL AST 58 (17-59) U/L ALT 20 (4-49) U/L Alkaline Phosphatase 213 H (38-126) U/L Ammonia 70 H (<30) umol/L Total Protein 7.9 (6.3-8.2) g/dL Albumin 3.1 L (3.5-5.0) g/dL Lipase 306 H (23-300) U/L Serum Alcohol <10 mg/dL Disposition Clinical Impression: Hyperammonemia Disposition: ADMITTED IP TO THIS HOSP Condition: Fair Referrals: Hermes Kimble MD [Primary Care Provider] - 1-2 days Decision Time: 12:25
[2019-10-02 10:49] LABS: Basophils # (A) 0.1 k/uL (0-0.2); Basophils % (A) 0 %; Eosinophils # (A) 0.6 k/uL (0-0.7); Eosinophils % (A) 4 %; HCT 27.9 % (39.0-53.0); HGB 8.9 gm/dL (13.0-17.5); Hypochromasia Slight; Lymphocytes # (A) 1.2 k/uL (1.0-4.8); Lymphocytes % (A) 8 %; MCHC 31.8 g/dL (31.0-37.0); MCV 116.2 fL (80.0-100.0); Macrocytosis Marked; Mean Platelet Volume 10.1; Monocytes # (A) 1.2 k/uL (0-1.0); Monocytes % (A) 8 %; Neutrophils # (A) 11.3 k/uL (1.3-7.7); Neutrophils % (A) 77 %; Platelet Count 120 k/uL (150-450); WBC 14.7 k/uL (3.8-10.6)
[2019-10-02 10:59] LABS: ALT 20 U/L (4-49); AST 58 U/L (17-59); African American GFR (CKD) >90 (>60 ml/min/1.73 sqM); Albumin 3.1 g/dL (3.5-5.0); Alcohol <10 mg/dL; Alkaline Phosphatase 213 U/L (38-126); Anion Gap 9 mmol/L; Bilirubin, Delta 4.7 mg/dL (0.0-0.2); Bilirubin,Unconjugated 7.3 mg/dL (0.0-1.1); Blood Urea Nitrogen 18 mg/dL (9-20); Calcium 10.2 mg/dL (8.4-10.2); Carbon Dioxide 21 mmol/L (22-30); Chloride 101 mmol/L (98-107); Glucose 120 mg/dL (74-99); Non-African American GFR(CKD) >90 (>60 ml/min/1.73 sqM); Potassium 3.7 mmol/L (3.5-5.1); Sodium 131 mmol/L (137-145); Total Protein 7.9 g/dL (6.3-8.2)
[2019-10-02 11:01] LABS: Lactic Acid, Venous 2.5 mmol/L (0.7-2.0)
[2019-10-02 11:20] LABS: Anisocytosis (M) Present; Polychromasia Present
[2019-10-02] MEDS ORDERED: LACTULOSE 20 GM/30 ML CUP PO ONE (11:36)
[2019-10-02] MEDS ORDERED: ACETAMINOPHEN TAB 325 MG TAB PO PRN (12:16)
[2019-10-02] MEDS ORDERED: NALOXONE 0.4 MG/ML 1 ML VIAL IV PRN (12:16)
[2019-10-02] MEDS ORDERED: ONDANSETRON 4 MG/2 ML VIAL IVP PRN (12:16)
[2019-10-02] MEDS: SODIUM CHLORIDE 0.9% 1,000 ML IV SCH ×2 (12:41→21:02)
[2019-10-02 14:43] LABS: INR 1.6 (<1.2); Prothrombin Time 15.7 sec (9.0-12.0)
--- NOTE | 2019-10-02 14:55 | US ---
EXAMINATION TYPE: US abdomen limited DATE OF EXAM: 10/02/2019 COMPARISON: NONE CLINICAL HISTORY: ascites. Ascites check Ascites seen within all 4 quadrants. IMPRESSION: Moderate ascites
--- NOTE | 2019-10-02 16:59 | CONS ---
CONSULTATION DATE OF SERVICE: 10/02/2019 REASON FOR CONSULTATION: Shortness of breath, altered mental status, fatigue and weakness. HISTORY OF PRESENT ILLNESS: The patient is a 54-year-old white male with history of alcoholic cirrhosis of the liver with portal hypertension and recurrent ascites, requiring large volume paracentesis on a frequent basis. The last one done on September 24 at which time 7 L of fluid was removed. Apparently, he was somewhat confused. He was feeling fatigued and tired and was having some shortness of breath and hence his brother brought him to the emergency room. The patient denies any abdominal pain. He reports no nausea, vomiting. He said he thought that he was slightly confused this morning while he was driving. He recalls taking lactulose 20 mL twice daily and has been having about 1 or 2 bowel movements daily. However, for the last few days, he did not take the medications. He is not quite clear if he has been taking his diuretics as prescribed. He reports no fever, chills, or night sweats. PAST MEDICAL HISTORY: Significant for alcoholic cirrhosis of the liver with portal hypertension, hypertension with recurrent ascites, history of hyperlipidemia, history of heavy alcohol abuse, prior history of esophageal variceal bleeding. PAST SURGICAL HISTORY: Carpal tunnel surgery, EGD with variceal ligation, large volume paracentesis. MEDICATIONS: At home include , Protonix, Lasix 40 mg daily and Aldactone 50 mg daily. ALLERGIES: None. SOCIAL HISTORY: Chronic smoker and heavy alcohol use. Last drink was 3 days ago. FAMILY HISTORY: Father, unremarkable. Mother, heart failure. REVIEW OF SYSTEMS: CARDIOPULMONARY: He denies any chest pain or shortness of breath. : No dysuria or hematuria. MUSCULOSKELETAL: Unremarkable. SKIN: Unremarkable. ENDOCRINE: Unremarkable. PSYCHIATRIC: Unremarkable. NEUROLOGY: Unremarkable. ENT: Vision unremarkable. CONSTITUTIONAL: Fatigue, weakness. No fever, chills, night sweats. No weight loss. PHYSICAL EXAMINATION: He appears comfortable, in no apparent distress. Vital signs are stable. Blood pressure 121/58, pulse 87, temperature 98.2. HEENT: Examination unremarkable, conjunctivae are pink, sclerae icteric, oral cavity no lesions. NECK: No JVD or lymph node enlargement. CHEST: Clear to auscultation. HEART: Regular rate and rhythm. ABDOMEN: Soft, it was distended. Small umbilical hernia noted. Free fluid present. Shifting dullness positive. EXTREMITIES: 1+ pedal edema. SKIN: No rashes. NEURO: He is alert, oriented to name and place, not to time. LABS: From today WBC 14.7, hemoglobin 8.9, platelets 120. Basic metabolic panel is within normal limits. BUN 18, creatinine 0.67. T bilirubin is 15, AST 54, ALT 20, alkaline phosphatase 213. Serum alcohol less than 10. Ammonia 7 0. Lipase is 306. IMPRESSION: 1. Confusion/altered mental status secondary to hepatic encephalopathy. Ammonia level is slightly elevated at 70, patient has been on lactulose on outpatient basis, but it appears that he has not been taking for the last few days. 2. Alcoholic cirrhosis of the liver with portal hypertension and ascites, requiring frequent large volume paracentesis. Last one was done a week ago and 7 L of fluid was removed. 3. Abdominal distention/massive ascites. 4. Elevated LFTs with bilirubin at 15, all consistent with acute alcoholic hepatitis superimposed on alcoholic cirrhosis of the liver. 5. Microcytic anemia. 6. Thrombocytopenia. RECOMMENDATIONS: 1. Increase lactulose to 30 mL 3 times daily. 2. Repeat labs in the morning. 3. Decrease Lasix to 40 mg daily and Aldactone 200 mg daily. 4. Will schedule the patient for large-volume paracentesis. 5. Low-salt diet. 6. Repeat labs in the morning and will follow with you closely. Thank you for this consultation. MMSIXTOL / DONELLN: [id number] /
[2019-10-02] MEDS: LACTULOSE 20 GM/30 ML CUP PO SCH ×2 (17:41→21:02)
[2019-10-02] MEDS: ALBUMIN HUMAN 25% 50 ML in EMPTY BAG 1 BAG IVPB SCH ×3 (19:51→20:48)
[2019-10-03] MEDS: HYDROmorphone 0.5 MG/0.5 ML SYRINGE IVP PRN (00:30)
--- NOTE | 2019-10-03 07:26 | HP ---
HISTORY AND PHYSICAL DATE OF SERVICE: 10/02/2019 CHIEF COMPLAINTS: Shortness of breath and change in mental status. HISTORY OF PRESENT ILLNESS: This 54-year-old gentleman with a past medical history of multiple medical problems including GI bleed, hypertension, cirrhosis of the liver, history of alcoholic liver disease, admitted with abdominal distention, change in mental status, multiple other complaints. The patient apparently had an ascitic tap or 6.5 L. The patient is trying to cut down the alcohol. Currently the patient is apparently constipated and complaining of abdominal discomfort also. The patient's ammonia is also elevated. The patient also has multiple other abnormalities. Patient is being closely monitored. Lactic acid also elevated. There is no history of fever, rigors. No headache, loss of consciousness, seizures at this time. The patient is followed by Dr. Hermes Kimble in the outpatient setting. PAST MEDICAL HISTORY: History of GI bleed, hypertension, hyperlipidemia, history of cirrhosis of the liver, anxiety, bipolar depression. HOME MEDICATIONS: 1. Bentyl 10 mg t.i.d. 2. Protonix 40 mg b.i.d. 3. Aldactone 25 mg daily. 4. Lactulose 20 mg. 5. Lasix 20 mg daily. ALLERGIES: None. FAMILY HISTORY: History of platelet disorder in the family. SOCIAL HISTORY: History of smoking, history of alcohol and THC. REVIEW OF SYSTEMS: ENT No history of diminished hearing or vision. CARDIOVASCULAR No angina or palpitations. RESPIRATORY As mentioned earlier. GI As mentioned earlier. No dysuria or hematuria. NERVOUS No numbness or weakness. ALLERGY/IMMUNOLOGY No asthma or hayfever. MUSCULOSKELETAL As mentioned earlier. HEMATOLOGY/ONCOLOGY Negative. ENDOCRINE No history of diabetes or hypothyroidism. CONSTITUTIONAL As mentioned earlier. DERMATOLOGY Negative. RHEUMATOLOGY Negative. PSYCHIATRY As mentioned earlier. PHYSICAL EXAM: Patient is alert, oriented x3. The pulse is 83, blood pressure 126/60, respiration 14, temperature 97.7, pulse ox 97% on room air. HEENT: Conjunctivae normal. Oral mucosa moist. NECK: No jugular venous distention. No lymph node enlargement. CARDIOVASCULAR: S1, S2. RESPIRATORY: Diminished breath sounds at the bases. No rhonchi, no crackles. ABDOMEN: Soft, tense, slightly tender. Pulses diminished. Ascites present. Umbilical hernia also present. LEGS: No edema, no swelling. NERVOUS SYSTEM: Higher functions mentioned earlier. Hepatic ( ) and mild increased weakness. LYMPHATICS: No lymph node in neck or axilla. SKIN: No rash. JOINTS: No active deforming arthropathy. LABS: WBC 14.7, hemoglobin is 8.9, MCV 116.2, sodium 131, plasma lactic acid 2.5. Total bilirubin is 15, conjugated is 3 and delta bilirubin is 4.7. ( ) 7.3 and AST 58, ALT is 20. Ammonia is 70. ASSESSMENT: 1. Change in mental status, acute hepatic encephalopathy and hyperammonemia secondary to cirrhosis of the liver. 2. Cirrhosis of the liver secondary to alcoholic cirrhosis. 3. Rule out spontaneous bacterial peritonitis. 4. Increased WBC. 5. Anemia, macrocytic. 6. Thrombocytopenia. 7. Mild coagulopathy secondary to chronic liver disease. 8. Hyponatremia. 9. Elevated lactic acid. 10.Elevated bilirubin secondary to cirrhosis of the liver. 11.Elevated lipase, rule out pancreatitis, alcoholic. 12.History of gastrointestinal bleed. 13.Hypertension. 14.Hyperlipidemia. 15.History of esophageal varices with banding. 16.History of deviated septum. 17.History of degenerative joint disease. 18.Anxiety, bipolar depression. 19.Continued ongoing nicotine dependence. 20.History of THC. 21.FULL CODE. RECOMMENDATIONS AND DISCUSSION: In this 54-year-old gentleman who presented with multiple complex medical issues, we will monitor the patient closely, continue the current management and symptomatic treatment. I recommend continue with cautious Lasix and Aldactone. Otherwise, we will cut down the IV fluids and I would also recommend pain medications, empiric antibiotics. Otherwise, continue the rest of home medications. Closely follow with GI. Guarded prognosis because of multiple complex medical issues. I would also recommend lactulose until the bowel movement and then at least q.4 p.r.n. to obtain 2-3 bowel movements per day. We will closely follow with Gastroenterology. Guarded prognosis. Cultures also will be obtained. See orders for details. Further recommendations to follow. MMODL / IJN: [id number] /
[2019-10-03] MEDS: LACTULOSE 20 GM/30 ML CUP PO SCH ×2 (07:57→11:42)
[2019-10-03] MEDS: FUROSEMIDE 40 MG TAB PO SCH (07:57)
[2019-10-03] MEDS: SPIRONOLACTONE 25 MG TAB PO SCH (07:57)
[2019-10-03] MEDS: DICYCLOMINE 10 MG CAP PO SCH ×3 (07:57→21:49)
[2019-10-03 08:34] LABS: ALT 18 U/L (4-49); AST 45 U/L (17-59); African American GFR (CKD) >90 (>60 ml/min/1.73 sqM); Alkaline Phosphatase 170 U/L (38-126); Amylase 64 U/L (30-110); Anion Gap 8 mmol/L; Blood Urea Nitrogen 15 mg/dL (9-20); Carbon Dioxide 22 mmol/L (22-30); Chloride 105 mmol/L (98-107); Glucose 112 mg/dL (74-99); Non-African American GFR(CKD) >90 (>60 ml/min/1.73 sqM); Potassium 3.6 mmol/L (3.5-5.1); Sodium 135 mmol/L (137-145); Total Bilirubin 13.4 mg/dL (0.2-1.3); Total Protein 7.2 g/dL (6.3-8.2)
[2019-10-03 08:46] LABS: Anisocytosis Slight; Basophils % (A) 0 %; Eosinophils # (A) 0.6 k/uL (0-0.7); Eosinophils % (A) 4 %; HCT 27.6 % (39.0-53.0); HGB 8.8 gm/dL (13.0-17.5); Hypochromasia Moderate; Lymphocytes # (A) 1.2 k/uL (1.0-4.8); Lymphocytes % (A) 9 %; MCH 38.7 pg (25.0-35.0); MCHC 31.9 g/dL (31.0-37.0); Macrocytosis Marked; Mean Platelet Volume 10.5; Monocytes # (A) 1.2 k/uL (0-1.0); Monocytes % (A) 9 %; Neutrophils % (A) 75 %; Platelet Count 117 k/uL (150-450); RBC 2.27 m/uL (4.30-5.90); RDW 16.5 % (11.5-15.5); WBC 13.3 k/uL (3.8-10.6)
[2019-10-03] MEDS ORDERED: PANTOPRAZOLE 40 MG/10 ML VIAL IV SCH (09:00)
[2019-10-03 09:03] LABS: MCV 121.2 fL (80.0-100.0)
--- NOTE | 2019-10-03 10:45 | US ---
Ultrasound-guided paracentesis. DATE OF EXAM: 10/02/2019 CLINICAL HISTORY: Ascites The procedure was discussed with the patient. The risks, complications, benefits, and alternatives we re discussed and any questions were answered. Informed consent was obtained. The patient was placed s upine on the ultrasound table and prepped and draped in the usual sterile fashion. All elements of maximal barrier technique were utilized. Under ultrasound guidance, access into the right lower quadrant was obtained, via the paracentesis catheter system and direct ultrasound guidanc e. Approximately 6.5 liters of straw-colored fluid was removed. The patient was stable throughout the pr ocedure and remained stable upon discharge from Department of Radiology. IMPRESSION: Successful paracentesis under ultrasound guidance.
--- NOTE | 2019-10-03 14:11 | PN ---
PROGRESS NOTE DATE OF DICTATION: October 03, 2019 The patient is a 54-year-old pleasant white male with alcoholic cirrhosis of the liver, acute alcoholic hepatitis, admitted to the hospital with altered mental status, generalized weakness and abdominal distention yesterday. He underwent large-volume paracentesis. 7 L was removed, was given IV albumin infusions. Today he is feeling better. Reports no symptoms. PHYSICAL EXAMINATION: Appears comfortable. No apparent distress. Vital signs stable. Blood pressure is 136/76, pulse rate 85, temperature 97.5. HEENT examination unremarkable. Conjunctivae pink. Sclerae anicteric. Oral cavity no lesions. Neck: No JVD. No lymph node enlargement. Chest was clear to auscultation. HEART: Regular rate and rhythm. ABDOMEN: Soft, slightly distended. Umbilical hernia noted. EXTREMITIES no pedal edema. NEURO: He is alert and oriented x3. No focal deficits. LABS: WBC 13.3, hemoglobin 8.8. Platelets 117. BUN and creatinine normal. Total bilirubin 13.4. AST, ALT normal, alkaline phosphatase is 170. IMPRESSION: 1. Acute alcoholic hepatitis/alcoholic cirrhosis of the liver. The patient with active drinking. 2. Ascites, status post large-volume paracentesis yesterday. The prior paracentesis was a week before that. Presently on Lasix 40 mg daily and Aldactone 100 mg daily. 3. History of hepatic encephalopathy. Ammonia is 59. Presently on oral lactulose and has good mentation. RECOMMENDATIONS: 1. Low-salt diet. 2. Continue with Aldactone 100 mg daily and Lasix 40 mg daily. 3. Continue lactulose 30 g 4 times daily and titrate so that he has 3-4 bowel movements daily. 4. Repeat labs in the morning. 5. We will follow with you closely. Thank you for this consultation. MMODL / IJN: [id number] /
--- NOTE | 2019-10-03 15:04 | XR ---
EXAMINATION TYPE: XR abdomen complete w decub DATE OF EXAM: 10/03/2019 COMPARISON: 03/27/2018 HISTORY: Abdominal pain TECHNIQUE: 4 views FINDINGS: There are multiple dilated air and fluid-filled loops of small bowel throughout the abdomen . There is no evidence of free air. There are no pathologic calcifications. Large bowel does not appe ar dilated. Lung bases are clear of consolidation. IMPRESSION: Dilated small bowel suggestive of mechanical distal small bowel obstruction. This appears new compared to old exam.
--- NOTE | 2019-10-03 15:13 | CT ---
EXAMINATION TYPE: CT abdomen pelvis wo con DATE OF EXAM: 10/03/2019 COMPARISON: 04/08/2019 HISTORY: abdominal pain and distention CT DLP: 665.8 mGycm Automated exposure control for dose reduction was used. There is some atelectasis at the right posterior lung base. There is no pleural effusion. Heart size is fairly normal. There is large amount of abdominal ascites. Liver is irregular with patchy hypodens ity. Spleen is intact. There is large stomach with fluid. There are multiple dilated air and fluid-fi lled loops of small bowel throughout the abdomen. There is also gaseous distention of the transverse colon and right colon. No transition point seen. Small bowel measures up to 3.5 cm. There is no adrenal mass. There is no pancreatic mass. Gallbladder is distended with multiple small c alcified gallstones. The bile ducts are not dilated. Kidneys have normal size. There is no hydronephr osis. Ureters are not dilated. There is no sign of retroperitoneal adenopathy. There is right inguina l hernia that contains ascites fluid. There is no sign of free air. Lumbar vertebra have fairly normal alignment. There is no compression f racture. Bony pelvis appears intact. IMPRESSION: Moderate abdominal ascites. Variable hypodensity throughout the liver could relate to cirrhosis. Haven static disease not excluded. Ascites fluid increased compared to old exam. The appearance of the live r slightly worse than old exam. General dilation of the large and small bowel consistent with ileus that is worse than old exam. I do not suspect a mechanical bowel obstruction. There is some atelectasis right posterior lung base that is new compared to old exam. Cholelithiasis. Gallbladder is increased slightly in size compared to old exam and cholecystitis not excluded.
[2019-10-03] MEDS: PIPERACILLIN-TAZOBACTAM 3.375 GM in SODIUM CHLORIDE 0.9% 100 ML IVPB SCH ×2 (15:32→23:53)
[2019-10-03] MEDS ORDERED: LACTULOSE 20 GM/30 ML CUP PO SCH (16:00)
--- NOTE | 2019-10-03 19:44 | PN ---
PROGRESS NOTE DATE OF SERVICE: 10/03/2019 This 54-year-old gentleman was admitted shortness of breath and change in mental status, has got hepatic encephalopathy. The patient is complaining of increased abdominal pain and distention. I ordered a plain x-ray of the abdomen as well as abdominal and pelvis CAT scan and surgical consultation with Dr. Garvey. X-ray showed dilated small mechanical distal bowel small bowel obstruction, but however, a CT scan of the abdomen and pelvis done, which showed ascites and variable hyperdensity and general of large and small bowels, mostly suggestive of ileus, cholelithiasis also noted. The patient's abdomen is tense. Patient being closely monitored. PAST MEDICAL HISTORY: Reviewed. REVIEW OF SYSTEM: Could not be taken the patient is slightly drowsy. CURRENT MEDICATIONS: Reviewed and include: 1. Tylenol 650 q.6 p.r.n. 2. Bentyl. 3. Lasix 40 mg p.o. daily. 4. Dilaudid. 5. Narcan. 6. Zofran. 7. Protonix. 8. Zosyn. 9. Aldactone. PHYSICAL EXAM: Patient is alert, oriented x2. Pulse 99, blood pressure 137/80, respiration 18, temperature 97.9, pulse ox 98% on room air. HEENT is conjunctivae normal. Oral mucosa moist. NECK is no jugular venous distention. No carotid bruit. No lymph node enlargement. CARDIOVASCULAR system: S1, S2. RESPIRATORY: Breath sounds diminished at the bases. A few scattered rhonchi. ABDOMEN: Soft. Mild diffuse distention. LEGS are no edema. No swelling. NERVOUS SYSTEM: No focal deficits. LABS: WBC 13.2, hemoglobin is 8.8, sodium 135. The ammonia is 59. ASSESSMENT: 1. Change in mental status, acute hepatic encephalopathy, hyperammonemia secondary to cirrhosis of liver. 2. Cirrhosis secondary to alcoholic cirrhosis. 3. Abdominal distention, rule out small bowel obstruction or possible ileus. 4. Possible spontaneous bacterial peritonitis. 5. Increased WBC. 6. Anemia macrocytic. 7. Thrombocytopenia. 8. Mild coagulopathy secondary to chronic liver disease. 9. Hyponatremia. 10.Elevated lactic acid. 11.Elevated bilirubin secondary to cirrhosis of liver. 12.Elevated lipase, rule out pancreatitis, alcoholic, mild, present on admission. 13.History of gastrointestinal bleed. 14.Hypertension. 15.Hyperlipidemia. 16.History of esophageal varices and banding. 17.History of deviated septum. 18.History of degenerative joint disease. 19.Anxiety, bipolar depression. 20.Continued ongoing nicotine dependence. 21.History of THC. 22.FULL CODE. RECOMMENDATIONS AND DISCUSSION: Recommend to continue current medications, continue to monitor. Continue with Lasix. Otherwise continue with lactulose. Surgical evaluation as mentioned earlier. Repeat labs. Electrolytes balance is being corrected, but the patient continues to have significant pain at this time. Newly developing ascites is a concern. Guarded prognosis. Further recommendations to follow. MMODL / IJN: [id number] / MTDD
[2019-10-04] MEDS: PIPERACILLIN-TAZOBACTAM 3.375 GM in SODIUM CHLORIDE 0.9% 100 ML IVPB SCH (07:48)
[2019-10-04] MEDS: DICYCLOMINE 10 MG CAP PO SCH ×3 (07:49→20:58)
[2019-10-04] MEDS: PANTOPRAZOLE 40 MG TABLET PO SCH (07:49)
[2019-10-04] MEDS: SPIRONOLACTONE 25 MG TAB PO SCH (07:49)
[2019-10-04] MEDS: FUROSEMIDE 40 MG TAB PO SCH (07:49)
[2019-10-04 08:13] LABS: Albumin 3.5 g/dL (3.5-5.0); Calcium 11.2 mg/dL (8.4-10.2); Potassium 3.8 mmol/L (3.5-5.1); Total Protein 8.1 g/dL (6.3-8.2)
[2019-10-04 08:18] LABS: Anisocytosis Slight; Basophils # (A) 0.1 k/uL (0-0.2); Basophils % (A) 0 %; Eosinophils # (A) 0.4 k/uL (0-0.7); Eosinophils % (A) 2 %; HCT 31.7 % (39.0-53.0); HGB 9.6 gm/dL (13.0-17.5); Hypochromasia Marked; Lymphocytes # (A) 1.1 k/uL (1.0-4.8); Lymphocytes % (A) 4 %; MCH 36.9 pg (25.0-35.0); MCHC 30.4 g/dL (31.0-37.0); MCV 121.6 fL (80.0-100.0); Macrocytosis Marked; Mean Platelet Volume 10.3; Monocytes # (A) 1.7 k/uL (0-1.0); Monocytes % (A) 7 %; Neutrophils # (A) 21.7 k/uL (1.3-7.7); Neutrophils % (A) 86 %; Platelet Count 156 k/uL (150-450); RBC 2.61 m/uL (4.30-5.90); RDW 16.3 % (11.5-15.5); WBC 25.2 k/uL (3.8-10.6)
[2019-10-04 08:22] LABS: Total Bilirubin 16.8 mg/dL (0.2-1.3)
[2019-10-04] MEDS: LACTULOSE 20 GM/30 ML CUP PO SCH ×3 (09:47→20:58)
--- NOTE | 2019-10-04 11:08 | P.GSCN ---
History of Present Illness Consult date: 10/04/19 Reason for Consult: Bowel obstruction versus ileus History of present illness: We were consulted to see this patient for abdominal bloating and x-rays suggesting ileus versus small bowel obstruction. Patient long-standing alcoholic with subsequent liver cirrhosis. Patient requiring numerous paracentesis. Denies abdominal pain currently. He is hungry. Denies nausea or vomiting. X-rays were obtained which showed distended bowel loops suspicious for possible obstruction. CAT scan then obtained which showed ileus pattern. Patient with gallstones as well. White blood cell count increased significantly today to 25.2. Patient afebrile. Being followed by GI as well. On lactulose for hepatic encephalopathy. Review of Systems The patient denies any acute changes in vision or hearing, no dysphagia or od ynophagia, no chest pain or shortness of breath, no dysuria or hematuria, no headache, no runny nose, no rectal bleeding or melena, no unexplained weight loss Past Medical History Past Medical History: GI Bleed, Hyperlipidemia, Hypertension, Liver Disease Additional Past Medical History / Comment(s): cirrhosis, recent hospitalization for SOB & ascites, esophageal varices with banding. History of Any Multi-Drug Resistant Organisms: None Reported Past Surgical History: Orthopedic Surgery Additional Past Surgical History / Comment(s): deviated septum, sinus surg, knee, carpel tunnel, EGD, paracentesis Past Anesthesia/Blood Transfusion Reactions: No Reported Reaction Past Psychological History: Anxiety, Bipolar, Depression Smoking Status: Current every day smoker Past Alcohol Use History: Daily, Heavy Additional Past Alcohol Use History / Comment(s): 1.5 ppd since age of 15. 6 pack of beer and two shots per day Past Drug Use History: Marijuana - Past Family History Father Family Medical History: No Reported History Additional Family Medical History / Comment(s): "platelet disorder" Mother Additional Family Medical History / Comment(s): heart failure Medications and Allergies Home Medications Medication Instructions Recorded Confirmed Type Pantoprazole [Protonix] 40 mg PO BID 04/13/18 10/02/19 History Furosemide [Lasix] 20 mg PO DAILY 05/12/18 10/02/19 History Spironolactone [Aldactone] 25 mg PO DAILY 10/31/18 10/02/19 History Lactulose 20 gm PO DAILY 3 Days #90 ml 09/23/19 10/02/19 Rx Dicyclomine [Bentyl] 10 mg PO TID 10/02/19 10/02/19 History Allergies Allergy/AdvReac Type Severity Reaction Status Date / Time No Known Allergies Allergy Verified 10/02/19 13:22 Surgical - Exam Vital Signs Temp Pulse Resp BP Pulse Ox 98.0 F 91 18 145/79 99 10/02/19 09:36 10/02/19 09:36 10/02/19 09:36 10/02/19 09:36 10/02/19 09:36 Physical exam: General: Well-developed, well-nourished HEENT: Normocephalic, sclerae icteric Abdomen: Distended, nontender, fluid present Extremities: Edema present Neuro: Alert but slightly confused Results - Labs 10/04/19 07:36 10/04/19 07:36 Abnormal Lab Results - Last 24 Hours (Table) 10/03/19 10/04/19 10/04/19 Range/Units 07:45 07:36 07:36 WBC 13.3 H 25.2 H (3.8-10.6) k/uL RBC 2.27 L 2.61 L (4.30-5.90) m/uL Hgb 8.8 L 9.6 L (13.0-17.5) gm/dL Hct 27.6 L 31.7 L (39.0-53.0) % MCV 121.2 H D 121.6 H (80.0-100.0) fL MCH 38.7 H 36.9 H (25.0-35.0) pg MCHC 30.4 L (31.0-37.0) g/dL RDW 16.5 H 16.3 H (11.5-15.5) % Plt Count 117 L (150-450) k/uL Neutrophils # 10.0 H 21.7 H (1.3-7.7) k/uL Monocytes # 1.2 H 1.7 H (0-1.0) k/uL Macrocytosis Marked A Marked A Sodium (137-145) mmol/L Carbon Dioxide (22-30) mmol/L BUN (9-20) mg/dL Creatinine (0.66-1.25) mg/dL Glucose (74-99) mg/dL Calcium (8.4-10.2) mg/dL Total Bilirubin (0.2-1.3) mg/dL Alkaline Phosphatase (38-126) U/L Ammonia 53 H (<30) umol/L 10/04/19 Range/Units 07:36 WBC (3.8-10.6) k/uL RBC (4.30-5.90) m/uL Hgb (13.0-17.5) gm/dL Hct (39.0-53.0) % MCV (80.0-100.0) fL MCH (25.0-35.0) pg MCHC (31.0-37.0) g/dL RDW (11.5-15.5) % Plt Count (150-450) k/uL Neutrophils # (1.3-7.7) k/uL Monocytes # (0-1.0) k/uL Macrocytosis Sodium 136 L (137-145) mmol/L Carbon Dioxide 19 L (22-30) mmol/L BUN 21 H (9-20) mg/dL Creatinine 1.28 H (0.66-1.25) mg/dL Glucose 131 H (74-99) mg/dL Calcium 11.2 H (8.4-10.2) mg/dL Total Bilirubin 16.8 H* (0.2-1.3) mg/dL Alkaline Phosphatase 177 H (38-126) U/L Ammonia (<30) umol/L Microbiology - Last 24 Hours (Table) 10/03/19 00:04 Blood Culture - Preliminary Blood No Growth after 24 hours Diabetes panel 10/04/19 Range/Units 07:36 Sodium 136 L (137-145) mmol/L Potassium 3.8 (3.5-5.1) mmol/L Chloride 104 (98-107) mmol/L Carbon Dioxide 19 L (22-30) mmol/L BUN 21 H (9-20) mg/dL Creatinine 1.28 H (0.66-1.25) mg/dL Glucose 131 H (74-99) mg/dL Calcium 11.2 H (8.4-10.2) mg/dL AST 45 (17-59) U/L ALT 27 (4-49) U/L Alkaline Phosphatase 177 H (38-126) U/L Total Protein 8.1 (6.3-8.2) g/dL Albumin 3.5 (3.5-5.0) g/dL Calcium panel 10/04/19 Range/Units 07:36 Calcium 11.2 H (8.4-10.2) mg/dL Albumin 3.5 (3.5-5.0) g/dL Pituitary panel 10/04/19 Range/Units 07:36 Sodium 136 L (137-145) mmol/L Potassium 3.8 (3.5-5.1) mmol/L Chloride 104 (98-107) mmol/L Carbon Dioxide 19 L (22-30) mmol/L BUN 21 H (9-20) mg/dL Creatinine 1.28 H (0.66-1.25) mg/dL Glucose 131 H (74-99) mg/dL Calcium 11.2 H (8.4-10.2) mg/dL Adrenal panel 10/04/19 Range/Units 07:36 Sodium 136 L (137-145) mmol/L Potassium 3.8 (3.5-5.1) mmol/L Chloride 104 (98-107) mmol/L Carbon Dioxide 19 L (22-30) mmol/L BUN 21 H (9-20) mg/dL Creatinine 1.28 H (0.66-1.25) mg/dL Glucose 131 H (74-99) mg/dL Calcium 11.2 H (8.4-10.2) mg/dL Total Bilirubin 16.8 H* (0.2-1.3) mg/dL AST 45 (17-59) U/L ALT 27 (4-49) U/L Alkaline Phosphatase 177 H (38-126) U/L Total Protein 8.1 (6.3-8.2) g/dL Albumin 3.5 (3.5-5.0) g/dL Assessment and Plan (1) Nausea & vomiting Narrative/Plan: Patient with elevated white blood cell count and generalized ileus on CAT scan. May require diagnostic paracentesis to evaluate for bacterial peritonitis. Repeat labs tomorrow. May have liquid diet. Current Visit: No Status: Acute Code(s): R11.2 - NAUSEA WITH VOMITING, UNSPECIFIED SNOMED Code(s): 83258279
[2019-10-04] MEDS: RIFAXIMIN 550 MG TABLET PO SCH ×2 (12:24→20:58)
[2019-10-04] MEDS ORDERED: LORazepam 2 MG/ML INJ IV PRN (14:24)
[2019-10-04] MEDS: LORazepam 2 MG/ML INJ IV PRN ×2 (14:39→15:49)
--- NOTE | 2019-10-04 15:27 | PN ---
PROGRESS NOTE DATE OF DICTATION: October 04, 2019 Patient is a 54-year-old pleasant white male admitted to hospital with altered mental status secondary to hepatic encephalopathy, recurrent ascites and alcohol withdrawal. The patient today appears very confused. Yesterday he was doing well. He did have large volume paracentesis at the time of admission to the hospital 2 days ago and 8 L of fluid was removed. He denies any abdominal pain. He reports no nausea, vomiting. PHYSICAL EXAMINATION: Appears comfortable in no apparent distress. VITAL SIGNS: Stable. Blood pressure 138/73, pulse rate 105, temperature 97.8. HEENT examination unremarkable. Conjunctivae pink. Sclerae anicteric. Oral cavity no lesions. NECK: No JVD or lymph node enlargement. CHEST was clear to auscultation. HEART: Regular rate and rhythm. ABDOMEN: Soft, it was distended. There was small umbilical hernia noted. It was tympanic. EXTREMITIES: No pedal edema. SKIN no rashes. NEURO he is awake, but not oriented to name or place. LABS: From today WBC 25.3, hemoglobin 9.6, platelets normal. Basic metabolic panel was within normal limits. BUN 21, creatinine 1.28, bilirubin went up to 16.8. AST and ALT are 45 and 37 respectively, alkaline phosphatase 177. IMPRESSION: 1. Altered mental status possible hepatic encephalopathy. Ammonia level today is 53. We will start him on lactulose and Xifaxan. 2. Leukocytosis, rule out spontaneous bacterial peritonitis. The patient underwent large-volume paracentesis two days ago. The fluid analysis was not ordered. 3. Mild elevation of BUN and creatinine possible acute kidney injury. 4. Acute alcoholic hepatitis with worsening total bilirubin, today it is 16.8 g/dL. 5. History of heavy alcohol abuse. RECOMMENDATIONS: 1. Start him on Rocephin 1 g to q.12 hours. 2. Start lactulose 30 mL 3 times daily and titrate so that he has 3 bowel movements daily. 3. Start Xifaxan 550 mg twice daily. 4. Repeat labs in the morning. 5. We will follow with you closely. Thank you for this consultation. MMODL / IJN: [id number] /
--- NOTE | 2019-10-05 03:35 | PN ---
PROGRESS NOTE DATE OF SERVICE: 10/04/2019 This 54-year-old gentleman who was admitted with change in mental status, acute hepatic encephalopathy, is being closely monitored. The patient is abdominal distention. The possibility of bowel obstruction versus ileus is being considered. Possible peritonitis also. The patient is on broad spectrum IV antibiotics. Multiple consultants are following the patient including Surgery, Gastroenterology and as Infectious Disease. PAST MEDICAL HISTORY: Reviewed. REVIEW OF SYSTEMS: Could not be taken, the patient is confused. CURRENT MEDICATIONS: The current medications are reviewed and include: 1. Tylenol p.r.n. 2. Rocephin 1 gram daily. 3. Bentyl. 4. Lasix 40 mg daily. 5. Dilaudid. 6. Cephulac. 7. Ativan. 8. Zofran. 9. Protonix. 10.Xifaxan. 11.Aldactone. PHYSICAL EXAMINATION: Patient is conscious, confused. Pulse is 100, blood pressure 133/86, respiration 19, temperature 98.6, pulse ox 98% on room air. HEENT: Conjunctivae normal. Oral mucosa moist. NECK: No jugular venous distention. No carotid bruit. No lymph node enlargement. CARDIOVASCULAR: S1, S2 muffled. RESPIRATORY: Breath sounds diminished at the bases. A few scattered rhonchi and crackles. ABDOMEN: Diffusely distended, slightly tense, minimal tenderness. No guarding. No rigidity. No mass palpable. Bowel sounds present. Ascites present. LEGS: No edema, no swelling. LABS: WBC 25.2, hemoglobin 9.6. Sodium 136. Total bilirubin is 16.8. ASSESSMENT: 1. Change in mental status, acute hepatic encephalopathy, hyperammonemia secondary to cirrhosis of the liver. 2. Cirrhosis of liver secondary to alcoholic hepatitis. 3. Abdominal distention, possible small-bowel obstruction versus ileus. 4. Possible spontaneous bacterial peritonitis, sepsis. 5. Increased WBC. 6. Anemia macrocytic. 7. Thrombocytopenia. 8. Mild coagulopathy secondary to chronic liver disease. 9. Hyponatremia. 10.Elevated lactic acid. 11.Elevated bilirubin secondary to cirrhosis of the liver. 12.Elevated lipase, possible mild acute pancreatitis, alcoholic, present on admission. 13.History of gastrointestinal bleed. 14.Hypertension. 15.Hyperlipidemia. 16.History of esophageal varices and banding. 17.History of deviated septum. 18.History of degenerative joint disease. 19.History of bipolar depression. 20.Continued ongoing nicotine dependence. 21.History of THC. 22.FULL CODE. RECOMMENDATIONS AND DISCUSSION: This 54-year-old gentleman who presented with multiple complex medical issues, we will monitor the patient closely, continue the current medications, continue symptomatic treatment. Otherwise, will continue with the broad-spectrum IV antibiotics, otherwise closely follow with Surgery, Infectious Disease and Gastroenterology. Prognosis guarded because of multiple complex medical issues. Continue with lactulose per Surgery. Serum ammonia is elevated to 53. Repeat labs and otherwise prognosis guarded. Discussed with staff. Further recommendations to follow. MMODL / IJN: [id number] / BIB
--- NOTE | 2019-10-05 07:11 | P.CONS ---
History of Present Illness - Reason for Consult Consult date: 10/04/19 Leukocytosis Requesting physician: Alfredo Childers - Chief Complaint weakness x few days - History of Present Illness Patient is a 54-year-old male with a past medical he significant for alcoholic cirrhosis of the liver and history of recurrent ascites requiring larg e-volume paracentesis presenting to the hospital on October 02, 2019 with generalized weakness and fatigue patient symptom has been progressively getting worse for 3 days before he presented to the hospital patient apparently has been feeling weak and sleepy all the time patient on arrival to the ER was uncooperative and argumentative subsequently has been admitted to hospital did have a ultrasound of the abdomen completed the same day which shows moderate ascites and is status post 6.5 L of straw-colored paracentesis done by radiologist on 10 02 unfortunately no fluid has been sent for analysis this patient did not have any fever during this hospital stay patient did have white count of 14.7 on admission was down to 13.3 yesterday however is up to 25,000 today paige PCR has been negative patient did have a CT of abdominal pelvis completed yesterday which shows moderate abdominal ascites hypodensities throughout the liver dilatation of the large and small bowel consistent with ileus and some atelectasis right lung base patient was started on Zosyn yesterday that has been switched over to Rocephin today by the GI infectious disease has been consulted for further recommendation of antibiotic therapy and concern for possible spontaneous bacterial peritonitis most information has been obtained from review of the chart and talking to nursing staff and the patient currently unable to provide any reliable history. Review of Systems Positive point has been mentioned in HPI rest of the systems are negative Past Medical History Past Medical History: GI Bleed, Hyperlipidemia, Hypertension, Liver Disease Additional Past Medical History / Comment(s): cirrhosis, recent hospitalization for SOB & ascites, esophageal varices with banding. History of Any Multi-Drug Resistant Organisms: None Reported Past Surgical History: Orthopedic Surgery Additional Past Surgical History / Comment(s): deviated septum, sinus surg, knee, carpel tunnel, EGD, paracentesis Past Anesthesia/Blood Transfusion Reactions: No Reported Reaction Past Psychological History: Anxiety, Bipolar, Depression Smoking Status: Current every day smoker Past Alcohol Use History: Daily, Heavy Additional Past Alcohol Use History / Comment(s): 1.5 ppd since age of 15. 6 pack of beer and two shots per day Past Drug Use History: Marijuana - Past Family History Father Family Medical History: No Reported History Additional Family Medical History / Comment(s): "platelet disorder" Mother Additional Family Medical History / Comment(s): heart failure Medications and Allergies Home Medications Medication Instructions Recorded Confirmed Type Pantoprazole [Protonix] 40 mg PO BID 04/13/18 10/02/19 History Furosemide [Lasix] 20 mg PO DAILY 05/12/18 10/02/19 History Spironolactone [Aldactone] 25 mg PO DAILY 10/31/18 10/02/19 History Lactulose 20 gm PO DAILY 3 Days #90 ml 09/23/19 10/02/19 Rx Dicyclomine [Bentyl] 10 mg PO TID 10/02/19 10/02/19 History Allergies Allergy/AdvReac Type Severity Reaction Status Date / Time No Known Allergies Allergy Verified 10/02/19 13:22 Physical Exam Vitals: Vital Signs Temp Pulse Resp BP Pulse Ox 10/04/19 19:00 97.5 F L 90 16 153/82 98 10/04/19 11:00 98.6 F 100 19 133/86 98 10/04/19 07:30 14 10/04/19 02:50 97.8 F 105 H 138/73 97 Intake and Output 10/04/19 10/04/19 10/04/19 06:59 14:59 22:59 Output Total 1 Balance -1 Output: Stool 1 Other: Voiding Method Urinal Urinal Incontinent Incontinent # Voids 4 # Bowel Movements 1 Weight 75.5 kg GENERAL DESCRIPTION: Middle-aged male lying in bed, no distress. No tachypnea or accessory muscle of respiration use. HEENT: scleral icterus. Oral mucous membrane is dry. NECK: Trachea central, no thyromegaly. LUNGS: Unlabored breathing. Clear to auscultation anteriorly. No wheeze or crackle. HEART: S1, S2, regular rate and rhythm. ABDOMEN: Soft, distended, guarding or rigidity EXTREMITIES: No edema of feet. SKIN: No rash, no masses palpable. NEUROLOGICAL: The patient is sleepy lethargic orientation could not be determined Results CBC & Chem 7: 10/04/19 07:36 10/04/19 07:36 Labs: Abnormal Lab Results - Last 24 Hours (Table) 10/04/19 10/04/19 10/04/19 Range/Units 07:36 07:36 07:36 WBC 25.2 H (3.8-10.6) k/uL RBC 2.61 L (4.30-5.90) m/uL Hgb 9.6 L (13.0-17.5) gm/dL Hct 31.7 L (39.0-53.0) % MCV 121.6 H (80.0-100.0) fL MCH 36.9 H (25.0-35.0) pg MCHC 30.4 L (31.0-37.0) g/dL RDW 16.3 H (11.5-15.5) % Neutrophils # 21.7 H (1.3-7.7) k/uL Monocytes # 1.7 H (0-1.0) k/uL Macrocytosis Marked A Sodium 136 L (137-145) mmol/L Carbon Dioxide 19 L (22-30) mmol/L BUN 21 H (9-20) mg/dL Creatinine 1.28 H (0.66-1.25) mg/dL Glucose 131 H (74-99) mg/dL Calcium 11.2 H (8.4-10.2) mg/dL Total Bilirubin 16.8 H* (0.2-1.3) mg/dL Alkaline Phosphatase 177 H (38-126) U/L Ammonia 53 H (<30) umol/L Microbiology - Last 24 Hours (Table) 10/03/19 00:04 Blood Culture - Preliminary Blood No Growth after 24 hours Assessment and Plan Assessment: patient with leukocytosis in this patient who did have a history of alcoholic cirrhosis of the liver with the ascites that requiring multiple paracentesis in the outpatient setting presented to hospital with generalized weakness patient did have a 6.5 L of ascitic fluid removed however no lysis was done CT abdominal pelvis with features of ascites and ileus source of leukocytosis more likely abdominal with concern for possible spontaneous bacterial peritonitis is high on the list and will need to cover for the enteric gram-negative pathogen. (1) Leukocytosis Current Visit: Yes Status: Acute Code(s): D72.829 - ELEVATED WHITE BLOOD CELL COUNT, UNSPECIFIED SNOMED Code(s): 226787114 Plan: 1-await repeat paracentesis the patient will be sent for cell count differential and cultures 2-switch Rocephin to 2 g daily We will follow on clinical condition and cultures to further adjust medication if needed Thank you for this consultation we will follow the patient along with you Time with Patient: Greater than 30
[2019-10-05 07:51] LABS: Albumin 3.2 g/dL (3.5-5.0); Calcium 10.9 mg/dL (8.4-10.2); Potassium 3.9 mmol/L (3.5-5.1); Total Bilirubin 13.3 mg/dL (0.2-1.3); Total Protein 7.6 g/dL (6.3-8.2)
[2019-10-05] MEDS: SPIRONOLACTONE 25 MG TAB PO SCH (08:16)
[2019-10-05] MEDS: FUROSEMIDE 40 MG TAB PO SCH (08:16)
[2019-10-05] MEDS: DICYCLOMINE 10 MG CAP PO SCH ×4 (08:16→20:23)
[2019-10-05] MEDS: PANTOPRAZOLE 40 MG TABLET PO SCH (08:16)
[2019-10-05] MEDS: LACTULOSE 20 GM/30 ML CUP PO SCH (08:16)
[2019-10-05] MEDS: RIFAXIMIN 550 MG TABLET PO SCH ×3 (08:16→20:24)
[2019-10-05 09:52] LABS: Anisocytosis Slight; Basophils % (A) 0 %; Eosinophils # (A) 0.8 k/uL (0-0.7); Eosinophils % (A) 4 %; HGB 9.2 gm/dL (13.0-17.5); Hypochromasia Marked; Lymphocytes # (A) 1.2 k/uL (1.0-4.8); Lymphocytes % (A) 6 %; MCH 37.2 pg (25.0-35.0); MCHC 30.7 g/dL (31.0-37.0); MCV 121.1 fL (80.0-100.0); Macrocytosis Marked; Mean Platelet Volume 10.1; Monocytes # (A) 1.7 k/uL (0-1.0); Monocytes % (A) 8 %; Neutrophils # (A) 17.3 k/uL (1.3-7.7); Neutrophils % (A) 80 %; Platelet Count 119 k/uL (150-450); RBC 2.48 m/uL (4.30-5.90); WBC 21.5 k/uL (3.8-10.6)
--- NOTE | 2019-10-05 10:39 | P.PN ---
<SotoRajani John - Last Filed: 10/05/19 10:33> Subjective Progress Note Date: 10/05/19 CHIEF COMPLAINT: Bowel obstruction versus ileus HISTORY OF PRESENT ILLNESS: Patient examined this morning at the bedside. Patient is lethargic. Patient attempting to open eyes and answer questions but only mumbling occurs. Patient does not appear to have any abdominal pain with palpation. Bowel movement documented on 10/04/2019. WBC 21.5. Hemoglobin 9.2. PHYSICAL EXAM: VITAL SIGNS: Reviewed. GENERAL: Well-developed in no acute distress. Jaundice. HEENT: Bilateral sclera icterus. Extraocular movements grossly intact. Moist buccal mucosa. Head is atraumatic, normocephalic. ABDOMEN: Soft. Distended. Nontender. NEUROLOGIC: Lethargic. ASSESSMENT: 1. Ileus 2. History of liver cirrhosis secondary to ETOH abuse PLAN: -Continue antibiotics. Monitor WBC. Infectious disease following -Continue clear liquid diet -GI following. Ammonia level ordered. Await results Nurse practitioner note has been reviewed by physician. Signing provider agrees with the documented findings, assessment, and plan of care. Objective - Vital Signs Vital signs: Vital Signs Temp 97.5 F L 10/05/19 08:26 Pulse 97 10/05/19 08:26 Resp 20 10/05/19 08:26 BP 131/78 10/05/19 08:26 Pulse Ox 98 10/05/19 08:26 Intake & Output 10/04/19 10/05/19 10/05/19 18:59 06:59 18:59 Output Total 1 Balance -1 Weight 74 kg Output: Stool 1 Other: Voiding Method Urinal Urinal Incontinent Incontinent # Voids 1 - Labs CBC & Chem 7: 10/05/19 08:54 10/05/19 06:39 Labs: Abnormal Lab Results - Last 24 Hours (Table) 10/05/19 10/05/19 Range/Units 06:39 08:54 WBC 21.5 H (3.8-10.6) k/uL RBC 2.48 L (4.30-5.90) m/uL Hgb 9.2 L (13.0-17.5) gm/dL Hct 30.0 L (39.0-53.0) % MCV 121.1 H (80.0-100.0) fL MCH 37.2 H (25.0-35.0) pg MCHC 30.7 L (31.0-37.0) g/dL RDW 16.0 H (11.5-15.5) % Plt Count 119 L (150-450) k/uL Macrocytosis Marked A Sodium 135 L (137-145) mmol/L Carbon Dioxide 20 L (22-30) mmol/L BUN 28 H (9-20) mg/dL Creatinine 1.72 H (0.66-1.25) mg/dL Glucose 104 H (74-99) mg/dL Calcium 10.9 H (8.4-10.2) mg/dL Total Bilirubin 13.3 H (0.2-1.3) mg/dL Alkaline Phosphatase 155 H (38-126) U/L Albumin 3.2 L (3.5-5.0) g/dL Microbiology - Last 24 Hours (Table) 10/03/19 00:04 Blood Culture - Preliminary Blood No Growth after 48 hours <Khadar Garvey - Last Filed: 10/05/19 15:01> Subjective As above. Patient more lethargic than yesterday. He is currently arousable but confused. White blood cell count is improved. Abdomen remains distended but nontender. We'll repeat abdominal x-rays tomorrow. Continue lactulose rectally for now. Continue workup of leukocytosis. Will follow. Objective - Vital Signs Vital signs: Vital Signs Temp 97.5 F L 10/05/19 08:26 Pulse 97 10/05/19 08:26 Resp 20 10/05/19 08:26 BP 131/78 10/05/19 08:26 Pulse Ox 98 10/05/19 08:26 Intake & Output 10/04/19 10/05/19 10/05/19 18:59 06:59 18:59 Output Total 1 Balance -1 Weight 74 kg Output: Stool 1 Other: Voiding Method Urinal Urinal Urinal Incontinent Incontinent Incontinent # Voids 1 - Labs CBC & Chem 7: 10/05/19 08:54 10/05/19 06:39 Labs: Abnormal Lab Results - Last 24 Hours (Table) 10/05/19 10/05/19 10/05/19 Range/Units 01:10 06:39 08:54 WBC 21.5 H (3.8-10.6) k/uL RBC 2.48 L (4.30-5.90) m/uL Hgb 9.2 L (13.0-17.5) gm/dL Hct 30.0 L (39.0-53.0) % MCV 121.1 H (80.0-100.0) fL MCH 37.2 H (25.0-35.0) pg MCHC 30.7 L (31.0-37.0) g/dL RDW 16.0 H (11.5-15.5) % Plt Count 119 L (150-450) k/uL Neutrophils # 17.3 H (1.3-7.7) k/uL Monocytes # 1.7 H (0-1.0) k/uL Eosinophils # 0.8 H (0-0.7) k/uL Macrocytosis Marked A PT 17.8 H (9.0-12.0) sec INR 1.8 H (<1.2) Sodium 135 L (137-145) mmol/L Carbon Dioxide 20 L (22-30) mmol/L BUN 28 H (9-20) mg/dL Creatinine 1.72 H (0.66-1.25) mg/dL Glucose 104 H (74-99) mg/dL Calcium 10.9 H (8.4-10.2) mg/dL Total Bilirubin 13.3 H (0.2-1.3) mg/dL Alkaline Phosphatase 155 H (38-126) U/L Ammonia (<30) umol/L Albumin 3.2 L (3.5-5.0) g/dL 10/05/19 Range/Units 10:36 WBC (3.8-10.6) k/uL RBC (4.30-5.90) m/uL Hgb (13.0-17.5) gm/dL Hct (39.0-53.0) % MCV (80.0-100.0) fL MCH (25.0-35.0) pg MCHC (31.0-37.0) g/dL RDW (11.5-15.5) % Plt Count (150-450) k/uL Neutrophils # (1.3-7.7) k/uL Monocytes # (0-1.0) k/uL Eosinophils # (0-0.7) k/uL Macrocytosis PT (9.0-12.0) sec INR (<1.2) Sodium (137-145) mmol/L Carbon Dioxide (22-30) mmol/L BUN (9-20) mg/dL Creatinine (0.66-1.25) mg/dL Glucose (74-99) mg/dL Calcium (8.4-10.2) mg/dL Total Bilirubin (0.2-1.3) mg/dL Alkaline Phosphatase (38-126) U/L Ammonia 43 H (<30) umol/L Albumin (3.5-5.0) g/dL Microbiology - Last 24 Hours (Table) 10/03/19 00:04 Blood Culture - Preliminary Blood No Growth after 48 hours Assessment and Plan (1) Nausea & vomiting Current Visit: No Status: Acute Code(s): R11.2 - NAUSEA WITH VOMITING, UNSPECIFIED SNOMED Code(s): 30226184
[2019-10-05 10:47] LABS: Polychromasia Present; Toxic Vacuolation Present
[2019-10-05] MEDS ORDERED: HALOPERIDOL LACTATE 5 MG/ML 1 ML VIAL IM PRN (12:52)
[2019-10-05 13:26] LABS: INR 1.8 (<1.2); Prothrombin Time 17.8 sec (9.0-12.0)
[2019-10-05] MEDS: LACTULOSE 200 GM/300 ML (FROM 1/2 GAL JUG) RECTAL SCH ×2 (13:54→18:04)
--- NOTE | 2019-10-05 14:56 | P.PN ---
Subjective Progress Note Date: 10/05/19 Principal diagnosis: This is a 54-year-old male who was recently admitted with change in mental status, acute hepatic encephalopathy and is being closely monitored. Multiple medical consultations are following. Patient's mentation continues to be altered and confused and not responding appropriately to questions and commands. Ammonia levels slightly improved although continue to be elevated at 43 today. Patient is unable to eat or drink properly without risk for aspiration and will be giving lactulose rectally. Will repeat labs. Neurology consulted and pending at this time. Will continue to monitor closely. Review of systems: Unable to obtain due to clinical condition, patient is confused Active Medications Acetaminophen (Tylenol Tab) 650 mg PO Q6HR PRN PRN Reason: Mild Pain or Fever > 100.5 Dicyclomine HCl (Bentyl) 10 mg PO TID [facility] Last Admin: 10/05/19 08:16 Dose: 10 mg Documented by: Furosemide (Lasix) 40 mg PO DAILY [facility] Last Admin: 10/05/19 08:16 Dose: 40 mg Documented by: Hydromorphone HCl (Dilaudid) 0.5 mg IVP Q6HR PRN PRN Reason: Pain Last Admin: 10/03/19 00:30 Dose: 0.5 mg Documented by: Ceftriaxone Sodium 2 gm/ (Sodium Chloride) 50 mls @ 100 mls/hr IVPB Q24HR [facility] Last Admin: 10/05/19 09:10 Dose: 100 mls/hr Documented by: Lactulose (Cephulac) 200 gm RECTAL Q6HR [facility] Lorazepam (Ativan) 1 mg IV Q2HR PRN PRN Reason: CIWA 8 or 9 Lorazepam (Ativan) 1 mg IV Q1HR PRN PRN Reason: CIWA 10 to 15 Last Admin: 10/04/19 15:49 Dose: 1 mg Documented by: Lorazepam (Ativan) 2 mg IV Q10M PRN PRN Reason: CIWA 16 or higher Stop: 10/06/19 14:24 Naloxone HCl (Narcan) 0.2 mg IV Q2M PRN PRN Reason: Opioid Reversal Ondansetron HCl (Zofran) 4 mg IVP Q8HR PRN PRN Reason: Nausea And Vomiting Pantoprazole Sodium (Protonix) 40 mg PO DAILY [facility] Last Admin: 10/05/19 08:16 Dose: 40 mg Documented by: Rifaximin (Xifaxan) 550 mg PO BID [facility] Stop: 11/03/19 11:01 Last Admin: 10/05/19 08:16 Dose: 550 mg Documented by: Spironolactone (Aldactone) 100 mg PO DAILY [facility] Last Admin: 10/05/19 08:16 Dose: 100 mg Documented by: Objective - Vital Signs Vital signs: Vital Signs Temp 97.5 F L 10/05/19 08:26 Pulse 97 10/05/19 08:26 Resp 20 10/05/19 08:26 BP 131/78 10/05/19 08:26 Pulse Ox 98 10/05/19 08:26 Intake & Output 10/04/19 10/05/19 10/05/19 18:59 06:59 18:59 Output Total 1 Balance -1 Weight 74 kg Output: Stool 1 Other: Voiding Method Urinal Urinal Urinal Incontinent Incontinent Incontinent # Voids 1 - Exam Gen: This is a 54-year-old male sitting up in bed, confused. Temp is 97.5F, pulse is 97, respirations are 20, blood pressure is 131/78, oxygen saturation is 98% on room air. HEENT: Head is atraumatic, normocephalic. Pupils equal, round. Sclerae is anicteric. NECK: Supple. No JVD. No lymphadenopathy. No thyromegaly. LUNGS: Breath sounds diminished at the bases with a few scattered rhonchi and crackles noted. No intercostal retractions. HEART: S1, S2 are muffled ABDOMEN: Distended, taut, no guarding or rigidity noted on exam. Bowel sounds are present. No masses. Ascites noted. EXTREMITIES: No pedal edema. No calf tenderness. Poor foot hygiene and nail care noted to have bilateral lower extremities NEUROLOGICAL: Patient is awake, alert and oriented x3. Cranial nerves 2 through 12 are grossly intact. - Labs CBC & Chem 7: 10/05/19 08:54 10/05/19 06:39 Labs: Abnormal Lab Results - Last 24 Hours (Table) 10/05/19 10/05/19 10/05/19 Range/Units 06:39 08:54 10:36 WBC 21.5 H (3.8-10.6) k/uL RBC 2.48 L (4.30-5.90) m/uL Hgb 9.2 L (13.0-17.5) gm/dL Hct 30.0 L (39.0-53.0) % MCV 121.1 H (80.0-100.0) fL MCH 37.2 H (25.0-35.0) pg MCHC 30.7 L (31.0-37.0) g/dL RDW 16.0 H (11.5-15.5) % Plt Count 119 L (150-450) k/uL Neutrophils # 17.3 H (1.3-7.7) k/uL Monocytes # 1.7 H (0-1.0) k/uL Eosinophils # 0.8 H (0-0.7) k/uL Macrocytosis Marked A Sodium 135 L (137-145) mmol/L Carbon Dioxide 20 L (22-30) mmol/L BUN 28 H (9-20) mg/dL Creatinine 1.72 H (0.66-1.25) mg/dL Glucose 104 H (74-99) mg/dL Calcium 10.9 H (8.4-10.2) mg/dL Total Bilirubin 13.3 H (0.2-1.3) mg/dL Alkaline Phosphatase 155 H (38-126) U/L Ammonia 43 H (<30) umol/L Albumin 3.2 L (3.5-5.0) g/dL Microbiology - Last 24 Hours (Table) 10/03/19 00:04 Blood Culture - Preliminary Blood No Growth after 48 hours Assessment and Plan Assessment: Change in mental status, acute hepatic encephalopathy, hyperammonemia secondary to cirrhosis of the liver 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 Abdominal distention, possible small bowel obstruction versus ileus Possible spontaneous bacterial peritonitis, sepsis, present on admission Increased WBC Anemia, macrocytic Thrombocytopenia Mild coagulopathy secondary to chronic liver disease Hyponatremia Elevated lactic acid Elevated bilirubin secondary to cirrhosis of the liver elevated lipase, possible mild acute pancreatitis, alcoholic, present on admission History of gastrointestinal bleed hypertension Hyperlipidemia History of esophageal varices and banding history of deviated septum history of degenerative joint disease history of bipolar depression Continued ongoing nicotine dependence History of THC Full code Recommendations and discussion: Recommend continue current medications, management, and symptomatic treatment. Multiple medical consultations following. Neurology consulted for altered mental status and is currently pending at this time. Ammonia levels continue to be elevated at 43 and will be given rectal lactulose at this time. Will repeat a.m. labs. Patient is to remain on IV antibiotics at this time. Infectious disease is following. Due to multiple complex medical issues, prognosis is guarded. Further recommendations to follow.
[2019-10-05] MEDS: SODIUM CHLORIDE 0.9% 1,000 ML IV SCH (18:03)
--- NOTE | 2019-10-05 19:05 | XR ---
EXAMINATION TYPE: XR abdomen 1V DATE OF EXAM: 10/05/2019 COMPARISON: 10/03/2019 HISTORY: Abdominal pain TECHNIQUE: 2 views supine FINDINGS: There is dilated air and fluid-filled loops of small bowel throughout the abdomen. There is no sign of free air. There is gas small amount in the rectum. There are no pathologic calcifications over the kidneys. IMPRESSION: Dilated small bowel suggestive of mechanical small bowel obstruction or less likely ileus . This appears slightly improved compared to recent exam.
--- NOTE | 2019-10-05 19:13 | PN ---
PROGRESS NOTE DATE OF DICTATION: October 05, 2019 Patient is a 54-year-old white male with history of alcoholic cirrhosis of the liver, admitted to hospital with altered mental status and hepatic encephalopathy. Today he appears very confused, not able to respond to simple questions. As per the nursing staff, he has been mostly confused. He was started on lactulose and Xifaxan yesterday and subsequently he had a CT of the abdomen that showed evidence of possible ileus versus obstruction and hence the lactulose has been on hold since then. Infectious Disease was consulted and Dr. Bernal evaluated the patient. Presently on Rocephin 2 g daily. PHYSICAL EXAMINATION: Very confused. VITAL SIGNS: Blood pressure is 142/73, pulse 103, temperature 98. HEENT examination unremarkable. Conjunctivae pink. Sclerae anicteric. Oral cavity no lesions. NECK no JVD. No lymph node enlargement. CHEST: Clear to auscultation. HEART: Regular rate and rhythm. ABDOMEN very distended. Small umbilical hernia noted. EXTREMITIES: No pedal edema. NEURO: Very confused. LABS: From today WBC 21.5, hemoglobin 9.2, platelets 119. AST and ALT are 42 and 18 respectively. T-bilirubin is 13.3, alkaline phosphatase 155, BUN 28, creatinine 1.72. CT of the abdomen and pelvis done yesterday showed dilated small bowel and colonic loops suspicious for ileus versus bowel obstruction. IMPRESSION: 1. Altered mental status secondary to acute hepatic encephalopathy presently on lactulose enema and Xifaxan 550 mg twice daily. Ammonia level is 43 today. 2. Acute alcoholic hepatitis with alcoholic cirrhosis of the liver with a bilirubin of 13.3. 3. Recurrent ascites status post large-volume paracentesis 3 days ago. Rule out spontaneous bacterial peritonitis. Presently on Rocephin 2 g daily. 4. Leukocytosis gradually improving. 5. Anemia and thrombocytopenia secondary to underlying chronic liver disease. 6. Elevated BUN, creatinine, possibly acute kidney injury. RECOMMENDATION: 1. Continue with Rocephin 2 g daily. 2. Agree with paracentesis with cell count and cultures. 3. Continue lactulose and Xifaxan. 4. Repeat ammonia level in the morning include as well as CBC. 5. Monitor LFTs closely. 6. Symptomatic and supportive care. 7. We will follow with you closely. Thank you for this consultation. MMODL / IJN: [id number] /
--- NOTE | 2019-10-05 19:13 | XR ---
EXAMINATION TYPE: XR ribs bilat w pa chest xray DATE OF EXAM: 10/05/2019 COMPARISON: Chest x-ray 09/22/2019 HISTORY: Rib pain possible aspiration TECHNIQUE: 9 views FINDINGS: There is some elevation of the right diaphragm. There is atelectasis right lung base. There is no heart failure. There is no pleural effusion or pneumothorax. The ribs appear intact. There is no evidence of rib fracture. There is minimal pleural thickening at the right lung apex. IMPRESSION: There is chronic elevated right diaphragm with right basilar atelectasis unchanged. No ri b fracture seen. Normal heart. Mild right upper lobe pleural thickening and increased slightly yue red to recent exam.
[2019-10-05] MEDS: LORazepam 2 MG/ML INJ IV PRN (20:20)
[2019-10-06] MEDS: LACTULOSE 200 GM/300 ML (FROM 1/2 GAL JUG) RECTAL SCH ×4 (03:06→18:07)
--- NOTE | 2019-10-06 03:48 | PN ---
PROGRESS NOTE DATE OF SERVICE: 10/05/2019 REASON FOR FOLLOWUP: Leukocytosis and concern for bacterial peritonitis. INTERVAL HISTORY: The patient is currently afebrile. The patient remains to be pleasantly confused though not as each stated. No nausea, no vomiting. No vomiting or any diarrhea has been reported. The patient still was unable to provide any history. PHYSICAL EXAMINATION: Blood pressure 146/82 with a pulse of 100, temperature 97.6. He is 100% on room air. General description is a middle-aged male lying in bed in no distress. RESPIRATORY SYSTEM: Unlabored breathing, clear to auscultation anteriorly. HEART: S1, S2. Regular rate and rhythm. ABDOMEN: Soft, distended. No guarding or rigidity. LABS: White count 21.5. Blood culture has been negative so far. DIAGNOSTIC IMPRESSION AND PLAN: Patient with a leukocytosis, abdominal distention and concern for spontaneous bacterial peritonitis. Will wait for the paracentesis cell count and cultures. Rocephin to continue and monitor his clinical course closely. MMODL / IJN: [id number] /
[2019-10-06] MEDS: LORazepam 2 MG/ML INJ IV PRN ×2 (06:25→22:31)
[2019-10-06 08:09] LABS: Anisocytosis Slight; Basophils # (A) 0.1 k/uL (0-0.2); Basophils % (A) 0 %; Eosinophils # (A) 0.7 k/uL (0-0.7); Eosinophils % (A) 4 %; HCT 27.4 % (39.0-53.0); Hypochromasia Slight; Lymphocytes # (A) 0.9 k/uL (1.0-4.8); Lymphocytes % (A) 4 %; MCH 39.3 pg (25.0-35.0); MCHC 32.9 g/dL (31.0-37.0); MCV 119.3 fL (80.0-100.0); Macrocytosis Marked; Mean Platelet Volume 11.2; Monocytes # (A) 1.5 k/uL (0-1.0); Monocytes % (A) 7 %; Neutrophils # (A) 17.8 k/uL (1.3-7.7); Neutrophils % (A) 83 %; Platelet Count 118 k/uL (150-450); RBC 2.29 m/uL (4.30-5.90); RDW 16.3 % (11.5-15.5); WBC 21.3 k/uL (3.8-10.6)
[2019-10-06 08:24] LABS: Albumin 3.1 g/dL (3.5-5.0); Calcium 11.3 mg/dL (8.4-10.2); Potassium 4.8 mmol/L (3.5-5.1); Total Bilirubin 14.3 mg/dL (0.2-1.3); Total Protein 7.6 g/dL (6.3-8.2)
[2019-10-06 09:05] LABS: Poikilocytosis (M) Present; Polychromasia Present
--- NOTE | 2019-10-06 10:11 | P.PN ---
<Rajani Soto - Last Filed: 10/06/19 10:02> Subjective Progress Note Date: 10/06/19 CHIEF COMPLAINT: Bowel obstruction versus ileus HISTORY OF PRESENT ILLNESS: Patient examined this morning at the bedside. Patient is lethargic. Patient will answer yes or no questions when asked, but does not open his eyes during examination. He denies abdominal pain. He has not been taking any PO intake due to his mentation and confusion. Nursing reports the patient had a small bowel movement this morning. WBC 21.3. Bilirubin 14.3. Abdominal x-ray completed yesterday reveals dilated small bowel suggestive of mechanical small bowel obstruction or less likely ileus. This appears slightly improved compared to recent exam. PHYSICAL EXAM: VITAL SIGNS: Reviewed. GENERAL: Well-developed in no acute distress. Jaundice. HEENT: Bilateral sclera icterus. Extraocular movements grossly intact. Moist buccal mucosa. Head is atraumatic, normocephalic. ABDOMEN: Firm. Distended. Nontender. NEUROLOGIC: Lethargic. ASSESSMENT: 1. Ileus 2. History of liver cirrhosis secondary to ETOH abuse PLAN: -Continue antibiotics. Monitor WBC. Infectious disease following -NPO until mentation improves -GI following. Continue rectal lactulose -Patient will be re-evaluated by Dr. Garvey this afternoon Nurse practitioner note has been reviewed by physician. Signing provider agrees with the documented findings, assessment, and plan of care. Objective - Vital Signs Vital signs: Vital Signs Temp 97.7 F 10/06/19 08:22 Pulse 103 H 10/06/19 08:22 Resp 20 10/06/19 08:22 BP 135/69 10/06/19 08:22 Pulse Ox 96 10/06/19 08:22 Intake & Output 10/05/19 10/06/19 10/06/19 18:59 06:59 18:59 Intake Total 540 Output Total 150 Balance 540 -150 Weight 75.2 kg Intake: Oral 540 Output: Urine 150 Other: Voiding Method Urinal Incontinent # Voids 2 - Labs CBC & Chem 7: 10/06/19 07:39 10/06/19 07:39 Labs: Abnormal Lab Results - Last 24 Hours (Table) 10/05/19 10/05/19 10/05/19 Range/Units 01:10 08:54 10:36 WBC 21.5 H (3.8-10.6) k/uL RBC 2.48 L (4.30-5.90) m/uL Hgb 9.2 L (13.0-17.5) gm/dL Hct 30.0 L (39.0-53.0) % MCV 121.1 H (80.0-100.0) fL MCH 37.2 H (25.0-35.0) pg MCHC 30.7 L (31.0-37.0) g/dL RDW 16.0 H (11.5-15.5) % Plt Count 119 L (150-450) k/uL Neutrophils # 17.3 H (1.3-7.7) k/uL Lymphocytes # (1.0-4.8) k/uL Monocytes # 1.7 H (0-1.0) k/uL Eosinophils # 0.8 H (0-0.7) k/uL Macrocytosis Marked A PT 17.8 H (9.0-12.0) sec INR 1.8 H (<1.2) Sodium (137-145) mmol/L Chloride (98-107) mmol/L Carbon Dioxide (22-30) mmol/L BUN (9-20) mg/dL Creatinine (0.66-1.25) mg/dL Glucose (74-99) mg/dL Calcium (8.4-10.2) mg/dL Total Bilirubin (0.2-1.3) mg/dL Alkaline Phosphatase (38-126) U/L Ammonia 43 H (<30) umol/L Albumin (3.5-5.0) g/dL 10/06/19 10/06/19 10/06/19 Range/Units 07:39 07:39 08:29 WBC 21.3 H (3.8-10.6) k/uL RBC 2.29 L (4.30-5.90) m/uL Hgb 9.0 L (13.0-17.5) gm/dL Hct 27.4 L (39.0-53.0) % MCV 119.3 H (80.0-100.0) fL MCH 39.3 H (25.0-35.0) pg MCHC (31.0-37.0) g/dL RDW 16.3 H (11.5-15.5) % Plt Count 118 L (150-450) k/uL Neutrophils # 17.8 H (1.3-7.7) k/uL Lymphocytes # 0.9 L (1.0-4.8) k/uL Monocytes # 1.5 H (0-1.0) k/uL Eosinophils # (0-0.7) k/uL Macrocytosis Marked A PT (9.0-12.0) sec INR (<1.2) Sodium 136 L (137-145) mmol/L Chloride 109 H (98-107) mmol/L Carbon Dioxide 19 L (22-30) mmol/L BUN 36 H (9-20) mg/dL Creatinine 1.65 H (0.66-1.25) mg/dL Glucose 101 H (74-99) mg/dL Calcium 11.3 H (8.4-10.2) mg/dL Total Bilirubin 14.3 H (0.2-1.3) mg/dL Alkaline Phosphatase 157 H (38-126) U/L Ammonia 37 H (<30) umol/L Albumin 3.1 L (3.5-5.0) g/dL Microbiology - Last 24 Hours (Table) 10/03/19 00:04 Blood Culture - Preliminary Blood No Growth after 72 hours <Khadar Garvey - Last Filed: 10/06/19 16:00> Subjective As above. Patient remains lethargic. Ammonia level improving. White blood cell count remains elevated. He is afebrile. Denies pain. X-rays from yesterday noted. Abdomen remains distended without tenderness. Patient remains on antibiotics. Certainly given the patient's lack of abdominal surgeries ileus favored over small bowel obstruction. Bacterial peritonitis either spontaneous or as a result of recent paracentesis remains a possibility. We'll consult interventional radiology for diagnostic paracentesis. Fluid will be sent for cell count, Gram stain, culture. Objective - Vital Signs Vital signs: Vital Signs Temp 98.4 F 10/06/19 15:15 Pulse 100 10/06/19 15:15 Resp 20 10/06/19 15:15 BP 147/76 10/06/19 15:15 Pulse Ox 97 10/06/19 15:15 Intake & Output 10/05/19 10/06/19 10/06/19 18:59 06:59 18:59 Intake Total 540 Output Total 150 1 Balance 540 -150 -1 Weight 75.2 kg Intake: Oral 540 Output: Urine 150 Stool 1 Other: Voiding Method Urinal Urinal Incontinent Incontinent # Voids 2 # Bowel Movements 1 - Labs CBC & Chem 7: 10/06/19 07:39 10/06/19 07:39 Labs: Abnormal Lab Results - Last 24 Hours (Table) 10/06/19 10/06/19 10/06/19 Range/Units 07:39 07:39 08:29 WBC 21.3 H (3.8-10.6) k/uL RBC 2.29 L (4.30-5.90) m/uL Hgb 9.0 L (13.0-17.5) gm/dL Hct 27.4 L (39.0-53.0) % MCV 119.3 H (80.0-100.0) fL MCH 39.3 H (25.0-35.0) pg RDW 16.3 H (11.5-15.5) % Plt Count 118 L (150-450) k/uL Neutrophils # 17.8 H (1.3-7.7) k/uL Lymphocytes # 0.9 L (1.0-4.8) k/uL Monocytes # 1.5 H (0-1.0) k/uL Macrocytosis Marked A ABG pCO2 (35-45) mmHg ABG pO2 (83-108) mmHg Sodium 136 L (137-145) mmol/L Chloride 109 H (98-107) mmol/L Carbon Dioxide 19 L (22-30) mmol/L BUN 36 H (9-20) mg/dL Creatinine 1.65 H (0.66-1.25) mg/dL Glucose 101 H (74-99) mg/dL Calcium 11.3 H (8.4-10.2) mg/dL Total Bilirubin 14.3 H (0.2-1.3) mg/dL Alkaline Phosphatase 157 H (38-126) U/L Ammonia 37 H (<30) umol/L Albumin 3.1 L (3.5-5.0) g/dL 10/06/19 Range/Units 15:08 WBC (3.8-10.6) k/uL RBC (4.30-5.90) m/uL Hgb (13.0-17.5) gm/dL Hct (39.0-53.0) % MCV (80.0-100.0) fL MCH (25.0-35.0) pg RDW (11.5-15.5) % Plt Count (150-450) k/uL Neutrophils # (1.3-7.7) k/uL Lymphocytes # (1.0-4.8) k/uL Monocytes # (0-1.0) k/uL Macrocytosis ABG pCO2 30 L (35-45) mmHg ABG pO2 75 L (83-108) mmHg Sodium (137-145) mmol/L Chloride (98-107) mmol/L Carbon Dioxide (22-30) mmol/L BUN (9-20) mg/dL Creatinine (0.66-1.25) mg/dL Glucose (74-99) mg/dL Calcium (8.4-10.2) mg/dL Total Bilirubin (0.2-1.3) mg/dL Alkaline Phosphatase (38-126) U/L Ammonia (<30) umol/L Albumin (3.5-5.0) g/dL Microbiology - Last 24 Hours (Table) 10/03/19 00:04 Blood Culture - Preliminary Blood No Growth after 72 hours Assessment and Plan (1) Nausea & vomiting Current Visit: No Status: Acute Code(s): R11.2 - NAUSEA WITH VOMITING, U NSPECIFIED SNOMED Code(s): 75911615
[2019-10-06] MEDS: RIFAXIMIN 550 MG TABLET PO SCH ×2 (11:36→21:56)
[2019-10-06] MEDS: PANTOPRAZOLE 40 MG TABLET PO SCH (11:36)
[2019-10-06] MEDS: SPIRONOLACTONE 25 MG TAB PO SCH (11:36)
[2019-10-06] MEDS: DICYCLOMINE 10 MG CAP PO SCH (11:36)
[2019-10-06] MEDS: FUROSEMIDE 10 MG/ML 4 ML VIAL IV SCH ×2 (12:47→22:23)
--- NOTE | 2019-10-06 14:08 | P.PN ---
Subjective Progress Note Date: 10/06/19 Principal diagnosis: This is a 54-year-old male who was recently admitted with change in mental status, acute hepatic encephalopathy and is being closely monitored. Multiple medical consultations are following. Patient's mentation continues to be altered and confused and not responding appropriately to questions and commands. Ammonia levels slightly improved although continue to be elevated at 43 today. Patient is unable to eat or drink properly without risk for aspiration and will be giving lactulose rectally. Will repeat labs. Neurology consulted and pending at this time. Will continue to monitor closely. Review of systems: Unable to obtain due to clinical condition, patient is confused 10/06/2019 Patient is seen and evaluated and follow-up and continues to be confused and alert and oriented 0. Speech was consulted for possible swallow eval and patient is unable to complete. Patient has been nothing by mouth. Ammonia level improved today and is currently 37. To continue with rectal lactulose. Multiple medical consultations including GI, surgery, and infectious disease following. White blood count continues to be elevated although his trending down at 21.3. Patient remains on ceftriaxone and will continue at this time while awaiting paracentesis with analysis cultures. Patient's CODE STATUS has been changed to no code which is appropriate. Objective - Vital Signs Vital signs: Vital Signs Temp 97.7 F 10/06/19 08:22 Pulse 103 H 10/06/19 08:22 Resp 20 10/06/19 08:22 BP 135/69 10/06/19 08:22 Pulse Ox 96 10/06/19 08:22 Intake & Output 10/05/19 10/06/19 10/06/19 18:59 06:59 18:59 Intake Total 540 Output Total 150 1 Balance 540 -150 -1 Weight 75.2 kg Intake: Oral 540 Output: Urine 150 Stool 1 Other: Voiding Method Urinal Urinal Incontinent Incontinent # Voids 2 - Exam Gen: This is a 54-year-old male lying in bed, confused. HEENT: Head is atraumatic, normocephalic. Pupils equal, round. Sclerae is anicteric. Mucous membranes are dry NECK: Supple. No JVD. No lymphadenopathy. No thyromegaly. LUNGS: Breath sounds diminished at the bases with a few scattered rhonchi and crackles noted. No intercostal retractions. HEART: S1, S2 are muffled ABDOMEN: Distended, soft, no guarding or rigidity noted on exam. Bowel sounds are present. No masses. Ascites noted. EXTREMITIES: No pedal edema. No calf tenderness. Poor foot hygiene and nail care noted to have bilateral lower extremities NEUROLOGICAL: Patient is awake, alert and oriented x0. - Labs CBC & Chem 7: 10/06/19 07:39 10/06/19 07:39 Labs: Abnormal Lab Results - Last 24 Hours (Table) 10/06/19 10/06/19 10/06/19 Range/Units 07:39 07:39 08:29 WBC 21.3 H (3.8-10.6) k/uL RBC 2.29 L (4.30-5.90) m/uL Hgb 9.0 L (13.0-17.5) gm/dL Hct 27.4 L (39.0-53.0) % MCV 119.3 H (80.0-100.0) fL MCH 39.3 H (25.0-35.0) pg RDW 16.3 H (11.5-15.5) % Plt Count 118 L (150-450) k/uL Neutrophils # 17.8 H (1.3-7.7) k/uL Lymphocytes # 0.9 L (1.0-4.8) k/uL Monocytes # 1.5 H (0-1.0) k/uL Macrocytosis Marked A Sodium 136 L (137-145) mmol/L Chloride 109 H (98-107) mmol/L Carbon Dioxide 19 L (22-30) mmol/L BUN 36 H (9-20) mg/dL Creatinine 1.65 H (0.66-1.25) mg/dL Glucose 101 H (74-99) mg/dL Calcium 11.3 H (8.4-10.2) mg/dL Total Bilirubin 14.3 H (0.2-1.3) mg/dL Alkaline Phosphatase 157 H (38-126) U/L Ammonia 37 H (<30) umol/L Albumin 3.1 L (3.5-5.0) g/dL Microbiology - Last 24 Hours (Table) 10/03/19 00:04 Blood Culture - Preliminary Blood No Growth after 72 hours Assessment and Plan Assessment: Change in mental status, acute hepatic encephalopathy, hyperammonemia secondary to cirrhosis of the liver 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 Abdominal distention, possible small bowel obstruction versus ileus Possible spontaneous bacterial peritonitis, sepsis, present on admission Increased WBC Anemia, macrocytic Thrombocytopenia Mild coagulopathy secondary to chronic liver disease Hyponatremia Elevated lactic acid Elevated bilirubin secondary to cirrhosis of the liver elevated lipase, possible mild acute pancreatitis, alcoholic, present on admission History of gastrointestinal bleed hypertension Hyperlipidemia History of esophageal varices and banding history of deviated septum history of degenerative joint disease history of bipolar depression Continued ongoing nicotine dependence History of THC Full code Recommendations and discussion: Recommend continue current medications, management, and symptomatic treatment. Multiple medical consultations following. Neurology consulted for altered mental status and is currently pending at this time. Ammonia levels 37. Will repeat a.m. labs. Patient is to remain on IV antibiotics at this time. In fectious disease is following. Due to multiple complex medical issues, prognosis is guarded. Further recommendations to follow.
[2019-10-06 15:12] LABS: ABG Base Excess -3.3 mmol/L; ABG HCO3 21 mmol/L (21-25); ABG Oxygen Saturation 95.3 % (94-97); ABG PCO2 30 mmHg (35-45); ABG PH 7.45 (7.35-7.45); ABG PO2 75 mmHg (83-108); ABG TCO2 22 mmol/L (19-24); Allen Test Performed? Yes
[2019-10-06] MEDS: SODIUM CHLORIDE 0.9% 1,000 ML IV SCH (15:59)
[2019-10-06] MEDS ORDERED: FUROSEMIDE 40 MG TAB PO SCH (16:00)
--- NOTE | 2019-10-06 16:13 | CT ---
EXAMINATION TYPE: CT brain wo con DATE OF EXAM: 10/06/2019 COMPARISON: 05/07/2019 HISTORY: Lethargic, AMS CT DLP: 1188.4 mGycm Automated exposure control for dose reduction was used. FINDINGS: There is no acute intracranial hemorrhage, mass effect, or midline shift identified. The ventricles a nd sulci are within normal limits in size. The globes are intact and the visualized sinuses are clear . IMPRESSION: 1. No acute process. If there is concern for acute ischemia correlate with MRI as clinically warrante d.
[2019-10-06] MEDS: PANTOPRAZOLE 40 MG/10 ML VIAL IVP SCH (16:15)
--- NOTE | 2019-10-06 16:38 | CONS ---
CONSULTATION DATED DICTATION: 10/06/2019 HISTORY OF PRESENT ILLNESS: Thank you for allowing me to evaluate Bill Kang who is a 54-year-old white male who presented to [facility] on 10/02/2019 with complaints of generalized weakness and fatigue which had been present for 3 days preceding the hospitalization. In the emergency room, the patient was described as a poor historian, uncooperative and argumentative. Even on the day of admission, the patient had a consultation with Dr. Brown who identified confusion/altered mental status secondary to hepatic encephalopathy. The patient's presenting ammonia level was 70. The patient has history of ETOH abuse, cirrhosis, esophageal varices, portal hypertension, and recurrent ascites and is status post multiple paracentesis. The patient did have a paracentesis on 10/03/2019, removing 6.[address] of the abdomen/pelvis on 10/03/2019 demonstrated an ileus. In setting the patient's leukocytosis and abdominal distention, non spontaneous bacterial peritonitis has been considered and the patient is being treated with Rocephin. Neurologic consultation was requested regarding altered mental status: The patient is unable to provide history at this time; therefore, the majority of patient's history was obtained from the medical record as well as nursing staff. Current medications include Dilaudid, Ativan and Haldol. Nursing staff state that the patient did receive Ativan last night, but no recent Dilaudid or Haldol to her knowledge. In the course of this hospitalization, the patient's ammonia level has gone from 70 to the current 37, although BUN and creatinine have increased from presenting at 18 and 0.67 respectively to current 36 and 1.6. ALLERGIES: No known drug allergies. HOME MEDICATIONS: Bentyl, Protonix, Aldactone, lactulose, and Lasix. PAST MEDICAL HISTORY: Hypertension, dyslipidemia, cirrhosis, esophageal varices, ETOH abuse, portal hypertension, recurrent ascites, depression, and anxiety. PAST SURGICAL HISTORY: Frequent paracentesis, EGD with varices ligation, knee surgery, deviated septum surgery, and carpal tunnel release. SOCIAL HISTORY: The patient has a history of EtOH abuse, is unclear if he was drinking prior to this hospitalization. Other social history is unobtainable. FAMILY HISTORY: Unobtainable. REVIEW OF SYSTEMS: Unobtainable. PHYSICAL EXAM: Upon my arrival in the patient's room, he was lying in bed, eyes were closed. The patient would have occasional arrhythmic twitching which appeared consistent with myoclonus. His abdomen is distended. He is jaundiced with sclera icterus. He appears chronically ill, deconditioned and older than stated age. VITAL SIGNS: Blood pressure is 135/69 with a pulse of 103, respiratory rate 20, temperature 97.7, weight is 75.2 kg on a 6 foot 4 inch frame. SKIN, EXTREMITIES: Postsurgical changes are noted along the medial aspect of each patella. The patient keeps his upper extremities flexed at the elbows against his chest. HEAD, NECK: No signs of trauma. Neck is supple without meningeal signs. Bruits are difficult to auscultate due to harsh breath sounds. HEART: Regular rate and rhythm, higher cortical function. Mental status patient, kept his eyes closed through the course of the evaluation. When examiner opened his lids, he did not make eye contact with the examiner or tended to track the examiner with his eyes. He produced no speech and would not follow any commands. Further cognitive assessment could not be performed. pupils are equal and reactive to light symmetrically. No afferent pupillary defect. The patient did not blink to threat from either side. Oculocephalic reflexes intact. Corneal reflex in his clinic are intact. There is no clear facial asymmetry, could not be assessed. Gag reflex was present. Patient would not shrug her shoulders. Patient would not protrude his tongue to command. Motor examination: When examiner lifted the patient's arms away from his chest, he lower them in a symmetric fashion. There was diffuse loss of bulk, particularly in the hand intrinsic muscles with increased tone involving the upper extremities and occasional myoclonic movements were noted. No seizure activity was witnessed. With noxious stimulation, the patient did withdraw all extremities in a symmetric fashion. Sensory: Patient withdrew all extremities to noxious stimulation symmetrically. Reflexes right-sided listed first, biceps 2, 2. brachioradialis 2, 2, triceps 2+ 2+, patellar 2+,+, ankle 1 1, plantar responses flexor bilaterally. Avila's is absent. Coordination/gait sensation could not be tested. DIAGNOSTIC TESTING: Patient lab work demonstrates a white blood count of 21.3 with hemoglobin 9.0, platelet count 118. INR is at 1.8. Sodium 136, potassium 4.8, BUN and creatinine on presentation were 18 and 0.67 and currently 36 and 1.6. ALT 20, AST 52. Ammonia on presentation was 17 and is currently 37. Blood cultures have demonstrated no growth x72 hours. IMPRESSION: 1. Multifactorial encephalopathy with myoclonus, likely secondary to elevated ammonia level, increasing BUN/creatinine, infection (suspected peritonitis) and medication effect (Ativan/Dilaudid). 2. History of EtOH abuse with cirrhosis, esophageal varices, portal hypertension and recurrent ascites, status post multiple paracentesis including during this hospitalization. 3. Elevated INR, likely secondary to hepatic dysfunction, the patient is not on anticoagulation. 4. Anemia/thrombocytopenia. 5. Medical problems including hypertension, dyslipidemia, depression and anxiety. RECOMMENDATION: 1. Case was discussed with nursing staff. 2. Will obtain a CT of brain without contrast and EEG. 3. Lab work including ABG and thyroid function studies. 4. Would minimize sedative/narcotic medication if possible. 5. Treatment of medical issues per primary service. 6. Suggest thiamine/folate and multivitamin supplementation. 7. Will follow with you on an intermittent basis. MMODL / IJN: [id number] / BIB
--- NOTE | 2019-10-06 18:08 | PN ---
PROGRESS NOTE DATE OF DICTATION: 10/06/2019 This patient is a 54-year-old white male with history of heavy alcohol abuse, acute alcoholic hepatitis, admitted to the hospital with altered mental status and ascites. He is on broad-spectrum antibiotics for possible SBP. He underwent large-volume paracentesis on the day of admission to the hospital. Over the last 2 days his condition has been deteriorating, with worsening altered mental status and hepatic encephalopathy. He was started on oral lactulose as well as Xifaxan. However, because of the altered mental status, he is not able to consume anything orally. Lactulose has been switched to enemas, but Xifaxan could not be administered. NG tube was attempted by the nursing staff but not successful. The patient had a CT of the abdomen and CT of the head done this evening and there was no acute pathology identified. PHYSICAL EXAMINATION: Vital signs show a blood pressure of 147/76, pulse rate 100, temperature 98.4. HEENT examination unremarkable. Conjunctivae pink. Sclerae anicteric. Oral cavity no lesions. NECK: No JVD. CHEST: Clear to auscultation. HEART: Regular rate and rhythm. ABDOMEN: Distended. Small umbilical hernia noted. Significant amount of ascites noted. EXTREMITIES: No pedal edema. NEUROLOGIC: Opening eyes to verbal stimuli but not answering appropriately. LABS: WBC 21.3, hemoglobin 9, platelets 118. Bilirubin 14.3. AST and ALT are 52 and 20, respectively. BUN 36, creatinine 1.65. Ammonia is down to 37. IMPRESSION: 1. Altered mental status. The patient may have a component of hepatic encephalopathy, presently on rectal lactulose enemas as well as oral Xifaxan. Ammonia level improving. However, his mental status does not improve. CT of the head was unremarkable. Neurology has been consulted. 2. Possible spontaneous bacterial peritonitis with ascites and leukocytosis, on Rocephin, and ID following the patient. 3. Acute alcoholic hepatitis with elevated total bilirubin up to 14.3. 4. History of heavy alcohol abuse. 5. Elevated BUN and creatinine consistent with acute kidney injury. RECOMMENDATIONS: 1. Continue with broad-spectrum antibiotics. 2. Continue diuretics. 3. Continue lactulose enemas. 4. Will attempt an NG tube placement by the nursing staff again so that his oral medications can be given, including Xifaxan. 5. Repeat labs in the morning. We will follow with you closely. Thank you for this consultation. PARMINDER / IJN: [id number] /
[2019-10-06] MEDS: FUROSEMIDE 40 MG TAB PO SCH (19:22)
--- NOTE | 2019-10-06 21:02 | PN ---
PROGRESS NOTE DATE OF SERVICE: 10/06/2019 REASON FOR FOLLOWUP: Leukocytosis and concern for spontaneous bacterial peritonitis. INTERVAL HISTORY: The patient remains afebrile. The patient remains pleasantly confused and unable to provide any history. No vomiting or any diarrhea has been reported by the nursing staff. The patient was unable to provide any history. PHYSICAL EXAMINATION: Blood pressure 140/87, pulse 100, temperature 98.2. He is 100% on room air. General description is a middle-aged male lying in bed in no distress. RESPIRATORY SYSTEM: Unlabored breathing with decreased breath sounds at the base. No wheeze. HEART: S1, S2. Regular rate and rhythm. ABDOMEN: Soft. Minimally distended. No guarding or rigidity. LABS: Hemoglobin 9, white count 21.3, BUN of 36, creatinine 1.65. Blood culture has been negative. DIAGNOSTIC IMPRESSION AND PLAN: Patient with leukocytosis, multifactorial, in the patient who did have alcoholic cirrhosis with concern for possible spontaneous bacterial peritonitis. The patient may benefit from repeat paracentesis, and fluid should be sent for cell count and cultures. Continue empiric Rocephin and monitor clinical course closely. MMODL / IJN: [id number] /
[2019-10-06 23:41] LABS: Folate, Serum 12.4 ng/mL
[2019-10-07] MEDS: LACTULOSE 200 GM/300 ML (FROM 1/2 GAL JUG) RECTAL SCH ×4 (01:27→22:34)
[2019-10-07] MEDS: LORazepam 2 MG/ML INJ IV PRN ×2 (07:30→15:11)
[2019-10-07] MEDS: PANTOPRAZOLE 40 MG/10 ML VIAL IVP SCH (08:16)
[2019-10-07] MEDS: FUROSEMIDE 10 MG/ML 4 ML VIAL IV SCH ×2 (08:17→21:00)
--- NOTE | 2019-10-07 09:40 | US ---
EXAMINATION TYPE: US abdomen limited DATE OF EXAM: 10/07/2019 COMPARISON: NONE CLINICAL HISTORY: ascites. ascites All 4 abdominal quadrants scanned,ascites noted IMPRESSION: 1. Small amount of ascites present.
[2019-10-07 09:52] LABS: Anisocytosis Slight; Basophils % (A) 0 %; Eosinophils # (A) 0.7 k/uL (0-0.7); Eosinophils % (A) 4 %; HGB 8.7 gm/dL (13.0-17.5); Hypochromasia Marked; Lymphocytes # (A) 0.7 k/uL (1.0-4.8); Lymphocytes % (A) 4 %; MCH 40.1 pg (25.0-35.0); MCHC 32.3 g/dL (31.0-37.0); Macrocytosis Marked; Mean Platelet Volume 10.5; Monocytes # (A) 1.3 k/uL (0-1.0); Monocytes % (A) 7 %; Neutrophils # (A) 14.7 k/uL (1.3-7.7); Neutrophils % (A) 82 %; Platelet Count 101 k/uL (150-450); RBC 2.17 m/uL (4.30-5.90); RDW 16.1 % (11.5-15.5); WBC 17.9 k/uL (3.8-10.6)
[2019-10-07 10:15] LABS: Albumin 2.9 g/dL (3.5-5.0); Calcium 10.8 mg/dL (8.4-10.2); Potassium 3.5 mmol/L (3.5-5.1); Total Bilirubin 14.3 mg/dL (0.2-1.3); Total Protein 7.2 g/dL (6.3-8.2)
--- NOTE | 2019-10-07 10:22 | P.PN ---
<Rajani Soto John - Last Filed: 10/07/19 10:17> Subjective Progress Note Date: 10/07/19 CHIEF COMPLAINT: Bowel obstruction versus ileus HISTORY OF PRESENT ILLNESS: Patient examined this morning at the bedside. Patient remains lethargic. Nursing reports patient was combative overnight. He did receive a dose of Ativan this morning. NG tube was ordered yesterday for medications but patient was not cooperative with insertion and patient's family was notified who did not want NG tube re-attempted and apparently told nursing they wanted him to be comfort care. PHYSICAL EXAM: VITAL SIGNS: Reviewed. GENERAL: Well-developed in no acute distress. Jaundice. HEENT: Bilateral sclera icterus. Extraocular movements grossly intact. Moist buccal mucosa. Head is atraumatic, normocephalic. ABDOMEN: Firm. Distended. Nontender. NEUROLOGIC: Lethargic. ASSESSMENT: 1. Ileus 2. History of liver cirrhosis secondary to ETOH abuse PLAN: -Continue antibiotics. Monitor WBC. Infectious disease following -NPO until mentation improves -GI following -Diagnostic paracentesis ordered. However, patients family apparently mentioned to nursing they would like patient to be comfort care. Await final decision from patients family. Nurse practitioner note has been reviewed by physician. Signing provider agrees with the documented findings, assessment, and plan of care. Objective - Vital Signs Vital signs: Vital Signs Temp 98.2 F 10/07/19 08:30 Pulse 103 H 10/07/19 08:30 Resp 22 10/07/19 08:30 BP 148/82 10/07/19 08:30 Pulse Ox 97 10/07/19 08:30 Intake & Output 10/06/19 10/07/19 10/07/19 18:59 06:59 18:59 Intake Total 0 Output Total 3 1 Balance -3 -1 Weight 75 kg Intake: Oral 0 Output: Stool 3 1 Other: Voiding Method Urinal Urinal Urinal Incontinent Incontinent Incontinent # Voids 2 2 # Bowel Movements 1 - Labs CBC & Chem 7: 10/06/19 07:39 10/06/19 07:39 Labs: Abnormal Lab Results - Last 24 Hours (Table) 10/06/19 10/06/19 Range/Units 07:39 15:08 ABG pCO2 30 L (35-45) mmHg ABG pO2 75 L (83-108) mmHg Vitamin B12 1929.0 H (200.0-944.0) pg/mL Microbiology - Last 24 Hours (Table) 10/03/19 00:04 Blood Culture - Preliminary Blood No Growth after 96 hours <Khadar Garvey - Last Filed: 10/07/19 12:51> Subjective As above. Family apparently interested in comfort measures which is certainly appropriate. Await final decisions. Diagnostic paracentesis not performed partly for that reason. Will follow. Objective - Vital Signs Vital signs: Vital Signs Temp 98.2 F 10/07/19 08:30 Pulse 103 H 10/07/19 08:30 Resp 22 10/07/19 08:30 BP 148/82 10/07/19 08:30 Pulse Ox 97 10/07/19 08:30 Intake & Output 10/06/19 10/07/19 10/07/19 18:59 06:59 18:59 Intake Total 0 Output Total 3 1 Balance -3 -1 Weight 75 kg 75 kg Intake: Oral 0 Output: Stool 3 1 Other: Voiding Method Urinal Urinal Urinal Incontinent Incontinent Incontinent # Voids 2 2 # Bowel Movements 1 - Labs CBC & Chem 7: 10/07/19 08:47 10/07/19 08:47 Labs: Abnormal Lab Results - Last 24 Hours (Table) 10/06/19 10/06/19 10/07/19 Range/Units 07:39 15:08 08:47 WBC 17.9 H (3.8-10.6) k/uL RBC 2.17 L (4.30-5.90) m/uL Hgb 8.7 L (13.0-17.5) gm/dL Hct 27.0 L (39.0-53.0) % MCV 124.2 H (80.0-100.0) fL MCH 40.1 H (25.0-35.0) pg RDW 16.1 H (11.5-15.5) % Plt Count 101 L (150-450) k/uL Neutrophils # 14.7 H (1.3-7.7) k/uL Lymphocytes # 0.7 L (1.0-4.8) k/uL Monocytes # 1.3 H (0-1.0) k/uL Macrocytosis Marked A ABG pCO2 30 L (35-45) mmHg ABG pO2 75 L (83-108) mmHg Chloride (98-107) mmol/L Carbon Dioxide (22-30) mmol/L BUN (9-20) mg/dL Calcium (8.4-10.2) mg/dL Total Bilirubin (0.2-1.3) mg/dL Alkaline Phosphatase (38-126) U/L Albumin (3.5-5.0) g/dL Vitamin B12 1929.0 H (200.0-944.0) pg/mL 10/07/19 Range/Units 08:47 WBC (3.8-10.6) k/uL RBC (4.30-5.90) m/uL Hgb (13.0-17.5) gm/dL Hct (39.0-53.0) % MCV (80.0-100.0) fL MCH (25.0-35.0) pg RDW (11.5-15.5) % Plt Count (150-450) k/uL Neutrophils # (1.3-7.7) k/uL Lymphocytes # (1.0-4.8) k/uL Monocytes # (0-1.0) k/uL Macrocytosis ABG pCO2 (35-45) mmHg ABG pO2 (83-108) mmHg Chloride 110 H (98-107) mmol/L Carbon Dioxide 19 L (22-30) mmol/L BUN 39 H (9-20) mg/dL Calcium 10.8 H (8.4-10.2) mg/dL Total Bilirubin 14.3 H (0.2-1.3) mg/dL Alkaline Phosphatase 142 H (38-126) U/L Albumin 2.9 L (3.5-5.0) g/dL Vitamin B12 (200.0-944.0) pg/mL Microbiology - Last 24 Hours (Table) 10/03/19 00:04 Blood Culture - Preliminary Blood No Growth after 96 hours Assessment and Plan (1) Nausea & vomiting Current Visit: No Status: Acute Code(s): R11.2 - NAUSEA WITH VOMITING, UNSPECIFIED SNOMED Code(s): 12689346
[2019-10-07 10:37] LABS: MCV 124.2 fL (80.0-100.0)
[2019-10-07 10:56] VITALS: BMI 20.1
[2019-10-07 11:13] LABS: Poikilocytosis (M) Present
[2019-10-07 11:14] LABS: Polychromasia Present
--- NOTE | 2019-10-07 12:41 | PN ---
PROGRESS NOTE DATE OF SERVICE: 10/07/2019 REASON FOR FOLLOWUP: Leukocytosis and concern for spontaneous bacterial peritonitis. INTERVAL HISTORY: The patient is currently afebrile. The patient is hemodynamically stable not on any pressor support. He is breathing comfortably on room air. No vomiting or any diarrhea, was not have been reported by nursing staff. Patient was not able to provide any history. PHYSICAL EXAMINATION: Blood pressure 142/82 with a pulse of 103, temperature of 98.2. He is 97% on room air. General description is a middle-aged male, lying in bed in no distress. RESPIRATORY SYSTEM: Unlabored breathing, clear to auscultation anteriorly. HEART: S1, S2. Regular rate and rhythm. ABDOMEN: Soft. No tenderness. Remains to be distended, no guarding or rigidity. LABS: Hemoglobin 8.7, white count 17.9, creatinine is 1.18. DIAGNOSTIC IMPRESSION AND PLAN: Patient with leukocytosis which is multifactorial with concern for possible spontaneous bacterial peritonitis. Awaiting the paracentesis. Continue with Rocephin and monitor clinical course closely. MMODL / IJN: [id number] /
[2019-10-07 14:22] LABS: Prothrombin Time 19.3 sec (9.0-12.0)
[2019-10-07] MEDS: RIFAXIMIN 550 MG TABLET PO SCH ×2 (14:46→21:00)
[2019-10-07] MEDS: SPIRONOLACTONE 25 MG TAB PO SCH (14:46)
--- NOTE | 2019-10-07 18:46 | P.PN ---
Subjective Progress Note Date: 10/07/19 Principal diagnosis: This is a 54-year-old male who was recently admitted with change in mental status, acute hepatic encephalopathy and is being closely monitored. Multiple medical consultations are following. Patient's mentation continues to be altered and confused and not responding appropriately to questions and commands. Ammonia levels slightly improved although continue to be elevated at 43 today. Patient is unable to eat or drink properly without risk for aspiration and will be giving lactulose rectally. Will repeat labs. Neurology consulted and pending at this time. Will continue to monitor closely. Review of systems: Unable to obtain due to clinical condition, patient is confused 10/06/2019 Patient is seen and evaluated and follow-up and continues to be confused and alert and oriented 0. Speech was consulted for possible swallow eval and patient is unable to complete. Patient has been nothing by mouth. Ammonia level improved today and is currently 37. To continue with rectal lactulose. Multiple medical consultations including GI, surgery, and infectious disease following. White blood count continues to be elevated although his trending down at 21.3. Patient remains on ceftriaxone and will continue at this time while awaiting paracentesis with analysis cultures. Patient's CODE STATUS has been changed to no code which is appropriate. 10/07/2019 Patient is seen in follow up today and continues to remain confused and restless. Attempts at an NG tube were placed and patient became agitated and attempt was unsuccessful. Discussed with the patient's sister Qian about the treatment plan and she states that she is agreeable to discuss with hospice about information and her options although would like to discuss with the physician about patients overall condition and prognosis before making decisions about hospice. Ammonia improved today and is 29, creatinine is 1.18, and wbc trending down and is currently 17.9. Multiple medical consultations following. When talking with sister, she does not want any further testing or procedures performed until speaking with physician. Will repeat am labs. Objective - Vital Signs Vital signs: Vital Signs Temp 98.2 F 10/07/19 08:30 Pulse 103 H 10/07/19 08:30 Resp 22 10/07/19 08:30 BP 148/82 10/07/19 08:30 Pulse Ox 97 10/07/19 08:30 Intake & Output 10/06/19 10/07/19 10/07/19 18:59 06:59 18:59 Intake Total 0 Output Total 3 401 Balance -3 -401 Weight 75 kg 75 kg Intake: Oral 0 Output: Urine 400 Stool 3 1 Other: Voiding Method Urinal Urinal Urinal Incontinent Incontinent Incontinent # Voids 2 2 # Bowel Movements 1 - Exam Gen: This is a 54-year-old male lying in bed, confused. HEENT: Head is atraumatic, normocephalic. Pupils equal, round. Sclerae is anicteric. Mucous membranes are dry NECK: Supple. No JVD. No lymphadenopathy. No thyromegaly. LUNGS: Breath sounds diminished at the bases with a few scattered rhonchi and crackles noted. No intercostal retractions. HEART: S1, S2 are muffled ABDOMEN: Distended, soft, no guarding or rigidity noted on exam. Bowel sounds are present. No masses. mild Ascites noted. EXTREMITIES: No pedal edema. No calf tenderness. Poor foot hygiene and nail care noted to have bilateral lower extremities NEUROLOGICAL: Patient is awake, alert and oriented x0. - Labs CBC & Chem 7: 10/07/19 08:47 10/07/19 08:47 Labs: Abnormal Lab Results - Last 24 Hours (Table) 10/06/19 10/07/19 10/07/19 Range/Units 07:39 08:47 08:47 WBC 17.9 H (3.8-10.6) k/uL RBC 2.17 L (4.30-5.90) m/uL Hgb 8.7 L (13.0-17.5) gm/dL Hct 27.0 L (39.0-53.0) % MCV 124.2 H (80.0-100.0) fL MCH 40.1 H (25.0-35.0) pg RDW 16.1 H (11.5-15.5) % Plt Count 101 L (150-450) k/uL Neutrophils # 14.7 H (1.3-7.7) k/uL Lymphocytes # 0.7 L (1.0-4.8) k/uL Monocytes # 1.3 H (0-1.0) k/uL Macrocytosis Marked A PT (9.0-12.0) sec INR (<1.2) Chloride 110 H (98-107) mmol/L Carbon Dioxide 19 L (22-30) mmol/L BUN 39 H (9-20) mg/dL Calcium 10.8 H (8.4-10.2) mg/dL Total Bilirubin 14.3 H (0.2-1.3) mg/dL Alkaline Phosphatase 142 H (38-126) U/L Albumin 2.9 L (3.5-5.0) g/dL Vitamin B12 1929.0 H (200.0-944.0) pg/mL 10/07/19 Range/Units 13:06 WBC (3.8-10.6) k/uL RBC (4.30-5.90) m/uL Hgb (13.0-17.5) gm/dL Hct (39.0-53.0) % MCV (80.0-100.0) fL MCH (25.0-35.0) pg RDW (11.5-15.5) % Plt Count (150-450) k/uL Neutrophils # (1.3-7.7) k/uL Lymphocytes # (1.0-4.8) k/uL Monocytes # (0-1.0) k/uL Macrocytosis PT 19.3 H (9.0-12.0) sec INR 2.0 H (<1.2) Chloride (98-107) mmol/L Carbon Dioxide (22-30) mmol/L BUN (9-20) mg/dL Calcium (8.4-10.2) mg/dL Total Bilirubin (0.2-1.3) mg/dL Alkaline Phosphatase (38-126) U/L Albumin (3.5-5.0) g/dL Vitamin B12 (200.0-944.0) pg/mL Microbiology - Last 24 Hours (Table) 10/03/19 00:04 Blood Culture - Preliminary Blood No Growth after 96 hours Assessment and Plan Assessment: Change in mental status, acute hepatic encephalopathy, hyperammonemia secondary to cirrhosis of the liver 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 Abdominal distention, possible small bowel obstruction versus ileus Possible spontaneous bacterial peritonitis, sepsis, present on admission Increased WBC Anemia, macrocytic Thrombocytopenia Mild coagulopathy secondary to chronic liver disease Hyponatremia Elevated lactic acid Elevated bilirubin secondary to cirrhosis of the liver elevated lipase, possible mild acute pancreatitis, alcoholic, present on admission History of gastrointestinal bleed hypertension Hyperlipidemia History of esophageal varices and banding history of deviated septum history of degenerative joint disease history of bipolar depression Continued ongoing nicotine dependence History of THC Full code Recommendations and discussion: Recommend continue current medications, management, and symptomatic treatment. Multiple medical consultations following. Ammonia levels 29. Will repeat a.m. labs. Patient is to remain on IV antibiotics at this time. Infectious disease is following. Due to multiple complex medical issues, prognosis is guarded. Family is agreeable to an informational meeting with hospice although would like to speak to the physician before making any decisions. Further recommendations to follow.
--- NOTE | 2019-10-08 03:45 | PN ---
PROGRESS NOTE DATE OF DICTATION: 10/06/2028 The patient is currently lying in bed, eyes are closed. When I attempted to arouse him he did slightly open his eyes and began to mumble without intelligible speech. He is beginning to follow a few commands. CURRENT MEDICATIONS: Tylenol, Rocephin, Lasix, Haldol, Dilaudid p.r.n., lactulose, Ativan p.r.n., Narcan p.r.n., Zofran, Protonix, Xifaxan and Aldactone. PHYSICAL EXAMINATION: Upon my arrival to the patient's room, he was lying in bed, lethargic, arousable to verbal stimulation where he would begin to mumble. He appears chronically ill, frail and older than stated age. He is jaundiced. VITAL SIGNS: Blood pressure is 148/82 with pulse 103, respiratory rate 22, temperature is 98.2. NEUROLOGIC EXAMINATION: When I spoke to the patient, he did slightly open his eyes, but did not consistently make eye contact with the examiner or track the examiner with his eyes. He did eventually follow a few commands including holding up his arms when I asked him to in a symmetric fashion and briefly stuck out his tongue to my commands. He mumbled without intelligible speech and would not name, repeat or read for the examiner. Cranial nerves 2 through 12: Pupils are equal and reactive and reactive to light. There is no consistent blink to threat. Oculocephalic reflexes intact. Corneal reflex and nasal tickle intact. There was no facial asymmetry. Gag reflex is intact. When patient protruded his tongue, this was in the midline. Motor Examination: The patient did briefly lift each arm off the bed to my commands in a symmetric fashion. With noxious stimulation, the patient did withdraw all extremities to noxious stimulation. Myoclonus in the upper extremities was noted. Sensory: Patient withdrew all extremities symmetrically to noxious stimulation. Plantar responses flexor bilaterally. Avila's is absent. Coordination: Patient would not cooperate. DIAGNOSTIC TESTING: The patient had a CT scan of brain completed without contrast, which demonstrated no acute pathology. Lab work included a blood gas with pH of 7.45, pCO2 of 30, PO2 of 75, and bicarb of 21. B12 of 1929, folate 12.4. TSH within normal limits. Blood cultures have demonstrated no growth at 96 hours. IMPRESSION: 1. Multifactorial encephalopathy with myoclonus. 2. History of EtOH abuse with cirrhosis, esophageal varices, portal hypertension and recurrent ascites. 3. Medical history including hypertension, dyslipidemia, depression and anxiety. RECOMMENDATION: 1. Will check the EEG completed earlier today. 2. Treatment of medical issues per primary service. 3. Minimize sedative/narcotic medication, if possible. 4. Will follow with you. Thank you for allowing me to participate in the care of your patient. MMSIXTOL / DONELLN: [id number] / MTDMaria Luisa
--- NOTE | 2019-10-08 03:45 | PN ---
PROGRESS NOTE DATE OF DICTATION: 10/07/2019 Patient is a 54-year-old white male with history of alcoholic cirrhosis, acute alcoholic hepatitis and severe altered mental status, admitted to the hospital 3 days ago. He was started on lactulose enemas and oral Xifaxan, but patient because of altered mental status he was not able to take any medications. Attempt at placing an NG tube yesterday was unsuccessful. This morning he continues to have altered mental status. CT of the head was unremarkable. There is a family meeting by his attending physician to discuss hospice care. The patient has been on broad-spectrum antibiotics for possible spontaneous bacterial peritonitis. Paracentesis is on hold until further discussion with the family. PHYSICAL EXAMINATION: Vital signs show blood pressure of 151/85, pulse rate 108, temperature 97.7. HEENT EXAMINATION: Unremarkable. Conjunctivae pink. Sclerae deeply icteric. Oral cavity, no lesions. NECK: No JVD or lymph node enlargement. CHEST: Clear to auscultation. HEART: Regular rate and rhythm. ABDOMEN: Abdomen is distended. Small umbilical hernia noted. Free fluid noted. EXTREMITIES: No pedal edema. NEURO: Very confused. LABS: Labs from today: WBC 17.9, hemoglobin 8.7, platelets 101. BUN and creatinine are 39 and 1.18 respectively. INR is 2. Total bilirubin 14.3. AST, ALT normal, alkaline phosphatase 142. IMPRESSION: 1. Acute alcoholic hepatitis superimposed on alcoholic cirrhosis of the liver with severe decompensation and acute liver failure. 2. Hepatic encephalopathy. 3. Severe altered mental status. 4. Possible spontaneous bacterial peritonitis on empiric antibiotics with Rocephin. 5. Leukocytosis gradually improving. 6. Macrocytic anemia and thrombocytopenia secondary to chronic liver disease. RECOMMENDATIONS: 1. Continue with symptomatic and supportive care. 2. We will hold off on the paracentesis until discussion with the family. 3. Continue antibiotics. 4. Continue Xifaxan and lactulose enema and monitor ammonia level closely. 5. Repeat labs in the morning. 6. We will follow with you closely. Thank you for this consultation. MMODL / IJN: [id number] /
[2019-10-08] MEDS: LACTULOSE 200 GM/300 ML (FROM 1/2 GAL JUG) RECTAL SCH ×3 (05:56→16:08)
[2019-10-08] MEDS: FUROSEMIDE 10 MG/ML 4 ML VIAL IV SCH ×2 (07:35→20:27)
[2019-10-08] MEDS: PANTOPRAZOLE 40 MG/10 ML VIAL IVP SCH (07:35)
[2019-10-08] MEDS: RIFAXIMIN 550 MG TABLET PO SCH (07:36)
[2019-10-08] MEDS: SPIRONOLACTONE 25 MG TAB PO SCH (07:36)
[2019-10-08] MEDS: LORazepam 2 MG/ML INJ IV PRN ×2 (08:35→23:18)
--- NOTE | 2019-10-08 09:38 | P.PN ---
<Rajani Soto John - Last Filed: 10/08/19 09:36> Subjective Progress Note Date: 10/08/19 CHIEF COMPLAINT: Bowel obstruction versus ileus HISTORY OF PRESENT ILLNESS: Patient examined this morning at the bedside. Patient remains lethargic. He did receive a dose of ativan this morning per nursing. Blood pressure stable. HR low 100s. Afebrile. PHYSICAL EXAM: VITAL SIGNS: Reviewed. GENERAL: Well-developed in no acute distress. Jaundice. HEENT: Bilateral sclera icterus. Extraocular movements grossly intact. Moist buccal mucosa. Head is atraumatic, normocephalic. ABDOMEN: Firm. Distended. Nontender. NEUROLOGIC: Lethargic. ASSESSMENT: 1. Ileus 2. History of liver cirrhosis secondary to ETOH abuse PLAN: -Continue antibiotics. Monitor WBC. Infectious disease following -NPO until mentation improves -GI following -Diagnostic paracentesis remains on hold at this time -Await final decision from patients family regarding possible hospice Nurse practitioner note has been reviewed by physician. Signing provider agrees with the documented findings, assessment, and plan of care. Objective - Vital Signs Vital signs: Vital Signs Temp 98.3 F 10/08/19 08:31 Pulse 104 H 10/08/19 08:31 Resp 22 10/08/19 08:31 BP 125/82 10/08/19 08:31 Pulse Ox 98 10/08/19 08:31 Intake & Output 10/07/19 10/08/19 10/08/19 18:59 06:59 18:59 Output Total 403 Balance -403 Weight 75 kg 74.5 kg Output: Urine 400 Stool 3 Other: Voiding Method Urinal Urinal Incontinent Incontinent Incontinent # Voids 2 1 - Labs CBC & Chem 7: 10/07/19 08:47 10/07/19 08:47 Labs: Abnormal Lab Results - Last 24 Hours (Table) 10/07/19 10/07/19 10/07/19 Range/Units 08:47 08:47 13:06 WBC 17.9 H (3.8-10.6) k/uL RBC 2.17 L (4.30-5.90) m/uL Hgb 8.7 L (13.0-17.5) gm/dL Hct 27.0 L (39.0-53.0) % MCV 124.2 H (80.0-100.0) fL MCH 40.1 H (25.0-35.0) pg RDW 16.1 H (11.5-15.5) % Plt Count 101 L (150-450) k/uL Neutrophils # 14.7 H (1.3-7.7) k/uL Lymphocytes # 0.7 L (1.0-4.8) k/uL Monocytes # 1.3 H (0-1.0) k/uL Macrocytosis Marked A PT 19.3 H (9.0-12.0) sec INR 2.0 H (<1.2) Chloride 110 H (98-107) mmol/L Carbon Dioxide 19 L (22-30) mmol/L BUN 39 H (9-20) mg/dL Calcium 10.8 H (8.4-10.2) mg/dL Total Bilirubin 14.3 H (0.2-1.3) mg/dL Alkaline Phosphatase 142 H (38-126) U/L Albumin 2.9 L (3.5-5.0) g/dL Microbiology - Last 24 Hours (Table) 10/03/19 00:04 Blood Culture - Preliminary Blood No Growth after 120 hours <Khadar Garvey - Last Filed: 10/08/19 17:09> Subjective As above. No significant change in mental status. White blood cell count unchanged. Abdomen remains non-tender but distended. Family apparently deciding on hospice measures today. They had notified that they wanted no further procedures done yesterday. Await disposition. Will follow. Objective - Vital Signs Vital signs: Vital Signs Temp 97.7 F 10/08/19 16:00 Pulse 76 10/08/19 16:00 Resp 16 10/08/19 16:00 BP 125/66 10/08/19 16:00 Pulse Ox 96 10/08/19 16:00 Intake & Output 10/07/19 10/08/19 10/08/19 18:59 06:59 18:59 Output Total 403 Balance -403 Weight 75 kg 74.5 kg Output: Urine 400 Stool 3 Other: Voiding Method Urinal Urinal Incontinent Incontinent Incontinent # Voids 2 1 # Bowel Movements 0 - Labs CBC & Chem 7: 10/08/19 08:50 10/08/19 08:50 Labs: Abnormal Lab Results - Last 24 Hours (Table) 10/08/19 10/08/19 Range/Units 08:50 08:50 WBC 17.6 H (3.8-10.6) k/uL RBC 2.29 L (4.30-5.90) m/uL Hgb 9.0 L (13.0-17.5) gm/dL Hct 28.4 L (39.0-53.0) % MCV 124.2 H (80.0-100.0) fL MCH 39.2 H (25.0-35.0) pg RDW 16.5 H (11.5-15.5) % Plt Count 110 L (150-450) k/uL Neutrophils # 14.4 H (1.3-7.7) k/uL Monocytes # 1.4 H (0-1.0) k/uL Macrocytosis Marked A Chloride 113 H (98-107) mmol/L Carbon Dioxide 20 L (22-30) mmol/L BUN 44 H (9-20) mg/dL Calcium 11.4 H (8.4-10.2) mg/dL Total Bilirubin 14.4 H (0.2-1.3) mg/dL Alkaline Phosphatase 150 H (38-126) U/L Albumin 3.0 L (3.5-5.0) g/dL Microbiology - Last 24 Hours (Table) 10/03/19 00:04 Blood Culture - Preliminary Blood No Growth after 120 hours Assessment and Plan (1) Nausea & vomiting Current Visit: No Status: Acute Code(s): R11.2 - NAUSEA WITH VOMITING, UNSPECIFIED SNOMED Code(s): 56666339
[2019-10-08 09:39] LABS: ALT 23 U/L (4-49); AST 46 U/L (17-59); African American GFR (CKD) >90 (>60 ml/min/1.73 sqM); Alkaline Phosphatase 150 U/L (38-126); Anion Gap 10 mmol/L; Blood Urea Nitrogen 44 mg/dL (9-20); Calcium 11.4 mg/dL (8.4-10.2); Carbon Dioxide 20 mmol/L (22-30); Chloride 113 mmol/L (98-107); Glucose 91 mg/dL (74-99); Non-African American GFR(CKD) 83 (>60 ml/min/1.73 sqM); Potassium 3.5 mmol/L (3.5-5.1); Sodium 143 mmol/L (137-145); Total Bilirubin 14.4 mg/dL (0.2-1.3); Total Protein 7.5 g/dL (6.3-8.2)
[2019-10-08 09:44] LABS: Anisocytosis Slight; Basophils % (A) 0 %; Eosinophils # (A) 0.5 k/uL (0-0.7); Eosinophils % (A) 3 %; HCT 28.4 % (39.0-53.0); Hypochromasia Marked; Lymphocytes % (A) 5 %; MCH 39.2 pg (25.0-35.0); MCHC 31.5 g/dL (31.0-37.0); MCV 124.2 fL (80.0-100.0); Macrocytosis Marked; Mean Platelet Volume 10.5; Monocytes # (A) 1.4 k/uL (0-1.0); Monocytes % (A) 8 %; Neutrophils # (A) 14.4 k/uL (1.3-7.7); Neutrophils % (A) 82 %; Platelet Count 110 k/uL (150-450); RBC 2.29 m/uL (4.30-5.90); RDW 16.5 % (11.5-15.5); WBC 17.6 k/uL (3.8-10.6)
--- NOTE | 2019-10-08 12:59 | PN ---
PROGRESS NOTE DATE OF SERVICE: 10/08/2019 REASON FOR FOLLOWUP: Leukocytosis and a question of spontaneous bacterial peritonitis. INTERVAL HISTORY: Patient is currently afebrile. The patient is hemodynamically stable. He is breathing comfortably. No vomiting or any diarrhea has been reported by nursing staff. Patient unable to provide any history. PHYSICAL EXAMINATION: Blood pressure 125/82 with a pulse of 104, temperature 98.3, he is 98% on room air. General description is a middle-aged male lying in bed in no distress. RESPIRATORY SYSTEM: Unlabored breathing, clear to auscultation anteriorly. HEART: S1, S2. Regular rate and rhythm. ABDOMEN: Soft, remains to be distended. No guarding or rigidity. LABS: Hemoglobin is 9, white count 17.6, BUN of 4, creatinine is 1.02. DIAGNOSTIC IMPRESSION AND PLAN: Patient with leukocytosis which is mild since patient did have an alcoholic liver cirrhosis and concern for possible with a question of a repeat versus hospice which may be appropriate for him. Continue with Rocephin and monitor clinical course closely. MMODL / IJN: [id number] /
--- NOTE | 2019-10-08 15:23 | P.PN ---
Subjective Progress Note Date: 10/08/19 Principal diagnosis: This is a 54-year-old male who was recently admitted with change in mental status, acute hepatic encephalopathy and is being closely monitored. Multiple medical consultations are following. Patient's mentation continues to be altered and confused and not responding appropriately to questions and commands. Ammonia levels slightly improved although continue to be elevated at 43 today. Patient is unable to eat or drink properly without risk for aspiration and will be giving lactulose rectally. Will repeat labs. Neurology consulted and pending at this time. Will continue to monitor closely. Review of systems: Unable to obtain due to clinical condition, patient is confused 10/06/2019 Patient is seen and evaluated and follow-up and continues to be confused and alert and oriented 0. Speech was consulted for possible swallow eval and patient is unable to complete. Patient has been nothing by mouth. Ammonia level improved today and is currently 37. To continue with rectal lactulose. Multiple medical consultations including GI, surgery, and infectious disease following. White blood count continues to be elevated although his trending down at 21.3. Patient remains on ceftriaxone and will continue at this time while awaiting paracentesis with analysis cultures. Patient's CODE STATUS has been changed to no code which is appropriate. 10/07/2019 Patient is seen in follow up today and continues to remain confused and restless. Attempts at an NG tube were placed and patient became agitated and attempt was unsuccessful. Discussed with the patient's sister Qian about the treatment plan and she states that she is agreeable to discuss with hospice about information and her options although would like to discuss with the physician about patients overall condition and prognosis before making decisions about hospice. Ammonia improved today and is 29, creatinine is 1.18, and wbc trending down and is currently 17.9. Multiple medical consultations following. When talking with sister, she does not want any further testing or procedures performed until speaking with physician. Will repeat am labs. 10/08/2019 Patient is seen today and continues to be confused and restless and was given a dose of Ativan today. Patient's condition continues to deteriorate and mental status has not changed. Multiple medical consultations following. No further testing is being done at this time per family's wishes until she speaks with the attending physician. Patient remains on IV antibiotics in the form of ceftriaxone. Patient is arousable but becomes extremely agitated and confused and incoherent. Patient easily fatigues him is extremely lethargic. Objective - Vital Signs Vital signs: Vital Signs Temp 98.3 F 10/08/19 08:31 Pulse 104 H 10/08/19 08:31 Resp 22 10/08/19 08:31 BP 125/82 10/08/19 08:31 Pulse Ox 98 10/08/19 08:31 Intake & Output 10/07/19 10/08/19 10/08/19 18:59 06:59 18:59 Output Total 403 Balance -403 Weight 75 kg 74.5 kg Output: Urine 400 Stool 3 Other: Voiding Method Urinal Urinal Incontinent Incontinent Incontinent # Voids 2 1 # Bowel Movements 0 - Exam Gen: This is a 54-year-old male lying in bed, confused. Sleeping currently HEENT: Head is atraumatic, normocephalic. Pupils equal, round. Sclerae is anicteric. Mucous membranes are dry NECK: Supple. No JVD. No lymphadenopathy. No thyromegaly. LUNGS: Breath sounds diminished at the bases with a few scattered rhonchi and crackles noted. No intercostal retractions. HEART: S1, S2 are muffled ABDOMEN: Distended, soft, no guarding or rigidity noted on exam. Bowel sounds are present. No masses. mild Ascites noted. EXTREMITIES: No pedal edema. No calf tenderness. Poor foot hygiene and nail care noted to have bilateral lower extremities NEUROLOGICAL: Patient is awake, alert and oriented x0. - Labs CBC & Chem 7: 10/08/19 08:50 10/08/19 08:50 Labs: Abnormal Lab Results - Last 24 Hours (Table) 10/08/19 10/08/19 Range/Units 08:50 08:50 WBC 17.6 H (3.8-10.6) k/uL RBC 2.29 L (4.30-5.90) m/uL Hgb 9.0 L (13.0-17.5) gm/dL Hct 28.4 L (39.0-53.0) % MCV 124.2 H (80.0-100.0) fL MCH 39.2 H (25.0-35.0) pg RDW 16.5 H (11.5-15.5) % Plt Count 110 L (150-450) k/uL Neutrophils # 14.4 H (1.3-7.7) k/uL Monocytes # 1.4 H (0-1.0) k/uL Macrocytosis Marked A Chloride 113 H (98-107) mmol/L Carbon Dioxide 20 L (22-30) mmol/L BUN 44 H (9-20) mg/dL Calcium 11.4 H (8.4-10.2) mg/dL Total Bilirubin 14.4 H (0.2-1.3) mg/dL Alkaline Phosphatase 150 H (38-126) U/L Albumin 3.0 L (3.5-5.0) g/dL Microbiology - Last 24 Hours (Table) 10/03/19 00:04 Blood Culture - Preliminary Blood No Growth after 120 hours Assessment and Plan Assessment: Change in mental status, acute hepatic encephalopathy, hyperammonemia secondary to cirrhosis of the liver 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 Abdominal distention, possible small bowel obstruction versus ileus Possible spontaneous bacterial peritonitis, sepsis, present on admission Increased WBC Anemia, macrocytic Thrombocytopenia Mild coagulopathy secondary to chronic liver disease Hyponatremia Elevated lactic acid Elevated bilirubin secondary to cirrhosis of the liver elevated lipase, possible mild acute pancreatitis, alcoholic, present on admissi on History of gastrointestinal bleed hypertension Hyperlipidemia History of esophageal varices and banding history of deviated septum history of degenerative joint disease history of bipolar depression Continued ongoing nicotine dependence History of THC Full code Recommendations and discussion: Recommend continue current medications, management, and symptomatic treatment. Multiple medical consultations following. Will repeat a.m. labs. Patient is to remain on IV antibiotics at this time. Infectious disease is following. Due to multiple complex medical issues, prognosis is extremely poor and guarded. Family awaiting to speak to the physician before making any decisions. Further recom mendations to follow.
--- NOTE | 2019-10-08 19:02 | PN ---
PROGRESS NOTE DATE OF DICTATION: 10/08/2019 This patient is a 54-year-old white male with history of heavy alcohol abuse, admitted to the hospital with altered mental status, acute alcoholic hepatitis and hepatic encephalopathy as well as recurrent ascites. He has been on broad-spectrum antibiotics for possible SBP. He continues to have altered mental status. He is presently on lactulose enema. Oral Xifaxan could not be administered because of his worsening mental status. CT of the head was negative. As per the nursing staff, family meeting is going to be held by Dr. Turk regarding comfort care. PHYSICAL EXAMINATION: He is very confused, opening his eyes to simple questions. Vital signs are stable. Blood pressure is 112/82, pulse rate 86 and afebrile. HEENT examination unremarkable. Conjunctivae pink. Sclerae anicteric. Oral cavity no lesions. NECK: No JVD or lymph node enlargement. CHEST: Clear to auscultation. HEART: Regular rate and rhythm. ABDOMEN: Soft. It was slightly distended. There was free fluid noted. EXTREMITIES: No pedal edema. SKIN: No rashes. NEUROLOGIC: He is very confused. LABS: Labs from today show WBC 17.6, hemoglobin 9, platelets 110. INR 2. T-bilirubin 14.4. AST and ALT are normal. Alkaline phosphatase is 150. IMPRESSION: 1. Acute alcoholic hepatitis with alcoholic cirrhosis of the liver and portal hypertension. 2. Severe ascites, status post large-volume paracentesis and 7 L removed 3 days ago. 3. Altered mental status, partly attributed to hepatic encephalopathy, but other etiologies of metabolic encephalopathy need to be considered. Neurology has been consulted. 4. Possible SBP, on broad-spectrum antibiotics. RECOMMENDATIONS: 1. Continue with symptomatic and supportive care. 2. Await discussion with the family by Dr. Turk. 3. Monitor LFTs closely. 4. Continue broad-spectrum antibiotics. Will follow with you closely. Thank you for this consultation. MMODL / IJN: [id number] /
[2019-10-09] MEDS: HYDROmorphone 0.5 MG/0.5 ML SYRINGE IVP PRN ×2 (00:59→06:55)
[2019-10-09] MEDS: FUROSEMIDE 10 MG/ML 4 ML VIAL IV SCH (06:52)
[2019-10-09 08:19] VITALS: RESP 16
[2019-10-09 08:31] LABS: African American GFR (CKD) >90 (>60 ml/min/1.73 sqM); Anion Gap 7 mmol/L; Blood Urea Nitrogen 49 mg/dL (9-20); Calcium 11.6 mg/dL (8.4-10.2); Carbon Dioxide 22 mmol/L (22-30); Chloride 117 mmol/L (98-107); Glucose 94 mg/dL (74-99); Non-African American GFR(CKD) >90 (>60 ml/min/1.73 sqM); Potassium 3.3 mmol/L (3.5-5.1); Sodium 146 mmol/L (137-145)
[2019-10-09 08:49] LABS: Anisocytosis Slight; Basophils % (A) 0 %; Eosinophils # (A) 0.9 k/uL (0-0.7); Eosinophils % (A) 6 %; HCT 29.8 % (39.0-53.0); HGB 9.6 gm/dL (13.0-17.5); Hypochromasia Marked; Lymphocytes % (A) 7 %; MCHC 32.1 g/dL (31.0-37.0); MCV 121.5 fL (80.0-100.0); Macrocytosis Marked; Mean Platelet Volume 10.2; Monocytes # (A) 1.1 k/uL (0-1.0); Monocytes % (A) 7 %; Neutrophils # (A) 12.3 k/uL (1.3-7.7); Neutrophils % (A) 79 %; Platelet Count 110 k/uL (150-450); RBC 2.45 m/uL (4.30-5.90); RDW 18.5 % (11.5-15.5); WBC 15.6 k/uL (3.8-10.6)
--- NOTE | 2019-10-09 09:57 | P.PN ---
Subjective Progress Note Date: 10/09/19 Principal diagnosis: This is a 54-year-old male who was recently admitted with change in mental status, acute hepatic encephalopathy and is being closely monitored. Multiple medical consultations are following. Patient's mentation continues to be altered and confused and not responding appropriately to questions and commands. Ammonia levels slightly improved although continue to be elevated at 43 today. Patient is unable to eat or drink properly without risk for aspiration and will be giving lactulose rectally. Will repeat labs. Neurology consulted and pending at this time. Will continue to monitor closely. Review of systems: Unable to obtain due to clinical condition, patient is confused 10/06/2019 Patient is seen and evaluated and follow-up and continues to be confused and alert and oriented 0. Speech was consulted for possible swallow eval and patient is unable to complete. Patient has been nothing by mouth. Ammonia level improved today and is currently 37. To continue with rectal lactulose. Multiple medical consultations including GI, surgery, and infectious disease following. White blood count continues to be elevated although his trending down at 21.3. Patient remains on ceftriaxone and will continue at this time while awaiting paracentesis with analysis cultures. Patient's CODE STATUS has been changed to no code which is appropriate. 10/07/2019 Patient is seen in follow up today and continues to remain confused and restless. Attempts at an NG tube were placed and patient became agitated and attempt was unsuccessful. Discussed with the patient's sister Qian about the treatment plan and she states that she is agreeable to discuss with hospice about information and her options although would like to discuss with the physician about patients overall condition and prognosis before making decisions about hospice. Ammonia improved today and is 29, creatinine is 1.18, and wbc trending down and is currently 17.9. Multiple medical consultations following. When talking with sister, she does not want any further testing or procedures performed until speaking with physician. Will repeat am labs. 10/08/2019 Patient is seen today and continues to be confused and restless and was given a dose of Ativan today. Patient's condition continues to deteriorate and mental status has not changed. Multiple medical consultations following. No further testing is being done at this time per family's wishes until she speaks with the attending physician. Patient remains on IV antibiotics in the form of ceftriaxone. Patient is arousable but becomes extremely agitated and confused and incoherent. Patient easily fatigues him is extremely lethargic. 10/09/2019 Patient was seen and evaluated and follow-up and per nursing staff patient was slightly restless and agitated and was given a dose of Dilaudid and is sleeping comfortably at this time. A lengthy discussion was had with physician and sister Qian and she wishes for patient to be comfort care only and hospice will be in again shortly to go over the paperwork. Case management and social work following if there is a need for possible placement with hospice. Objective - Vital Signs Vital signs: Vital Signs Temp 96.2 F L 10/09/19 08:00 Pulse 89 10/09/19 08:00 Resp 16 10/09/19 08:00 BP 146/79 10/09/19 08:00 Pulse Ox 95 10/09/19 08:00 Intake & Output 10/08/19 10/09/19 10/09/19 18:59 06:59 18:59 Output Total 2205 Balance -2205 Output: Urine 2200 Stool 5 Other: Voiding Method Incontinent Diaper Incontinent # Voids 1 # Bowel Movements 0 0 - Exam Gen: This is a 54-year-old male lying in bed, continues to be confused. Sleeping currently HEENT: Head is atraumatic, normocephalic. Pupils equal, round. Sclerae is anicteric. Mucous membranes are dry NECK: Supple. No JVD. No lymphadenopathy. No thyromegaly. LUNGS: Breath sounds diminished at the bases with a few scattered rhonchi and crackles noted. No intercostal retractions. HEART: S1, S2 are muffled ABDOMEN: Distended, soft, no guarding or rigidity noted on exam. Bowel sounds are present. No masses. mild Ascites noted. EXTREMITIES: No pedal edema. No calf tenderness. Poor foot hygiene noted to bilateral lower extremities NEUROLOGICAL: Patient is asleep, alert and oriented x0. - Labs CBC & Chem 7: 10/09/19 07:43 10/09/19 07:43 Labs: Abnormal Lab Results - Last 24 Hours (Table) 10/08/19 10/09/19 10/09/19 Range/Units 08:50 07:43 07:43 WBC 17.6 H 15.6 H (3.8-10.6) k/uL RBC 2.29 L 2.45 L (4.30-5.90) m/uL Hgb 9.0 L 9.6 L (13.0-17.5) gm/dL Hct 28.4 L 29.8 L (39.0-53.0) % MCV 124.2 H 121.5 H (80.0-100.0) fL MCH 39.2 H 39.0 H (25.0-35.0) pg RDW 16.5 H 18.5 H (11.5-15.5) % Plt Count 110 L 110 L (150-450) k/uL Neutrophils # 14.4 H 12.3 H (1.3-7.7) k/uL Monocytes # 1.4 H 1.1 H (0-1.0) k/uL Eosinophils # 0.9 H (0-0.7) k/uL Macrocytosis Marked A Marked A Sodium 146 H (137-145) mmol/L Potassium 3.3 L (3.5-5.1) mmol/L Chloride 117 H (98-107) mmol/L BUN 49 H (9-20) mg/dL Calcium 11.6 H (8.4-10.2) mg/dL Microbiology - Last 24 Hours (Table) 10/03/19 00:04 Blood Culture - Final Blood No Growth after 144 hours Assessment and Plan Assessment: Change in mental status, acute hepatic encephalopathy, hyperammonemia secondary to cirrhosis of the liver 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 Abdominal distention, possible small bowel obstruction versus ileus Possible spontaneous bacterial peritonitis, sepsis, present on admission Increased WBC Anemia, macrocytic Thrombocytopenia Mild coagulopathy secondary to chronic liver disease Hyponatremia Elevated lactic acid Elevated bilirubin secondary to cirrhosis of the liver elevated lipase, possible mild acute pancreatitis, alcoholic, present on admission History of gastrointestinal bleed hypertension Hyperlipidemia History of esophageal varices and banding history of deviated septum history of degenerative joint disease history of bipolar depression Continued ongoing nicotine dependence History of THC Full code Recommendations and discussion: Recommend continue symptomatic treatment. Comfort measures only. Had a lengthy discussion with sister Michell and they will be meeting with [facility] again to sign the final paperwork. Social work following if placement is needed with hospice and comfort care measures only. Due to multiple complex medical issues, prognosis is extremely poor and guarded. Further recommendations to follow.
--- NOTE | 2019-10-09 10:11 | P.PN ---
<SotoRajani John - Last Filed: 10/09/19 10:09> Subjective Progress Note Date: 10/09/19 CHIEF COMPLAINT: Bowel obstruction versus ileus HISTORY OF PRESENT ILLNESS: Patient examined this morning at the bedside. Patient remains lethargic. WBC 15.6. Hemoglobin 9.6. He is afebrile. PHYSICAL EXAM: VITAL SIGNS: Reviewed. GENERAL: Well-developed in no acute distress. Jaundice. HEENT: Bilateral sclera icterus. Extraocular movements grossly intact. Moist b uccal mucosa. Head is atraumatic, normocephalic. ABDOMEN: Firm. Distended. Nontender. NEUROLOGIC: Lethargic. ASSESSMENT: 1. Ileus 2. History of liver cirrhosis secondary to ETOH abuse PLAN: Nursing reports patient is going hospice today We will sign off. Please reconsult if needed Nurse practitioner note has been reviewed by physician. Signing provider agrees with the documented findings, assessment, and plan of care. Objective - Vital Signs Vital signs: Vital Signs Temp 96.2 F L 10/09/19 08:00 Pulse 89 10/09/19 08:00 Resp 16 10/09/19 08:00 BP 146/79 10/09/19 08:00 Pulse Ox 95 10/09/19 08:00 Intake & Output 10/08/19 10/09/19 10/09/19 18:59 06:59 18:59 Output Total 2205 Balance -2205 Output: Urine 2200 Stool 5 Other: Voiding Method Incontinent Diaper Incontinent # Voids 1 # Bowel Movements 0 0 - Labs CBC & Chem 7: 10/09/19 07:43 10/09/19 07:43 Labs: Abnormal Lab Results - Last 24 Hours (Table) 10/08/19 10/09/19 10/09/19 Range/Units 08:50 07:43 07:43 WBC 17.6 H 15.6 H (3.8-10.6) k/uL RBC 2.29 L 2.45 L (4.30-5.90) m/uL Hgb 9.0 L 9.6 L (13.0-17.5) gm/dL Hct 28.4 L 29.8 L (39.0-53.0) % MCV 124.2 H 121.5 H (80.0-100.0) fL MCH 39.2 H 39.0 H (25.0-35.0) pg RDW 16.5 H 18.5 H (11.5-15.5) % Plt Count 110 L 110 L (150-450) k/uL Neutrophils # 14.4 H 12.3 H (1.3-7.7) k/uL Monocytes # 1.4 H 1.1 H (0-1.0) k/uL Eosinophils # 0.9 H (0-0.7) k/uL Macrocytosis Marked A Marked A Sodium 146 H (137-145) mmol/L Potassium 3.3 L (3.5-5.1) mmol/L Chloride 117 H (98-107) mmol/L BUN 49 H (9-20) mg/dL Calcium 11.6 H (8.4-10.2) mg/dL Microbiology - Last 24 Hours (Table) 10/03/19 00:04 Blood Culture - Final Blood No Growth after 144 hours <Khadar Garvey - Last Filed: 10/09/19 16:36> Subjective As above. Family requesting hospice measures which is reasonable. We'll sign off. Please call if needed. Objective - Vital Signs Vital signs: Vital Signs Temp 97.5 F L 10/09/19 14:27 Pulse 92 10/09/19 14:27 Resp 16 10/09/19 14:27 BP 143/78 10/09/19 14:27 Pulse Ox 95 10/09/19 14:27 Intake & Output 10/08/19 10/09/19 10/09/19 18:59 06:59 18:59 Output Total 2205 Balance -2205 Output: Urine 2200 Stool 5 Other: Voiding Method Incontinent Diaper Incontinent # Voids 1 # Bowel Movements 0 0 0 - Labs CBC & Chem 7: 10/09/19 07:43 10/09/19 07:43 Labs: Abnormal Lab Results - Last 24 Hours (Table) 10/09/19 10/09/19 Range/Units 07:43 07:43 WBC 15.6 H (3.8-10.6) k/uL RBC 2.45 L (4.30-5.90) m/uL Hgb 9.6 L (13.0-17.5) gm/dL Hct 29.8 L (39.0-53.0) % MCV 121.5 H (80.0-100.0) fL MCH 39.0 H (25.0-35.0) pg RDW 18.5 H (11.5-15.5) % Plt Count 110 L (150-450) k/uL Neutrophils # 12.3 H (1.3-7.7) k/uL Monocytes # 1.1 H (0-1.0) k/uL Eosinophils # 0.9 H (0-0.7) k/uL Macrocytosis Marked A Sodium 146 H (137-145) mmol/L Potassium 3.3 L (3.5-5.1) mmol/L Chloride 117 H (98-107) mmol/L BUN 49 H (9-20) mg/dL Calcium 11.6 H (8.4-10.2) mg/dL Microbiology - Last 24 Hours (Table) 10/03/19 00:04 Blood Culture - Final Blood No Growth after 144 hours Assessment and Plan (1) Nausea & vomiting Status: Acute Code(s): R11.2 - NAUSEA WITH VOMITING, UNSPECIFIED SNOMED Code(s): 66226231
--- NOTE | 2019-10-09 13:17 | P.DS ---
Providers Date of admission: 10/02/19 12:16 Expected date of discharge: 10/09/19 Attending physician: Bri Turk Consults: 10/02/19 12:17 Consult Physician Routine Consulting Provider: Joe Prince Consult Reason/Comments: hyperammonia, history of liver failure Do you want consulting provider notified?: Yes 10/03/19 13:23 Consult Physician Routine Consulting Provider: Khadar Garvey Consult Reason/Comments: abd distention r/o bowel obstruction Do you want consulting provider notified?: Yes 10/04/19 14:55 Consult Physician Routine Consulting Provider: Rina Bernal Consult Reason/Comments: peritonitis Do you want consulting provider notified?: Yes 10/05/19 13:42 Consult Physician Urgent Consulting Provider: Angela Morfin Consult Reason/Comments: altered mental status, hyperammonemia Do you want consulting provider notified?: Yes Primary care physician: Hermes Kimble Hospital Course: Final diagnosis Change in mental status, acute hepatic encephalopathy, hyperammonemia secondary to cirrhosis of the liver 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 Abdominal distention, possible small bowel obstruction versus ileus Possible spontaneous bacterial peritonitis, sepsis, present on admission Increased WBC Anemia, macrocytic Thrombocytopenia Mild coagulopathy secondary to chronic liver disease Hyponatremia Elevated lactic acid Elevated bilirubin secondary to cirrhosis of the liver elevated lipase, possible mild acute pancreatitis, alcoholic, present on admission History of gastrointestinal bleed hypertension Hyperlipidemia History of esophageal varices and banding history of deviated septum history of degenerative joint disease history of bipolar depression Continued ongoing nicotine dependence History of THC NO code Discharge disposition Patient is being made inpatient hospice with comfort care measures only given patient's clinical condition and family request. History of present illness This is a 54-year-old male who was recently admitted with changes in mental status, acute hepatic encephalopathy and was being closely monitored. Patient was seen and evaluated by multiple medical consultations. Patient's mentation continued to deteriorate and clinical condition deteriorated as well. Patient is going to be made hospice with comfort measures only per family's wishes. Patient continues to be altered, alert and oriented 0, restless and anxious at times. Patient will be made hospice with [facility]. Please refer to previous dictations for further HPI. Patient Condition at Discharge: Poor Plan - Discharge Summary Discharge Rx Participant: No New Discharge Prescriptions: No Action Pantoprazole [Protonix] 40 mg PO BID Furosemide [Lasix] 20 mg PO DAILY Spironolactone [Aldactone] 25 mg PO DAILY Lactulose 20 gm PO DAILY 3 Days #90 ml Dicyclomine [Bentyl] 10 mg PO TID Discharge Medication List Pantoprazole [Protonix] 40 mg PO BID 04/13/18 [History] Furosemide [Lasix] 20 mg PO DAILY 05/12/18 [History] Spironolactone [Aldactone] 25 mg PO DAILY 10/31/18 [History] Lactulose 20 gm PO DAILY 3 Days #90 ml 09/23/19 [Rx] Dicyclomine [Bentyl] 10 mg PO TID 10/02/19 [History] Follow up Appointment(s)/Referral(s): Hermes Kimble MD [Primary Care Provider] - 1-2 days Activity/Diet/Wound Care/Special Instructions: Patient will be made inpatient hospice once documents have been signed by family
[2019-10-09 14:28] VITALS: BP 143/78; PULSE 92; TEMP 97.5
--- NOTE | 2019-10-09 15:22 | PN ---
PROGRESS NOTE DATE OF SERVICE: 10/09/2019 REASON FOR FOLLOWUP: Leukocytosis, possible SBP. INTERVAL HISTORY: The patient is currently afebrile. The patient remains no distress has been noticed by Nursing. No vomiting or any diarrhea reported. The patient is unable to provide any history. PHYSICAL EXAMINATION: Blood pressure 146/90, pulse 89, temperature 96.2. He is 95% on room air. General description is a middle-aged male lying in bed in no distress. RESPIRATORY SYSTEM: Unlabored breathing. Clear to auscultation anteriorly. HEART: S1, S2. Regular rate and rhythm. ABDOMEN: Soft, distended. LABS: Hemoglobin 9.6, white count 15.6, creatinine 0.93. DIAGNOSTIC IMPRESSION AND PLAN: Patient with leukocytosis, multifactorial, with a possible component of spontaneous bacterial peritonitis, currently on . However, the patient has been possible hospice, which may be appropriate for him. Antibiotic discontinued. No need for further followup. MMODL / IJN: [id number] /
--- NOTE | 2019-10-10 10:46 | EEG ---
ELECTROENCEPHALOGRAM REPORT DATE OF THE STUDY: 10/07/2019 REFERRING PHYSICIAN: Dr. Turk. CLINICAL HISTORY: This is a 20 channel EEG with 1 channel EKG recording on a 54-year-old male who presented to [facility] on 10/02/2019 with generalized weakness and fatigue for 3 days. The patient has a history of EtOH abuse with cirrhosis and has manifested altered mental status. This study is being done to rule out epileptiform discharges. FINDINGS: No discernible posterior dominant alpha rhythm was noted throughout the recording. The predominant background consisted of moderate voltage 3-5 hertz activity which is poorly regulated, poorly sustained, symmetric and reactive. Low-voltage faster frequencies were best seen over the frontal central head regions. Drowsiness was manifested by attenuation of the posterior dominant background rhythm and the appearance of symmetric vertex waves. No deeper sleep architecture was seen. The main feature of this recording is the presence of intermittent, bifrontally dominant waveforms with triphasic morphology, consistent with triphasic waves. No epileptiform discharges or electrographic seizures were recorded. SUMMARY: This EEG is abnormal due to the presence of: 1. Slowing and disorganization of the background rhythm. 2. Triphasic waves. INTERPRETATION: The background slowing is a nonspecific sign of bihemispheric neuronal dysfunction as seen in a moderate to severe diffuse encephalopathy. The presence of triphasic waves suggest a metabolic etiology. No epileptiform discharges or electrographic seizures were recorded. MMODL / IJN: [id number] / MTDD
== END 2019-10-09 15:51 | disposition hospice, inpatient (51) | DRG 432 ==
LOC: EC 09:28 → 4SSUR 12:16
PROVIDERS: ADMIT Internal Medicine; ATTEND Internal Medicine
PROC: 0W9G3ZZ Drainage of Peritoneal Cavity, Percutaneous Approach (ICD-10-PCS; principal; 2019-10-02)
DX: K70.40 Alcoholic hepatic failure without coma (principal); K65.2 Spontaneous bacterial peritonitis; K85.20 Alcohol induced acute pancreatitis without necrosis or infection; E87.1 Hypo-osmolality and hyponatremia; E87.2 Acidosis; I85.10 Secondary esophageal varices without bleeding; F31.30 Bipolar disorder, current episode depressed, mild or moderate severity, unspecified; D68.4 Acquired coagulation factor deficiency; K76.6 Portal hypertension; F10.230 Alcohol dependence with withdrawal, uncomplicated; N17.9 Acute kidney failure, unspecified; K56.609 Unspecified intestinal obstruction, unspecified as to partial versus complete obstruction; J98.11 Atelectasis; K70.31 Alcoholic cirrhosis of liver with ascites; Z11.59 Encounter for screening for other viral diseases; Z66 Do not resuscitate; Z51.5 Encounter for palliative care; K70.11 Alcoholic hepatitis with ascites; G25.3 Myoclonus; D69.59 Other secondary thrombocytopenia; I10 Essential (primary) hypertension; E78.5 Hyperlipidemia, unspecified; F41.9 Anxiety disorder, unspecified; F17.210 Nicotine dependence, cigarettes, uncomplicated; D53.9 Nutritional anemia, unspecified; M19.90 Unspecified osteoarthritis, unspecified site; D50.9 Iron deficiency anemia, unspecified; K80.20 Calculus of gallbladder without cholecystitis without obstruction; R32 Unspecified urinary incontinence; Z71.3 Dietary counseling and surveillance; Z79.899 Other long term (current) drug therapy; Z87.19 Personal history of other diseases of the digestive system; Z98.890 Other specified postprocedural states; Z82.49 Family history of ischemic heart disease and other diseases of the circulatory system; Z83.2 Family history of diseases of the blood and blood-forming organs and certain disorders involving the immune mechanism
CPT/HCPCS: 36415; 36600; 49083; 70450; 71111; 74018; 74021; 74176; 76705; 80048; 80053; 80320; 82140; 82150; 82248; 82607; 82746; 82805; 83605; 83690; 83735; 84443; 85025; 85610; 87040; 93005; 95816; 99285

== ENCOUNTER 2019-10-09 14:58 | Inpatient (IN) | payer MEDICAID ==
[2019-10-09] MEDS ORDERED: ACETAMINOPHEN SUPPOSITORY 650 MG SUPP RECTAL PRN (15:08)
[2019-10-09] MEDS ORDERED: ONDANSETRON 4 MG/2 ML VIAL IVP PRN (15:08)
[2019-10-09] MEDS ORDERED: HALOPERIDOL LACTATE 5 MG/ML 1 ML VIAL IM PRN (15:08)
[2019-10-09] MEDS ORDERED: SCOPOLAMINE 1.5MG/72HR PATCH TRANSDERM SCH (15:15)
[2019-10-09] MEDS: HYDROmorphone 0.5 MG/0.5 ML SYRINGE IVP PRN (17:55)
[2019-10-10] MEDS: LORazepam 2 MG/ML INJ IV PRN (06:21)
[2019-10-10] MEDS: HYDROmorphone 0.5 MG/0.5 ML SYRINGE IVP PRN ×3 (09:35→21:46)
--- NOTE | 2019-10-10 23:31 | P.HPIM ---
History of Present Illness H&P Date: 10/10/19 Chief Complaint: Change in mental status, acute hepatic encephalopathy, hype rammonemia tyson Patient is a 54-year-old male with a known history of alcoholic liver cirrhosis, history of GI bleed, hypertension, hyperlipidemia, gastritis and recent admission with shortness of breath, esophageal varices with history of banding, anxiety, bipolar/depression, currently very alcohol use and everyday smoker was admitted to the hospital due to altered mental status with acute hepatic encephalopathy. Patient's condition continued to deteriorate and currently in hospice care and with comfort measures as per family wishes. Currently patient is awake alert oriented x0 and could not provide any history. Patient is restless and anxious at times. Pain is fairly controlled. Currently with continued on morphine and Ativan as needed along with scopolamine patch. Review of Systems ROS could not be obtained. Past Medical History Past Medical History: GI Bleed, Hyperlipidemia, Hypertension, Liver Disease Additional Past Medical History / Comment(s): cirrhosis, recent hospitalization for SOB & ascites, esophageal varices with banding. History of Any Multi-Drug Resistant Organisms: None Reported Past Surgical History: Orthopedic Surgery Additional Past Surgical History / Comment(s): deviated septum, sinus surg, knee, carpel tunnel, EGD, paracentesis Past Anesthesia/Blood Transfusion Reactions: No Reported Reaction Past Psychological History: Anxiety, Bipolar, Depression Smoking Status: Current every day smoker Past Alcohol Use History: Daily, Heavy Additional Past Alcohol Use History / Comment(s): 1.5 ppd since age of 15. 6 pack of beer and two shots per day Past Drug Use History: Marijuana - Past Family History Father Family Medical History: No Reported History Additional Family Medical History / Comment(s): "platelet disorder" Mother Additional Family Medical History / Comment(s): heart failure Medications and Allergies Home Medications Medication Instructions Recorded Confirmed Type Pantoprazole [Protonix] 40 mg PO BID 04/13/18 10/09/19 History Furosemide [Lasix] 20 mg PO DAILY 05/12/18 10/09/19 History Spironolactone [Aldactone] 25 mg PO DAILY 10/31/18 10/09/19 History Lactulose 20 gm PO DAILY 3 Days #90 ml 09/23/19 10/09/19 Rx Dicyclomine [Bentyl] 10 mg PO TID 10/02/19 10/09/19 History Allergies Allergy/AdvReac Type Severity Reaction Status Date / Time No Known Allergies Allergy Verified 10/09/19 16:10 Physical Exam Vitals: Intake and Output 10/10/19 10/10/19 10/10/19 06:59 14:59 22:59 Intake Total 0 Output Total 1300 500 Balance -1300 0 -500 Intake: Oral 0 Output: Urine 1300 500 Gen: This is a 54-year-old male lying in bed, continues to be confused. Sleeping currently HEENT: Head is atraumatic, normocephalic. Pupils equal, round. Sclerae is anicteric. Mucous membranes are dry NECK: Supple. No JVD. No lymphadenopathy. No thyromegaly. LUNGS: Breath sounds diminished at the bases with a few scattered rhonchi and crackles noted. No intercostal retractions. HEART: S1, S2 are muffled ABDOMEN: Distended, soft, no guarding or rigidity noted on exam. Bowel sounds are present. No masses. mild Ascites noted. EXTREMITIES: No pedal edema. No calf tenderness. Poor foot hygiene noted to bilateral lower extremities NEUROLOGICAL: Patient is asleep, alert and oriented x0. Assessment and Plan Assessment: Change in mental status, acute hepatic encephalopathy, hyperammonemia secondary to cirrhosis of the liver 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 Abdominal distention, possible small bowel obstruction versus ileus Possible spontaneous bacterial peritonitis, sepsis, present on admission Increased WBC Anemia, macrocytic Thrombocytopenia Mild coagulopathy secondary to chronic liver disease Hyponatremia Elevated lactic acid Elevated bilirubin secondary to cirrhosis of the liver elevated lipase, possible mild acute pancreatitis, alcoholic, present on admission History of gastrointestinal bleed hypertension Hyperlipidemia History of esophageal varices and banding history of deviated septum history of degenerative joint disease history of bipolar depression Continued ongoing nicotine dependence History of THC NO code Plan: Patient will be continued comfort measures and pain management. Continue current management. Time with Patient: Greater than 30
[2019-10-11] MEDS: HYDROmorphone 0.5 MG/0.5 ML SYRINGE IVP PRN ×5 (04:19→18:06)
[2019-10-11] MEDS: ATROPINE OPHTH SOLN 1% 5ML BTL SUBLINGUAL PRN ×2 (09:50→14:43)
[2019-10-11] MEDS ORDERED: SCOPOLAMINE 1.5MG/72HR PATCH TRANSDERM SCH (15:00)
[2019-10-11] MEDS: LORazepam 2 MG/ML INJ IV PRN (21:38)
--- NOTE | 2019-10-12 00:32 | P.PN ---
Subjective Progress Note Date: 10/11/19 Patient is a 54-year-old male with a known history of alcoholic liver cirrhosis, history of GI bleed, hypertension, hyperlipidemia, gastritis and recent admission with shortness of breath, esophageal varices with history of banding, anxiety, bipolar/depression, currently very alcohol use and everyday smoker was admitted to the hospital due to altered mental status with acute hepatic encephalopathy. Patient's condition continued to deteriorate and currently in hospice care and with comfort measures as per family wishes. Currently patient is awake alert oriented x0 and could not provide any history. Patient is restless and anxious at times. Pain is fairly controlled. Currently with continued on morphine and Ativan as needed along with scopolamine patch. 10/11/2019 Patient is lying in the bed comfortably. Continued on comfort measures. Objective - Vital Signs Vital signs: Intake & Output 10/11/19 10/11/19 10/12/19 06:59 18:59 06:59 Output Total 800 1000 Balance -800 -1000 Output: Urine 800 1000 - Exam Gen: This is a 54-year-old male lying in bed, continues to be confused. Sleeping currently HEENT: Head is atraumatic, normocephalic. Pupils equal, round. Sclerae is anicteric. Mucous membranes are dry NECK: Supple. No JVD. LUNGS: Breath sounds diminished at the bases with a few scattered rhonchi and crackles noted. No intercostal retractions. HEART: S1, S2 are muffled ABDOMEN: Distended, soft, no guarding or rigidity noted on exam. Bowel sounds are present. EXTREMITIES: No pedal edema. Poor foot hygiene noted to bilateral lower extremities NEUROLOGICAL: Patient is asleep, alert and oriented x0. Assessment and Plan Assessment: Change in mental status, acute hepatic encephalopathy, hyperammonemia secondary to cirrhosis of the liver 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 Abdominal distention, possible small bowel obstruction versus ileus Possible spontaneous bacterial peritonitis, sepsis, present on admission Increased WBC Anemia, macrocytic Thrombocytopenia Mild coagulopathy secondary to chronic liver disease Hyponatremia Elevated lactic acid Elevated bilirubin secondary to cirrhosis of the liver elevated lipase, possible mild acute pancreatitis, alcoholic, present on admission History of gastrointestinal bleed hypertension Hyperlipidemia History of esophageal varices and banding history of deviated septum history of degenerative joint disease history of bipolar depression Continued ongoing nicotine dependence History of THC NO code Plan: Patient will be continued comfort measures and pain management. Continue current management. Time with Patient: Greater than 30
[2019-10-12] MEDS: HYDROmorphone 0.5 MG/0.5 ML SYRINGE IVP PRN ×3 (02:07→16:17)
[2019-10-12] MEDS: ATROPINE OPHTH SOLN 1% 5ML BTL SUBLINGUAL PRN (13:10)
[2019-10-12] MEDS: LORazepam 2 MG/ML INJ IV PRN (16:21)
[2019-10-12 19:06] VITALS: PULSE 105
[2019-10-12 23:06] VITALS: RESP 0
--- NOTE | 2019-10-12 23:58 | P.PN ---
Subjective Progress Note Date: 10/12/19 Principal diagnosis: Change in mental status, acute hepatic encephalopathy, hyperammonemia secondary to cirrhosis of the liver Patient is a 54-year-old male with a known history of alcoholic liver cirrhosis, history of GI bleed, hypertension, hyperlipidemia, gastritis and recent admission with shortness of breath, esophageal varices with history of banding, anxiety, bipolar/depression, currently very alcohol use and everyday smoker was admitted to the hospital due to altered mental status with acute hepatic encephalopathy. Patient's condition continued to deteriorate and currently in hospice care and with comfort measures as per family wishes. Currently patient is awake alert oriented x0 and could not provide any history. Patient is restless and anxious at times. Pain is fairly controlled. Currently with continued on morphine and Ativan as needed along with scopolamine patch. 10/11/2019 Patient is lying in the bed comfortably. Continued on comfort measures. 10/12/2019 Patient's condition remained the same. Confusion sleepy. No apparent distress. Currently being continued comfort measures. Objective - Vital Signs Vital signs: Vital Signs Temp Pulse 105 H 10/12/19 19:06 Resp 30 H 10/12/19 19:06 BP Pulse Ox Intake & Output 10/12/19 10/12/19 10/13/19 06:59 18:59 06:59 Intake Total 0 Output Total 0 Balance 0 Intake: Oral 0 Output: Urine 0 Other: # Bowel Movements 0 - Exam Gen: This is a 54-year-old male lying in bed, continues to be confused. Sleeping currently HEENT: Head is atraumatic, normocephalic. Pupils equal, round. Sclerae is anicteric. Mucous membranes are dry NECK: Supple. No JVD. LUNGS: Breath sounds diminished at the bases with a few scattered rhonchi and crackles noted. No intercostal retractions. HEART: S1, S2 are muffled ABDOMEN: Distended, soft, no guarding or rigidity noted on exam. Bowel sounds are present. EXTREMITIES: No pedal edema. Poor foot hygiene noted to bilateral lower extremities NEUROLOGICAL: Patient is asleep, alert and oriented x0. Assessment and Plan Assessment: Change in mental status, acute hepatic encephalopathy, hyperammonemia secondary to cirrhosis of the liver 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 Abdominal distention, possible small bowel obstruction versus ileus Possible spontaneous bacterial peritonitis, sepsis, present on admission Increased WBC Anemia, macrocytic Thrombocytopenia Mild coagulopathy secondary to chronic liver disease Hyponatremia Elevated lactic acid Elevated bilirubin secondary to cirrhosis of the liver elevated lipase, possible mild acute pancreatitis, alcoholic, present on admission History of gastrointestinal bleed hypertension Hyperlipidemia History of esophageal varices and banding history of deviated septum history of degenerative joint disease history of bipolar depression Continued ongoing nicotine dependence History of THC NO code Plan: Patient will be continued comfort measures and pain management. Continue current management. Time with Patient: Greater than 30
--- NOTE | 2019-10-19 09:20 | P.DS ---
Providers Date of admission: 10/09/19 15:52 Expected date of discharge: 10/12/19 Attending physician: Bri Turk Primary care physician: Stated None Hospital Course: Final diagnosis Change in mental status, acute hepatic encephalopathy, hyperammonemia secondary to cirrhosis of the liver 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 Abdominal distention, possible small bowel obstruction versus ileus Possible spontaneous bacterial peritonitis, sepsis, present on admission Increased WBC Anemia, macrocytic Thrombocytopenia Mild coagulopathy secondary to chronic liver disease Hyponatremia Elevated lactic acid Elevated bilirubin secondary to cirrhosis of the liver elevated lipase, possible mild acute pancreatitis, alcoholic, present on admission History of gastrointestinal bleed hypertension Hyperlipidemia History of esophageal varices and banding history of deviated septum history of degenerative joint disease history of bipolar depression Continued ongoing nicotine dependence History of THC NO code Discharge disposition Patient has . Please refer to nursing notes for time of Plan - Discharge Summary New Discharge Prescriptions: No Action Pantoprazole [Protonix] 40 mg PO BID Furosemide [Lasix] 20 mg PO DAILY Spironolactone [Aldactone] 25 mg PO DAILY Lactulose 20 gm PO DAILY 3 Days #90 ml Dicyclomine [Bentyl] 10 mg PO TID Discharge Medication List Pantoprazole [Protonix] 40 mg PO BID 04/13/18 [History] Furosemide [Lasix] 20 mg PO DAILY 05/12/18 [History] Spironolactone [Aldactone] 25 mg PO DAILY 10/31/18 [History] Lactulose 20 gm PO DAILY 3 Days #90 ml 09/23/19 [Rx] Dicyclomine [Bentyl] 10 mg PO TID 10/02/19 [History] Activity/Diet/Wound Care/Special Instructions: Patient has please refer to previous dictations for further HPI and nursing notes for time of on 10/12/2019 Discharge Disposition: - Preliminary Cause of Preliminary Cause of : 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, hep encephalopathy
== END 2019-10-12 22:30 | disposition expired | DRG 951 ==
LOC: 4SSUR 15:52
PROVIDERS: ADMIT Internal Medicine; ATTEND Internal Medicine
DX: Z51.5 Encounter for palliative care (principal); D68.4 Acquired coagulation factor deficiency; E87.1 Hypo-osmolality and hyponatremia; F31.30 Bipolar disorder, current episode depressed, mild or moderate severity, unspecified; E87.2 Acidosis; K56.609 Unspecified intestinal obstruction, unspecified as to partial versus complete obstruction; D53.9 Nutritional anemia, unspecified; D69.59 Other secondary thrombocytopenia; Z66 Do not resuscitate; E78.5 Hyperlipidemia, unspecified; K29.70 Gastritis, unspecified, without bleeding; F17.210 Nicotine dependence, cigarettes, uncomplicated; F41.9 Anxiety disorder, unspecified; I10 Essential (primary) hypertension; K70.10 Alcoholic hepatitis without ascites; K70.30 Alcoholic cirrhosis of liver without ascites; K70.40 Alcoholic hepatic failure without coma; Z79.899 Other long term (current) drug therapy; Z82.49 Family history of ischemic heart disease and other diseases of the circulatory system; Z87.19 Personal history of other diseases of the digestive system